=== PATIENT | female | born 1965 | race Caucasian/White ===

== ENCOUNTER → 2018-01-15 11:32 | Outpatient (CLI) | payer OTHER, MEDICAID, SELFPAY ==
--- NOTE | 2018-01-15 | DI.MRI.S_ITS ---
PROCEDURE: MR CERVICAL SPINE WO CON INDICATIONS: CHRONIC NECK PAIN TECHNIQUE: Noncontrast sagittal T1 spin echo and T2 fast spin echo, sagittal STIR, foraminal oblique sagittal T2 fast spin echo, and axial gradient echo or T2 fast spin echo through the cervical spine. COMPARISON: Outside Facility, RG, XR C-SPINE 4-6V, 07/20/2017, 15:58. FINDINGS: Image quality: Diagnostic, with note made of motion artifact. Alignment and Curvature: There is normal bony alignment. Bone Marrow: Marrow demonstrates normal overall signal. Spinal Cord: Visualized spinal cord has normal size and signal. No cerebellar tonsillar herniation. Paraspinous Soft Tissues: No paravertebral masses. Prevertebral soft tissues are normal in thickness. C2-C3: Normal appearance. C3-C4: No significant abnormality is seen. C4-C5: Vertebral body fusion is seen at this level. No significant neural foraminal or central canal narrowing can be seen. C5-C6: Minimal to mild loss of disc height is seen. Moderate disc osteophyte complex is seen, with a central/right disc osteophyte protrusion seen. Mild facet joint hypertrophy is seen. There is moderate to severe left-sided and mild to moderate right-sided neural foraminal narrowing seen. Moderate central canal narrowing is seen, with associated mass effect upon the ventral spinal cord. C6-C7: Moderate loss of disc height is seen. Loss of disc signal is seen. Moderate disc osteophyte complex is seen, which is eccentric to the right. There is a central/right disc osteophyte protrusion seen. There is moderate to severe bilateral neural foraminal narrowing seen. Moderate to severe central canal narrowing is seen, with associated mass effect upon the ventral spinal cord. C7-T1: The disc height and disk signal are well-preserved. Mild to moderate disc osteophyte complex is seen. Mild facet joint hypertrophy is seen. Moderate bilateral neural foraminal narrowing is seen. Mild central canal narrowing is seen. IMPRESSION: Vertebral body fusion changes at C4-C5. Lower cervical spine degenerative changes are seen, which are most prominent at the C6-C7 level. Dictated by: Terrance Calderon M.D. on 01/15/2018 at 11:59 Approved by: Terrance Calderon M.D. on 01/15/2018 at 12:04
== END ==
PROVIDERS: Family Provider Physical Medicine & Rehabilitation; Visit Provider Nurse Practitioner Family
DX: M54.2 Cervicalgia (principal); G89.29 Other chronic pain; Z98.1 Arthrodesis status; M47.812 Spondylosis without myelopathy or radiculopathy, cervical region
CPT/HCPCS: 72141

== ENCOUNTER → 2018-01-24 12:41 | Outpatient (CLI) | payer OTHER, MEDICAID, SELFPAY ==
--- NOTE | 2018-01-24 12:42 | DI.MRI.S_ITS ---
PROCEDURE: MR LUMBAR SPINE WO CON INDICATIONS: Evaluation lower back pains TECHNIQUE: Noncontrast sagittal T1 spin echo and T2 fast echo, sagittal STIR, axial T1 and T2 fast spin echo through the lumbar spine. In cases with scoliosis, additional coronal T2 fast spin echo may be performed. COMPARISON: None. FINDINGS: Image quality: Excellent. Alignment and Curvature: There is normal bony alignment. Bone Marrow: Marrow is of normal overall signal. No acute vertebral body compression fractures. Spinal Cord: Conus medullaris terminates at the T12 level. Visualized cord demonstrates normal signal and size. Paraspinous Soft Tissues: No paravertebral masses. L1-L2: Normal appearance. L2-L3: Normal appearance. L3-L4: Mild disc desiccation. Broad-based disc bulge. Mild facet and ligamentum flavum hypertrophy. No canal stenosis. No foraminal stenosis. L4-L5: Mild disc desiccation. Mild disc bulge. Mild facet and ligamentum flavum hypertrophy. No canal stenosis. Mild bilateral neuroforaminal stenosis. L5-S1: Mild disc desiccation. Broad-based disc bulge. Mild facet sclerosis. No canal stenosis. Moderate bilateral foraminal stenosis. IMPRESSION: 1. No canal stenosis of the lumbar spine. 2. Moderate bilateral foraminal narrowing L5-S1. Dictated by: Dena Navarro M.D. on 01/24/2018 at 14:58 Approved by: Dena Navarro M.D. on 01/24/2018 at 15:01
== END ==
PROVIDERS: Family Provider Physical Medicine & Rehabilitation; PCP Nurse Practitioner Family; Visit Provider Physical Medicine & Rehabilitation
DX: M54.5 Low back pain (principal); M48.07 Spinal stenosis, lumbosacral region; M54.17 Radiculopathy, lumbosacral region
CPT/HCPCS: 72148

== ENCOUNTER 2018-03-12 10:15 | Outpatient (RCR) | payer OTHER, MEDICAID, SELFPAY ==
--- NOTE | 2017-12-14 10:36 | PT.OIE ---
Current Diagnoses Other chronic pain (12/14/17) Low back pain (12/14/17) Past Medical History (Last Updated 09/19/17 @ 11:52 by Maddie Peña) ADHD (attention deficit hyperactivity disorder) (Chronic) Anxiety (Chronic) Fibromyalgia (Chronic) PTSD (post-traumatic stress disorder) (Chronic) Panic (Chronic) Provider Visit Care Team Role Provider Type Anahi Hickey MD Primary Care Provider Non-Staff Specialty: Medical Address: [address] [place] [address], [phone] Email: AVERY Key Attending Provider Non-Staff Specialty: Medical Address: [address] [place] [address], [phone] Email: Physical Therapy Initial Evaluation PT-OP-A Visit Information Start: 12/14/17 08:12 Freq: Status: Active Protocol: Document 12/14/17 08:13 SAK (Rec: 12/14/17 08:28 [facility] [id number]) Out-Patient Physical Therapy Visit Information Visit Information Visit Type Initial Evaluation Visit Start Time 08:15 Visit Stop Time 09:10 Total Visit Minutes 55 Visit Number 1 Number of CHILD NEUROLOGIST Visits 0 Evaluation Information Evaluation Date 12/14/17 PT-OP-B Current Condition Start: 12/14/17 08:12 Freq: Status: Active Protocol: Document 12/14/17 08:13 SAK (Rec: 12/14/17 08:28 SAK [id number]) Current Condition History of Current Condition Onset Date 1997 Current Complaints function limiting LBP with radicular symptoms right LE History of Current Condition History C45 discectomy herniated disc cervical spine. Has done heavy physical work , has PTSD, started getting neck and right UE symptoms again about 2 years ago. Then started getting symptoms in right knee; giving way and swelling, sciatica. Has had injections and fluid removal right knee. 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 Did PT for neck. CT done [facility]. Awaiting MRI. Now referred for function-limiting LBP; difficulty getting dressed, doing household activities. Sometimes unable to get out of bed. No prior PT for LBP. Prior Treatments and Tests history fibromyalgia. Doing therapy for PTSD. Future Testing and Treatments Planned MRI for cervical spine. Treatment Goals Patient/Caregiver Goals Decrease pain, return to more active lifestyle. Prior Functional Status Baseline Function- ADL's Independent Baseline Function- Mobility Independent Baseline Function- Gait Independent Baseline Function- Work/School No limitations Baseline Function- Recreation/Hobbies No limitations Current Functional Impairments (Reported) Functional Limitations- ADL's moderately to severely limited Functional Limitations- Mobility/Gait moderately to severely limited Functional Limitations- Work/School UNABLE Functional Limitations- Recreation/ UNABLE Hobbies Personal Factors Other Personal Factors That May Effect PTSD Therapy/Recovery Depression PT-OP-C Subjective Start: 12/14/17 08:12 Freq: Status: Active Protocol: Document 12/14/17 08:13 SAK (Rec: 12/14/17 10:27 [facility] [id number]) Patient Questionnaires Oswestry Low Back Index Oswestry Score 70 Oswestry Impairment 60 to 79% Impaired (Score 60- 79) OP-PT Pain Assessment Pain Assessment Grid Paper Pain Assessment Grid Completed Yes Location LBP; central and right-sided Pain Location Details radicular symptoms into right LE Intensity 9 Scale Used Numeric (1 - 10) Description Aching Chronic Pressure Pulling Radiating Spasm Tender Tightness With Movement Frequency Frequent Pain Aggravating Factors Activity Pain Alleviating Factors None Pain Behaviors Pain Behaviors Facial Grimacing Guarding Restlessness Wincing PT-OP-F Manual Assessment Start: 12/14/17 08:12 Freq: Status: Active Protocol: Document 12/14/17 08:13 SAK (Rec: 12/14/17 10:27 [facility] [id number]) Manual Assessments Soft Tissue Assessment Soft Tissue Mobility Assessment decreased soft tissue mobility bilateral lumbar spine and buttocks PT-OP-H Neuro Start: 12/14/17 08:12 Freq: Status: Active Protocol: Document 12/14/17 08:13 SAK (Rec: 12/14/17 10:27 [facility] [id number]) Sensation Evaluation Gross Sensation Gross Sensation Right LE Impaired Sensation Description Paresthesia Pain Deep Tendon Reflex & Clonus Assessment Deep Tendon Reflex Right Deep Tendon Reflex 0 Absent Left Achilles Deep Tendon Reflex 1+ Diminished Right Patellar Deep Tendon Reflex 0 Absent Left Patellar Deep Tendon Reflex 2+ Normal PT-OP-J Posture/Palpation/Skin Start: 12/14/17 08:12 Freq: Status: Active Protocol: Document 12/14/17 08:13 SAK (Rec: 12/14/17 10:27 [facility] [id number]) Posture Evaluation Position Standing Head/C-Spine Posture Forward Head T-Spine Posture Increased Kyphosis L-Spine Posture Increased Lordosis Palpation Assessment Location lumbar spine Palpation Location right Palpation Findings Soft Tissue Tightness Muscle Guarding Tenderness PT-OP-K Range of Motion Start: 12/14/17 08:12 Freq: Status: Active Protocol: Document 12/14/17 08:13 BOB (Rec: 12/14/17 10:27 [facility] [id number]) Lumbar Spine Range of Motion Lumbar Spine Active Testing Position Standing Flexion 30 Extension 20 Rotation Left 30 Rotation Right 35 Lateral Flexion Left 25 Lateral Flexion Right 25 ROM Limitations Soft Tissue Tightness Pain Hip Goniometric Range of Motion Hip Measured in Degrees Right Hip ROM WFL No Testing Position Supine Flexion w/Knee Flexed 120 Straight Leg Raise 65 Extension 10 Internal Rotation 20 External Rotation 45 Left Hip ROM WFL No Testing Position Supine Flexion w/Knee Flexed 120 Straight Leg Raise 60 Extension 10 Internal Rotation 20 External Rotation 45 Knee Goniometric Range of Motion Knee Measured in Degrees Right Knee ROM WFL Yes Patient Position Sitting Left Knee ROM WFL Yes Patient Position Sitting Ankle and Foot Goniometric Range of Motion Ankle and Foot Measured in Degrees Right Ankle/Foot ROM WFL Yes Testing Position Sitting Left Ankle/Foot ROM WFL Yes Testing Position Sitting PT-OP-M Strength Start: 12/14/17 08:12 Freq: Status: Active Protocol: Document 12/14/17 08:13 BOB (Rec: 12/14/17 10:27 [facility] [id number]) Hip Strength Hip Manual Muscle Testing Right Flexion (L2) 4 Good Extension (S1) 4 Good Abduction 4- Good- External Rotation 4- Good- Internal Rotation 4 Good Reason Not Measured Pain Left Flexion (L2) 4 Good Extension (S1) 4 Good Abduction 4- Good- External Rotation 4- Good- Internal Rotation 4+ Good+ Knee Strength Knee Manual Muscle Testing Right Flexion (S2) 4- Good- Extension (L3) 4- Good- Left Flexion (S2) 4- Good- Extension (L3) 4 Good Ankle/Foot Strength Ankle and Foot Manual Muscle Testing Right Dorsiflexion (L4) 4+ Good+ Plantarflexion (S1) 4+ Good+ Left Dorsiflexion (L4) 4+ Good+ Plantarflexion (S1) 4+ Good+ Toe Strength Toe Manual Muscle Testing Great Toe Flexion 4+ Good+ Extension 4+ Good+ Comments reji PT-OP-Q Treatments Start: 12/14/17 08:12 Freq: Status: Active Protocol: Document 12/14/17 08:13 [facility] (Rec: 12/14/17 10:27 [facility] [id number]) Self-Care/Home Management Treatment Education Patient Education Home Exercise Program Other Education TrA activation in all positions, pillow squeeze with TrA, gentle ROM and strengthening, bed positioning PT-OP-R Modalities Start: 12/14/17 08:12 Freq: Status: Active Protocol: Document 12/14/17 08:13 [facility] (Rec: 12/14/17 10:27 [facility] [id number]) Hot Pack/Cold Pack Treatment Hot Pack Location lumbar spine Patient Position Hooklying Treatment Duration (minutes) 15 Patient Tolerance Good PT-OP-T Assessment and Plan Start: 12/14/17 08:12 Freq: Status: Active Protocol: Document 12/14/17 08:13 [facility] (Rec: 12/14/17 08:33 [facility] [id number]) Physical Therapy Assessment Rehab Potential Rehabilitation Potential Good Evaluation Complexity Number of Personal Factors/Comorbidities 3 or More Number of Body Systems Impaired 4 or More Clinical Presentation at Evaluation Evolving Impairments Impairments Activity Tolerance Functional Mobility Pain Posture ROM Strength Other Concerns Barriers to Rehabilitation chronicity Goals 5 Impairment strength Short Term Goal (STG) Improve TrA activation and LE strength by 1/2 grade STG Duration 6 wks Engraver Automatic Goal (LTG) Independent with HEP and aquatic exercise program for long-term pain management and fitness. LTG Duration 3 months 4 Impairment ROM Engraver Automatic Goal (LTG) Improve LE and trunk ROM to WFL with minimal to no pain LTG Duration 3 months 3 Impairment Oswestery disability index score Short Term Goal (STG) Decrease Oswestry score to 50% STG Duration 6 wks Engraver Automatic Goal (LTG) Decrease Oswestry score to 30% LTG Duration 3 months 2 Impairment activity tolerance Snf Goal (LTG) Improve activity tolerance to allow patient to perform light household tasks with minimal to no pain and return to more active lifestyle. LTG Duration 3 months One Impairment pain Short Term Goal (STG) Decrease pain no no greater than 7/10 STG Duration 6 wks Snf Goal (LTG) Decrease pain to no greater than 3/10 LTG Duration 3 months Assessment Summary Assessment Patient presents with function -limiting pain in lumbar spine with radicular symptoms right LE with significant findings by imaging. Has history of chronic pain including diagnosis of fibromyalgia. Feel she would benefit from aquatic PT for unweighting of joints to allow increased mobility with decreased pain. Will also need to gently progress her back to doing HEP and help her problem-solve where she might be able to afford to do aquatic exercise once she is discharged from physical therapy. Physical Therapy Plan Frequency and Duration Frequency of Treatment 8 visits Duration of Treatment 3 months Plan of Care Start Date 12/14/17 Plan of Care End Date 03/16/18 Therapeutic Interventions Therapeutic Interventions Aquatic Therapy Home Exercise Program Self-Care/Home Management Modalities Hot Packs Next Visit Focus/Plan Next Note Type Treatment Note Next Visit Plan Initiate aquatic therapy
--- NOTE | 2017-12-14 10:36 | PT.OPPOC ---
Current Diagnoses Other chronic pain (12/14/17) Low back pain (12/14/17) Provider Visit Care Team Role Provider Type Anahi Hickey MD Primary Care Provider Non-Staff Specialty: Medical Address: [address] [place] [address], [phone] Email: AVERY Key Attending Provider Non-Staff Specialty: Medical Address: [address] [place] [address], [phone] Email: Plan Of Care PT-OP-T Assessment and Plan Start: 12/14/17 08:12 Freq: Status: Active Protocol: Document 12/14/17 08:13 BOB (Rec: 12/14/17 08:33 SAK [id number]) Physical Therapy Assessment Rehab Potential Rehabilitation Potential Good Evaluation Complexity Number of Personal Factors/Comorbidities 3 or More Number of Body Systems Impaired 4 or More Clinical Presentation at Evaluation Evolving Impairments Impairments Activity Tolerance Functional Mobility Pain Posture ROM Strength Other Concerns Barriers to Rehabilitation chronicity Goals 5 Impairment strength Short Term Goal (STG) Improve TrA activation and LE strength by 1/2 grade STG Duration 6 wks Case Assembler Goal (LTG) Independent with HEP and aquatic exercise program for long-term pain management and fitness. LTG Duration 3 months 4 Impairment ROM Case Assembler Goal (LTG) Improve LE and trunk ROM to WFL with minimal to no pain LTG Duration 3 months 3 Impairment Oswestery disability index score Short Term Goal (STG) Decrease Oswestry score to 50% STG Duration 6 wks Senior Care Goal (LTG) Decrease Oswestry score to 30% LTG Duration 3 months 2 Impairment activity tolerance Senior Care Goal (LTG) Improve activity tolerance to allow patient to perform light household tasks with minimal to no pain and return to more active lifestyle. LTG Duration 3 months One Impairment pain Short Term Goal (STG) Decrease pain no no greater than 7/10 STG Duration 6 wks Case Assembler Goal (LTG) Decrease pain to no greater than 3/10 LTG Duration 3 months Assessment Summary Assessment Patient presents with function -limiting pain in lumbar spine with radicular symptoms right LE with significant findings by imaging. Has history of chronic pain including diagnosis of fibromyalgia. Feel she would benefit from aquatic PT for unweighting of joints to allow increased mobility with decreased pain. Will also need to gently progress her back to doing HEP and help her problem-solve where she might be able to afford to do aquatic exercise once she is discharged from physical therapy. Physical Therapy Plan Frequency and Duration Frequency of Treatment 8 visits Duration of Treatment 3 months Plan of Care Start Date 12/14/17 Plan of Care End Date 03/16/18 Therapeutic Interventions Therapeutic Interventions Aquatic Therapy Home Exercise Program Self-Care/Home Management Modalities Hot Packs Next Visit Focus/Plan Next Note Type Treatment Note Next Visit Plan Initiate aquatic therapy Plan of Care Dates Plan of Care Start Date 12/14/17 Plan of Care End Date 03/16/18 Please Sign and Return: I have reviewed this Plan of Care and certify that the skilled therapy services above are required to meet the patient?s needs. Physician Signature Date Printed Name and Credentials Clinical Instructor Signature Printed Name and Credentials
--- NOTE | 2017-12-19 18:52 | PT.OTN ---
Current Diagnoses Other chronic pain (12/18/17) Low back pain (12/18/17) Physical Therapy Treatment Note PT-OP-A Visit Information Start: 12/14/17 08:12 Freq: Status: Active Protocol: Document 12/19/17 18:44 SAK (Rec: 12/19/17 18:51 [facility] [id number]) Out-Patient Physical Therapy Visit Information Visit Information Visit Type Aquatic Treatment Note Visit Start Time 11:00 Visit Stop Time 11:45 Total Visit Minutes 45 Visit Number 2 Number of MANAGER HEART Visits 0 Evaluation Information Evaluation Date 12/14/17 PT-OP-B Current Condition Start: 12/14/17 08:12 Freq: Status: Active Protocol: Document 12/14/17 08:13 SAK (Rec: 12/14/17 08:28 SAK [id number]) Current Condition History of Current Condition Onset Date 1997 Current Complaints function limiting LBP with radicular symptoms right LE History of Current Condition History C45 discectomy herniated disc cervical spine. Has done heavy physical work , has PTSD, started getting neck and right UE symptoms again about 2 years ago. Then started getting symptoms in right knee; giving way and swelling, sciatica. Has had injections and fluid removal right knee. 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 Did PT for neck. CT done [facility]. Awaiting MRI. Now referred for function-limiting LBP; difficulty getting dressed, doing household activities. Sometimes unable to get out of bed. No prior PT for LBP. Prior Treatments and Tests history fibromyalgia. Doing therapy for PTSD. Future Testing and Treatments Planned MRI for cervical spine. Treatment Goals Patient/Caregiver Goals Decrease pain, return to more active lifestyle. Prior Functional Status Baseline Function- ADL's Independent Baseline Function- Mobility Independent Baseline Function- Gait Independent Baseline Function- Work/School No limitations Baseline Function- Recreation/Hobbies No limitations Current Functional Impairments (Reported) Functional Limitations- ADL's moderately to severely limited Functional Limitations- Mobility/Gait moderately to severely limited Functional Limitations- Work/School UNABLE Functional Limitations- Recreation/ UNABLE Hobbies Personal Factors Other Personal Factors That May Effect PTSD Therapy/Recovery Depression PT-OP-C Subjective Start: 12/14/17 08:12 Freq: Status: Active Protocol: Document 12/19/17 18:44 [facility] (Rec: 12/19/17 18:51 [facility] [id number]) OP-PT Subjective Patient Comments Patient Comments Excited to try aquatic therapy PT-OP-F Manual Assessment Start: 12/14/17 08:12 Freq: Status: Active Protocol: Document 12/14/17 08:13 SAK (Rec: 12/14/17 10:27 SAK [id number]) Manual Assessments Soft Tissue Assessment Soft Tissue Mobility Assessment decreased soft tissue mobility bilateral lumbar spine and buttocks PT-OP-H Neuro Start: 12/14/17 08:12 Freq: Status: Active Protocol: Document 12/14/17 08:13 SAK (Rec: 12/14/17 10:27 SAK [id number]) Sensation Evaluation Gross Sensation Gross Sensation Right LE Impaired Sensation Description Paresthesia Pain Deep Tendon Reflex & Clonus Assessment Deep Tendon Reflex Right Deep Tendon Reflex 0 Absent Left Achilles Deep Tendon Reflex 1+ Diminished Right Patellar Deep Tendon Reflex 0 Absent Left Patellar Deep Tendon Reflex 2+ Normal PT-OP-J Posture/Palpation/Skin Start: 12/14/17 08:12 Freq: Status: Active Protocol: Document 12/14/17 08:13 SAK (Rec: 12/14/17 10:27 [facility] [id number]) Posture Evaluation Position Standing Head/C-Spine Posture Forward Head T-Spine Posture Increased Kyphosis L-Spine Posture Increased Lordosis Palpation Assessment Location lumbar spine Palpation Location right Palpation Findings Soft Tissue Tightness Muscle Guarding Tenderness PT-OP-K Range of Motion Start: 12/14/17 08:12 Freq: Status: Active Protocol: Document 12/14/17 08:13 SAK (Rec: 12/14/17 10:27 [facility] [id number]) Lumbar Spine Range of Motion Lumbar Spine Active Testing Position Standing Flexion 30 Extension 20 Rotation Left 30 Rotation Right 35 Lateral Flexion Left 25 Lateral Flexion Right 25 ROM Limitations Soft Tissue Tightness Pain Hip Goniometric Range of Motion Hip Measured in Degrees Right Hip ROM WFL No Testing Position Supine Flexion w/Knee Flexed 120 Straight Leg Raise 65 Extension 10 Internal Rotation 20 External Rotation 45 Left Hip ROM WFL No Testing Position Supine Flexion w/Knee Flexed 120 Straight Leg Raise 60 Extension 10 Internal Rotation 20 External Rotation 45 Knee Goniometric Range of Motion Knee Measured in Degrees Right Knee ROM WFL Yes Patient Position Sitting Left Knee ROM WFL Yes Patient Position Sitting Ankle and Foot Goniometric Range of Motion Ankle and Foot Measured in Degrees Right Ankle/Foot ROM WFL Yes Testing Position Sitting Left Ankle/Foot ROM WFL Yes Testing Position Sitting PT-OP-M Strength Start: 12/14/17 08:12 Freq: Status: Active Protocol: Document 12/14/17 08:13 [facility] (Rec: 12/14/17 10:27 [facility] [id number]) Hip Strength Hip Manual Muscle Testing Right Flexion (L2) 4 Good Extension (S1) 4 Good Abduction 4- Good- External Rotation 4- Good- Internal Rotation 4 Good Reason Not Measured Pain Left Flexion (L2) 4 Good Extension (S1) 4 Good Abduction 4- Good- External Rotation 4- Good- Internal Rotation 4+ Good+ Knee Strength Knee Manual Muscle Testing Right Flexion (S2) 4- Good- Extension (L3) 4- Good- Left Flexion (S2) 4- Good- Extension (L3) 4 Good Ankle/Foot Strength Ankle and Foot Manual Muscle Testing Right Dorsiflexion (L4) 4+ Good+ Plantarflexion (S1) 4+ Good+ Left Dorsiflexion (L4) 4+ Good+ Plantarflexion (S1) 4+ Good+ Toe Strength Toe Manual Muscle Testing Great Toe Flexion 4+ Good+ Extension 4+ Good+ Comments reji PT-OP-Q Treatments Start: 12/14/17 08:12 Freq: Status: Active Protocol: Document 12/14/17 08:13 [facility] (Rec: 12/14/17 10:27 [facility] [id number]) Self-Care/Home Management Treatment Education Patient Education Home Exercise Program Other Education TrA activation in all positions, pillow squeeze with TrA, gentle ROM and strengthening, bed positioning PT-OP-R Modalities Start: 12/14/17 08:12 Freq: Status: Active Protocol: Document 12/14/17 08:13 [facility] (Rec: 12/14/17 10:27 [facility] [id number]) Hot Pack/Cold Pack Treatment Hot Pack Location lumbar spine Patient Position Hooklying Treatment Duration (minutes) 15 Patient Tolerance Good PT-OP-S Aquatic Treatment Start: 12/14/17 08:12 Freq: Status: Active Protocol: Document 12/19/17 18:44 [facility] (Rec: 12/19/17 18:51 [facility] [id number]) Aquatics Treatment Pool Entry/Exit Pool Entry/Exit Method Stairs Assistance Standby Assistance Verbal Cues Water Walking fwd,bck, Water Level Chest Level Level of Assistance Verbal Cues Comments cues for posture, core stabilization Lower Extremity Exercises hip flex/ext, ab/ad, circles (cw,ccw) Body Position Standing Water Level Chest Level Reps/Duration 10x ea Lower Extremity Stretches DKTC, SKTC Body Position Standing Water Level [place] Comments at wall HS Body Position Standing Water Level Chest Level Equipment Small Noodle Reps/Duration 2x Spinal Exercises wall squat DLS Details with reji and unil hor ab/ad, flex/ext Reps/Duration 10x ea [place] Activities [place] Activities Bicycle [place] Hip Abduction/Adduction Other Activities deep water hang at wall Equipment flotation belt XL Duration 20 min PT-OP-T Assessment and Plan Start: 12/14/17 08:12 Freq: Status: Active Protocol: Document 12/19/17 18:44 BOB (Rec: 12/19/17 18:51 [facility] [id number]) Physical Therapy Assessment Goals 5 Impairment strength Short Term Goal (STG) Improve TrA activation and LE strength by 1/2 grade STG Duration 6 wks Water Proofer Goal (LTG) Independent with HEP and aquatic exercise program for long-term pain management and fitness. LTG Duration 3 months 4 Impairment ROM Mcfp Goal (LTG) Improve LE and trunk ROM to WFL with minimal to no pain LTG Duration 3 months 3 Impairment Oswestery disability index score Short Term Goal (STG) Decrease Oswestry score to 50% STG Duration 6 wks Mcfp Goal (LTG) Decrease Oswestry score to 30% LTG Duration 3 months 2 Impairment activity tolerance Water Proofer Goal (LTG) Improve activity tolerance to allow patient to perform light household tasks with minimal to no pain and return to more active lifestyle. LTG Duration 3 months One Impairment pain Short Term Goal (STG) Decrease pain no no greater than 7/10 STG Duration 6 wks Water Proofer Goal (LTG) Decrease pain to no greater than 3/10 LTG Duration 3 months Assessment Summary Assessment Good tolerance for first aquatic therapy session. Required frequent cues for postural alignment and core stabilization Physical Therapy Plan Frequency and Duration Frequency of Treatment 8 visits Duration of Treatment 3 months Plan of Care Start Date 12/14/17 Plan of Care End Date 03/16/18 Therapeutic Interventions Therapeutic Interventions Aquatic Therapy Home Exercise Program Self-Care/Home Management Modalities Hot Packs Next Visit Focus/Plan Next Note Type Treatment Note Next Visit Plan Rhythmic stabilization at beginning of session, facilitation of TA. Add ITband and hip adductor stretch
--- NOTE | 2018-01-01 15:08 | PT.OTN ---
Current Diagnoses Other chronic pain (12/18/17) Low back pain (12/18/17) Physical Therapy Treatment Note PT-OP-A Visit Information Start: 12/14/17 08:12 Freq: Status: Active Protocol: Document 01/01/18 12:49 LJ (Rec: 01/01/18 15:08 LJ [id number]) Out-Patient Physical Therapy Visit Information Visit Information Visit Type Aquatic Treatment Note Visit Start Time 12:49 Visit Stop Time 13:30 Total Visit Minutes 41 Visit Number 3 Number of CHEF GERMAN Visits 1 PT-OP-B Current Condition Start: 12/14/17 08:12 Freq: Status: Active Protocol: Document 12/14/17 08:13 SAK (Rec: 12/14/17 08:28 SAK [id number]) Current Condition History of Current Condition Onset Date 1997 Current Complaints function limiting LBP with radicular symptoms right LE History of Current Condition History C45 discectomy herniated disc cervical spine. Has done heavy physical work , has PTSD, started getting neck and right UE symptoms again about 2 years ago. Then started getting symptoms in right knee; giving way and swelling, sciatica. Has had injections and fluid removal right knee. 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 Did PT for neck. CT done [facility]. Awaiting MRI. Now referred for function-limiting LBP; difficulty getting dressed, doing household activities. Sometimes unable to get out of bed. No prior PT for LBP. Prior Treatments and Tests history fibromyalgia. Doing therapy for PTSD. Future Testing and Treatments Planned MRI for cervical spine. Treatment Goals Patient/Caregiver Goals Decrease pain, return to more active lifestyle. Prior Functional Status Baseline Function- ADL's Independent Baseline Function- Mobility Independent Baseline Function- Gait Independent Baseline Function- Work/School No limitations Baseline Function- Recreation/Hobbies No limitations Current Functional Impairments (Reported) Functional Limitations- ADL's moderately to severely limited Functional Limitations- Mobility/Gait moderately to severely limited Functional Limitations- Work/School UNABLE Functional Limitations- Recreation/ UNABLE Hobbies Personal Factors Other Personal Factors That May Effect PTSD Therapy/Recovery Depression PT-OP-C Subjective Start: 12/14/17 08:12 Freq: Status: Active Protocol: Document 01/01/18 12:49 LUCERO (Rec: 01/01/18 15:08 LJ [id number]) OP-PT Subjective Patient Comments Patient Comments Pt arrived late d/t y schedule. PT-OP-F Manual Assessment Start: 12/14/17 08:12 Freq: Status: Active Protocol: Document 12/14/17 08:13 SAK (Rec: 12/14/17 10:27 SAK [id number]) Manual Assessments Soft Tissue Assessment Soft Tissue Mobility Assessment decreased soft tissue mobility bilateral lumbar spine and buttocks PT-OP-H Neuro Start: 12/14/17 08:12 Freq: Status: Active Protocol: Document 12/14/17 08:13 SAK (Rec: 12/14/17 10:27 SAK [id number]) Sensation Evaluation Gross Sensation Gross Sensation Right LE Impaired Sensation Description Paresthesia Pain Deep Tendon Reflex & Clonus Assessment Deep Tendon Reflex Right Deep Tendon Reflex 0 Absent Left Achilles Deep Tendon Reflex 1+ Diminished Right Patellar Deep Tendon Reflex 0 Absent Left Patellar Deep Tendon Reflex 2+ Normal PT-OP-J Posture/Palpation/Skin Start: 12/14/17 08:12 Freq: Status: Active Protocol: Document 12/14/17 08:13 SAK (Rec: 12/14/17 10:27 SAK [id number]) Posture Evaluation Position Standing Head/C-Spine Posture Forward Head T-Spine Posture Increased Kyphosis L-Spine Posture Increased Lordosis Palpation Assessment Location lumbar spine Palpation Location right Palpation Findings Soft Tissue Tightness Muscle Guarding Tenderness PT-OP-K Range of Motion Start: 12/14/17 08:12 Freq: Status: Active Protocol: Document 12/14/17 08:13 SAK (Rec: 12/14/17 10:27 SAK [id number]) Lumbar Spine Range of Motion Lumbar Spine Active Testing Position Standing Flexion 30 Extension 20 Rotation Left 30 Rotation Right 35 Lateral Flexion Left 25 Lateral Flexion Right 25 ROM Limitations Soft Tissue Tightness Pain Hip Goniometric Range of Motion Hip Measured in Degrees Right Hip ROM WFL No Testing Position Supine Flexion w/Knee Flexed 120 Straight Leg Raise 65 Extension 10 Internal Rotation 20 External Rotation 45 Left Hip ROM WFL No Testing Position Supine Flexion w/Knee Flexed 120 Straight Leg Raise 60 Extension 10 Internal Rotation 20 External Rotation 45 Knee Goniometric Range of Motion Knee Measured in Degrees Right Knee ROM WFL Yes Patient Position Sitting Left Knee ROM WFL Yes Patient Position Sitting Ankle and Foot Goniometric Range of Motion Ankle and Foot Measured in Degrees Right Ankle/Foot ROM WFL Yes Testing Position Sitting Left Ankle/Foot ROM WFL Yes Testing Position Sitting PT-OP-M Strength Start: 12/14/17 08:12 Freq: Status: Active Protocol: Document 12/14/17 08:13 SAK (Rec: 12/14/17 10:[address] [facility] [id number]) Hip Strength Hip Manual Muscle Testing Right Flexion (L2) 4 Good Extension (S1) 4 Good Abduction 4- Good- External Rotation 4- Good- Internal Rotation 4 Good Reason Not Measured Pain Left Flexion (L2) 4 Good Extension (S1) 4 Good Abduction 4- Good- External Rotation 4- Good- Internal Rotation 4+ Good+ Knee Strength Knee Manual Muscle Testing Right Flexion (S2) 4- Good- Extension (L3) 4- Good- Left Flexion (S2) 4- Good- Extension (L3) 4 Good Ankle/Foot Strength Ankle and Foot Manual Muscle Testing Right Dorsiflexion (L4) 4+ Good+ Plantarflexion (S1) 4+ Good+ Left Dorsiflexion (L4) 4+ Good+ Plantarflexion (S1) 4+ Good+ Toe Strength Toe Manual Muscle Testing Great Toe Flexion 4+ Good+ Extension 4+ Good+ Comments reji PT-OP-Q Treatments Start: 12/14/17 08:12 Freq: Status: Active Protocol: Document 12/14/17 08:13 BOB (Rec: 12/14/17 10:[address] [facility] [id number]) Self-Care/Home Management Treatment Education Patient Education Home Exercise Program Other Education TrA activation in all positions, pillow squeeze with TrA, gentle ROM and strengthening, bed positioning PT-OP-R Modalities Start: 12/14/17 08:12 Freq: Status: Active Protocol: Document 12/14/17 08:13 BOB (Rec: 12/14/17 10:[address] [facility] [id number]) Hot Pack/Cold Pack Treatment Hot Pack Location lumbar spine Patient Position Hooklying Treatment Duration (minutes) 15 Patient Tolerance Good PT-OP-S Aquatic Treatment Start: 12/14/17 08:12 Freq: Status: Active Protocol: Document 01/01/18 12:49 LJ (Rec: 01/01/18 15:08 LJ [id number]) Aquatics Treatment Pool Entry/Exit Pool Entry/Exit Method Stairs Assistance Standby Assistance Water Walking fwd,bck, Water Level Chest Level Level of Assistance Verbal Cues Comments cues for posture, core stabilization Lower Extremity Stretches DKTC, SKTC Body Position Standing Water Level [place] Comments at wall HS Body Position Standing Water Level Chest Level Reps/Duration 2x Comments body swing in deep water at the wall Upper Extremity Stretches 1 Details forward walk using resistance equip Body Position Standing Water Level Chest Level Equipment UE paddles Comments relax shoulders Spinal Exercises 1 Details squat at wall w/flex/ext LEs Reps/Duration x 10 ea wall squat DLS Details with reji and unil hor ab/ad, flex/ext Reps/Duration 10x ea [place] Activities [place] Activities Bicycle [place] Hip Abduction/Adduction Other Activities used #2 wts on ankles for distraction double leg raise and lower in corner Equipment flotation belt XL Duration 15 min PT-OP-T Assessment and Plan Start: 12/14/17 08:12 Freq: Status: Active Protocol: Document 01/01/18 12:49 LUCERO (Rec: 01/01/18 15:08 LUCERO [id number]) Physical Therapy Assessment Goals 5 Impairment strength Short Term Goal (STG) Improve TrA activation and LE strength by 1/2 grade STG Duration 6 wks Senior Informatic[employer] Etl Developer Goal (LTG) Independent with HEP and aquatic exercise program for long-term pain management and fitness. LTG Duration 3 months 4 Impairment ROM Senior Informatica Etl Developer Goal (LTG) Improve LE and trunk ROM to WFL with minimal to no pain LTG Duration 3 months 2 Impairment activity tolerance [place] Goal (LTG) Improve activity tolerance to allow patient to perform light household tasks with minimal to no pain and return to more active lifestyle. LTG Duration 3 months One Impairment pain Short Term Goal (STG) Decrease pain no no greater than 7/10 STG Duration 6 wks Senior Inform[employer] Etl Developer Goal (LTG) Decrease pain to no greater than 3/10 LTG Duration 3 months Assessment Summary Assessment Pt showed good tolerance and understanding of cueing for posture and core stabilization . Requests HEP for aquatic exercises next session for overall conditioning taking into consideration limiting factors and pain Physical Therapy Plan Frequency and Duration Frequency of Treatment 8 visits Duration of Treatment 3 months Plan of Care Start Date 12/14/17 Plan of Care End Date 03/16/18 Therapeutic Interventions Therapeutic Interventions Aquatic Therapy Home Exercise Program Self-Care/Home Management Next Visit Focus/Plan Next Note Type Treatment Note Next Visit Plan Begin session with rhythmic stabil exercises and progress to dynamic stabilization with walking and perturbations. Stretch lob back and piriformis and include drag equipment with forward walking to open chest and shoulders.
--- NOTE | 2018-01-08 15:37 | PT.OTN ---
Current Diagnoses Other chronic pain (01/08/18) Low back pain (01/08/18) Physical Therapy Treatment Note PT-OP-A Visit Information Start: 12/14/17 08:12 Freq: Status: Active Protocol: Document 01/08/18 12:30 CLB (Rec: 01/08/18 15:37 CLB [id number]) Out-Patient Physical Therapy Visit Information Visit Information Visit Type Aquatic Treatment Note Visit Start Time 12:30 Visit Stop Time 13:15 Total Visit Minutes 45 Visit Number 4 Number of MAINTENANCE SUPERVISOR 2ND SHIFT Visits 2 PT-OP-B Current Condition Start: 12/14/17 08:12 Freq: Status: Active Protocol: Document 12/14/17 08:13 SAK (Rec: 12/14/17 08:28 SAK [id number]) Current Condition History of Current Condition Onset Date 1997 Current Complaints function limiting LBP with radicular symptoms right LE History of Current Condition History C45 discectomy herniated disc cervical spine. Has done heavy physical work , has PTSD, started getting neck and right UE symptoms again about 2 years ago. Then started getting symptoms in right knee; giving way and swelling, sciatica. Has had injections and fluid removal right knee. 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 Did PT for neck. CT done [facility]. Awaiting MRI. Now referred for function-limiting LBP; difficulty getting dressed, doing household activities. Sometimes unable to get out of bed. No prior PT for LBP. Prior Treatments and Tests history fibromyalgia. Doing therapy for PTSD. Future Testing and Treatments Planned MRI for cervical spine. Treatment Goals Patient/Caregiver Goals Decrease pain, return to more active lifestyle. Prior Functional Status Baseline Function- ADL's Independent Baseline Function- Mobility Independent Baseline Function- Gait Independent Baseline Function- Work/School No limitations Baseline Function- Recreation/Hobbies No limitations Current Functional Impairments (Reported) Functional Limitations- ADL's moderately to severely limited Functional Limitations- Mobility/Gait moderately to severely limited Functional Limitations- Work/School UNABLE Functional Limitations- Recreation/ UNABLE Hobbies Personal Factors Other Personal Factors That May Effect PTSD Therapy/Recovery Depression PT-OP-C Subjective Start: 12/14/17 08:12 Freq: Status: Active Protocol: Document 01/08/18 12:30 CLB (Rec: 01/08/18 15:37 CLB [id number]) OP-PT Subjective Patient Comments Patient Comments Pt stated good tolerance to last weeks aquatic tx with no increase in pain from increased activity in pool. PT-OP-F Manual Assessment Start: 12/14/17 08:12 Freq: Status: Active Protocol: Document 12/14/17 08:13 SAK (Rec: 12/14/17 10:27 SAK [id number]) Manual Assessments Soft Tissue Assessment Soft Tissue Mobility Assessment decreased soft tissue mobility bilateral lumbar spine and buttocks PT-OP-H Neuro Start: 12/14/17 08:12 Freq: Status: Active Protocol: Document 12/14/17 08:13 SAK (Rec: 12/14/17 10:27 SAK [id number]) Sensation Evaluation Gross Sensation Gross Sensation Right LE Impaired Sensation Description Paresthesia Pain Deep Tendon Reflex & Clonus Assessment Deep Tendon Reflex Right Deep Tendon Reflex 0 Absent Left Achilles Deep Tendon Reflex 1+ Diminished Right Patellar Deep Tendon Reflex 0 Absent Left Patellar Deep Tendon Reflex 2+ Normal PT-OP-J Posture/Palpation/Skin Start: 12/14/17 08:12 Freq: Status: Active Protocol: Document 12/14/17 08:13 SAK (Rec: 12/14/17 10:27 SAK [id number]) Posture Evaluation Position Standing Head/C-Spine Posture Forward Head T-Spine Posture Increased Kyphosis L-Spine Posture Increased Lordosis Palpation Assessment Location lumbar spine Palpation Location right Palpation Findings Soft Tissue Tightness Muscle Guarding Tenderness PT-OP-K Range of Motion Start: 12/14/17 08:12 Freq: Status: Active Protocol: Document 12/14/17 08:13 SAK (Rec: 12/14/17 10:27 SAK [id number]) Lumbar Spine Range of Motion Lumbar Spine Active Testing Position Standing Flexion 30 Extension 20 Rotation Left 30 Rotation Right 35 Lateral Flexion Left 25 Lateral Flexion Right 25 ROM Limitations Soft Tissue Tightness Pain Hip Goniometric Range of Motion Hip Measured in Degrees Right Hip ROM WFL No Testing Position Supine Flexion w/Knee Flexed 120 Straight Leg Raise 65 Extension 10 Internal Rotation 20 External Rotation 45 Left Hip ROM WFL No Testing Position Supine Flexion w/Knee Flexed 120 Straight Leg Raise 60 Extension 10 Internal Rotation 20 External Rotation 45 Knee Goniometric Range of Motion Knee Measured in Degrees Right Knee ROM WFL Yes Patient Position Sitting Left Knee ROM WFL Yes Patient Position Sitting Ankle and Foot Goniometric Range of Motion Ankle and Foot Measured in Degrees Right Ankle/Foot ROM WFL Yes Testing Position Sitting Left Ankle/Foot ROM WFL Yes Testing Position Sitting PT-OP-M Strength Start: 12/14/17 08:12 Freq: Status: Active Protocol: Document 12/14/17 08:13 SAK (Rec: 12/14/17 10:27 [facility] [id number]) Hip Strength Hip Manual Muscle Testing Right Flexion (L2) 4 Good Extension (S1) 4 Good Abduction 4- Good- External Rotation 4- Good- Internal Rotation 4 Good Reason Not Measured Pain Left Flexion (L2) 4 Good Extension (S1) 4 Good Abduction 4- Good- External Rotation 4- Good- Internal Rotation 4+ Good+ Knee Strength Knee Manual Muscle Testing Right Flexion (S2) 4- Good- Extension (L3) 4- Good- Left Flexion (S2) 4- Good- Extension (L3) 4 Good Ankle/Foot Strength Ankle and Foot Manual Muscle Testing Right Dorsiflexion (L4) 4+ Good+ Plantarflexion (S1) 4+ Good+ Left Dorsiflexion (L4) 4+ Good+ Plantarflexion (S1) 4+ Good+ Toe Strength Toe Manual Muscle Testing Great Toe Flexion 4+ Good+ Extension 4+ Good+ Comments reji PT-OP-Q Treatments Start: 12/14/17 08:12 Freq: Status: Active Protocol: Document 12/14/17 08:13 BOB (Rec: 12/14/17 10:27 [facility] [id number]) Self-Care/Home Management Treatment Education Patient Education Home Exercise Program Other Education TrA activation in all positions, pillow squeeze with TrA, gentle ROM and strengthening, bed positioning PT-OP-R Modalities Start: 12/14/17 08:12 Freq: Status: Active Protocol: Document 12/14/17 08:13 BOB (Rec: 12/14/17 10:27 [facility] [id number]) Hot Pack/Cold Pack Treatment Hot Pack Location lumbar spine Patient Position Hooklying Treatment Duration (minutes) 15 Patient Tolerance Good PT-OP-S Aquatic Treatment Start: 12/14/17 08:12 Freq: Status: Active Protocol: Document 01/08/18 12:30 CLB (Rec: 01/08/18 15:37 CLB [id number]) Aquatics Treatment Pool Entry/Exit Pool Entry/Exit Method Stairs Assistance Standby Assistance Water Walking fwd,bck,,april Water Level Chest Level Level of Assistance Verbal Cues Comments cues for posture, core stabilization Lower Extremity Exercises hip flex/ext, ab/ad, circles (cw,ccw) Body Position Standing Water Level Chest Level Reps/Duration 10x ea Lower Extremity Stretches DKTC, SKTC Body Position Standing Water Level [place] Comments at wall HS Body Position Standing Water Level Chest Level Reps/Duration 2x Comments body swing in deep water at the wall Spinal Exercises 1 Details squat at wall w/flex/ext LEs Reps/Duration x 10 ea wall squat DLS Details with reji and unil hor ab/ad, flex/ext Reps/Duration 10x ea [place] Activities [place] Activities Bicycle [place] Hip Abduction/Adduction Equipment flotation belt XL Duration 15 min PT-OP-T Assessment and Plan Start: 12/14/17 08:12 Freq: Status: Active Protocol: Document 01/08/18 12:30 CLB (Rec: 01/08/18 15:37 CLB [id number]) Physical Therapy Assessment Goals 5 Impairment strength Short Term Goal (STG) Improve TrA activation and LE strength by 1/2 grade STG Duration 6 wks Golf Course [employer] Goal (LTG) Independent with HEP and aquatic exercise program for long-term pain management and fitness. LTG Duration 3 months 4 Impairment ROM Golf Course Architect Goal (LTG) Improve LE and trunk ROM to WFL with minimal to no pain LTG Duration 3 months 3 Impairment Oswestery disability index score Short Term Goal (STG) Decrease Oswestry score to 50% STG Duration 6 wks Golf Course Architect Goal (LTG) Decrease Oswestry score to 30% LTG Duration 3 months 2 Impairment activity tolerance Care Home Goal (LTG) Improve activity tolerance to allow patient to perform light household tasks with minimal to no pain and return to more active lifestyle. LTG Duration 3 months One Impairment pain Short Term Goal (STG) Decrease pain no no greater than 7/10 STG Duration 6 wks Care Home Goal (LTG) Decrease pain to no greater than 3/10 LTG Duration 3 months Assessment Summary Assessment Pt continues to show good tolerance with all aquatic activities. Physical Therapy Plan Frequency and Duration Frequency of Treatment 8 visits Duration of Treatment 3 months Plan of Care Start Date 12/14/17 Plan of Care End Date 03/16/18 Next Visit Focus/Plan Next Note Type Treatment Note Next Visit Plan Begin session with rhythmic stabil exercises and progress to dynamic stabilization with walking and perturbations. Stretch lob back and piriformis and include drag equipment with forward walking to open chest and shoulders.
--- NOTE | 2018-01-15 14:48 | PT.OTN ---
Current Diagnoses Other chronic pain (01/15/18) Low back pain (01/15/18) Physical Therapy Treatment Note PT-OP-A Visit Information Start: 12/14/17 08:12 Freq: Status: Active Protocol: Document 01/15/18 10:15 CLB (Rec: 01/15/18 14:48 CLB [id number]) Out-Patient Physical Therapy Visit Information Visit Information Visit Type Aquatic Treatment Note Visit Start Time 10:15 Visit Stop Time 11:00 Total Visit Minutes 45 Visit Number 5 Number of FINANCIAL AID COORDINATOR Visits 3 PT-OP-B Current Condition Start: 12/14/17 08:12 Freq: Status: Active Protocol: Document 12/14/17 08:13 SAK (Rec: 12/14/17 08:28 SAK [id number]) Current Condition History of Current Condition Onset Date 1997 Current Complaints function limiting LBP with radicular symptoms right LE History of Current Condition History C45 discectomy herniated disc cervical spine. Has done heavy physical work , has PTSD, started getting neck and right UE symptoms again about 2 years ago. Then started getting symptoms in right knee; giving way and swelling, sciatica. Has had injections and fluid removal right knee. 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 Did PT for neck. CT done [facility]. Awaiting MRI. Now referred for function-limiting LBP; difficulty getting dressed, doing household activities. Sometimes unable to get out of bed. No prior PT for LBP. Prior Treatments and Tests history fibromyalgia. Doing therapy for PTSD. Future Testing and Treatments Planned MRI for cervical spine. Treatment Goals Patient/Caregiver Goals Decrease pain, return to more active lifestyle. Prior Functional Status Baseline Function- ADL's Independent Baseline Function- Mobility Independent Baseline Function- Gait Independent Baseline Function- Work/School No limitations Baseline Function- Recreation/Hobbies No limitations Current Functional Impairments (Reported) Functional Limitations- ADL's moderately to severely limited Functional Limitations- Mobility/Gait moderately to severely limited Functional Limitations- Work/School UNABLE Functional Limitations- Recreation/ UNABLE Hobbies Personal Factors Other Personal Factors That May Effect PTSD Therapy/Recovery Depression PT-OP-C Subjective Start: 12/14/17 08:12 Freq: Status: Active Protocol: Document 01/15/18 10:15 CLB (Rec: 01/15/18 14:48 CLB [id number]) OP-PT Subjective Patient Comments Patient Comments Pt stated she has had an increase of pain in low back with minor twist of back.Pt also c/o pain in right knee with flexion. PT-OP-F Manual Assessment Start: 12/14/17 08:12 Freq: Status: Active Protocol: Document 12/14/17 08:13 SAK (Rec: 12/14/17 10:27 SAK [id number]) Manual Assessments Soft Tissue Assessment Soft Tissue Mobility Assessment decreased soft tissue mobility bilateral lumbar spine and buttocks PT-OP-H Neuro Start: 12/14/17 08:12 Freq: Status: Active Protocol: Document 12/14/17 08:13 SAK (Rec: 12/14/17 10:27 SAK [id number]) Sensation Evaluation Gross Sensation Gross Sensation Right LE Impaired Sensation Description Paresthesia Pain Deep Tendon Reflex & Clonus Assessment Deep Tendon Reflex Right Deep Tendon Reflex 0 Absent Left Achilles Deep Tendon Reflex 1+ Diminished Right Patellar Deep Tendon Reflex 0 Absent Left Patellar Deep Tendon Reflex 2+ Normal PT-OP-J Posture/Palpation/Skin Start: 12/14/17 08:12 Freq: Status: Active Protocol: Document 12/14/17 08:13 SAK (Rec: 12/14/17 10:27 SAK [id number]) Posture Evaluation Position Standing Head/C-Spine Posture Forward Head T-Spine Posture Increased Kyphosis L-Spine Posture Increased Lordosis Palpation Assessment Location lumbar spine Palpation Location right Palpation Findings Soft Tissue Tightness Muscle Guarding Tenderness PT-OP-K Range of Motion Start: 12/14/17 08:12 Freq: Status: Active Protocol: Document 12/14/17 08:13 SAK (Rec: 12/14/17 10:27 SAK [id number]) Lumbar Spine Range of Motion Lumbar Spine Active Testing Position Standing Flexion 30 Extension 20 Rotation Left 30 Rotation Right 35 Lateral Flexion Left 25 Lateral Flexion Right 25 ROM Limitations Soft Tissue Tightness Pain Hip Goniometric Range of Motion Hip Measured in Degrees Right Hip ROM WFL No Testing Position Supine Flexion w/Knee Flexed 120 Straight Leg Raise 65 Extension 10 Internal Rotation 20 External Rotation 45 Left Hip ROM WFL No Testing Position Supine Flexion w/Knee Flexed 120 Straight Leg Raise 60 Extension 10 Internal Rotation 20 External Rotation 45 Knee Goniometric Range of Motion Knee Measured in Degrees Right Knee ROM WFL Yes Patient Position Sitting Left Knee ROM WFL Yes Patient Position Sitting Ankle and Foot Goniometric Range of Motion Ankle and Foot Measured in Degrees Right Ankle/Foot ROM WFL Yes Testing Position Sitting Left Ankle/Foot ROM WFL Yes Testing Position Sitting PT-OP-M Strength Start: 12/14/17 08:12 Freq: Status: Active Protocol: Document 12/14/17 08:13 SAK (Rec: 12/14/17 10:27 [facility] [id number]) Hip Strength Hip Manual Muscle Testing Right Flexion (L2) 4 Good Extension (S1) 4 Good Abduction 4- Good- External Rotation 4- Good- Internal Rotation 4 Good Reason Not Measured Pain Left Flexion (L2) 4 Good Extension (S1) 4 Good Abduction 4- Good- External Rotation 4- Good- Internal Rotation 4+ Good+ Knee Strength Knee Manual Muscle Testing Right Flexion (S2) 4- Good- Extension (L3) 4- Good- Left Flexion (S2) 4- Good- Extension (L3) 4 Good Ankle/Foot Strength Ankle and Foot Manual Muscle Testing Right Dorsiflexion (L4) 4+ Good+ Plantarflexion (S1) 4+ Good+ Left Dorsiflexion (L4) 4+ Good+ Plantarflexion (S1) 4+ Good+ Toe Strength Toe Manual Muscle Testing Great Toe Flexion 4+ Good+ Extension 4+ Good+ Comments reji PT-OP-Q Treatments Start: 12/14/17 08:12 Freq: Status: Active Protocol: Document 12/14/17 08:13 SAK (Rec: 12/14/17 10:27 [facility] [id number]) Self-Care/Home Management Treatment Education Patient Education Home Exercise Program Other Education TrA activation in all positions, pillow squeeze with TrA, gentle ROM and strengthening, bed positioning PT-OP-R Modalities Start: 12/14/17 08:12 Freq: Status: Active Protocol: Document 12/14/17 08:13 SAK (Rec: 12/14/17 10:27 [facility] [id number]) Hot Pack/Cold Pack Treatment Hot Pack Location lumbar spine Patient Position Hooklying Treatment Duration (minutes) 15 Patient Tolerance Good PT-OP-S Aquatic Treatment Start: 12/14/17 08:12 Freq: Status: Active Protocol: Document 01/15/18 10:15 CLB (Rec: 01/15/18 14:48 CLB [id number]) Aquatics Treatment Water Walking fwd,bck, Water Level Chest Level Walking Equipment small fins Level of Assistance Verbal Cues Comments cues for posture, core stabilization Lower Extremity Exercises hip flex/ext, ab/ad, circles (cw,ccw) Body Position Standing Water Level Chest Level Equipment small fins Reps/Duration 10x ea Lower Extremity Stretches DKTC, SKTC Body Position Standing Water Level [place] Comments at wall HS Body Position Standing Water Level Chest Level Reps/Duration 2x Comments body swing in deep water at the wall Spinal Exercises 1 Details squat at wall w/flex/ext LEs Reps/Duration x 10 ea wall squat DLS Details with reji and unil hor ab/ad, flex/ext Reps/Duration 10x ea [place] Activities [place] Activities Bicycle [place] Hip Abduction/Adduction Other Activities DWS Equipment flotation belt XL/small fins Duration 15 min PT-OP-T Assessment and Plan Start: 12/14/17 08:12 Freq: Status: Active Protocol: Document 01/15/18 10:15 CLB (Rec: 01/15/18 14:48 CLB [id number]) Physical Therapy Assessment Goals 5 Impairment strength Short Term Goal (STG) Improve TrA activation and LE strength by 1/2 grade STG Duration 6 wks [facility] Goal (LTG) Independent with HEP and aquatic exercise program for long-term pain management and fitness. LTG Duration 3 months 4 Impairment ROM Robotic Weld Technician Goal (LTG) Improve LE and trunk ROM to WFL with minimal to no pain LTG Duration 3 months 3 Impairment Oswestery disability index score Short Term Goal (STG) Decrease Oswestry score to 50% STG Duration 6 wks [facility] Goal (LTG) Decrease Oswestry score to 30% LTG Duration 3 months 2 Impairment activity tolerance [facility] Goal (LTG) Improve activity tolerance to allow patient to perform light household tasks with minimal to no pain and return to more active lifestyle. LTG Duration 3 months One Impairment pain Short Term Goal (STG) Decrease pain no no greater than 7/10 STG Duration 6 wks [facility] Goal (LTG) Decrease pain to no greater than 3/10 LTG Duration 3 months Assessment Summary Assessment Pt showing improvement with posture and core activation during activities. Physical Therapy Plan Frequency and Duration Frequency of Treatment 8 visits Duration of Treatment 3 months Plan of Care Start Date 12/14/17 Plan of Care End Date 03/16/18 Next Visit Focus/Plan Next Note Type Treatment Note Next Visit Plan Begin session with rhythmic stabil exercises and progress to dynamic stabilization with walking and perturbations. Stretch lob back and piriformis and include drag equipment with forward walking to open chest and shoulders.
--- NOTE | 2018-01-22 14:50 | PT.OTN ---
Current Diagnoses Other chronic pain (01/22/18) Low back pain (01/22/18) Physical Therapy Treatment Note PT-OP-A Visit Information Start: 12/14/17 08:12 Freq: Status: Active Protocol: Document 01/22/18 10:15 CLB (Rec: 01/22/18 14:50 CLB [id number]) Out-Patient Physical Therapy Visit Information Visit Information Visit Type Aquatic Treatment Note Visit Start Time 10:15 Visit Stop Time 11:00 Total Visit Minutes 45 Visit Number 6 Number of CALL SPECIALIST Visits 4 PT-OP-B Current Condition Start: 12/14/17 08:12 Freq: Status: Active Protocol: Document 12/14/17 08:13 SAK (Rec: 12/14/17 08:28 SAK [id number]) Current Condition History of Current Condition Onset Date 1997 Current Complaints function limiting LBP with radicular symptoms right LE History of Current Condition History C45 discectomy herniated disc cervical spine. Has done heavy physical work , has PTSD, started getting neck and right UE symptoms again about 2 years ago. Then started getting symptoms in right knee; giving way and swelling, sciatica. Has had injections and fluid removal right knee. 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 Did PT for neck. CT done [facility]. Awaiting MRI. Now referred for function-limiting LBP; difficulty getting dressed, doing household activities. Sometimes unable to get out of bed. No prior PT for LBP. Prior Treatments and Tests history fibromyalgia. Doing therapy for PTSD. Future Testing and Treatments Planned MRI for cervical spine. Treatment Goals Patient/Caregiver Goals Decrease pain, return to more active lifestyle. Prior Functional Status Baseline Function- ADL's Independent Baseline Function- Mobility Independent Baseline Function- Gait Independent Baseline Function- Work/School No limitations Baseline Function- Recreation/Hobbies No limitations Current Functional Impairments (Reported) Functional Limitations- ADL's moderately to severely limited Functional Limitations- Mobility/Gait moderately to severely limited Functional Limitations- Work/School UNABLE Functional Limitations- Recreation/ UNABLE Hobbies Personal Factors Other Personal Factors That May Effect PTSD Therapy/Recovery Depression PT-OP-C Subjective Start: 12/14/17 08:12 Freq: Status: Active Protocol: Document 01/22/18 10:15 CLB (Rec: 01/22/18 14:50 CLB [id number]) OP-PT Subjective Patient Comments Patient Comments Pt stated she is having increased pain in her lumbar area R>L. PT-OP-F Manual Assessment Start: 12/14/17 08:12 Freq: Status: Active Protocol: Document 12/14/17 08:13 SAK (Rec: 12/14/17 10:27 SAK [id number]) Manual Assessments Soft Tissue Assessment Soft Tissue Mobility Assessment decreased soft tissue mobility bilateral lumbar spine and buttocks PT-OP-H Neuro Start: 12/14/17 08:12 Freq: Status: Active Protocol: Document 12/14/17 08:13 SAK (Rec: 12/14/17 10:27 SAK [id number]) Sensation Evaluation Gross Sensation Gross Sensation Right LE Impaired Sensation Description Paresthesia Pain Deep Tendon Reflex & Clonus Assessment Deep Tendon Reflex Right Deep Tendon Reflex 0 Absent Left Achilles Deep Tendon Reflex 1+ Diminished Right Patellar Deep Tendon Reflex 0 Absent Left Patellar Deep Tendon Reflex 2+ Normal PT-OP-J Posture/Palpation/Skin Start: 12/14/17 08:12 Freq: Status: Active Protocol: Document 12/14/17 08:13 SAK (Rec: 12/14/17 10:27 SAK [id number]) Posture Evaluation Position Standing Head/C-Spine Posture Forward Head T-Spine Posture Increased Kyphosis L-Spine Posture Increased Lordosis Palpation Assessment Location lumbar spine Palpation Location right Palpation Findings Soft Tissue Tightness Muscle Guarding Tenderness PT-OP-K Range of Motion Start: 12/14/17 08:12 Freq: Status: Active Protocol: Document 12/14/17 08:13 SAK (Rec: 12/14/17 10:27 SAK [id number]) Lumbar Spine Range of Motion Lumbar Spine Active Testing Position Standing Flexion 30 Extension 20 Rotation Left 30 Rotation Right 35 Lateral Flexion Left 25 Lateral Flexion Right 25 ROM Limitations Soft Tissue Tightness Pain Hip Goniometric Range of Motion Hip Measured in Degrees Right Hip ROM WFL No Testing Position Supine Flexion w/Knee Flexed 120 Straight Leg Raise 65 Extension 10 Internal Rotation 20 External Rotation 45 Left Hip ROM WFL No Testing Position Supine Flexion w/Knee Flexed 120 Straight Leg Raise 60 Extension 10 Internal Rotation 20 External Rotation 45 Knee Goniometric Range of Motion Knee Measured in Degrees Right Knee ROM WFL Yes Patient Position Sitting Left Knee ROM WFL Yes Patient Position Sitting Ankle and Foot Goniometric Range of Motion Ankle and Foot Measured in Degrees Right Ankle/Foot ROM WFL Yes Testing Position Sitting Left Ankle/Foot ROM WFL Yes Testing Position Sitting PT-OP-M Strength Start: 12/14/17 08:12 Freq: Status: Active Protocol: Document 12/14/17 08:13 BOB (Rec: 12/14/17 10:27 [facility] [id number]) Hip Strength Hip Manual Muscle Testing Right Flexion (L2) 4 Good Extension (S1) 4 Good Abduction 4- Good- External Rotation 4- Good- Internal Rotation 4 Good Reason Not Measured Pain Left Flexion (L2) 4 Good Extension (S1) 4 Good Abduction 4- Good- External Rotation 4- Good- Internal Rotation 4+ Good+ Knee Strength Knee Manual Muscle Testing Right Flexion (S2) 4- Good- Extension (L3) 4- Good- Left Flexion (S2) 4- Good- Extension (L3) 4 Good Ankle/Foot Strength Ankle and Foot Manual Muscle Testing Right Dorsiflexion (L4) 4+ Good+ Plantarflexion (S1) 4+ Good+ Left Dorsiflexion (L4) 4+ Good+ Plantarflexion (S1) 4+ Good+ Toe Strength Toe Manual Muscle Testing Great Toe Flexion 4+ Good+ Extension 4+ Good+ Comments reji PT-OP-Q Treatments Start: 12/14/17 08:12 Freq: Status: Active Protocol: Document 12/14/17 08:13 BOB (Rec: 12/14/17 10:27 [facility] [id number]) Self-Care/Home Management Treatment Education Patient Education Home Exercise Program Other Education TrA activation in all positions, pillow squeeze with TrA, gentle ROM and strengthening, bed positioning PT-OP-R Modalities Start: 12/14/17 08:12 Freq: Status: Active Protocol: Document 12/14/17 08:13 BOB (Rec: 12/14/17 10:27 [facility] [id number]) Hot Pack/Cold Pack Treatment Hot Pack Location lumbar spine Patient Position Hooklying Treatment Duration (minutes) 15 Patient Tolerance Good PT-OP-S Aquatic Treatment Start: 12/14/17 08:12 Freq: Status: Active Protocol: Document 01/22/18 10:15 CLB (Rec: 01/22/18 14:50 CLB [id number]) Aquatics Treatment Pool Entry/Exit Pool Entry/Exit Method Stairs Assistance Standby Assistance Water Walking fwd,bck, Water Level Chest Level Walking Equipment large fins Level of Assistance Verbal Cues Comments cues for posture, core stabilization Lower Extremity Exercises hip flex/ext, ab/ad, circles (cw,ccw) Body Position Standing Water Level Chest Level Equipment large fins Lower Extremity Stretches DKTC, SKTC Body Position Standing Water Level [place] Comments at wall HS Body Position Standing Water Level Chest Level Reps/Duration 2x Comments body swing in deep water at the wall Upper Extremity Stretches 1 Details forward walk using resistance equip Body Position Standing Water Level Chest Level Equipment UE paddles Comments relax shoulders Spinal Exercises 1 Details squat at wall w/flex/ext LEs Reps/Duration x 10 ea wall squat DLS Details with reji and unil hor ab/ad, flex/ext Reps/Duration 10x ea [place] Activities [place] Activities Bicycle [place] Hip Abduction/Adduction Other Activities DWS Equipment flotation belt XL/large fins Duration 15 min PT-OP-T Assessment and Plan Start: 12/14/17 08:12 Freq: Status: Active Protocol: Document 01/22/18 10:15 CLB (Rec: 01/22/18 14:50 CLB [id number]) Physical Therapy Assessment Goals 5 Impairment strength Short Term Goal (STG) Improve TrA activation and LE strength by 1/2 grade STG Duration 6 wks [facility] Goal (LTG) Independent with HEP and aquatic exercise program for long-term pain management and fitness. LTG Duration 3 months 4 Impairment ROM [facility] Goal (LTG) Improve LE and trunk ROM to WFL with minimal to no pain LTG Duration 3 months 3 Impairment Oswestery disability index score Short Term Goal (STG) Decrease Oswestry score to 50% STG Duration 6 wks [facility] Goal (LTG) Decrease Oswestry score to 30% LTG Duration 3 months 2 Impairment activity tolerance [facility] Goal (LTG) Improve activity tolerance to allow patient to perform light household tasks with minimal to no pain and return to more active lifestyle. LTG Duration 3 months One Impairment pain Short Term Goal (STG) Decrease pain no no greater than 7/10 STG Duration 6 wks [facility] Goal (LTG) Decrease pain to no greater than 3/10 LTG Duration 3 months Assessment Summary Assessment Pt continues to show good tolerance with all aquatic activities. Physical Therapy Plan Frequency and Duration Frequency of Treatment 8 visits Duration of Treatment 3 months Plan of Care Start Date 12/14/17 Plan of Care End Date 03/16/18 Therapeutic Interventions Therapeutic Interventions Aquatic Therapy Home Exercise Program Self-Care/Home Management Next Visit Focus/Plan Next Note Type Treatment Note Next Visit Plan Begin session with rhythmic stabil exercises and progress to dynamic stabilization with walking and perturbations. Stretch lob back and piriformis and include drag equipment with forward walking to open chest and shoulders.
--- NOTE | 2018-01-29 13:57 | PT.OTN ---
Current Diagnoses Other chronic pain (01/22/18) Low back pain (01/22/18) Physical Therapy Treatment Note PT-OP-A Visit Information Start: 12/14/17 08:12 Freq: Status: Active Protocol: Document 01/29/18 10:15 CLB (Rec: 01/29/18 13:56 CLB [id number]) Out-Patient Physical Therapy Visit Information Visit Information Visit Type Aquatic Treatment Note Visit Start Time 10:15 Visit Stop Time 11:00 Total Visit Minutes 45 Visit Number 7 Number of INSIDE UPHOLSTERER Visits 5 PT-OP-B Current Condition Start: 12/14/17 08:12 Freq: Status: Active Protocol: Document 12/14/17 08:13 SAK (Rec: 12/14/17 08:28 SAK [id number]) Current Condition History of Current Condition Onset Date 1997 Current Complaints function limiting LBP with radicular symptoms right LE History of Current Condition History C45 discectomy herniated disc cervical spine. Has done heavy physical work , has PTSD, started getting neck and right UE symptoms again about 2 years ago. Then started getting symptoms in right knee; giving way and swelling, sciatica. Has had injections and fluid removal right knee. 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 Did PT for neck. CT done [facility]. Awaiting MRI. Now referred for function-limiting LBP; difficulty getting dressed, doing household activities. Sometimes unable to get out of bed. No prior PT for LBP. Prior Treatments and Tests history fibromyalgia. Doing therapy for PTSD. Future Testing and Treatments Planned MRI for cervical spine. Treatment Goals Patient/Caregiver Goals Decrease pain, return to more active lifestyle. Prior Functional Status Baseline Function- ADL's Independent Baseline Function- Mobility Independent Baseline Function- Gait Independent Baseline Function- Work/School No limitations Baseline Function- Recreation/Hobbies No limitations Current Functional Impairments (Reported) Functional Limitations- ADL's moderately to severely limited Functional Limitations- Mobility/Gait moderately to severely limited Functional Limitations- Work/School UNABLE Functional Limitations- Recreation/ UNABLE Hobbies Personal Factors Other Personal Factors That May Effect PTSD Therapy/Recovery Depression PT-OP-C Subjective Start: 12/14/17 08:12 Freq: Status: Active Protocol: Document 01/29/18 10:15 CLB (Rec: 01/29/18 13:56 CLB [id number]) OP-PT Subjective Patient Comments Patient Comments Pt stated she did housework this week including laundry. Pt stated she had cervical and lumbar MRI and will see Dr Colon on February 01. PT-OP-F Manual Assessment Start: 12/14/17 08:12 Freq: Status: Active Protocol: Document 12/14/17 08:13 SAK (Rec: 12/14/17 10:27 SAK [id number]) Manual Assessments Soft Tissue Assessment Soft Tissue Mobility Assessment decreased soft tissue mobility bilateral lumbar spine and buttocks PT-OP-H Neuro Start: 12/14/17 08:12 Freq: Status: Active Protocol: Document 12/14/17 08:13 SAK (Rec: 12/14/17 10:27 SAK [id number]) Sensation Evaluation Gross Sensation Gross Sensation Right LE Impaired Sensation Description Paresthesia Pain Deep Tendon Reflex & Clonus Assessment Deep Tendon Reflex Right Deep Tendon Reflex 0 Absent Left Achilles Deep Tendon Reflex 1+ Diminished Right Patellar Deep Tendon Reflex 0 Absent Left Patellar Deep Tendon Reflex 2+ Normal PT-OP-J Posture/Palpation/Skin Start: 12/14/17 08:12 Freq: Status: Active Protocol: Document 12/14/17 08:13 SAK (Rec: 12/14/17 10:27 SAK [id number]) Posture Evaluation Position Standing Head/C-Spine Posture Forward Head T-Spine Posture Increased Kyphosis L-Spine Posture Increased Lordosis Palpation Assessment Location lumbar spine Palpation Location right Palpation Findings Soft Tissue Tightness Muscle Guarding Tenderness PT-OP-K Range of Motion Start: 12/14/17 08:12 Freq: Status: Active Protocol: Document 12/14/17 08:13 SAK (Rec: 12/14/17 10:27 SAK [id number]) Lumbar Spine Range of Motion Lumbar Spine Active Testing Position Standing Flexion 30 Extension 20 Rotation Left 30 Rotation Right 35 Lateral Flexion Left 25 Lateral Flexion Right 25 ROM Limitations Soft Tissue Tightness Pain Hip Goniometric Range of Motion Hip Measured in Degrees Right Hip ROM WFL No Testing Position Supine Flexion w/Knee Flexed 120 Straight Leg Raise 65 Extension 10 Internal Rotation 20 External Rotation 45 Left Hip ROM WFL No Testing Position Supine Flexion w/Knee Flexed 120 Straight Leg Raise 60 Extension 10 Internal Rotation 20 External Rotation 45 Knee Goniometric Range of Motion Knee Measured in Degrees Right Knee ROM WFL Yes Patient Position Sitting Left Knee ROM WFL Yes Patient Position Sitting Ankle and Foot Goniometric Range of Motion Ankle and Foot Measured in Degrees Right Ankle/Foot ROM WFL Yes Testing Position Sitting Left Ankle/Foot ROM WFL Yes Testing Position Sitting PT-OP-M Strength Start: 12/14/17 08:12 Freq: Status: Active Protocol: Document 12/14/17 08:13 SAK (Rec: 12/14/17 10:27 [facility] [id number]) Hip Strength Hip Manual Muscle Testing Right Flexion (L2) 4 Good Extension (S1) 4 Good Abduction 4- Good- External Rotation 4- Good- Internal Rotation 4 Good Reason Not Measured Pain Left Flexion (L2) 4 Good Extension (S1) 4 Good Abduction 4- Good- External Rotation 4- Good- Internal Rotation 4+ Good+ Knee Strength Knee Manual Muscle Testing Right Flexion (S2) 4- Good- Extension (L3) 4- Good- Left Flexion (S2) 4- Good- Extension (L3) 4 Good Ankle/Foot Strength Ankle and Foot Manual Muscle Testing Right Dorsiflexion (L4) 4+ Good+ Plantarflexion (S1) 4+ Good+ Left Dorsiflexion (L4) 4+ Good+ Plantarflexion (S1) 4+ Good+ Toe Strength Toe Manual Muscle Testing Great Toe Flexion 4+ Good+ Extension 4+ Good+ Comments reji PT-OP-Q Treatments Start: 12/14/17 08:12 Freq: Status: Active Protocol: Document 12/14/17 08:13 SAK (Rec: 12/14/17 10:27 [facility] [id number]) Self-Care/Home Management Treatment Education Patient Education Home Exercise Program Other Education TrA activation in all positions, pillow squeeze with TrA, gentle ROM and strengthening, bed positioning PT-OP-R Modalities Start: 12/14/17 08:12 Freq: Status: Active Protocol: Document 12/14/17 08:13 SAK (Rec: 12/14/17 10:27 [facility] [id number]) Hot Pack/Cold Pack Treatment Hot Pack Location lumbar spine Patient Position Hooklying Treatment Duration (minutes) 15 Patient Tolerance Good PT-OP-S Aquatic Treatment Start: 12/14/17 08:12 Freq: Status: Active Protocol: Document 01/29/18 10:15 CLB (Rec: 01/29/18 13:56 CLB [id number]) Aquatics Treatment Pool Entry/Exit Pool Entry/Exit Method Stairs Assistance Standby Assistance Water Walking fwd,bck,,april Water Level Chest Level Walking Equipment large fins Level of Assistance Verbal Cues Comments cues for posture, core stabilization Lower Extremity Exercises hip flex/ext, ab/ad, circles (cw,ccw) Body Position Standing Water Level Chest Level Equipment large fins Lower Extremity Stretches DKTC, SKTC Body Position Standing Water Level [place] Comments at wall HS Body Position Standing Water Level Chest Level Reps/Duration 2x Comments body swing in deep water at the wall Upper Extremity Stretches 1 Details forward walk using resistance equip Body Position Standing Water Level Chest Level Equipment UE paddles Comments relax shoulders Spinal Exercises 1 Details squat at wall w/flex/ext LEs Reps/Duration x 10 ea wall squat DLS Details with reji and unil hor ab/ad, flex/ext Reps/Duration 10x ea [place] Activities [place] Activities Bicycle [place] Hip Abduction/Adduction Other Activities DWS Equipment flotation belt XL/large fins Duration 15 min PT-OP-T Assessment and Plan Start: 12/14/17 08:12 Freq: Status: Active Protocol: Document 01/29/18 10:15 CLB (Rec: 01/29/18 13:56 CLB [id number]) Physical Therapy Assessment Goals 5 Impairment strength Short Term Goal (STG) Improve TrA activation and LE strength by 1/2 grade STG Duration 6 wks [employer] Goal (LTG) Independent with HEP and aquatic exercise program for long-term pain management and fitness. LTG Duration 3 months 4 Impairment ROM Senior Care Goal (LTG) Improve LE and trunk ROM to WFL with minimal to no pain LTG Duration 3 months 3 Impairment Oswestery disability index score Short Term Goal (STG) Decrease Oswestry score to 50% STG Duration 6 wks Senior Care Goal (LTG) Decrease Oswestry score to 30% LTG Duration 3 months 2 Impairment activity tolerance [employer] Goal (LTG) Improve activity tolerance to allow patient to perform light household tasks with minimal to no pain and return to more active lifestyle. LTG Duration 3 months One Impairment pain Short Term Goal (STG) Decrease pain no no greater than 7/10 STG Duration 6 wks [employer] Service Engineer Goal (LTG) Decrease pain to no greater than 3/10 LTG Duration 3 months Assessment Summary Assessment Pt with improved posture needed fewer cues for core activation. Pt had difficulty today with bicycles due to pain in knee. Physical Therapy Plan Frequency and Duration Frequency of Treatment 8 visits Duration of Treatment 3 months Plan of Care Start Date 12/14/17 Plan of Care End Date 03/16/18
--- NOTE | 2018-02-09 15:57 | PT.OTN ---
Current Diagnoses Other chronic pain (02/09/18) Low back pain (02/09/18) Physical Therapy Treatment Note PT-OP-A Visit Information Start: 12/14/17 08:12 Freq: Status: Active Protocol: Document 02/09/18 12:30 LJ (Rec: 02/09/18 15:56 LJ [id number]) Out-Patient Physical Therapy Visit Information Visit Information Visit Type Aquatic Treatment Note Visit Start Time 12:30 Visit Stop Time 13:15 Total Visit Minutes 45 Visit Number 8 Number of GENERAL INTERNIST AND PHYSICIAN LEADER Visits 5 PT-OP-B Current Condition Start: 12/14/17 08:12 Freq: Status: Active Protocol: Document 12/14/17 08:13 SAK (Rec: 12/14/17 08:28 SAK [id number]) Current Condition History of Current Condition Onset Date 1997 Current Complaints function limiting LBP with radicular symptoms right LE History of Current Condition History C45 discectomy herniated disc cervical spine. Has done heavy physical work , has PTSD, started getting neck and right UE symptoms again about 2 years ago. Then started getting symptoms in right knee; giving way and swelling, sciatica. Has had injections and fluid removal right knee. 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 Did PT for neck. CT done [facility]. Awaiting MRI. Now referred for function-limiting LBP; difficulty getting dressed, doing household activities. Sometimes unable to get out of bed. No prior PT for LBP. Prior Treatments and Tests history fibromyalgia. Doing therapy for PTSD. Future Testing and Treatments Planned MRI for cervical spine. Treatment Goals Patient/Caregiver Goals Decrease pain, return to more active lifestyle. Prior Functional Status Baseline Function- ADL's Independent Baseline Function- Mobility Independent Baseline Function- Gait Independent Baseline Function- Work/School No limitations Baseline Function- Recreation/Hobbies No limitations Current Functional Impairments (Reported) Functional Limitations- ADL's moderately to severely limited Functional Limitations- Mobility/Gait moderately to severely limited Functional Limitations- Work/School UNABLE Functional Limitations- Recreation/ UNABLE Hobbies Personal Factors Other Personal Factors That May Effect PTSD Therapy/Recovery Depression PT-OP-C Subjective Start: 12/14/17 08:12 Freq: Status: Active Protocol: Document 02/09/18 12:30 LJ (Rec: 02/09/18 15:56 LJ [id number]) OP-PT Subjective Patient Comments Patient Comments Pt reports sciatic pain increase. Unable to perform some household tasks d/t pain PT-OP-F Manual Assessment Start: 12/14/17 08:12 Freq: Status: Active Protocol: Document 12/14/17 08:13 SAK (Rec: 12/14/17 10:27 SAK [id number]) Manual Assessments Soft Tissue Assessment Soft Tissue Mobility Assessment decreased soft tissue mobility bilateral lumbar spine and buttocks PT-OP-H Neuro Start: 12/14/17 08:12 Freq: Status: Active Protocol: Document 12/14/17 08:13 SAK (Rec: 12/14/17 10:27 SAK [id number]) Sensation Evaluation Gross Sensation Gross Sensation Right LE Impaired Sensation Description Paresthesia Pain Deep Tendon Reflex & Clonus Assessment Deep Tendon Reflex Right Deep Tendon Reflex 0 Absent Left Achilles Deep Tendon Reflex 1+ Diminished Right Patellar Deep Tendon Reflex 0 Absent Left Patellar Deep Tendon Reflex 2+ Normal PT-OP-J Posture/Palpation/Skin Start: 12/14/17 08:12 Freq: Status: Active Protocol: Document 12/14/17 08:13 SAK (Rec: 12/14/17 10:27 SAK [id number]) Posture Evaluation Position Standing Head/C-Spine Posture Forward Head T-Spine Posture Increased Kyphosis L-Spine Posture Increased Lordosis Palpation Assessment Location lumbar spine Palpation Location right Palpation Findings Soft Tissue Tightness Muscle Guarding Tenderness PT-OP-K Range of Motion Start: 12/14/17 08:12 Freq: Status: Active Protocol: Document 12/14/17 08:13 SAK (Rec: 12/14/17 10:27 SAK [id number]) Lumbar Spine Range of Motion Lumbar Spine Active Testing Position Standing Flexion 30 Extension 20 Rotation Left 30 Rotation Right 35 Lateral Flexion Left 25 Lateral Flexion Right 25 ROM Limitations Soft Tissue Tightness Pain Hip Goniometric Range of Motion Hip Measured in Degrees Right Hip ROM WFL No Testing Position Supine Flexion w/Knee Flexed 120 Straight Leg Raise 65 Extension 10 Internal Rotation 20 External Rotation 45 Left Hip ROM WFL No Testing Position Supine Flexion w/Knee Flexed 120 Straight Leg Raise 60 Extension 10 Internal Rotation 20 External Rotation 45 Knee Goniometric Range of Motion Knee Measured in Degrees Right Knee ROM WFL Yes Patient Position Sitting Left Knee ROM WFL Yes Patient Position Sitting Ankle and Foot Goniometric Range of Motion Ankle and Foot Measured in Degrees Right Ankle/Foot ROM WFL Yes Testing Position Sitting Left Ankle/Foot ROM WFL Yes Testing Position Sitting PT-OP-M Strength Start: 12/14/17 08:12 Freq: Status: Active Protocol: Document 12/14/17 08:13 BOB (Rec: 12/14/17 10:27 [facility] [id number]) Hip Strength Hip Manual Muscle Testing Right Flexion (L2) 4 Good Extension (S1) 4 Good Abduction 4- Good- External Rotation 4- Good- Internal Rotation 4 Good Reason Not Measured Pain Left Flexion (L2) 4 Good Extension (S1) 4 Good Abduction 4- Good- External Rotation 4- Good- Internal Rotation 4+ Good+ Knee Strength Knee Manual Muscle Testing Right Flexion (S2) 4- Good- Extension (L3) 4- Good- Left Flexion (S2) 4- Good- Extension (L3) 4 Good Ankle/Foot Strength Ankle and Foot Manual Muscle Testing Right Dorsiflexion (L4) 4+ Good+ Plantarflexion (S1) 4+ Good+ Left Dorsiflexion (L4) 4+ Good+ Plantarflexion (S1) 4+ Good+ Toe Strength Toe Manual Muscle Testing Great Toe Flexion 4+ Good+ Extension 4+ Good+ Comments reji PT-OP-Q Treatments Start: 12/14/17 08:12 Freq: Status: Active Protocol: Document 12/14/17 08:13 BOB (Rec: 12/14/17 10:27 [facility] [id number]) Self-Care/Home Management Treatment Education Patient Education Home Exercise Program Other Education TrA activation in all positions, pillow squeeze with TrA, gentle ROM and strengthening, bed positioning PT-OP-R Modalities Start: 12/14/17 08:12 Freq: Status: Active Protocol: Document 12/14/17 08:13 BOB (Rec: 12/14/17 10:27 [facility] [id number]) Hot Pack/Cold Pack Treatment Hot Pack Location lumbar spine Patient Position Hooklying Treatment Duration (minutes) 15 Patient Tolerance Good PT-OP-S Aquatic Treatment Start: 12/14/17 08:12 Freq: Status: Active Protocol: Document 02/09/18 12:30 LUCERO (Rec: 02/09/18 15:56 LJ [id number]) Aquatics Treatment Pool Entry/Exit Pool Entry/Exit Method Stairs Assistance Standby Assistance Lower Extremity Stretches piriformis Details at wall Body Position Standing Water Level Chest Level Reps/Duration 2x bilat DKTC, SKTC Body Position Standing Water Level [place] Comments at wall HS Body Position Standing Water Level Chest Level Reps/Duration 2x Comments body swing in deep water at the wall Upper Extremity Stretches 1 Details forward walk using resistance equip Body Position Standing Water Level Chest Level Equipment UE paddles Comments relax shoulders [place] Activities [place] Activities Bicycle [place] Hip Abduction/Adduction Other Activities Corner SLR 10x gentle movements Equipment flotation belt XL Duration 20 min Manual Techniques [place] supine w/manual overrpressure at gluet med origin. Body swing for upper and lower back relaxation and ROM inc rease PT-OP-T Assessment and Plan Start: 12/14/17 08:12 Freq: Status: Active Protocol: Document 02/09/18 12:30 LJ (Rec: 02/09/18 15:56 LJ [id number]) Physical Therapy Assessment Goals 5 Impairment strength Short Term Goal (STG) Improve TrA activation and LE strength by 1/2 grade STG Duration 6 wks Light Bulb Tester Goal (LTG) Independent with HEP and aquatic exercise program for long-term pain management and fitness. LTG Duration 3 months 4 Impairment ROM Care Home Goal (LTG) Improve LE and trunk ROM to WFL with minimal to no pain LTG Duration 3 months 3 Impairment Oswestery disability index score Short Term Goal (STG) Decrease Oswestry score to 50% STG Duration 6 wks Care Home Goal (LTG) Decrease Oswestry score to 30% LTG Duration 3 months 2 Impairment activity tolerance Light Bulb Tester Goal (LTG) Improve activity tolerance to allow patient to perform light household tasks with minimal to no pain and return to more active lifestyle. LTG Duration 3 months One Impairment pain Short Term Goal (STG) Decrease pain no no greater than 7/10 STG Duration 6 wks Care Home Goal (LTG) Decrease pain to no greater than 3/10 LTG Duration 3 months Assessment Summary Assessment Gentle deep water movement d/t increase in pain over last few days. Pt right glute med with increased tension and trigger point tightness. Physical Therapy Plan Next Visit Focus/Plan Next Note Type Treatment Note Next Visit Plan After warming up with walking all ways, stretch LEs, piriformis, glutes prior to gentle exercise. Provide floatation belt for SI stability in shallow water walking
--- NOTE | 2018-02-19 14:26 | PT.OTN ---
Current Diagnoses Other chronic pain (02/19/18) Low back pain (02/19/18) Physical Therapy Treatment Note PT-OP-A Visit Information Start: 12/14/17 08:12 Freq: Status: Active Protocol: Document 02/19/18 10:15 LUCERO (Rec: 02/19/18 14:26 LJ [email or web address]) Out-Patient Physical Therapy Visit Information Visit Information Visit Type Aquatic Treatment Note Visit Start Time 10:15 Visit Stop Time 11:00 Total Visit Minutes 45 Visit Number 9 Number of HVAC/R INSTRUCTOR Visits 6 PT-OP-B Current Condition Start: 12/14/17 08:12 Freq: Status: Active Protocol: Document 12/14/17 08:13 SAK (Rec: 12/14/17 08:28 SAK [id number]) Current Condition History of Current Condition Onset Date 1997 Current Complaints function limiting LBP with radicular symptoms right LE History of Current Condition History C45 discectomy herniated disc cervical spine. Has done heavy physical work , has PTSD, started getting neck and right UE symptoms again about 2 years ago. Then started getting symptoms in right knee; giving way and swelling, sciatica. Has had injections and fluid removal right knee. 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 Did PT for neck. CT done [facility]. Awaiting MRI. Now referred for function-limiting LBP; difficulty getting dressed, doing household activities. Sometimes unable to get out of bed. No prior PT for LBP. Prior Treatments and Tests history fibromyalgia. Doing therapy for PTSD. Future Testing and Treatments Planned MRI for cervical spine. Treatment Goals Patient/Caregiver Goals Decrease pain, return to more active lifestyle. Prior Functional Status Baseline Function- ADL's Independent Baseline Function- Mobility Independent Baseline Function- Gait Independent Baseline Function- Work/School No limitations Baseline Function- Recreation/Hobbies No limitations Current Functional Impairments (Reported) Functional Limitations- ADL's moderately to severely limited Functional Limitations- Mobility/Gait moderately to severely limited Functional Limitations- Work/School UNABLE Functional Limitations- Recreation/ UNABLE Hobbies Personal Factors Other Personal Factors That May Effect PTSD Therapy/Recovery Depression PT-OP-C Subjective Start: 12/14/17 08:12 Freq: Status: Active Protocol: Document 02/19/18 10:15 LUCERO (Rec: 02/19/18 14:26 LJ [email or web address]) OP-PT Subjective Patient Comments Patient Comments Pt reports having massage yesterday which helped ease pain and loosen muscles in hips and back. PT-OP-F Manual Assessment Start: 12/14/17 08:12 Freq: Status: Active Protocol: Document 12/14/17 08:13 SAK (Rec: 12/14/17 10:27 SAK [id number]) Manual Assessments Soft Tissue Assessment Soft Tissue Mobility Assessment decreased soft tissue mobility bilateral lumbar spine and buttocks PT-OP-H Neuro Start: 12/14/17 08:12 Freq: Status: Active Protocol: Document 12/14/17 08:13 SAK (Rec: 12/14/17 10:27 SAK [id number]) Sensation Evaluation Gross Sensation Gross Sensation Right LE Impaired Sensation Description Paresthesia Pain Deep Tendon Reflex & Clonus Assessment Deep Tendon Reflex Right Deep Tendon Reflex 0 Absent Left Achilles Deep Tendon Reflex 1+ Diminished Right Patellar Deep Tendon Reflex 0 Absent Left Patellar Deep Tendon Reflex 2+ Normal PT-OP-J Posture/Palpation/Skin Start: 12/14/17 08:12 Freq: Status: Active Protocol: Document 12/14/17 08:13 SAK (Rec: 12/14/17 10:27 SAK [id number]) Posture Evaluation Position Standing Head/C-Spine Posture Forward Head T-Spine Posture Increased Kyphosis L-Spine Posture Increased Lordosis Palpation Assessment Location lumbar spine Palpation Location right Palpation Findings Soft Tissue Tightness Muscle Guarding Tenderness PT-OP-K Range of Motion Start: 12/14/17 08:12 Freq: Status: Active Protocol: Document 12/14/17 08:13 SAK (Rec: 12/14/17 10:27 SAK [id number]) Lumbar Spine Range of Motion Lumbar Spine Active Testing Position Standing Flexion 30 Extension 20 Rotation Left 30 Rotation Right 35 Lateral Flexion Left 25 Lateral Flexion Right 25 ROM Limitations Soft Tissue Tightness Pain Hip Goniometric Range of Motion Hip Measured in Degrees Right Hip ROM WFL No Testing Position Supine Flexion w/Knee Flexed 120 Straight Leg Raise 65 Extension 10 Internal Rotation 20 External Rotation 45 Left Hip ROM WFL No Testing Position Supine Flexion w/Knee Flexed 120 Straight Leg Raise 60 Extension 10 Internal Rotation 20 External Rotation 45 Knee Goniometric Range of Motion Knee Measured in Degrees Right Knee ROM WFL Yes Patient Position Sitting Left Knee ROM WFL Yes Patient Position Sitting Ankle and Foot Goniometric Range of Motion Ankle and Foot Measured in Degrees Right Ankle/Foot ROM WFL Yes Testing Position Sitting Left Ankle/Foot ROM WFL Yes Testing Position Sitting PT-OP-M Strength Start: 12/14/17 08:12 Freq: Status: Active Protocol: Document 12/14/17 08:13 BOB (Rec: 12/14/17 10:27 [facility] [id number]) Hip Strength Hip Manual Muscle Testing Right Flexion (L2) 4 Good Extension (S1) 4 Good Abduction 4- Good- External Rotation 4- Good- Internal Rotation 4 Good Reason Not Measured Pain Left Flexion (L2) 4 Good Extension (S1) 4 Good Abduction 4- Good- External Rotation 4- Good- Internal Rotation 4+ Good+ Knee Strength Knee Manual Muscle Testing Right Flexion (S2) 4- Good- Extension (L3) 4- Good- Left Flexion (S2) 4- Good- Extension (L3) 4 Good Ankle/Foot Strength Ankle and Foot Manual Muscle Testing Right Dorsiflexion (L4) 4+ Good+ Plantarflexion (S1) 4+ Good+ Left Dorsiflexion (L4) 4+ Good+ Plantarflexion (S1) 4+ Good+ Toe Strength Toe Manual Muscle Testing Great Toe Flexion 4+ Good+ Extension 4+ Good+ Comments reji PT-OP-Q Treatments Start: 12/14/17 08:12 Freq: Status: Active Protocol: Document 12/14/17 08:13 BOB (Rec: 12/14/17 10:27 [facility] [id number]) Self-Care/Home Management Treatment Education Patient Education Home Exercise Program Other Education TrA activation in all positions, pillow squeeze with TrA, gentle ROM and strengthening, bed positioning PT-OP-R Modalities Start: 12/14/17 08:12 Freq: Status: Active Protocol: Document 12/14/17 08:13 BOB (Rec: 12/14/17 10:27 [facility] [id number]) Hot Pack/Cold Pack Treatment Hot Pack Location lumbar spine Patient Position Hooklying Treatment Duration (minutes) 15 Patient Tolerance Good PT-OP-S Aquatic Treatment Start: 12/14/17 08:12 Freq: Status: Active Protocol: Document 02/19/18 10:15 LUCERO (Rec: 02/19/18 14:26 LJ [email or web address]) Aquatics Treatment Pool Entry/Exit Pool Entry/Exit Method Stairs Assistance Independent Water Walking tandem Water Level Chest Level Comments cues for posture fwd,bck,side,april Water Level Chest Level Level of Assistance Standby Assistance Verbal Cues Comments #2.5 ankle wts Lower Extremity Stretches ITB Details at wall Body Position Standing Water Level Chest Level piriformis Details at wall Body Position Standing Water Level Chest Level Reps/Duration 2x bilat DKTC, SKTC Body Position Standing Water Level [place] Comments at wall HS Body Position Standing Water Level Chest Level Reps/Duration 2x Comments body swing in deep water at the wall Upper Extremity Exercises Gastroc, soleus Details at wall Upper Extremity Stretches 1 Details forward walk using resistance equip Water Level Chest Level Equipment UE paddles Comments relax shoulders Spinal Exercises 1 Details squat at wall w/flex/ext LEs wall squat DLS Details with reji and unil hor ab/ad, flex/ext Reps/Duration 10x ea [place] Activities [place] Activities Bicycle [place] Hip Abduction/Adduction Other Activities Corner SLR 10x gentle movements Equipment flotation belt XL Duration 8 min Manual Techniques [place] supine w/manual overrpressure at gluet med origin. Body swing for upper and lower back relaxation and ROM increase for lateral flexion and QL release PT-OP-T Assessment and Plan Start: 12/14/17 08:12 Freq: Status: Active Protocol: Document 02/19/18 10:15 LUCERO (Rec: 02/19/18 14:26 LUCERO [id number]) Physical Therapy Assessment Goals 5 Impairment strength Short Term Goal (STG) Improve TrA activation and LE strength by 1/2 grade STG Duration 6 wks Watch Train Inspector Goal (LTG) Independent with HEP and aquatic exercise program for long-term pain management and fitness. LTG Duration 3 months 4 Impairment ROM Fpc Goal (LTG) Improve LE and trunk ROM to WFL with minimal to no pain LTG Duration 3 months 3 Impairment Oswestery disability index score Short Term Goal (STG) Decrease Oswestry score to 50% STG Duration 6 wks Watch Train Inspector Goal (LTG) Decrease Oswestry score to 30% LTG Duration 3 months 2 Impairment activity tolerance Fpc Goal (LTG) Improve activity tolerance to allow patient to perform light household tasks with minimal to no pain and return to more active lifestyle. LTG Duration 3 months One Impairment pain Short Term Goal (STG) Decrease pain no no greater than 7/10 STG Duration 6 wks Watch Train Inspector Goal (LTG) Decrease pain to no greater than 3/10 LTG Duration 3 months Assessment Summary Assessment Pt demonstrates proper posture 50% of the time in deep water exercises. Requires repeated cueing for shoulder relaxation and core activation. Physical Therapy Plan Frequency and Duration Frequency of Treatment 8 visits Duration of Treatment 3 months Plan of Care Start Date 12/14/17 Plan of Care End Date 03/16/18 Therapeutic Interventions Therapeutic Interventions Aquatic Therapy Home Exercise Program Self-Care/Home Management Next Visit Focus/Plan Next Note Type Treatment Note Next Visit Plan Warm up and stretch prior to exercise. Provide floatation in shallow water with ankle wts for stability in shallow and traction in deep.
--- NOTE | 2018-03-05 14:13 | PT.OTN ---
Current Diagnoses Other chronic pain (02/19/18) Low back pain (02/19/18) Physical Therapy Treatment Note PT-OP-A Visit Information Start: 12/14/17 08:12 Freq: Status: Active Protocol: Document 03/05/18 10:15 LUCERO (Rec: 03/05/18 14:13 LJ [email or web address]) Out-Patient Physical Therapy Visit Information Visit Information Visit Type Aquatic Treatment Note Visit Start Time 10:15 Visit Stop Time 11:00 Total Visit Minutes 45 Visit Number 10 Number of WARP YARN SORTER Visits 4 PT-OP-B Current Condition Start: 12/14/17 08:12 Freq: Status: Active Protocol: Document 12/14/17 08:13 SAK (Rec: 12/14/17 08:28 SAK [id number]) Current Condition History of Current Condition Onset Date 1997 Current Complaints function limiting LBP with radicular symptoms right LE History of Current Condition History C45 discectomy herniated disc cervical spine. Has done heavy physical work , has PTSD, started getting neck and right UE symptoms again about 2 years ago. Then started getting symptoms in right knee; giving way and swelling, sciatica. Has had injections and fluid removal right knee. 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 Did PT for neck. CT done [facility]. Awaiting MRI. Now referred for function-limiting LBP; difficulty getting dressed, doing household activities. Sometimes unable to get out of bed. No prior PT for LBP. Prior Treatments and Tests history fibromyalgia. Doing therapy for PTSD. Future Testing and Treatments Planned MRI for cervical spine. Treatment Goals Patient/Caregiver Goals Decrease pain, return to more active lifestyle. Prior Functional Status Baseline Function- ADL's Independent Baseline Function- Mobility Independent Baseline Function- Gait Independent Baseline Function- Work/School No limitations Baseline Function- Recreation/Hobbies No limitations Current Functional Impairments (Reported) Functional Limitations- ADL's moderately to severely limited Functional Limitations- Mobility/Gait moderately to severely limited Functional Limitations- Work/School UNABLE Functional Limitations- Recreation/ UNABLE Hobbies Personal Factors Other Personal Factors That May Effect PTSD Therapy/Recovery Depression PT-OP-C Subjective Start: 12/14/17 08:12 Freq: Status: Active Protocol: Document 03/05/18 10:15 LUCERO (Rec: 03/05/18 14:13 LJ [email or web address]) OP-PT Subjective Patient Comments Patient Comments Pt reports feeling less pain with less activity but wants to exercise more to lose weight PT-OP-F Manual Assessment Start: 12/14/17 08:12 Freq: Status: Active Protocol: Document 12/14/17 08:13 SAK (Rec: 12/14/17 10:27 SAK [id number]) Manual Assessments Soft Tissue Assessment Soft Tissue Mobility Assessment decreased soft tissue mobility bilateral lumbar spine and buttocks PT-OP-H Neuro Start: 12/14/17 08:12 Freq: Status: Active Protocol: Document 12/14/17 08:13 SAK (Rec: 12/14/17 10:27 SAK [id number]) Sensation Evaluation Gross Sensation Gross Sensation Right LE Impaired Sensation Description Paresthesia Pain Deep Tendon Reflex & Clonus Assessment Deep Tendon Reflex Right Deep Tendon Reflex 0 Absent Left Achilles Deep Tendon Reflex 1+ Diminished Right Patellar Deep Tendon Reflex 0 Absent Left Patellar Deep Tendon Reflex 2+ Normal PT-OP-J Posture/Palpation/Skin Start: 12/14/17 08:12 Freq: Status: Active Protocol: Document 12/14/17 08:13 SAK (Rec: 12/14/17 10:27 SAK [id number]) Posture Evaluation Position Standing Head/C-Spine Posture Forward Head T-Spine Posture Increased Kyphosis L-Spine Posture Increased Lordosis Palpation Assessment Location lumbar spine Palpation Location right Palpation Findings Soft Tissue Tightness Muscle Guarding Tenderness PT-OP-K Range of Motion Start: 12/14/17 08:12 Freq: Status: Active Protocol: Document 12/14/17 08:13 SAK (Rec: 12/14/17 10:27 SAK [id number]) Lumbar Spine Range of Motion Lumbar Spine Active Testing Position Standing Flexion 30 Extension 20 Rotation Left 30 Rotation Right 35 Lateral Flexion Left 25 Lateral Flexion Right 25 ROM Limitations Soft Tissue Tightness Pain Hip Goniometric Range of Motion Hip Measured in Degrees Right Hip ROM WFL No Testing Position Supine Flexion w/Knee Flexed 120 Straight Leg Raise 65 Extension 10 Internal Rotation 20 External Rotation 45 Left Hip ROM WFL No Testing Position Supine Flexion w/Knee Flexed 120 Straight Leg Raise 60 Extension 10 Internal Rotation 20 External Rotation 45 Knee Goniometric Range of Motion Knee Measured in Degrees Right Knee ROM WFL Yes Patient Position Sitting Left Knee ROM WFL Yes Patient Position Sitting Ankle and Foot Goniometric Range of Motion Ankle and Foot Measured in Degrees Right Ankle/Foot ROM WFL Yes Testing Position Sitting Left Ankle/Foot ROM WFL Yes Testing Position Sitting PT-OP-M Strength Start: 12/14/17 08:12 Freq: Status: Active Protocol: Document 12/14/17 08:13 BOB (Rec: 12/14/17 10:27 [facility] [id number]) Hip Strength Hip Manual Muscle Testing Right Flexion (L2) 4 Good Extension (S1) 4 Good Abduction 4- Good- External Rotation 4- Good- Internal Rotation 4 Good Reason Not Measured Pain Left Flexion (L2) 4 Good Extension (S1) 4 Good Abduction 4- Good- External Rotation 4- Good- Internal Rotation 4+ Good+ Knee Strength Knee Manual Muscle Testing Right Flexion (S2) 4- Good- Extension (L3) 4- Good- Left Flexion (S2) 4- Good- Extension (L3) 4 Good Ankle/Foot Strength Ankle and Foot Manual Muscle Testing Right Dorsiflexion (L4) 4+ Good+ Plantarflexion (S1) 4+ Good+ Left Dorsiflexion (L4) 4+ Good+ Plantarflexion (S1) 4+ Good+ Toe Strength Toe Manual Muscle Testing Great Toe Flexion 4+ Good+ Extension 4+ Good+ Comments reji PT-OP-Q Treatments Start: 12/14/17 08:12 Freq: Status: Active Protocol: Document 12/14/17 08:13 BOB (Rec: 12/14/17 10:27 [facility] [id number]) Self-Care/Home Management Treatment Education Patient Education Home Exercise Program Other Education TrA activation in all positions, pillow squeeze with TrA, gentle ROM and strengthening, bed positioning PT-OP-R Modalities Start: 12/14/17 08:12 Freq: Status: Active Protocol: Document 12/14/17 08:13 BOB (Rec: 12/14/17 10:27 [facility] [id number]) Hot Pack/Cold Pack Treatment Hot Pack Location lumbar spine Patient Position Hooklying Treatment Duration (minutes) 15 Patient Tolerance Good PT-OP-S Aquatic Treatment Start: 12/14/17 08:12 Freq: Status: Active Protocol: Document 03/05/18 10:15 LUCERO (Rec: 03/05/18 14:13 LJ [email or web address]) Aquatics Treatment Pool Entry/Exit Pool Entry/Exit Method Stairs Assistance Independent Water Walking Monster Walk Water Level Chest Level [place] Water Level Chest Level Comments #2.5 wts tandem Water Level Chest Level Comments cues for posture fwd,bck,side,april Water Level Chest Level Comments #2.5 ankle wts Lower Extremity Exercises kick backs Details at wall Reps/Duration 2 x 20 bilat Comments #2.5 wts hip dips on step Body Position Standing Water Level Waist Level Reps/Duration 2x10 bilat Comments cues squats Reps/Duration 20 Comments cues for mm activation sequence hip flex/ext, ab/ad, circles (cw,ccw) Body Position Standing Water Level Chest Level Comments #2.5 wts Lower Extremity Stretches ITB Details at wall Body Position Standing Water Level Chest Level piriformis Details at wall Body Position Standing Water Level Chest Level Reps/Duration 2x bilat DKTC, SKTC Body Position Standing HS Body Position Standing Comments body swing Upper Extremity Exercises Gastroc, soleus Details at wall Balance step ups Water Level Waist Level Reps/Duration 20 bilat Comments cues for mm activation sequence [place] Activities [place] Activities Bicycle [place] Hip Abduction/Adduction Other Activities Corner SLR 10x gentle movements Equipment flotation belt XL Duration 5 min PT-OP-T Assessment and Plan Start: 12/14/17 08:12 Freq: Status: Active Protocol: Document 03/05/18 10:15 LUCERO (Rec: 03/05/18 14:13 LUCERO [email or web address]) Physical Therapy Assessment Goals 5 Impairment strength Short Term Goal (STG) Improve TrA activation and LE strength by 1/2 grade STG Duration 6 wks Retirement Goal (LTG) Independent with HEP and aquatic exercise program for long-term pain management and fitness. LTG Duration 3 months 4 Impairment ROM Retirement Goal (LTG) Improve LE and trunk ROM to WFL with minimal to no pain LTG Duration 3 months 3 Impairment Oswestery disability index score Short Term Goal (STG) Decrease Oswestry score to 50% STG Duration 6 wks Retirement Goal (LTG) Decrease Oswestry score to 30% LTG Duration 3 months 2 Impairment activity tolerance Retirement Goal (LTG) Improve activity tolerance to allow patient to perform light household tasks with minimal to no pain and return to more active lifestyle. LTG Duration 3 months One Impairment pain Short Term Goal (STG) Decrease pain no no greater than 7/10 STG Duration 6 wks Drying Unit Felting Machine Operator Goal (LTG) Decrease pain to no greater than 3/10 LTG Duration 3 months Assessment Summary Assessment Pt balance improving as well as activity tolerance. Provide HEP for pool. Pt able to safely perform aquatic exercises independently. Physical Therapy Plan Frequency and Duration Frequency of Treatment 8 visits Duration of Treatment 3 months Plan of Care Start Date 12/14/17 Plan of Care End Date 03/16/18 Therapeutic Interventions Therapeutic Interventions Aquatic Therapy Home Exercise Program Self-Care/Home Management Next Visit Focus/Plan Next Note Type Treatment Note Next Visit Plan Increase intensity of exercises and progress balance and strength of LLE. Provide pool HEP.
--- NOTE | 2018-03-12 14:09 | PT.OTN ---
Current Diagnoses Other chronic pain (03/12/18) Low back pain (03/12/18) Physical Therapy Treatment Note PT-OP-A Visit Information Start: 12/14/17 08:12 Freq: Status: Active Protocol: Document 03/12/18 10:15 SAK (Rec: 03/12/18 14:09 [facility] [id number]) Out-Patient Physical Therapy Visit Information Visit Information Visit Type Aquatic Treatment Note Visit Start Time 10:15 Visit Stop Time 11:00 Total Visit Minutes 45 Visit Number 11 Number of [employer]ER Visits 5 PT-OP-B Current Condition Start: 12/14/17 08:12 Freq: Status: Active Protocol: Document 12/14/17 08:13 SAK (Rec: 12/14/17 08:28 [facility] [id number]) Current Condition History of Current Condition Onset Date 1997 Current Complaints function limiting LBP with radicular symptoms right LE History of Current Condition History C45 discectomy herniated disc cervical spine. Has done heavy physical work , has PTSD, started getting neck and right UE symptoms again about 2 years ago. Then started getting symptoms in right knee; giving way and swelling, sciatica. Has had injections and fluid removal right knee. 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 Did PT for neck. CT done [facility] [place]. Awaiting MRI. Now referred for function-limiting LBP; difficulty getting dressed, doing household activities. Sometimes unable to get out of bed. No prior PT for LBP. Prior Treatments and Tests history fibromyalgia. Doing therapy for PTSD. Future Testing and Treatments Planned MRI for cervical spine. Treatment Goals Patient/Caregiver Goals Decrease pain, return to more active lifestyle. Prior Functional Status Baseline Function- ADL's Independent Baseline Function- Mobility Independent Baseline Function- Gait Independent Baseline Function- Work/School No limitations Baseline Function- Recreation/Hobbies No limitations Current Functional Impairments (Reported) Functional Limitations- ADL's moderately to severely limited Functional Limitations- Mobility/Gait moderately to severely limited Functional Limitations- Work/School UNABLE Functional Limitations- Recreation/ UNABLE Hobbies Personal Factors Other Personal Factors That May Effect PTSD Therapy/Recovery Depression PT-OP-C Subjective Start: 12/14/17 08:12 Freq: Status: Active Protocol: Document 03/12/18 10:15 SAK (Rec: 03/12/18 14:09 [facility] [id number]) OP-PT Subjective Patient Comments Patient Comments Reports aquatic therapy has helped tremendously and she plans to try to continue independently although finances are an issue. Agreeable to discharge from PT today. PT-OP-F Manual Assessment Start: 12/14/17 08:12 Freq: Status: Active Protocol: Document 12/14/17 08:13 SAK (Rec: 12/14/17 10:27 SAK [id number]) Manual Assessments Soft Tissue Assessment Soft Tissue Mobility Assessment decreased soft tissue mobility bilateral lumbar spine and buttocks PT-OP-H Neuro Start: 12/14/17 08:12 Freq: Status: Active Protocol: Document 12/14/17 08:13 SAK (Rec: 12/14/17 10:27 SAK [id number]) Sensation Evaluation Gross Sensation Gross Sensation Right LE Impaired Sensation Description Paresthesia Pain Deep Tendon Reflex & Clonus Assessment Deep Tendon Reflex Right Deep Tendon Reflex 0 Absent Left Achilles Deep Tendon Reflex 1+ Diminished Right Patellar Deep Tendon Reflex 0 Absent Left Patellar Deep Tendon Reflex 2+ Normal PT-OP-J Posture/Palpation/Skin Start: 12/14/17 08:12 Freq: Status: Active Protocol: Document 12/14/17 08:13 SAK (Rec: 12/14/17 10:27 [facility] [id number]) Posture Evaluation Position Standing Head/C-Spine Posture Forward Head T-Spine Posture Increased Kyphosis L-Spine Posture Increased Lordosis Palpation Assessment Location lumbar spine Palpation Location right Palpation Findings Soft Tissue Tightness Muscle Guarding Tenderness PT-OP-K Range of Motion Start: 12/14/17 08:12 Freq: Status: Active Protocol: Document 12/14/17 08:13 SAK (Rec: 12/14/17 10:27 [facility] [id number]) Lumbar Spine Range of Motion Lumbar Spine Active Testing Position Standing Flexion 30 Extension 20 Rotation Left 30 Rotation Right 35 Lateral Flexion Left 25 Lateral Flexion Right 25 ROM Limitations Soft Tissue Tightness Pain Hip Goniometric Range of Motion Hip Measured in Degrees Right Hip ROM WFL No Testing Position Supine Flexion w/Knee Flexed 120 Straight Leg Raise 65 Extension 10 Internal Rotation 20 External Rotation 45 Left Hip ROM WFL No Testing Position Supine Flexion w/Knee Flexed 120 Straight Leg Raise 60 Extension 10 Internal Rotation 20 External Rotation 45 Knee Goniometric Range of Motion Knee Measured in Degrees Right Knee ROM WFL Yes Patient Position Sitting Left Knee ROM WFL Yes Patient Position Sitting Ankle and Foot Goniometric Range of Motion Ankle and Foot Measured in Degrees Right Ankle/Foot ROM WFL Yes Testing Position Sitting Left Ankle/Foot ROM WFL Yes Testing Position Sitting PT-OP-M Strength Start: 12/14/17 08:12 Freq: Status: Active Protocol: Document 12/14/17 08:13 [facility] (Rec: 12/14/17 10:27 [facility] [id number]) Hip Strength Hip Manual Muscle Testing Right Flexion (L2) 4 Good Extension (S1) 4 Good Abduction 4- Good- External Rotation 4- Good- Internal Rotation 4 Good Reason Not Measured Pain Left Flexion (L2) 4 Good Extension (S1) 4 Good Abduction 4- Good- External Rotation 4- Good- Internal Rotation 4+ Good+ Knee Strength Knee Manual Muscle Testing Right Flexion (S2) 4- Good- Extension (L3) 4- Good- Left Flexion (S2) 4- Good- Extension (L3) 4 Good Ankle/Foot Strength Ankle and Foot Manual Muscle Testing Right Dorsiflexion (L4) 4+ Good+ Plantarflexion (S1) 4+ Good+ Left Dorsiflexion (L4) 4+ Good+ Plantarflexion (S1) 4+ Good+ Toe Strength Toe Manual Muscle Testing Great Toe Flexion 4+ Good+ Extension 4+ Good+ Comments reji PT-OP-Q Treatments Start: 12/14/17 08:12 Freq: Status: Active Protocol: Document 12/14/17 08:13 [facility] (Rec: 12/14/17 10:27 [facility] [id number]) Self-Care/Home Management Treatment Education Patient Education Home Exercise Program Other Education TrA activation in all positions, pillow squeeze with TrA, gentle ROM and strengthening, bed positioning PT-OP-R Modalities Start: 12/14/17 08:12 Freq: Status: Active Protocol: Document 12/14/17 08:13 [facility] (Rec: 12/14/17 10:27 [facility] [id number]) Hot Pack/Cold Pack Treatment Hot Pack Location lumbar spine Patient Position Hooklying Treatment Duration (minutes) 15 Patient Tolerance Good PT-OP-S Aquatic Treatment Start: 12/14/17 08:12 Freq: Status: Active Protocol: Document 03/12/18 10:15 [facility] (Rec: 03/12/18 14:09 [facility] [id number]) Aquatics Treatment Pool Entry/Exit Pool Entry/Exit Method Stairs Assistance Independent Water Walking fwd,bck,side,april Water Level Chest Level Lower Extremity Exercises hip dips on step Body Position Standing Water Level Waist Level Reps/Duration 2x10 bilat Comments cues squats Reps/Duration 20 Comments cues for mm activation sequence hip flex/ext, ab/ad, circles (cw,ccw) Body Position Standing Water Level Chest Level Comments large for ROM, small for strengthening and DLS Lower Extremity Stretches quad Body Position Standing Equipment Large Noodle Reps/Duration 2x ITB Details at wall Body Position Standing Water Level Chest Level Reps/Duration large noodle piriformis Details at wall Body Position Standing Water Level Chest Level Reps/Duration 2x bilat DKTC, SKTC Body Position Standing HS Body Position Standing Equipment Large Noodle Comments body swing Upper Extremity Stretches 1 Details forward walk using resistance equip Water Level Chest Level Equipment UE paddles Comments relax shoulders Spinal Exercises 1 Details squat at wall w/flex/ext LEs wall squat DLS Details with reji and unil hor ab/ad, flex/ext Reps/Duration 10x ea Balance step ups Water Level Waist Level Reps/Duration 20 bilat Comments cues for mm activation sequence [place] Activities [place] Activities Bicycle [place] Hip Abduction/Adduction Other Activities Corner SLR 10x gentle movements pendulum bicycle holding barbells behind back Equipment flotation belt XL Duration 12 min Aquatic Yoga Aquatic Yoga Lunge [place] 1 [place] 2 [place] Pose Reverse [place] Downward Dog (Wall) [place] (Wall) PT-OP-T Assessment and Plan Start: 12/14/17 08:12 Freq: Status: Active Protocol: Document 03/12/18 10:15 [facility] (Rec: 03/12/18 14:09 [facility] [id number]) Physical Therapy Assessment Goals 5 Impairment strength Short Term Goal (STG) Improve TrA activation and LE strength by 1/2 grade STG Duration 6 wks Pinsetter Mechanic Helper Goal (LTG) Independent with HEP and aquatic exercise program for long-term pain management and fitness. LTG Duration 3 months 4 Impairment ROM Pinsetter Mechanic Helper Goal (LTG) Improve LE and trunk ROM to WFL with minimal to no pain ( good goal progress) LTG Duration 3 months 3 Impairment Oswestery disability index score Short Term Goal (STG) Decrease Oswestry score to 50% (good goal progress) STG Duration 6 wks Assisted Goal (LTG) Decrease Oswestry score to 30% LTG Duration 3 months 2 Impairment activity tolerance Assisted Goal (LTG) Improve activity tolerance to allow patient to perform light household tasks with minimal to no pain and return to more active lifestyle. (good goal progress) LTG Duration 3 months One Impairment pain Short Term Goal (STG) Decrease pain no no greater than 7/10 (good goal progress) STG Duration 6 wks Pinsetter Mechanic Helper Goal (LTG) Decrease pain to no greater than 3/10 LTG Duration 3 months Assessment Summary Assessment Patient independent with aquatic exercise program and was issued written handouts. Good progress toward goals and anticipate her to continue to progress with HEP and independent aquatic exercise program. Ready for discharge Physical Therapy Plan Discharge Physical Therapy Discharge Comments Completed current program
--- NOTE | 2018-04-13 14:10 | PT.OPDS ---
Current Diagnoses Other chronic pain (03/12/18) Low back pain (03/12/18) Provider Visit Care Team Role Provider Type Anahi Hickey MD Primary Care Provider Non-Staff Specialty: Medical Address: [address] [place] [address], [id number] Email: AVERY Key Attending Provider Non-Staff Specialty: Medical Address: [address] [place] [address], [id number] Email: Visit Number Visit Number 11 Discharge Summary PT-OP-B Current Condition Start: 12/14/17 08:12 Freq: Status: Active Protocol: Document 12/14/17 08:13 SAK (Rec: 12/14/17 08:28 SAK [id number]) Current Condition History of Current Condition Onset Date 1997 Current Complaints function limiting LBP with radicular symptoms right LE History of Current Condition History C45 discectomy herniated disc cervical spine. Has done heavy physical work , has PTSD, started getting neck and right UE symptoms again about 2 years ago. Then started getting symptoms in right knee; giving way and swelling, sciatica. Has had injections and fluid removal right knee. 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 Did PT for neck. CT done [facility]. Awaiting MRI. Now referred for function-limiting LBP; difficulty getting dressed, doing household activities. Sometimes unable to get out of bed. No prior PT for LBP. Prior Treatments and Tests history fibromyalgia. Doing therapy for PTSD. Future Testing and Treatments Planned MRI for cervical spine. Treatment Goals Patient/Caregiver Goals Decrease pain, return to more active lifestyle. Prior Functional Status Baseline Function- ADL's Independent Baseline Function- Mobility Independent Baseline Function- Gait Independent Baseline Function- Work/School No limitations Baseline Function- Recreation/Hobbies No limitations Current Functional Impairments (Reported) Functional Limitations- ADL's moderately to severely limited Functional Limitations- Mobility/Gait moderately to severely limited Functional Limitations- Work/School UNABLE Functional Limitations- Recreation/ UNABLE Hobbies Personal Factors Other Personal Factors That May Effect PTSD Therapy/Recovery Depression PT-OP-C Subjective Start: 12/14/17 08:12 Freq: Status: Active Protocol: Document 04/13/18 12:30 LJ (Rec: 04/13/18 15:15 LJ [id number]) PT-OP-F Manual Assessment Start: 12/14/17 08:12 Freq: Status: Active Protocol: Document 12/14/17 08:13 SAK (Rec: 12/14/17 10:27 SAK [id number]) Manual Assessments Soft Tissue Assessment Soft Tissue Mobility Assessment decreased soft tissue mobility bilateral lumbar spine and buttocks PT-OP-H Neuro Start: 12/14/17 08:12 Freq: Status: Active Protocol: Document 12/14/17 08:13 SAK (Rec: 12/14/17 10:27 SAK [id number]) Sensation Evaluation Gross Sensation Gross Sensation Right LE Impaired Sensation Description Paresthesia Pain Deep Tendon Reflex & Clonus Assessment Deep Tendon Reflex Right Deep Tendon Reflex 0 Absent Left Achilles Deep Tendon Reflex 1+ Diminished Right Patellar Deep Tendon Reflex 0 Absent Left Patellar Deep Tendon Reflex 2+ Normal PT-OP-J Posture/Palpation/Skin Start: 12/14/17 08:12 Freq: Status: Active Protocol: Document 12/14/17 08:13 SAK (Rec: 12/14/17 10:27 SAK [id number]) Posture Evaluation Position Standing Head/C-Spine Posture Forward Head T-Spine Posture Increased Kyphosis L-Spine Posture Increased Lordosis Palpation Assessment Location lumbar spine Palpation Location right Palpation Findings Soft Tissue Tightness Muscle Guarding Tenderness PT-OP-K Range of Motion Start: 12/14/17 08:12 Freq: Status: Active Protocol: Document 12/14/17 08:13 SAK (Rec: 12/14/17 10:27 SAK [id number]) Lumbar Spine Range of Motion Lumbar Spine Active Testing Position Standing Flexion 30 Extension 20 Rotation Left 30 Rotation Right 35 Lateral Flexion Left 25 Lateral Flexion Right 25 ROM Limitations Soft Tissue Tightness Pain Hip Goniometric Range of Motion Hip Measured in Degrees Right Hip ROM WFL No Testing Position Supine Flexion w/Knee Flexed 120 Straight Leg Raise 65 Extension 10 Internal Rotation 20 External Rotation 45 Left Hip ROM WFL No Testing Position Supine Flexion w/Knee Flexed 120 Straight Leg Raise 60 Extension 10 Internal Rotation 20 External Rotation 45 Knee Goniometric Range of Motion Knee Measured in Degrees Right Knee ROM WFL Yes Patient Position Sitting Left Knee ROM WFL Yes Patient Position Sitting Ankle and Foot Goniometric Range of Motion Ankle and Foot Measured in Degrees Right Ankle/Foot ROM WFL Yes Testing Position Sitting Left Ankle/Foot ROM WFL Yes Testing Position Sitting PT-OP-M Strength Start: 12/14/17 08:12 Freq: Status: Active Protocol: Document 12/14/17 08:13 BOB (Rec: 12/14/17 10:27 SAK [id number]) Hip Strength Hip Manual Muscle Testing Right Flexion (L2) 4 Good Extension (S1) 4 Good Abduction 4- Good- External Rotation 4- Good- Internal Rotation 4 Good Reason Not Measured Pain Left Flexion (L2) 4 Good Extension (S1) 4 Good Abduction 4- Good- External Rotation 4- Good- Internal Rotation 4+ Good+ Knee Strength Knee Manual Muscle Testing Right Flexion (S2) 4- Good- Extension (L3) 4- Good- Left Flexion (S2) 4- Good- Extension (L3) 4 Good Ankle/Foot Strength Ankle and Foot Manual Muscle Testing Right Dorsiflexion (L4) 4+ Good+ Plantarflexion (S1) 4+ Good+ Left Dorsiflexion (L4) 4+ Good+ Plantarflexion (S1) 4+ Good+ Toe Strength Toe Manual Muscle Testing Great Toe Flexion 4+ Good+ Extension 4+ Good+ Comments reji PT-OP-T Assessment and Plan Start: 12/14/17 08:12 Freq: Status: Active Protocol: Document 04/13/18 12:30 LUCERO (Rec: 04/13/18 15:15 LJ [id number])
--- NOTE | 2018-04-13 14:10 | PT.OPDS ---
Current Diagnoses Other chronic pain (03/12/18) Low back pain (03/12/18) Provider Visit Care Team Role Provider Type Anahi Hickey MD Primary Care Provider Non-Staff Specialty: Medical Address: [address] [place] [address], [id number] Email: AVERY Key Attending Provider Non-Staff Specialty: Medical Address: [address] [place] [address], [id number] Email: Visit Number Visit Number 11 Discharge Summary PT-OP-B Current Condition Start: 12/14/17 08:12 Freq: Status: Active Protocol: Document 12/14/17 08:13 SAK (Rec: 12/14/17 08:28 SAK [id number]) Current Condition History of Current Condition Onset Date 1997 Current Complaints function limiting LBP with radicular symptoms right LE History of Current Condition History C45 discectomy herniated disc cervical spine. Has done heavy physical work , has PTSD, started getting neck and right UE symptoms again about 2 years ago. Then started getting symptoms in right knee; giving way and swelling, sciatica. Has had injections and fluid removal right knee. 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 Did PT for neck. CT done [facility]. Awaiting MRI. Now referred for function-limiting LBP; difficulty getting dressed, doing household activities. Sometimes unable to get out of bed. No prior PT for LBP. Prior Treatments and Tests history fibromyalgia. Doing therapy for PTSD. Future Testing and Treatments Planned MRI for cervical spine. Treatment Goals Patient/Caregiver Goals Decrease pain, return to more active lifestyle. Prior Functional Status Baseline Function- ADL's Independent Baseline Function- Mobility Independent Baseline Function- Gait Independent Baseline Function- Work/School No limitations Baseline Function- Recreation/Hobbies No limitations Current Functional Impairments (Reported) Functional Limitations- ADL's moderately to severely limited Functional Limitations- Mobility/Gait moderately to severely limited Functional Limitations- Work/School UNABLE Functional Limitations- Recreation/ UNABLE Hobbies Personal Factors Other Personal Factors That May Effect PTSD Therapy/Recovery Depression PT-OP-C Subjective Start: 12/14/17 08:12 Freq: Status: Active Protocol: Document 04/13/18 12:30 LJ (Rec: 04/13/18 15:15 LJ [id number]) PT-OP-F Manual Assessment Start: 12/14/17 08:12 Freq: Status: Active Protocol: Document 12/14/17 08:13 SAK (Rec: 12/14/17 10:27 SAK [id number]) Manual Assessments Soft Tissue Assessment Soft Tissue Mobility Assessment decreased soft tissue mobility bilateral lumbar spine and buttocks PT-OP-H Neuro Start: 12/14/17 08:12 Freq: Status: Active Protocol: Document 12/14/17 08:13 SAK (Rec: 12/14/17 10:27 SAK [id number]) Sensation Evaluation Gross Sensation Gross Sensation Right LE Impaired Sensation Description Paresthesia Pain Deep Tendon Reflex & Clonus Assessment Deep Tendon Reflex Right Deep Tendon Reflex 0 Absent Left Achilles Deep Tendon Reflex 1+ Diminished Right Patellar Deep Tendon Reflex 0 Absent Left Patellar Deep Tendon Reflex 2+ Normal PT-OP-J Posture/Palpation/Skin Start: 12/14/17 08:12 Freq: Status: Active Protocol: Document 12/14/17 08:13 SAK (Rec: 12/14/17 10:27 SAK [id number]) Posture Evaluation Position Standing Head/C-Spine Posture Forward Head T-Spine Posture Increased Kyphosis L-Spine Posture Increased Lordosis Palpation Assessment Location lumbar spine Palpation Location right Palpation Findings Soft Tissue Tightness Muscle Guarding Tenderness PT-OP-K Range of Motion Start: 12/14/17 08:12 Freq: Status: Active Protocol: Document 12/14/17 08:13 SAK (Rec: 12/14/17 10:27 SAK [id number]) Lumbar Spine Range of Motion Lumbar Spine Active Testing Position Standing Flexion 30 Extension 20 Rotation Left 30 Rotation Right 35 Lateral Flexion Left 25 Lateral Flexion Right 25 ROM Limitations Soft Tissue Tightness Pain Hip Goniometric Range of Motion Hip Measured in Degrees Right Hip ROM WFL No Testing Position Supine Flexion w/Knee Flexed 120 Straight Leg Raise 65 Extension 10 Internal Rotation 20 External Rotation 45 Left Hip ROM WFL No Testing Position Supine Flexion w/Knee Flexed 120 Straight Leg Raise 60 Extension 10 Internal Rotation 20 External Rotation 45 Knee Goniometric Range of Motion Knee Measured in Degrees Right Knee ROM WFL Yes Patient Position Sitting Left Knee ROM WFL Yes Patient Position Sitting Ankle and Foot Goniometric Range of Motion Ankle and Foot Measured in Degrees Right Ankle/Foot ROM WFL Yes Testing Position Sitting Left Ankle/Foot ROM WFL Yes Testing Position Sitting PT-OP-M Strength Start: 12/14/17 08:12 Freq: Status: Active Protocol: Document 12/14/17 08:13 BOB (Rec: 12/14/17 10:27 SAK [id number]) Hip Strength Hip Manual Muscle Testing Right Flexion (L2) 4 Good Extension (S1) 4 Good Abduction 4- Good- External Rotation 4- Good- Internal Rotation 4 Good Reason Not Measured Pain Left Flexion (L2) 4 Good Extension (S1) 4 Good Abduction 4- Good- External Rotation 4- Good- Internal Rotation 4+ Good+ Knee Strength Knee Manual Muscle Testing Right Flexion (S2) 4- Good- Extension (L3) 4- Good- Left Flexion (S2) 4- Good- Extension (L3) 4 Good Ankle/Foot Strength Ankle and Foot Manual Muscle Testing Right Dorsiflexion (L4) 4+ Good+ Plantarflexion (S1) 4+ Good+ Left Dorsiflexion (L4) 4+ Good+ Plantarflexion (S1) 4+ Good+ Toe Strength Toe Manual Muscle Testing Great Toe Flexion 4+ Good+ Extension 4+ Good+ Comments reji PT-OP-T Assessment and Plan Start: 12/14/17 08:12 Freq: Status: Active Protocol: Document 04/13/18 12:30 LUCERO (Rec: 04/13/18 15:15 LJ [id number])
--- NOTE | 2018-04-13 15:15 | PT.OTN ---
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 Has done heavy physical work , has PTSD, started getting neck and right UE symptoms again about 2 years ago. Then started getting symptoms in right knee; giving way and swelling, sciatica. Has had injections and fluid removal right knee. 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 Did PT for neck. CT done [facility]. Awaiting MRI. Now referred for function-limiting LBP; difficulty getting dressed, doing household activities. Sometimes unable to get out of bed. No prior PT for LBP. Prior Treatments and Tests history fibromyalgia. Doing therapy for PTSD. Future Testing and Treatments Planned MRI for cervical spine. Treatment Goals Patient/Caregiver Goals Decrease pain, return to more active lifestyle. Prior Functional Status Baseline Function- ADL's Independent Baseline Function- Mobility Independent Baseline Function- Gait Independent Baseline Function- Work/School No limitations Baseline Function- Recreation/Hobbies No limitations Current Functional Impairments (Reported) Functional Limitations- ADL's moderately to severely limited Functional Limitations- Mobility/Gait moderately to severely limited Functional Limitations- Work/School UNABLE Functional Limitations- Recreation/ UNABLE Hobbies Personal Factors Other Personal Factors That May Effect PTSD Therapy/Recovery Depression PT-OP-C Subjective Start: 12/14/17 08:12 Freq: Status: Active Protocol: Document 04/13/18 12:30 LJ (Rec: 04/13/18 15:15 LJ [id number]) OP-PT Subjective Patient Comments Patient Comments Pt reports she is having pain in knee due to an existing issue whinc has been going on for years. States it happens when her knee gets cold and she feels the water is colder today causing the pain. PT-OP-F Manual Assessment Start: 12/14/17 08:12 Freq: Status: Active Protocol: Document 12/14/17 08:13 SAK (Rec: 12/14/17 10:27 SAK [id number]) Manual Assessments Soft Tissue Assessment Soft Tissue Mobility Assessment decreased soft tissue mobility bilateral lumbar spine and buttocks PT-OP-H Neuro Start: 12/14/17 08:12 Freq: Status: Active Protocol: Document 12/14/17 08:13 SAK (Rec: 12/14/17 10:27 SAK [id number]) Sensation Evaluation Gross Sensation Gross Sensation Right LE Impaired Sensation Description Paresthesia Pain Deep Tendon Reflex & Clonus Assessment Deep Tendon Reflex Right Deep Tendon Reflex 0 Absent Left Achilles Deep Tendon Reflex 1+ Diminished Right Patellar Deep Tendon Reflex 0 Absent Left Patellar Deep Tendon Reflex 2+ Normal PT-OP-J Posture/Palpation/Skin Start: 12/14/17 08:12 Freq: Status: Active Protocol: Document 12/14/17 08:13 SAK (Rec: 12/14/17 10:27 SAK [id number]) Posture Evaluation Position Standing Head/C-Spine Posture Forward Head T-Spine Posture Increased Kyphosis L-Spine Posture Increased Lordosis Palpation Assessment Location lumbar spine Palpation Location right Palpation Findings Soft Tissue Tightness Muscle Guarding Tenderness PT-OP-K Range of Motion Start: 12/14/17 08:12 Freq: Status: Active Protocol: Document 12/14/17 08:13 SAK (Rec: 12/14/17 10:27 SAK [id number]) Lumbar Spine Range of Motion Lumbar Spine Active Testing Position Standing Flexion 30 Extension 20 Rotation Left 30 Rotation Right 35 Lateral Flexion Left 25 Lateral Flexion Right 25 ROM Limitations Soft Tissue Tightness Pain Hip Goniometric Range of Motion Hip Measured in Degrees Right Hip ROM WFL No Testing Position Supine Flexion w/Knee Flexed 120 Straight Leg Raise 65 Extension 10 Internal Rotation 20 External Rotation 45 Left Hip ROM WFL No Testing Position Supine Flexion w/Knee Flexed 120 Straight Leg Raise 60 Extension 10 Internal Rotation 20 External Rotation 45 Knee Goniometric Range of Motion Knee Measured in Degrees Right Knee ROM WFL Yes Patient Position Sitting Left Knee ROM WFL Yes Patient Position Sitting Ankle and Foot Goniometric Range of Motion Ankle and Foot Measured in Degrees Right Ankle/Foot ROM WFL Yes Testing Position Sitting Left Ankle/Foot ROM WFL Yes Testing Position Sitting PT-OP-M Strength Start: 12/14/17 08:12 Freq: Status: Active Protocol: Document 12/14/17 08:13 SAK (Rec: 12/14/17 10:27 [facility] [id number]) Hip Strength Hip Manual Muscle Testing Right Flexion (L2) 4 Good Extension (S1) 4 Good Abduction 4- Good- External Rotation 4- Good- Internal Rotation 4 Good Reason Not Measured Pain Left Flexion (L2) 4 Good Extension (S1) 4 Good Abduction 4- Good- External Rotation 4- Good- Internal Rotation 4+ Good+ Knee Strength Knee Manual Muscle Testing Right Flexion (S2) 4- Good- Extension (L3) 4- Good- Left Flexion (S2) 4- Good- Extension (L3) 4 Good Ankle/Foot Strength Ankle and Foot Manual Muscle Testing Right Dorsiflexion (L4) 4+ Good+ Plantarflexion (S1) 4+ Good+ Left Dorsiflexion (L4) 4+ Good+ Plantarflexion (S1) 4+ Good+ Toe Strength Toe Manual Muscle Testing Great Toe Flexion 4+ Good+ Extension 4+ Good+ Comments reji PT-OP-Q Treatments Start: 12/14/17 08:12 Freq: Status: Active Protocol: Document 12/14/17 08:13 [facility] (Rec: 12/14/17 10:27 [facility] [id number]) Self-Care/Home Management Treatment Education Patient Education Home Exercise Program Other Education TrA activation in all positions, pillow squeeze with TrA, gentle ROM and strengthening, bed positioning PT-OP-R Modalities Start: 12/14/17 08:12 Freq: Status: Active Protocol: Document 12/14/17 08:13 SAK (Rec: 12/14/17 10:27 [facility] [id number]) Hot Pack/Cold Pack Treatment Hot Pack Location lumbar spine Patient Position Hooklying Treatment Duration (minutes) 15 Patient Tolerance Good PT-OP-S Aquatic Treatment Start: 12/14/17 08:12 Freq: Status: Active Protocol: Document 04/13/18 12:30 LUCERO (Rec: 04/13/18 15:15 LJ [email or web address]) Aquatics Treatment Pool Entry/Exit Pool Entry/Exit Method Stairs Assistance Independent Water Walking fwd,bck,,april Water Level Chest Level Lower Extremity Exercises kick backs Details at wall Reps/Duration 2 x 20 bilat Comments #2.5 wts hip flex/ext, ab/ad, circles (cw,ccw) Body Position Standing Water Level Chest Level Comments large for ROM, small for strengthening and DLS Lower Extremity Stretches quad Body Position Standing Equipment Large Noodle Reps/Duration 2x ITB Details at wall Body Position Standing Water Level Chest Level Reps/Duration large noodle piriformis Details at wall Body Position Standing Water Level Chest Level Reps/Duration 2x bilat DKTC, SKTC Water Level Gilliam Reps/Duration x4 Comments intermittently during intervals Upper Extremity Exercises Gastroc, soleus Details at wall Gilliam Activities Gilliam Activities Bicycle Cross Country Hip Abduction/Adduction Other Activities Corner SLR 10x gentle movements pendulum bicycle holding barbells behind back Equipment flotation belt med Duration 12 min Manual Techniques Aquatic Manual Traction 10 min using lg blue float, lg neck float, #2.5 on ankles PT-OP-T Assessment and Plan Start: 12/14/17 08:12 Freq: Status: Active Protocol: Document 04/13/18 12:30 LJ (Rec: 04/13/18 15:15 LJ [email or web address]) Physical Therapy Assessment Goals 5 Impairment strength Short Term Goal (STG) Improve TrA activation and LE strength by 1/2 grade STG Duration 6 wks Cloth Washer Operator Goal (LTG) Independent with HEP and aquatic exercise program for long-term pain management and fitness. LTG Duration 3 months 4 Impairment ROM Retirement Goal (LTG) Improve LE and trunk ROM to WFL with minimal to no pain ( good goal progress) LTG Duration 3 months 3 Impairment Oswestery disability index score Short Term Goal (STG) Decrease Oswestry score to 50% (good goal progress) STG Duration 6 wks Cloth Washer Operator Goal (LTG) Decrease Oswestry score to 30% LTG Duration 3 months 2 Impairment activity tolerance Retirement Goal (LTG) Improve activity tolerance to allow patient to perform light household tasks with minimal to no pain and return to more active lifestyle. (good goal progress) LTG Duration 3 months One Impairment pain Short Term Goal (STG) Decrease pain no no greater than 7/10 (good goal progress) STG Duration 6 wks Cloth Washer Operator Goal (LTG) Decrease pain to no greater than 3/10 LTG Duration 3 months Assessment Summary Assessment Pt is self -directed with aquatic therapy. Uninterested in deviating from the exercises she always performs. Will be able to continue independently with HEP for aquatic exercise.
--- NOTE | 2018-06-06 14:04 | PT.OPDS ---
Current Diagnoses Other chronic pain (03/12/18) Low back pain (03/12/18) Provider Visit Care Team Role Provider Type Anahi Hickey MD Primary Care Provider Non-Staff Specialty: Medical Address: [address] [place] [address], [id number] Email: AVERY Key Attending Provider Non-Staff Specialty: Medical Address: [address] [place] [address], [id number] Email: Visit Number Visit Number 11 Discharge Summary PT-OP-B Current Condition Start: 12/14/17 08:12 Freq: Status: Active Protocol: Document 12/14/17 08:13 SAK (Rec: 12/14/17 08:28 SAK [id number]) Current Condition History of Current Condition Onset Date 1997 Current Complaints function limiting LBP with radicular symptoms right LE History of Current Condition History C45 discectomy herniated disc cervical spine. Has done heavy physical work , has PTSD, started getting neck and right UE symptoms again about 2 years ago. Then started getting symptoms in right knee; giving way and swelling, sciatica. Has had injections and fluid removal right knee. 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 Did PT for neck. CT done [facility]. Awaiting MRI. Now referred for function-limiting LBP; difficulty getting dressed, doing household activities. Sometimes unable to get out of bed. No prior PT for LBP. Prior Treatments and Tests history fibromyalgia. Doing therapy for PTSD. Future Testing and Treatments Planned MRI for cervical spine. Treatment Goals Patient/Caregiver Goals Decrease pain, return to more active lifestyle. Prior Functional Status Baseline Function- ADL's Independent Baseline Function- Mobility Independent Baseline Function- Gait Independent Baseline Function- Work/School No limitations Baseline Function- Recreation/Hobbies No limitations Current Functional Impairments (Reported) Functional Limitations- ADL's moderately to severely limited Functional Limitations- Mobility/Gait moderately to severely limited Functional Limitations- Work/School UNABLE Functional Limitations- Recreation/ UNABLE Hobbies Personal Factors Other Personal Factors That May Effect PTSD Therapy/Recovery Depression PT-OP-C Subjective Start: 12/14/17 08:12 Freq: Status: Active Protocol: Document 04/13/18 12:30 LJ (Rec: 04/13/18 15:15 LJ [email or web address]) PT-OP-F Manual Assessment Start: 12/14/17 08:12 Freq: Status: Active Protocol: Document 12/14/17 08:13 SAK (Rec: 12/14/17 10:27 SAK [id number]) Manual Assessments Soft Tissue Assessment Soft Tissue Mobility Assessment decreased soft tissue mobility bilateral lumbar spine and buttocks PT-OP-H Neuro Start: 12/14/17 08:12 Freq: Status: Active Protocol: Document 12/14/17 08:13 SAK (Rec: 12/14/17 10:27 SAK [id number]) Sensation Evaluation Gross Sensation Gross Sensation Right LE Impaired Sensation Description Paresthesia Pain Deep Tendon Reflex & Clonus Assessment Deep Tendon Reflex Right Deep Tendon Reflex 0 Absent Left Achilles Deep Tendon Reflex 1+ Diminished Right Patellar Deep Tendon Reflex 0 Absent Left Patellar Deep Tendon Reflex 2+ Normal PT-OP-J Posture/Palpation/Skin Start: 12/14/17 08:12 Freq: Status: Active Protocol: Document 12/14/17 08:13 SAK (Rec: 12/14/17 10:27 SAK [id number]) Posture Evaluation Position Standing Head/C-Spine Posture Forward Head T-Spine Posture Increased Kyphosis L-Spine Posture Increased Lordosis Palpation Assessment Location lumbar spine Palpation Location right Palpation Findings Soft Tissue Tightness Muscle Guarding Tenderness PT-OP-K Range of Motion Start: 12/14/17 08:12 Freq: Status: Active Protocol: Document 12/14/17 08:13 SAK (Rec: 12/14/17 10:27 SAK [id number]) Lumbar Spine Range of Motion Lumbar Spine Active Testing Position Standing Flexion 30 Extension 20 Rotation Left 30 Rotation Right 35 Lateral Flexion Left 25 Lateral Flexion Right 25 ROM Limitations Soft Tissue Tightness Pain Hip Goniometric Range of Motion Hip Measured in Degrees Right Hip ROM WFL No Testing Position Supine Flexion w/Knee Flexed 120 Straight Leg Raise 65 Extension 10 Internal Rotation 20 External Rotation 45 Left Hip ROM WFL No Testing Position Supine Flexion w/Knee Flexed 120 Straight Leg Raise 60 Extension 10 Internal Rotation 20 External Rotation 45 Knee Goniometric Range of Motion Knee Measured in Degrees Right Knee ROM WFL Yes Patient Position Sitting Left Knee ROM WFL Yes Patient Position Sitting Ankle and Foot Goniometric Range of Motion Ankle and Foot Measured in Degrees Right Ankle/Foot ROM WFL Yes Testing Position Sitting Left Ankle/Foot ROM WFL Yes Testing Position Sitting PT-OP-M Strength Start: 12/14/17 08:12 Freq: Status: Active Protocol: Document 12/14/17 08:13 BOB (Rec: 12/14/17 10:27 SAK [id number]) Hip Strength Hip Manual Muscle Testing Right Flexion (L2) 4 Good Extension (S1) 4 Good Abduction 4- Good- External Rotation 4- Good- Internal Rotation 4 Good Reason Not Measured Pain Left Flexion (L2) 4 Good Extension (S1) 4 Good Abduction 4- Good- External Rotation 4- Good- Internal Rotation 4+ Good+ Knee Strength Knee Manual Muscle Testing Right Flexion (S2) 4- Good- Extension (L3) 4- Good- Left Flexion (S2) 4- Good- Extension (L3) 4 Good Ankle/Foot Strength Ankle and Foot Manual Muscle Testing Right Dorsiflexion (L4) 4+ Good+ Plantarflexion (S1) 4+ Good+ Left Dorsiflexion (L4) 4+ Good+ Plantarflexion (S1) 4+ Good+ Toe Strength Toe Manual Muscle Testing Great Toe Flexion 4+ Good+ Extension 4+ Good+ Comments reji PT-OP-T Assessment and Plan Start: 12/14/17 08:12 Freq: Status: Active Protocol: Document 04/13/18 12:30 LUCERO (Rec: 04/13/18 15:15 LJ [email or web address])
--- NOTE | 2018-06-06 14:05 | PT.OPDS ---
Current Diagnoses Other chronic pain (03/12/18) Low back pain (03/12/18) Provider Visit Care Team Role Provider Type Anahi Hickey MD Primary Care Provider Non-Staff Specialty: Medical Address: [address] [place] [address], [id number] Email: AVERY Key Attending Provider Non-Staff Specialty: Medical Address: [address] [place] [address], [id number] Email: Visit Number Visit Number 11 Discharge Summary PT-OP-B Current Condition Start: 12/14/17 08:12 Freq: Status: Active Protocol: Document 12/14/17 08:13 SAK (Rec: 12/14/17 08:28 SAK [id number]) Current Condition History of Current Condition Onset Date 1997 Current Complaints function limiting LBP with radicular symptoms right LE History of Current Condition History C45 discectomy herniated disc cervical spine. Has done heavy physical work , has PTSD, started getting neck and right UE symptoms again about 2 years ago. Then started getting symptoms in right knee; giving way and swelling, sciatica. Has had injections and fluid removal right knee. 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 Did PT for neck. CT done [facility]. Awaiting MRI. Now referred for function-limiting LBP; difficulty getting dressed, doing household activities. Sometimes unable to get out of bed. No prior PT for LBP. Prior Treatments and Tests history fibromyalgia. Doing therapy for PTSD. Future Testing and Treatments Planned MRI for cervical spine. Treatment Goals Patient/Caregiver Goals Decrease pain, return to more active lifestyle. Prior Functional Status Baseline Function- ADL's Independent Baseline Function- Mobility Independent Baseline Function- Gait Independent Baseline Function- Work/School No limitations Baseline Function- Recreation/Hobbies No limitations Current Functional Impairments (Reported) Functional Limitations- ADL's moderately to severely limited Functional Limitations- Mobility/Gait moderately to severely limited Functional Limitations- Work/School UNABLE Functional Limitations- Recreation/ UNABLE Hobbies Personal Factors Other Personal Factors That May Effect PTSD Therapy/Recovery Depression PT-OP-C Subjective Start: 12/14/17 08:12 Freq: Status: Active Protocol: Document 04/13/18 12:30 LJ (Rec: 04/13/18 15:15 LJ [id number]) PT-OP-F Manual Assessment Start: 12/14/17 08:12 Freq: Status: Active Protocol: Document 12/14/17 08:13 SAK (Rec: 12/14/17 10:27 SAK [id number]) Manual Assessments Soft Tissue Assessment Soft Tissue Mobility Assessment decreased soft tissue mobility bilateral lumbar spine and buttocks PT-OP-H Neuro Start: 12/14/17 08:12 Freq: Status: Active Protocol: Document 12/14/17 08:13 SAK (Rec: 12/14/17 10:27 SAK [id number]) Sensation Evaluation Gross Sensation Gross Sensation Right LE Impaired Sensation Description Paresthesia Pain Deep Tendon Reflex & Clonus Assessment Deep Tendon Reflex Right Deep Tendon Reflex 0 Absent Left Achilles Deep Tendon Reflex 1+ Diminished Right Patellar Deep Tendon Reflex 0 Absent Left Patellar Deep Tendon Reflex 2+ Normal PT-OP-J Posture/Palpation/Skin Start: 12/14/17 08:12 Freq: Status: Active Protocol: Document 12/14/17 08:13 SAK (Rec: 12/14/17 10:27 SAK [id number]) Posture Evaluation Position Standing Head/C-Spine Posture Forward Head T-Spine Posture Increased Kyphosis L-Spine Posture Increased Lordosis Palpation Assessment Location lumbar spine Palpation Location right Palpation Findings Soft Tissue Tightness Muscle Guarding Tenderness PT-OP-K Range of Motion Start: 12/14/17 08:12 Freq: Status: Active Protocol: Document 12/14/17 08:13 SAK (Rec: 12/14/17 10:27 SAK [id number]) Lumbar Spine Range of Motion Lumbar Spine Active Testing Position Standing Flexion 30 Extension 20 Rotation Left 30 Rotation Right 35 Lateral Flexion Left 25 Lateral Flexion Right 25 ROM Limitations Soft Tissue Tightness Pain Hip Goniometric Range of Motion Hip Measured in Degrees Right Hip ROM WFL No Testing Position Supine Flexion w/Knee Flexed 120 Straight Leg Raise 65 Extension 10 Internal Rotation 20 External Rotation 45 Left Hip ROM WFL No Testing Position Supine Flexion w/Knee Flexed 120 Straight Leg Raise 60 Extension 10 Internal Rotation 20 External Rotation 45 Knee Goniometric Range of Motion Knee Measured in Degrees Right Knee ROM WFL Yes Patient Position Sitting Left Knee ROM WFL Yes Patient Position Sitting Ankle and Foot Goniometric Range of Motion Ankle and Foot Measured in Degrees Right Ankle/Foot ROM WFL Yes Testing Position Sitting Left Ankle/Foot ROM WFL Yes Testing Position Sitting PT-OP-M Strength Start: 12/14/17 08:12 Freq: Status: Active Protocol: Document 12/14/17 08:13 BOB (Rec: 12/14/17 10:27 SAK [id number]) Hip Strength Hip Manual Muscle Testing Right Flexion (L2) 4 Good Extension (S1) 4 Good Abduction 4- Good- External Rotation 4- Good- Internal Rotation 4 Good Reason Not Measured Pain Left Flexion (L2) 4 Good Extension (S1) 4 Good Abduction 4- Good- External Rotation 4- Good- Internal Rotation 4+ Good+ Knee Strength Knee Manual Muscle Testing Right Flexion (S2) 4- Good- Extension (L3) 4- Good- Left Flexion (S2) 4- Good- Extension (L3) 4 Good Ankle/Foot Strength Ankle and Foot Manual Muscle Testing Right Dorsiflexion (L4) 4+ Good+ Plantarflexion (S1) 4+ Good+ Left Dorsiflexion (L4) 4+ Good+ Plantarflexion (S1) 4+ Good+ Toe Strength Toe Manual Muscle Testing Great Toe Flexion 4+ Good+ Extension 4+ Good+ Comments reji PT-OP-T Assessment and Plan Start: 12/14/17 08:12 Freq: Status: Active Protocol: Document 04/13/18 12:30 LUCERO (Rec: 04/13/18 15:15 LJ [id number])
== END 2018-06-06 15:31 | disposition home or self-care (01) ==
LOC: PHYS 10:15
PROVIDERS: PCP Family Medicine; Visit Provider Nurse Practitioner Family
DX: M54.5 Low back pain (principal); G89.29 Other chronic pain
CPT/HCPCS: 97010; 97113; 97162; 97535

== ENCOUNTER 2018-04-25 09:41 | Outpatient (CLI) | payer OTHER, MEDICAID, SELFPAY ==
[2018-04-25] VITALS (7 sets, daily range): BP systolic 104–125; BP diastolic 50–70; PULSE 49–57; RESP 16–18; TEMP 36.4; O2SAT 95–98
--- NOTE | 2018-04-25 09:44 | DI.RAD.S_ITS ---
PROCEDURE: PAIN L/S TRANSFORAMINAL INJECT INDICATIONS: [id number] Right L4/5 TF CARMEN FINDINGS: Fluoroscopic spot filming was performed to verify placement of spinal needles at the right L4-5 neural foraminal level, as labeled on the films. Appropriate location(s) of the needle tip(s) was confirmed by injection of iodinated contrast. IMPRESSION: Successful right needle tip localization for right L4-L5 perineural epidural steroid injection. Dictated by: Andres Villa M.D. on 04/25/2018 at 12:01 Approved by: Andres Villa M.D. on 04/25/2018 at 12:02
[2018-04-25] MEDS: MIDAZOLAM 5 MG/5 ML VIAL IV (10:40)
--- NOTE | 2018-04-25 10:53 | PC.NURSE ---
pt tolerated procedure, awake and alert getting off the table. Transferred pt via wheelchair to pre procedure room for continued monitoring with Shelley PRATT.
--- NOTE | 2018-04-25 11:00 | P.PCN_ITS ---
Procedures Date/Time Date of procedure: 04/25/18 Time of procedure: 11:00 General Procedure description: PREOP DIAGNOSIS 1. FORMAINAL STENOSIS WITH LE SYMPTOMS POST OP DIAGNOSIS 1. FORMAINAL STENOSIS WITH LE SYMPTOMS PROCEDURES 1. FLUOROSCOPICALLY GUIDED CONTRAST CONTROLLED TRANSFORAMINAL EPIDURAL STEROID INJECTION - RIGHT L4/5 TFESI PHYSICIAN: Sylvain Combs DO INDICATIONS: Selina is referred by AVERY Luis for treatment of Foraminal Stenosis with Right LE Symptoms FINDINGS Foraminal Nerve Root Compression secondary to disc disease and facet hypertrophy DESCRIPTION OF PROCEDURE: Following denial of allergy and review of potential side effects and complications, including, but not necessarily limited to, infection, allergic reaction, local tissue breakdown, stroke, temporary or permanent nerve injury, paralysis, and possible , the patient indicated that the patient understood and agreed to proceed. An informed consent document was signed by the patient, witnessed by a nurse, and placed in the patient's chart. Additionally, other treatment options including medications, modalities, and physical therapy were reviewed with the patient. After review of previous anaesthesic history and IV conscious sedation the patient was deemed safe to proceed with todays procedure with IV conscious sedation as ASA class II designation. Safety time-out was performed to confirm patient ID, procedure to be performed and site of procedure. IV sedation was accomplished with a combination of 3mg of Versed was administered by the RN after DO order, titrated to patient comfort during the course of the procedure while the patient remained responsive to all verbal commands In the prone position following sterile prep and drape of the lumbar region, the Right L4/5 posterior neuroforamen was identified fluoroscopically. The skin was anesthetized via a 25-gauge 1.5-inch needle with 1% lidocaine solution. At this point, a 25-gauge 3.5-inch spinal needle was atraumatically introduced and advanced under fluoroscopic guidance through the posterior Right L4/5 neuroforamen to approximately the anterior aspect of the canal. Depth was confirmed on lateral view. Following negative aspiration, injection of approximately 1.5 cc of Isovue 200 under live fluoroscopy in the AP view confirmed excellent flow along the nerve root, into the epidural space without vascular or intrathecal uptake observed Radiological data, including multiple fluoroscopic views of the lumbosacral spine, reveal a spinal needle at the right L4/5 posterior neuroforamen. Subsequent views show flow of contrast material flowing superiorly and inferiorly along the nerve root confirming epidural flow. Subsequently, a test dose of 1.5 cc of 1% lidocaine solution was administered and patient was observed for two minutes for signs or symptoms of complications, including abdominal pain, shortness of breath, bilateral upper or lower extremity weakness, nausea and vomiting, prior to steroid injection. At this point, a total of 2cc or 20mg of dexamethasone was injected without incident. The procedure tolerated the procedure well without signs or symptoms of complications prior to transfer to the recovery area continued monitoring without incident.The patient was then transferred to the recovery area where they were observed for an appropriate time after the injection. The patient reported a VAS score of 7 prior to the procedure and a post- procedure VAS of 0. Total Fluoroscopy Time: 20.9 seconds Total Conscious Sedation Time: 24min POST OP INSTRUCTIONS The patient was provided a Pain Log to continue to record their response to the target-specific procedure prior to follow-up visit with their referring physician. Additionally, specific post-injection care instructions and a contact number to our office were provided if concerns arise regarding possible complications associated with the procedure are suspected. Sylvain Combs DO Complications: none
--- NOTE | 2018-04-25 11:04 | PC.NURSE ---
ACCEPTED CARE OF PT IN POST PROC AREA IN STABLE CONDITION
[2018-04-25] MEDS: IOPAMIDOL 15 ML VIAL 3 ML INJ (11:06)
[2018-04-25] MEDS: BUPIVACAINE 0.25% (PF) VIAL 2 ML INJ (11:06)
[2018-04-25] MEDS: DEXAMETHASONE 10 MG/ML VIAL 20 MG INJ (11:06)
== END 2018-04-25 11:16 | disposition home or self-care (01) ==
LOC: RAD 09:43
PROVIDERS: Family Provider Physical Medicine & Rehabilitation; PCP Nurse Practitioner Family; Visit Provider Physical Medicine & Rehabilitation
DX: M48.062 Spinal stenosis, lumbar region with neurogenic claudication (principal); M51.16 Intervertebral disc disorders with radiculopathy, lumbar region
CPT/HCPCS: 64483; 99152; J1100; J2250

== ENCOUNTER → 2018-11-28 11:59 | Outpatient (CLI) | payer MEDICARE, MEDICAID, SELFPAY ==
--- NOTE | 2018-11-28 12:01 | DI.RAD.S_ITS ---
PROCEDURE: XR HIP W PEL IF DONE LT MIN 4V INDICATIONS: right hip djd. TECHNIQUE: AP pelvis and lateral view of the both hip acquired. COMPARISON: None. FINDINGS: Bones: No fracture or dislocation. Mild joint space narrowing of the right and left hips. Increased sclerosis of the superior acetabular roof bilaterally. Small osteophytes. No avascular necrosis of the femoral heads. SI joints are symmetric. Soft tissues: Small phleboliths in the pelvis. No suspicious soft tissue densities. IMPRESSION: [id number] bilateral hip DJD. Dictated by: Cristian Oreilly M.D. on 11/28/2018 at 14:20 Approved by: Cristian Oreilly M.D. on 11/28/2018 at 14:23
== END ==
PROVIDERS: PCP Family Medicine; Visit Provider Physical Medicine & Rehabilitation
DX: M16.0 Bilateral primary osteoarthritis of hip (principal); M54.17 Radiculopathy, lumbosacral region
CPT/HCPCS: 73522; 99214

== ENCOUNTER → 2019-11-29 09:37 | Outpatient (CLI) | payer MEDICARE, MEDICAID, SELFPAY ==
[2019-11-30 23:43] LABS: COVID19 Sendout Not Detected (Not Detect)
== END ==
PROVIDERS: PCP Family Medicine; Visit Provider Physician Assistant
DX: Z01.812 Encounter for preprocedural laboratory examination (principal)
CPT/HCPCS: 87635

== ENCOUNTER → 2019-12-02 09:38 | Outpatient (CLI) | payer MEDICARE, MEDICAID, SELFPAY ==
[2019-12-03 06:49] LABS: COVID19 Sendout Not Detected (Not Detect)
== END ==
PROVIDERS: PCP Family Medicine; Visit Provider Physician Assistant
DX: Z01.812 Encounter for preprocedural laboratory examination (principal)
CPT/HCPCS: 87635

== ENCOUNTER → 2019-12-02 09:50 | Outpatient (CLI) | payer MEDICARE, MEDICAID, SELFPAY ==
--- NOTE | 2019-12-04 08:35 | PM.PFT.1 ---
Pulmonary Function Test Referral & Results Date Patient Seen: 12/02/19 Requesting provider: Tamar Luis Results: The spirometry demonstrates an FVC of 3.44 L which is 83% of predicted. The FEV1 was measured at 2.92 L which is 89% of predicted. The FEV1/FVC ratio was 85 which is 106% of predicted. Following the administration of bronchodilator there was no appreciable change. Lung volumes show an SVC of 3.37 L which is 90% of predicted. The diffusing capacity was measured at 23.43 which is 75% of predicted. No hemoglobin value was provided, so no correction for potential anemia could be made, if appropriate. The maximum voluntary ventilation was normal Interpretation: This study demonstrates probably normal pulmonary function. The maybe minimal reduction diffusing capacity unless patient is anemic.
== END ==
PROVIDERS: PCP Family Medicine; Referring Provider Nurse Practitioner Family; Visit Provider Nurse Practitioner Family
DX: G47.33 Obstructive sleep apnea (adult) (pediatric) (principal); F17.210 Nicotine dependence, cigarettes, uncomplicated
CPT/HCPCS: 94060; 94726; 94729

== ENCOUNTER 2019-12-05 08:12 | Day surgery (SDC) | payer MEDICARE, MEDICAID, SELFPAY ==
[2019-11-28 13:38] VITALS: BMI 37.4
[2019-12-05] VITALS (17 sets, daily range): BP systolic 111–189; BP diastolic 59–79; PULSE 45–71; RESP 10–18; TEMP 36.2–36.7; O2SAT 91–97; BMI 37.1; BMI 37.8
--- NOTE | 2019-12-05 | DI.RAD.S_ITS ---
PROCEDURE: XR CERVICAL SPINE 2V OR 3V INDICATIONS: C5-6, C6-7 ACDF (ELVIRA) TECHNIQUE: 3 view(s) of the cervical spine were acquired. COMPARISON: None. FINDINGS: Spot fluoroscopic intraoperative images demonstrating anterior retaining pin and interbody cage graft at the C5-C6 , and C6-C7 level. There is chronic osseous fusion of C4-C5. Dictated by: Blas Boss M.D. on 12/05/2019 at 15:16 Approved by: Blas Boss M.D. on 12/05/2019 at 15:20
[2019-12-05] MEDS: LACTATED RINGERS 1,000 ML 42 ML IV (09:51)
--- NOTE | 2019-12-05 12:06 | PM.PREOP ---
Pre-operative Note COVID-19 COVID-19 status: Negative Result date/Date tested (Pos, Neg/Pending): 12/02/19 Interval Note History & Physical reviewed/Exam performed by Physician: Yes Changes to H&P: No
[2019-12-05] MEDS: CEFAZOLIN 2 GM/100 ML FROZ.PIGGY IV ×2 (12:38→20:25)
--- NOTE | 2019-12-05 13:18 | SUR.OPER ---
Supine, head on gel donut. Arms padded with gel pads, tucked at sides, towel roll under shoulders. Safety belt at thigh. Legs uncrossed.
[2019-12-05] MEDS: SODIUM CHLORIDE 0.9% 1,000 ML, GENTAMICIN 80 MG IRR (13:32)
[2019-12-05] MEDS: THROMBIN (RECOMBINANT) 5,000 UNIT VIAL 5000 UNIT TOP (13:32)
[2019-12-05] MEDS: BUPIVACAINE 0.25% W/ EPI 30 ML VIAL 60 ML INJ (13:32)
--- NOTE | 2019-12-05 14:26 | PM.OP.1 ---
Operative Date/Time/Diagnoses Date of procedure: 12/05/19 Time of procedure: 14:26 Pre-op diagnosis: Cervical stenosis with myelopathy Post-op diagnosis: same Procedure & Clinicians Procedure: C5-6, C6-7 ACDF with cages Iliac crest bone graft aspirate Use of microscope Same procedure as scheduled: Yes Indications: [age] year old female with intractable pain from stenosis. They had failed conservative management and requested operative intervention. Risks and benefits of surgery were discussed and appropriate consents were obtained. Surgeon: Ulysses Levi Venetian Blind Cleaner: Emily Barnes Anesthesia Type: General Operative Notes Findings: None Closure Type: primary Specimen(s): none sent Prosthetic devices, grafts, tissues, transplants, or devices: Ernesto ELVIRA-C Estimated Blood Loss (mL): 5 Procedure in detail: Patient was brought to the operating room and intubated on the table. A time-out was performed. Preoperative antibiotics were given. The neck was prepped and draped in the standard sterile fashion. Using a skin fold, we made a 3 cm oblique incision on the left side using her previous incision. We used Bovie to go through the platysma and then did a standard anterolateral blunt dissection down to the precervical fascia. Fascia was nicked and elevated up. A marker was placed and x-ray was taken for localization. We then subperiosteally elevated up the longus colli muscles. Self-retaining retractors were placed. Linden pins were placed. We then brought in the microscope. A scalpel used to perform an annulotomy. We then used a combination of pituitaries and curettes and Kerrison to perform a complete anterior diskectomy at C6-7. We used the bur to take down the posterior osteophytes. We took down the PLL and used Kerrison to remove any posterior disc material and osteophytes. At the end we could from the nerve hook cephalad caudally and out the foramen and everything was opened. A small stab incision was made over the left anterior iliac crest. A Jamshidi needle was advanced into the pelvis and 2 mL of bone marrow was aspirated. We then used the trials. We then packed a 14 x 15 x 6 mm ELVIRA-C cage with Primagen bone graft and the iliac crest harvest. The cage was placed under fluoroscopic guidance. We then placed our two locking plates. We then moved up to C5-6. Again a complete diskectomy was performed. We used the bur to decorticate the endplates and taken the posterior osteophytes. We removed the PLL. We removed the posterior tissue. At the end we could sweep the nerve hook and everything was open. We trialed and placed another 14 x 15 x 6 mm cage packed with bone graft for the ACDF at C5-6. The self-retaining retractors and Linden pins were removed and final x-rays taken. The wound was irrigated. There was no bleeding. The carotid was beating nicely. The platysma was closed. The superficial was closed. The skin was closed. A sterile dressing was placed. They were then extubated and brought to recovery room with no complications. Complications: none Post-operative Condition: stable Disposition: PACU Plan for aftercare: Inpatient overnight. Up with therapy. Soft collar for comfort.
[2019-12-05] MEDS: HYDROMORPHONE 2 MG INJ IV ×2 (15:01→15:11)
[2019-12-05] MEDS: hydrOXYzine 50 MG/ML INJ 25 MG IM (15:03)
--- NOTE | 2019-12-05 15:47 | SUR.PHASEI ---
Report called to CC
--- NOTE | 2019-12-05 15:47 | SUR.PHASEI ---
Patient transferred to the floor by Kim.
[2019-12-05] MEDS: LACTATED RINGERS 1,000 ML 125 ML IV (16:31)
[2019-12-05] MEDS: ACETAMINOPHEN 325 MG TABLET 650 MG PO (16:32)
[2019-12-05] MEDS: CELECOXIB 200 MG CAPSULE 400 MG PO (16:32)
[2019-12-05] MEDS: HYDROMORPHONE 0.5 MG INJ IV (16:33)
[2019-12-05] MEDS: BENZOCAINE/MENTHOL 1 LOZ PKT 1 EACH PO ×2 (17:26→22:27)
[2019-12-05] MEDS: HYDROMORPHONE 2 MG TABLET PO ×2 (19:29→22:27)
[2019-12-05] MEDS: DOCUSATE 100 MG CAPSULE PO (20:30)
[2019-12-05] MEDS: GABAPENTIN 300 MG CAPSULE 600 MG PO (20:30)
[2019-12-05] MEDS: SENNOSIDES 8.6 MG TABLET 17.2 MG PO (20:30)
[2019-12-05] MEDS: CELECOXIB 200 MG CAPSULE PO (20:30)
--- NOTE | 2019-12-05 20:38 | PC.NURSE ---
1615 pt arrived per bed from PACU, AAOx4 MAEW, NSVS intact. IV of LR started @ 125ml/hr, Cervical dressing with a amy size amount of sangenous drainage. SCD's applied, VSS, orders reviewed. oriented to environment, bed in low and locked position, call light in reach. Taking liquids well, diet advanced as ordered. ICE bags to neck and low back.
[2019-12-05] MEDS: hydrOXYzine pamoate 25 MG CAPSULE PO (20:45)
[2019-12-06] VITALS: PULSE 52; RESP 16; O2SAT 95
[2019-12-06] MEDS: LACTATED RINGERS 1,000 ML 125 ML IV (00:46)
[2019-12-06] MEDS: hydrOXYzine pamoate 25 MG CAPSULE PO ×3 (02:51→12:31)
[2019-12-06] MEDS: HYDROMORPHONE 2 MG TABLET PO ×3 (02:52→12:30)
[2019-12-06] MEDS: guaiFENesin ER 600 MG TAB PO (02:55)
[2019-12-06 03:34] VITALS: BP 172/73; PULSE 45; RESP 16; TEMP 36.6; O2SAT 95
[2019-12-06] MEDS: CEFAZOLIN 2 GM/100 ML FROZ.PIGGY IV (04:32)
[2019-12-06] MEDS: BENZOCAINE/MENTHOL 1 LOZ PKT 1 EACH PO (04:35)
--- NOTE | 2019-12-06 07:18 | PM.PNPO.1 ---
Subjective Subjective Date Patient Seen: 12/06/19 Time Patient Seen: 07:18 Interval history: She is doing great. The neck pain is well controlled. Arms feel good. Exam Vital Signs (past 8 hours): - 12/05/19 23:32 12/05/19 23:42 12/06/19 00:00 Temperature 97.8 F Pulse Rate 48 L 52 L Respiratory Rate 18 16 Blood Pressure 132/67 132/67 Pulse Oximetry 94 95 12/06/19 03:34 Temperature 97.9 F Pulse Rate 45 L Respiratory Rate 16 Blood Pressure 172/73 H Pulse Oximetry 95 Oxygen Delivery Method CPAP Oxygen Flow Rate 2 Const Orientation: alert and oriented x3 Back/Spine/Pelvis Other: CDI. 5/5 motor both upper extremities. Objective Labs Labs: Laboratory Results - last 24 hr 12/05/19 16:06 Nasal Screen MRSA (PCR) Negative for mrsa Assessment & Plan Post-op Postoperative Procedures: Procedures Operation Date: 12/05/19 10:45 Actual Procedures Side Surgeon p C56 & C67 anterior cervical discectomy & fusion w. bone graft Left Ulysses Levi MD She is doing great. Plan to discharge home today. Quality VTE Deep Vein Thrombosis/Pulmonary Embolism Present on Admission: No
[2019-12-06 08:00] VITALS: BP 147/78; PULSE 50; RESP 20; TEMP 36.7; O2SAT 95
[2019-12-06] MEDS: [UNRECOGNIZED DRUG - OTHER] IM (08:32)
[2019-12-06] MEDS: MULTIVITAMIN 1 TABLET 1 TAB PO (08:34)
[2019-12-06] MEDS: TRAMADOL 50 MG TABLET PO (08:34)
[2019-12-06] MEDS: SPIRONOLACTONE 25 MG TABLET 50 MG PO (08:34)
[2019-12-06] MEDS: DOCUSATE 100 MG CAPSULE PO (08:34)
[2019-12-06] MEDS: GABAPENTIN 300 MG CAPSULE 600 MG PO (08:35)
[2019-12-06] MEDS: ACETAMINOPHEN 325 MG TABLET 650 MG PO (08:35)
[2019-12-06] MEDS: CELECOXIB 200 MG CAPSULE PO (08:35)
[2019-12-06] MEDS: OLOPATADINE 0.1% OPHTH DROPS 5 ML 1 DROPS EYE-BOTH (08:36)
[2019-12-06] MEDS: CHOLECALCIFEROL (VITAMIN D3) 5,000 UNIT TABLET 5000 UNIT PO (08:36)
[2019-12-06] MEDS: ESCITALOPRAM 10 MG TABLET PO (08:36)
--- NOTE | 2019-12-06 08:54 | OT.IP.EVAL ---
Current Diagnoses Unspecified cord compression (12/05/19) Spinal stenosis, lumbar region with neurogenic claudication (12/05/19) Surgery Performed Operation Date: 12/05/19 10:45 Actual Procedures p C56 & C67 anterior cervical discectomy & fusion w. bone graft(Left) - Ulysses Levi MD Past Medical History (Last Updated 11/28/19 @ 14:28 by Peggy Ngo, RN) Acid reflux (Acute) ADD (attention deficit disorder) (Acute) ADHD (attention deficit hyperactivity disorder) (Chronic) Anxiety (Chronic) Arthritis (Acute) Asthma (Acute) Degenerative joint disease of right hip (Acute) Depression with anxiety (Chronic) Difficult airway (Acute) Difficulty swallowing (Acute) Elevated cholesterol (Acute) Fibromyalgia (Chronic) Lumbar back pain (Acute) GITA on CPAP (Acute) Osteoarthritis (Acute) Panic (Chronic) Primary insomnia (Chronic) PTSD (post-traumatic stress disorder) (Chronic) Sinus arrhythmia (Acute) Sinus bradycardia (Acute) Sinus drainage (Acute) Snoring (Inactive) Spinal stenosis (Acute) TMJ arthralgia (Acute) Surgical History (Last Updated 11/28/19 @ 14:20 by Peggy Ngo RN) History of (Acute) History of colonoscopy with polypectomy (Acute) History of hysterectomy (Acute 2009) History of myelography (Acute) Hx of fusion of cervical spine (Acute ~1997) Hx of tonsillectomy (Acute 1973) Hx of tubal ligation (Acute) Occupational Therapy Inpatient Evaluation/Re-Eval M1 PT/OT-IP Prior Functional Status Start: 12/06/19 08:57 Freq: NEEDED Status: Active Protocol: Document 12/06/19 08:57 [facility] (Rec: 12/06/19 09:15 [facility] [id number]) Medical Review Prior Functional Status Medical History Reviewed Yes Communication Independent Mobility and Gait Pt states only able to walk 1- 2 blocks now versus prior able to walk 1-2 miles. Activities of Daily Living and IADL's Increased difficulty with LB dressing needs. Social History Household Members children Living Arrangements Apartment/Condo Number of Floors (Floors) One Floor Number of Stairs To Enter/Railing? 20 steps with bilateral wide rails to enter her apartment. Home Environment High Toilet,Tub/Shower Home Equipment Straight Cane,Hand Held Shower Additional Social History Comment Pt lives with her 13 year old daughter and cats. Pt states close neighbor that will be available to assist as needed M2 OT-IP Current Condition Start: 12/06/19 08:57 Freq: Status: Active Protocol: Document 12/06/19 08:57 [facility] (Rec: 12/06/19 09:15 [facility] [id number]) Occupational Therapy Current Condition Current Condition Evaluation Date 12/06/19 Treatment Diagnosis s/p C5-6, C6-7 ACDF Diagnosis Onset Date 12/05/19 Post Operative Precautions Cervical Spine Precautions Soft Collar for Comfort,No Heavy Lifting,Log Roll M3 OT- IP Subjective and Pain Start: 12/06/19 08:57 Freq: Status: Active Protocol: Document 12/06/19 08:57 [facility] (Rec: 12/06/19 09:15 [facility] [id number]) OT- Subjective Occupational Therapy Visit Type Type Initial Evaluation Visit Start Time 08:08 Visit Stop Time 08:54 Total Visit Minutes 46 Occupational Therapy Visit Comments Patient Comments Pt agreed to get up for OT eval. Patient/Caregiver Goals TO go home. OT Pain Assessment Pain When Pain Assessed At Rest Pain Present Pain Present Pain Reported Location neck Intensity 6 Scale Used Numeric (0 - 10) M4 OT- IP ADL's Start: 12/06/19 08:57 Freq: Status: Active Protocol: Document 12/06/19 08:57 [facility] (Rec: 12/06/19 09:15 [facility] [id number]) OT [id number] Comments OT Self-Feeding Comments Not at meal time . Able to educated pt on eating softer foods, chew foods thoroughly, colder foods are helpful, and to sit upright while eating. Information given to pt . OT ADL-Grooming General Evaluation Grooming Ability Independent OT ADL-Oral Care General Eval Oral Care Ability Standby Assistance Comments Oral Care Comments Initial cues to bend at hips to spit into the sink to best follow her cervical precautions . OT ADL-Dressing General Eval Upper Body Dressing Ability Independent Lower Body Dressing Ability Independent,Moderate Assistance Areas Needing Assistance Retrieving/Set-up of Clothing, Socks,Shoes Comments OT Dressing Comments Initially pt needing MODA , after issuingand training pt for LB dressing equipment now able to do most of her LB dressing needs. Pt's daughter will be able to assist her at home. OT ADL-Toileting General Evaluation Toileting Ability Standby Assistance Comments OT Toileting Comments Went over hygiene needs and pt able to appropriately wipe while following her cervical precautions. OT ADL-Bathing Comments OT Bathing Comments Pt states to have her daughter present for shower at home. M5 OT- IP IADL's Start: 12/06/19 08:57 Freq: Status: Active Protocol: Document 12/06/19 08:57 [facility] (Rec: 12/06/19 09:15 [facility] [id number]) OT-Instrumental Activities of Daily Living Home Safety Awareness Awareness of Need for Assistance at Home Good Awareness Ability to Problem Solve Emergency Able to Problem Solve Situations Meal Preparation Meal Preparation Caregiver Provides Assist Surgical Services Director Surgical Services Director Caregiver Provides Assist Driving Driving Comments Pt walks everywhere and does not drive. M6 OT- IP Functional Cognition Start: 12/06/19 08:57 Freq: Status: Active Protocol: Document 12/06/19 08:57 [facility] (Rec: 12/06/19 09:15 [facility] [id number]) Cognitive Factors Limiting Selfcare Function Cognitive Ability Level of Alertness Alert Patient Orientation Name,Age,Birthday,Month,Date, Year,Day of Week,Place, Situation Attention Span Ability Capable of Focused Attention, Capable of Sustained Attention Ability to Follow Commands Able to Follow One Step Commands Safety Awareness Underestimates Need for Assistance Problem Solving Ability Needs Assist to Identify Solutions Cognitive Comments Cognitive Assessment Comments Pt states has developmental delays and ADHD and at times has difficulty to process information and therefore needing concrete commands to follow. Pt tends to be impulsive and needing cues to slow down and thinks things through. OT- Vision and Hearing OT- Hearing Assessment OT- Hearing Assessment WFL M7 OT- IP Mobility and Balance Start: 12/06/19 08:57 Freq: Status: Active Protocol: Document 12/06/19 08:57 [facility] (Rec: 12/06/19 09:15 [facility] [id number]) OT- Bed Mobility Assessment Rolling Type of Rolling Roll to Left Level of Assistance Standby Assistance Supine to Sit Supine to Sit Assist Standby Assistance OT-Transfer Assessment Sit to and From Stand Sit to and from Stand Standby Assistance Transfers Transfer Ability Standby Assistance Technique Transfer Destination Bed,Chair,Toilet Devices Transfer Assistive Devices None Comments Mobility Comments SBA with no device. OT- Gait Assessment Gait Gait Assistance Required: Standby Assistance Assistive Devices Assistive Device None Comments Gait Ability Comments SBA in the room. OT- Balance Assessment Sitting Balance and Reactions Static Sitting Balance Ability Normal Dynamic Sitting Balance Ability Normal Standing Balance and Reactions Static Standing Balance Ability Good M8 OT- IP Objective Assessments Start: 12/06/19 08:57 Freq: Status: Active Protocol: Document 12/06/19 08:57 [facility] (Rec: 12/06/19 09:15 [facility] [id number]) OT Gross Range of Motion Upper Extremity Range of Motion Assessment Within Functional Limits OT Strength Upper Extremity Strength Assessment Right Impaired OT-Muscle Tone Assessment Muscle Tone WNL Yes M9 OT- IP Assessment and Plan Start: 12/06/19 08:57 Freq: Status: Active Protocol: Document 12/06/19 08:57 [facility] (Rec: 12/06/19 09:15 [facility] [id number]) OT Summary Assessment and Plan Potential Rehabilitation Potential Good Analytic Complexity at Evaluation Low Summary OT Impairments Pain,Functional Cognition, Bathing Progress Towards Goals Progressing Toward Goals Assessment Summary Pt low complexity and main barriers are steps and needing cues to slow down and think things through with her cervical precautions. Pt issued LB dressing equipment to help increased her overall independence and fall-free plan information also given to pt. Pt looking to go home today. Goals Grooming Goal Independent Dressing Goal Independent Toileting Goal Independent Bathing Goal Independent Toilet Transfer Goal Independent Shower Transfer Goal Independent Patient/Caregiver Education Goal Demonstrate Post-Op Precautions,Demonstrate Energy Conservation and Pacing Days to Meet Goals 1 Frequency of Treatment Frequency Of Treatment Once a Day Treatment Plan OT Treatment Plan ADL Training,Functional Cognition Training,Patient/ Family Education,Discharge Planning Discharge Recommendations OT Discharge Recommendations Home with Assistance
[2019-12-06 11:46] VITALS: BP 146/65; PULSE 60; RESP 18; TEMP 37.1; O2SAT 95
--- NOTE | 2019-12-06 11:57 | PT.IIE ---
Current Diagnoses Unspecified cord compression (12/05/19) Spinal stenosis, lumbar region with neurogenic claudication (12/05/19) Surgery Performed Operation Date: 12/05/19 10:45 Actual Procedures p C56 & C67 anterior cervical discectomy & fusion w. bone graft(Left) - Ulysses Levi MD Surgical History (Last Updated 11/28/19 @ 14:20 by Peggy Ngo, RN) History of (Acute) History of colonoscopy with polypectomy (Acute) History of hysterectomy (Acute 2009) History of myelography (Acute) Hx of fusion of cervical spine (Acute ~1997) Hx of tonsillectomy (Acute 1973) Hx of tubal ligation (Acute) Medical History (Last Updated 11/28/19 @ 14:28 by Peggy Ngo RN) Acid reflux (Acute) ADD (attention deficit disorder) (Acute) ADHD (attention deficit hyperactivity disorder) (Chronic) Anxiety (Chronic) Arthritis (Acute) Asthma (Acute) Degenerative joint disease of right hip (Acute) Depression with anxiety (Chronic) Difficult airway (Acute) Difficulty swallowing (Acute) Elevated cholesterol (Acute) Fibromyalgia (Chronic) Lumbar back pain (Acute) GITA on CPAP (Acute) Osteoarthritis (Acute) Panic (Chronic) Primary insomnia (Chronic) PTSD (post-traumatic stress disorder) (Chronic) Sinus arrhythmia (Acute) Sinus bradycardia (Acute) Sinus drainage (Acute) Snoring (Inactive) Spinal stenosis (Acute) TMJ arthralgia (Acute) Physical Therapy Inpatient Evaluation/Re-Eval M1 PT/OT-IP Prior Functional Status Start: 12/06/19 08:57 Freq: NEEDED Status: Active Protocol: Document 12/06/19 08:57 [facility] (Rec: 12/06/19 09:15 [facility] [id number]) Medical Review Prior Functional Status Medical History Reviewed Yes Communication Independent Mobility and Gait Pt states only able to walk 1- 2 blocks now versus prior able to walk 1-2 miles. Activities of Daily Living and IADL's Increased difficulty with LB dressing needs. Social History Household Members children Living Arrangements Apartment/Condo Number of Floors (Floors) One Floor Number of Stairs To Enter/Railing? 20 steps with bilateral wide rails to enter her apartment. Home Environment High Toilet,Tub/Shower Home Equipment Straight Cane,Hand Held Shower Additional Social History Comment Pt lives with her 13 year old daughter and cats. Pt states close neighbor that will be available to assist as needed M2 PT-IP Current Condition Start: 12/06/19 08:29 Freq: NEEDED Status: Active Protocol: Document 12/06/19 11:45 [facility] (Rec: 12/06/19 11:57 [id number]) Physical Therapy Current Condition Current Condition Evaluation Date 12/06/19 Treatment Diagnosis C5-C7 ACDF Onset Date 12/05/19 Precautions Cervical Spine Precautions Soft Collar for Comfort,Rigid Collar,No Heavy Lifting,Log Roll Weight Bearing Status Weight Bearing Status Full Weight Bearing M3 PT-IP Subjective Start: 12/06/19 08:29 Freq: NEEDED Status: Active Protocol: Document 12/06/19 11:45 [facility] (Rec: 12/06/19 11:57 [id number]) Subjective Physical Therapy Visit Type Type Initial Evaluation Visit Start Time 10:03 Visit Stop Time 10:15 Total Visit Minutes 12 Notes co-tx SPT Lang Carmina Number of BUSINESS ADMINISTRATOR Visits 0 Physical Therapy Visit Comments Patient Comments I am ready to go home. Patient Goals to return home safely. Therapy Pain Assessment Pain When Pain Assessed During Mobility Location neck Intensity 2 Scale Used Numeric (0 - 10) Description With Movement Pain Management Techniques Timing of Activity with Medications M4 PT-IP Mobility and Gait Start: 12/06/19 08:29 Freq: NEEDED Status: Active Protocol: Document 12/06/19 11:45 [facility] (Rec: 12/06/19 11:57 [id number]) PT-Bed Mobility Assessment Rolling Type of Rolling Roll to Left Level of Assist Standby Assistance Supine to Sit Supine to Sit Standby Assistance Sit to Supine Sit to Supine Standby Assistance Scooting Scooting to Edge of Bed Standby Assistance PT-Transfer Assessment Sit to and From Stand Sit to and from Stand Standby Assistance,Use of Upper Extremities Equipment Transfer Assistive Device None Orthotic/Prosthetic Devices or Brace: No Transfers Transfer Destination Bed,Chair Transfer Technique Stand Step Pivot Transfer Ability Level of Assist Standby Assistance,Use of Upper Extremities Comments Mobility Comments Pt was in chair upon PT and SPT arrival who just completed d/c paperwork with RN. She agreed to mobilize with PT. Pt then instructed to demonstrate log roll and she returned to bed from sitting to SL and rolled to her back SBA. She competed log roll and SL to sit after SBA. Proceeded to amb with this PT. Pt completed the entire AC unit without AD SBA. She also completed 3 flight of stairs ( 10 steps each) with step over pattern for both ascend and descend (R rail down, L rail up) . Pt denies discomfort but did c/o slight SOB at the end of session. Pt walked back to her room after and transferred safely back to bedside chair. No c/o noted. call light placed within reach . Gait Assessment Gait Gait Assistance Required: Standby Assistance Distance (Feet) 420 Able to Maintain Weight Bearing Status Yes During Gait Assistive Devices Assistive Device None Orthotic/Prosthetic Devices or Brace: No Gait Deviations General Gait Pattern Within Normal Limits Factors Limiting Gait Function Factors Limiting Gait Function Respiratory Distress Comments Gait Comments see mobility comments. Stair Climbing Assessment Evaluation Level of Assist On Stairs Standby Assistance Devices Stair Climbing Assistive Devices None,Left Railing,Right Railing Technique/Endurance Stair Climbing Direction Ascend and Descend Stair Climbing Technique Step Over Step Number of Steps Climbed 10 Query Text: Stair Climbing Set # Repetitions (reps) 3 Comments Stair Climbing Comments R rail for descend and L rail for ascend. Step over pattern and no signs of LOB PT-Balance Assessment Sitting Balance and Reactions Static Sitting Balance Ability Normal Dynamic Sitting Balance Ability Normal Standing Balance and Reactions Static Standing Balance Ability Normal Dynamic Standing Balance Ability Normal Device Used none M5 PT-IP Objective Assessments Start: 12/06/19 08:29 Freq: NEEDED Status: Active Protocol: Document 12/06/19 11:45 (Rec: 12/06/19 11:57 [id number]) Orientation Orientation/Cognition Level of Alertness Alert Orientation Name,Age,Birthday,Month,Date, Year,Day of Week,Place, Situation Language Function Ability No Deficits Noted Safety Awareness Understands Safety Issues Memory Description No Deficits Noted Gross Range of Motion Upper Extremity ROM Assessment Within Functional Limits Lower Extremity ROM Assessment Within Functional Limits Strength Upper Extremity Strength Assessment Within Functional Limits Lower Extremity Strength Assessment Within Functional Limits Coordination Assessment Gross Coordination Gross Coordination WNL Sensation Assessment Sensation Gross Sensation WNL Muscle Tone Muscle Tone WNL Yes M6 PT-IP Treatment Start: 12/06/19 08:29 Freq: NEEDED Status: Active Protocol: Document 12/06/19 11:45 (Rec: 12/06/19 11:57 [id number]) Physical Therapy Treatment Education Education Provided Precautions,Weight Bearing Status,Post-Op Packet,Safety M7 PT-IP Assessment and Plan Start: 12/06/19 08:29 Freq: NEEDED Status: Active Protocol: Document 12/06/19 11:45 HH (Rec: 12/06/19 11:57 HH [id number]) PT Summary Assessment and Plan Potential Rehabilitation Potential Excellent Status of Condition at Evaluation Stable Summary Impairments Pain,ROM Progress Towards Goals Safe For Discharge Assessment Summary This is a low complexity evaluation for this 54 yo s/p POD 1 C5-C7 ACDF. PLOF= completely independent without need of assistance / AD. CLOF = SBA for all mobility and completed walking ~420 ft without AD; stair climbing 10steps x 3 sets with one rail SBA. Pt recalled all post op precautions and has good safety awareness. She is safe to be d/c home at this point with dtr assistance as needed. Frequency of Treatment Frequency Of Treatment Discharge Recommendations To Nursing Amount of Assist Needed Standby Assistance Discharge Recommendations PT Discharge Recommendations Home,Home with Assistance Transportation Needs at Discharge Private Vehicle
--- NOTE | 2019-12-06 13:22 | PC.NURSE ---
Pt dc'd to home per order at 1245. Reviewed dc packet, educational materials, medications (doses, times, next dose due). Provided written and verbal education regarding post op care, f/u appt, pain med regimen, when to seek emergency medical treatment. Pt verbalized understanding. Removed PIV with cath tip intact. Rx electronically sent. Pt was up ambulating independently with steady gait. All belongings gathered and sent with pt for dc. ACCOUNTS PAYABLE LEAD escorted pt to pharmacy and pt was picked up by s/o in no distress.
--- NOTE | 2019-12-06 13:39 | CM.IDA ---
Initial DCP Assessment Note Pt is a 54 yo female, resident of [place], now POD#1 from C56 & C67 anterior cervical discectomy & fusion w. bone graft w/ Dr Levi PCP: Kary Hidalgo Payer: ESTR[employer]/KEELY Reviewed chart, pt discussed in multidisciplinary rounds this morning. Therapy has cleared pt for return home w/family to assist and pt has planned for home, DC order from Ortho has already been initiated this morning. Patient eager to return home, denies needs. STACIE Hernandez
== END 2019-12-06 12:40 | disposition home or self-care (01) ==
LOC: OR 08:19 → ICU 14:03
PROVIDERS: PCP Family Medicine; Referring Provider Orthopaedic Surgery; Visit Provider Orthopaedic Surgery
PROC: (CPT 22551; principal; 2019-12-05 10:45)
DX: G95.20 Unspecified cord compression (principal); M48.02 Spinal stenosis, cervical region; M48.062 Spinal stenosis, lumbar region with neurogenic claudication; M79.7 Fibromyalgia; G47.30 Sleep apnea, unspecified; E66.9 Obesity, unspecified; F32.9 Major depressive disorder, single episode, unspecified; F90.9 Attention-deficit hyperactivity disorder, unspecified type; Z23 Encounter for immunization; J45.909 Unspecified asthma, uncomplicated; Z68.36 Body mass index [BMI] 36.0-36.9, adult; Z87.891 Personal history of nicotine dependence
CPT/HCPCS: 22551; 22552; 22853; 20939; 72040; 76000; 87797; 90471; 90732; 94762; 97161; 97165; 97530; 97535; C1776; A9270; J0330; J0690; J1170; J2250; J2704; J3010; J3410

== ENCOUNTER → 2020-02-08 09:35 | Outpatient (CLI) | payer MEDICARE, MEDICAID, SELFPAY ==
[2019-12-05 16:01] VITALS: BMI 37.8
[2020-02-08 11:56] LABS: Blood Urea Nitrogen 18 mg/dL (7-17); Calcium 9.7 mg/dL (8.4-10.2); Carbon Dioxide 29 mmol/L (22-32); Chloride 103 mmol/L (98-107); Estimated Glomerular Filt Rate > 60.0 mL/min (>60); Glucose 93 mg/dL (70-100); HEMOLYSIS < 15 (0-50); Potassium 4.6 mmol/L (3.4-5.1); Sodium 138 mmol/L (137-145)
[2020-02-08 11:59] LABS: COVID19 -Nasal RAPID Negative (Negative)
== END ==
PROVIDERS: Physician Assistant; PCP Student in an Organized Health Care Education/Training Program; Referring Provider Orthopaedic Surgery; Visit Provider Orthopaedic Surgery
DX: Z01.812 Encounter for preprocedural laboratory examination (principal); Z20.828 Contact with and (suspected) exposure to other viral communicable diseases
CPT/HCPCS: 36415; 80048; 87635; C9803

== ENCOUNTER 2020-02-11 07:47 | Day surgery (SDC) | payer MEDICARE, MEDICAID, SELFPAY ==
[2019-12-05 16:01] VITALS: BMI 37.8
[2020-02-03 15:10] VITALS: BMI 38.2
[2020-02-11] VITALS (12 sets, daily range): BP systolic 108–151; BP diastolic 58–79; PULSE 51–69; RESP 1–18; TEMP 36–37.2; O2SAT 91–99; BMI 38.2
--- NOTE | 2020-02-11 | DI.RAD.S_ITS ---
PROCEDURE: XR LUMBAR SPINE 1V INDICATIONS: FORAMINOTOMY TECHNIQUE: Single views of the lumbar spine were acquired. COMPARISON: None. FINDINGS: Single spot fluoroscopic intraoperative views demonstrating surgical instrumentation with the tips projecting in the region of the L5-S1 level however suboptimal evaluation given the absence of lateral view and recommend correlation to real-time observations. Dictated by: Blas Boss M.D. on 02/11/2020 at 14:06 Approved by: Blas Boss M.D. on 02/11/2020 at 14:08
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
[2020-02-11] MEDS: ACETAMINOPHEN 325 MG TABLET 975 MG PO (10:34)
[2020-02-11] MEDS: LACTATED RINGERS 1,000 ML 42 ML IV (10:37)
[2020-02-11] MEDS: CEFAZOLIN 2 GM/100 ML FROZ.PIGGY IV ×2 (10:50→18:43)
--- NOTE | 2020-02-11 11:22 | SUR.OPER ---
Prone on spine table, head in foam head support, padded chest and pelvic supports, gel pad at knees, lower legs supported by pillows; nipples, genitalia and toes free of pressure, arms secured on foam padded arm boards at <90 degrees abduction. Tape over blanket at thigh secured to table.
[2020-02-11] MEDS: BUPIVACAINE 0.25% (PF) 8 ML, fentaNYL 100 MCG INJ (11:36)
[2020-02-11] MEDS: VANCOMYCIN 1,000 MG VIAL 1000 MG TOP (11:37)
[2020-02-11] MEDS: THROMBIN (RECOMBINANT) 5,000 UNIT VIAL 5000 UNIT TOP (11:37)
[2020-02-11] MEDS: SODIUM CHLORIDE 0.9% 1,000 ML, GENTAMICIN 80 MG IRR (11:39)
--- NOTE | 2020-02-11 12:09 | PM.OP.1 ---
Operative Date/Time/Diagnoses Date of procedure: 02/11/20 Time of procedure: 12:09 Pre-op diagnosis: Lumbar stenosis with radiculopathy Post-op diagnosis: same Procedure & Clinicians Procedure: Right L5-S1 foraminotomy Use of microscope Placement of epidural catheter Same procedure as scheduled: Yes Indications: [age] year old female with intractable pain from lumbar stenosis. They had failed conservative management and requested operative intervention. Risks and benefits of surgery were discussed and appropriate consents were obtained. Surgeon: Ulysses Levi Retail Shift Manager: Kirstin Benjamin Anesthesia Type: General Operative Notes Findings: None Closure Type: primary Specimen(s): none sent Estimated Blood Loss (mL): 10 Procedure in detail: Patient was brought to the operating room and intubated on the table. A time-out was performed. There were rolled over the well-padded prone position on the Lauri table. The back was prepped and draped in standard sterile fashion. Preoperative antibiotics were given. Using fluoroscopy, a 3 cm incision was made to the well marked right of the midline at the L5-S1 level. We used Bovie to come down to and split the fascia. We then used the [employer] MaXcess dilators with fluoroscopy and then opened our retractors. The soft tissue was cleared off with Bovie, a marker was placed, an x-ray was taken to confirm positioning. We then brought in the microscope. A combination of high-speed bur and Kerrison were used to perform a right-sided hemilaminotomy and hemifacetectomy. We removed some facet hypertrophy and facet cyst medially along the S1 root. We undermined the foramen with the curved Kerrison and continued removing small pieces of bone and soft tissue until the nerve root was free and we could easily pass a ball probe out through the foramen. We carefully retracted the dura to make sure there was no disc herniation and the S1 root was free. Once everything was adequately decompressed, the wound was copiously irrigated. An epidural catheter was filled with 100 mcg of fentanyl and 8 mL of 0.25% Marcaine. The dura was carefully depressed under the laminotomy site and the catheter was advanced 6 cm cephalad. The retractor was removed and the fascia was closed. The epidural catheter was then injected without resistance and removed. Vancomycin powder was placed in the wound. Superficial and skin were closed. Sterile dressing was placed. The patient was then rolled over, transferred to the stretcher, and brought to recovery room without complications. Complications: none Post-operative Condition: stable Disposition: PACU Plan for aftercare: Overnight admission. Plan to discharge in the morning.
[2020-02-11] MEDS: BENZOCAINE/MENTHOL 1 LOZ PKT 1 EACH PO (12:39)
[2020-02-11] MEDS: LACTATED RINGERS 1,000 ML 125 ML IV ×2 (13:32→22:13)
[2020-02-11] MEDS: CELECOXIB 200 MG CAPSULE 400 MG PO (13:36)
--- NOTE | 2020-02-11 14:12 | PC.ADMIT ---
[email or web address] Admission Note: Safe hand off from [facility] PACU. VSS. Lung sounds clear. Patient bradycardic, asymptomatic. Patient denies pain, denies nausea. Tolerating PO intake. Patient has home CPAP at bedside. Gauze w/tegaderm dressing is CDI. Patient was educated about the use of call light, it is within reach, bed alarm is on, and bed is low and locked. The patient,Selina Guerra,54 y/o, was given written information regarding hospital policies, unit procedures and contact persons. Patient's smoking status: Current every day smoker. Vital Signs - 8 hr 02/11/20 08:46 02/11/20 12:27 02/11/20 12:32 Temperature 98.7 F 99 F Pulse Rate 55 L 63 69 Respiratory Rate 16 1 L 14 Blood Pressure 135/70 139/66 122/79 Pulse Oximetry 97 94 93 02/11/20 12:37 02/11/20 12:42 02/11/20 12:55 Temperature 97.6 F 97.6 F 97.6 F Pulse Rate 58 L 57 L 51 L Respiratory Rate 12 13 15 Blood Pressure 126/58 L 129/61 123/75 Pulse Oximetry 95 96 99
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
[2020-02-11] MEDS: diphenhydrAMINE 25 MG TABLET PO (15:29)
[2020-02-11] MEDS: HYDROMORPHONE 0.5 MG INJ IV ×3 (15:33→23:47)
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
[2020-02-11] MEDS: SENNOSIDES 8.6 MG TABLET 17.2 MG PO (20:18)
[2020-02-11] MEDS: CELECOXIB 200 MG CAPSULE PO (20:19)
[2020-02-11] MEDS: DOCUSATE 100 MG CAPSULE PO (20:19)
[2020-02-11] MEDS: CYCLOBENZAPRINE 10 MG TABLET PO (20:24)
[2020-02-11] MEDS: BUDESONIDE 0.5 MG/2 ML NEB INH (20:35)
[2020-02-12 00:16] VITALS: BP 132/59; PULSE 55; RESP 16; TEMP 36.4; O2SAT 94
[2020-02-12] MEDS: CEFAZOLIN 2 GM/100 ML FROZ.PIGGY IV (03:15)
[2020-02-12] MEDS: HYDROMORPHONE 0.5 MG INJ 0.2 MG IV (04:16)
[2020-02-12 04:59] VITALS: BP 149/75; PULSE 50; RESP 16; TEMP 35.8; O2SAT 95
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
[2020-02-12 08:03] VITALS: PULSE 53; RESP 18; O2SAT 99
[2020-02-12] MEDS: BUDESONIDE 0.5 MG/2 ML NEB INH (08:03)
[2020-02-12 08:12] VITALS: BP 107/80; PULSE 55; RESP 14; TEMP 36.3; O2SAT 99
[2020-02-12] MEDS: SPIRONOLACTONE 25 MG TABLET 50 MG PO (09:48)
[2020-02-12] MEDS: DOCUSATE 100 MG CAPSULE PO (09:48)
[2020-02-12] MEDS: HYDROMORPHONE 2 MG TABLET PO ×2 (09:48→12:42)
--- NOTE | 2020-02-12 11:09 | PT.IPTN ---
Current Diagnoses Spinal stenosis, lumbar region with neurogenic claudication (02/11/20) Arthrodesis status (02/11/20) Surgery Performed Operation Date: 02/11/20 10:15 Actual Procedures p L5S1 foraminotomy(Right) - Ulysses Levi MD Physical Therapy Treatment Note M2 PT-IP Current Condition Start: 02/11/20 13:55 Freq: NEEDED Status: Active Protocol: Document 02/11/20 15:35 HH (Rec: 02/11/20 15:52 [email or web address]) Physical Therapy Current Condition Current Condition Evaluation Date 02/11/20 Treatment Diagnosis R [id number], difficulty in walking, R hip weakness Precautions Lumbar Precautions Log Roll,No Twisting,Limit Bending,Lifting Restriction of 10 lbs,Gait Belt above Incisional Area Weight Bearing Status Weight Bearing Status Full Weight Bearing M3 PT-IP Subjective Start: 02/11/20 13:55 Freq: NEEDED Status: Active Protocol: Document 02/12/20 10:25 LJ (Rec: 02/12/20 11:09 LJ [id number]) Subjective Physical Therapy Visit Type Type Treatment Note Visit Start Time 10:21 Visit Stop Time 10:38 Total Visit Minutes 17 Number of PORTAL DEVELOPER Visits 1 Therapy Pain Assessment Pain When Pain Assessed During Mobility Pain Present Pain Present Denied Pain M4 PT-IP Mobility and Gait Start: 02/11/20 13:55 Freq: NEEDED Status: Active Protocol: Document 02/12/20 10:25 LJ (Rec: 02/12/20 11:09 LJ [id number]) PT-Transfer Assessment Sit to and From Stand Sit to and from Stand Standby Assistance,Use of Upper Extremities Equipment Transfer Assistive Device None,Straight Cane Orthotic/Prosthetic Devices or Brace: No Transfers Transfer Destination Chair Transfer Technique pt ambulated Transfer Ability Level of Assist Contact Guard Assistance,Use of Upper Extremities Comments Mobility Comments Pt sitting in chair upon arrival. Willing to ambulate and trial stairs. Ambulated with SPC to stairs SBA. Performed stairs x3 without difficulty. Followed directions for step-to gait and LLE leading going up and RLE leading on descent. Pt ambulatted back to room with near normal gait pattern using SPC. Left in room sitting in chair. Gait Assessment Gait Gait Assistance Required: Standby Assistance Distance (Feet) 150 Able to Maintain Weight Bearing Status Yes During Gait Assistive Devices Assistive Device None,Gait Belt,Straight Cane Orthotic/Prosthetic Devices or Brace: No Gait Deviations General Gait Pattern Antalgic,Decreased Stride Length,Decreased Feet Clearance Factors Limiting Gait Function Factors Limiting Gait Function Decreased Activity Tolerance, Decreased Strength,Limited Range of Motion,Pain Comments Gait Comments Pt ambulated in hallway with and without SPC. Near normal gait pattern with exception of slight antalgia and smaller steps. Very little, if any, reliance on SPC. No fatigue or LOB. Stair Climbing Assessment Evaluation Level of Assist On Stairs Standby Assistance Devices Stair Climbing Assistive Devices Straight Cane,Right Railing Technique/Endurance Stair Climbing Direction Ascend and Descend Stair Climbing Technique Step to Step Number of Steps Climbed 3 Stair Climbing Set # Repetitions (reps) 3 Comments Stair Climbing Comments Pt was able to ascend and descend stairs without difficulty given cuing for leading with LLE ascending and RLE descending. Appropriate use of SPC M5 PT-IP Objective Assessments Start: 02/11/20 13:55 Freq: NEEDED Status: Active Protocol: Document 02/11/20 15:35 (Rec: 02/11/20 15:52 [id number]) Orientation Orientation/Cognition Level of Alertness Alert Orientation Name,Age,Birthday,Month,Date, Year,Day of Week,Place, Situation Language Function Ability No Deficits Noted Safety Awareness Understands Safety Issues Memory Description No Deficits Noted Gross Range of Motion Upper Extremity ROM Assessment Within Functional Limits Lower Extremity ROM Assessment Within Functional Limits Strength Upper Extremity Strength Assessment Within Functional Limits Lower Extremity Strength Assessment Right Impaired Hip 4/5 Knee 5/5 Ankle 5/5 Coordination Assessment Gross Coordination Gross Coordination WNL Sensation Assessment Sensation Gross Sensation WNL M6 PT-IP Treatment Start: 02/11/20 13:55 Freq: NEEDED Status: Active Protocol: Document 02/12/20 10:25 LJ (Rec: 02/12/20 11:09 LJ [id number]) Physical Therapy Treatment Education Education Provided Precautions,Safety M7 PT-IP Assessment and Plan Start: 02/11/20 13:55 Freq: NEEDED Status: Active Protocol: Document 02/12/20 10:25 LJ (Rec: 02/12/20 11:09 LJ [id number]) PT Summary Assessment and Plan Potential Rehabilitation Potential Excellent Summary Impairments Pain,ROM,Strength,Balance,Bed Mobility,Transfers,Gait, Activity Tolerance Assessment Summary Pt doing well with mobility and ambulation including stair climbing. She has met goals and is safe to DC home today. Goals Bed Mobility Goal Standby Assistance Transfer Goal Standby Assistance,Cane,Front Wheeled Walker Gait Goal Standby Assistance,Cane,Front Wheel Walker Gait Distance 200 Other Goals 20 KINA with B wide rails Days to Meet Goals 3 Frequency of Treatment Frequency Of Treatment Twice a Day Treatment Plan Physical Therapy Treatment Plan Bed Mobility Training,Transfer Training,Gait Training, Therapeutic Exercise,Balance Retraining,Post Op Education, Discharge Planning,Hot or Cold Pack,Neuromuscular Re-ed Other Recommendations and Next Treatment mobility as juan Focus review precautions 20 Kina with wide rails SPC/ 4WW/ FWW for mobility Recommendations To Nursing Amount of Assist Needed 1 Person Assist Discharge Recommendations PT Discharge Recommendations Home with Assistance
--- NOTE | 2020-02-12 11:20 | OT.IP.TRT ---
Current Diagnoses Spinal stenosis, lumbar region with neurogenic claudication (02/11/20) Arthrodesis status (02/11/20) Surgery Performed Operation Date: 02/11/20 10:15 Actual Procedures p L5S1 foraminotomy(Right) - Ulysses Levi MD Occupational Therapy Treatment Note M2 OT-IP Current Condition Start: 02/11/20 15:31 Freq: Status: Active Protocol: Document 02/11/20 15:31 [facility] (Rec: 02/11/20 15:52 [facility] [id number]) Occupational Therapy Current Condition Current Condition Evaluation Date 02/11/20 Treatment Diagnosis S/p right L5-S1 Foraminotomy Diagnosis Onset Date 02/11/20 Post Operative Precautions Lumbar Precautions Log Roll,No Twisting,Limit Bending,Lifting Restriction of 10 lbs,Gait Belt above Incisional Area M3 OT- IP Subjective and Pain Start: 02/11/20 15:31 Freq: Status: Active Protocol: Document 02/12/20 11:49 [facility] (Rec: 02/12/20 11:57 [facility] [id number]) OT- Subjective Occupational Therapy Visit Type Type Treatment Note Visit Start Time 11:20 Visit Stop Time 11:30 Total Visit Minutes 10 Occupational Therapy Visit Comments Patient Comments Pt already dressed but willing to work with OT. Patient/Caregiver Goals TO go home. OT Pain Assessment Pain When Pain Assessed At Rest Pain Present Pain Present Denied Pain M4 OT- IP ADL's Start: 02/11/20 15:31 Freq: Status: Active Protocol: Document 02/12/20 11:49 [facility] (Rec: 02/12/20 11:57 [facility] [id number]) OT [id number] Comments OT Self-Feeding Comments NOt at meal time. OT ADL-Dressing Comments OT Dressing Comments Pt states to use her LB dressing equipment at home or have her daughter to assist. OT ADL-Toileting Comments OT Toileting Comments Pt states to buy some pull up briefs to use initially. OT ADL-Bathing Comments OT Bathing Comments Pt already dressed. Pt states looking into getting a tub bench for home use. M5 OT- IP IADL's Start: 02/11/20 15:31 Freq: Status: Active Protocol: Document 02/11/20 15:31 [facility] (Rec: 02/11/20 15:52 [facility] [id number]) OT-Instrumental Activities of Daily Living Home Safety Awareness Awareness of Need for Assistance at Home Good Awareness Ability to Problem Solve Emergency Able to Problem Solve Situations Medication Management Medication Management Comments Pt states her daughter will be able to assist for any needs. Meal Preparation Meal Preparation Caregiver Provides Assist Raw Scales Operator Raw Scales Operator Caregiver Provides Assist Driving Driving Concerns Identified Regarding Safety M6 OT- IP Functional Cognition Start: 02/11/20 15:31 Freq: Status: Active Protocol: Document 02/12/20 11:49 [facility] (Rec: 02/12/20 11:57 [facility] [id number]) Cognitive Factors Limiting Selfcare Function Cognitive Ability Level of Alertness Alert Patient Orientation Name,Place,Situation Attention Span Ability Capable of Focused Attention, Capable of Sustained Attention Ability to Follow Commands Able to Follow Multi-Step Commands Safety Awareness Decreased Ability to Apply Precautions Cognitive Comments Cognitive Assessment Comments Pt still a little impulsive and needs reminders to slow down and be sure to incorporate her back precautions. M7 OT- IP Mobility and Balance Start: 02/11/20 15:31 Freq: Status: Active Protocol: Document 02/12/20 11:49 [facility] (Rec: 02/12/20 11:57 [facility] [id number]) OT-Transfer Assessment Sit to and From Stand Sit to and from Stand Independent Transfers Transfer Ability Independent Technique Transfer Destination Bed Transfer Technique Stand Step Pivot Comments Mobility Comments Pt able to independently walk in the room. Pt has ordered a 4ww to assist with carrying items and also to be sure that her cats will not get underneath her feet. OT- Gait Assessment Comments Gait Ability Comments Independent on level surfaces. OT- Balance Assessment Sitting Balance and Reactions Static Sitting Balance Ability Normal Dynamic Sitting Balance Ability Normal Standing Balance and Reactions Static Standing Balance Ability Normal M8 OT- IP Objective Assessments Start: 02/11/20 15:31 Freq: Status: Active Protocol: Document 02/11/20 15:31 [facility] (Rec: 02/11/20 15:52 [facility] [id number]) OT Gross Range of Motion Upper Extremity Range of Motion Assessment Within Functional Limits OT-Muscle Tone Assessment Muscle Tone WNL Yes M9 OT- IP Assessment and Plan Start: 02/11/20 15:31 Freq: Status: Active Protocol: Document 02/12/20 11:49 [facility] (Rec: 02/12/20 11:57 [facility] [id number]) OT Summary Assessment and Plan Potential Rehabilitation Potential Good Analytic Complexity at Evaluation Low Summary Progress Towards Goals Progressing Toward Goals Assessment Summary Pt doing well and mainly just needing to slow down and be sure to incorporate her back precautions for all her ADL and mobility needs. Pt states has ordered a 4WW , to get a tub bench and to get disposable briefs at night. Pt has a supportive daughter to assist and neighbors to help as needed. Frequency of Treatment Frequency Of Treatment Once a Day Treatment Plan OT Treatment Plan ADL Training,Functional Cognition Training,Functional Mobility,Patient/Family Education,Discharge Planning Discharge Recommendations OT Discharge Recommendations Home with Assistance Home Equipment Needs tub bench,4ww Transportation Needs at Discharge Private Vehicle
--- NOTE | 2020-02-12 12:59 | PC.NURSE ---
Discharge instructions and home care handouts reviewed with patient, she states understanding and has no further questions or concerns. Dressing remains intact. Prescriptions sent electronically to pharmacy of choice . Patint escorted out with all belongings via wheelchair by TAR HEEL, picked up by friend. Discharged to home with her family. Follow up as scheduled. Instructed to call surgeons office with questions or concerns.
--- NOTE | 2020-02-12 13:26 | CM.DANOTE ---
DCP Brief Assessment Note Patient is a 54 year old female who was admitted on 02/11/20 Outpt with Bed for TLIF. Pt has [facility] and [facility] for insurance and her PCP is Dr. Benson Perez. EMR was reviewed. Per Ortho MD, pt tolerated surgery well and pain seems to be managed on oral meds and stable for discharge home today after further PT/OT. Per PT/OT, recommending safe d/c back home with some assist and outpt follow up with Ortho. Pt resides at home on Monday with her teenage Dtr and has neighbor available to assist and pt preference is [place] today via ferry and friend POV and no concerns at this time. Plan: Patient to d/c home via friend POV and outpt follow up. No SW needs at this time. STACIE Olmedo
== END 2020-02-12 12:45 | disposition home or self-care (01) ==
LOC: OR 07:51 → AC 07:51
PROVIDERS: PCP Student in an Organized Health Care Education/Training Program; Referring Provider Orthopaedic Surgery; Visit Provider Orthopaedic Surgery
PROC: (CPT 63047; principal; 2020-02-11 10:15)
DX: M48.062 Spinal stenosis, lumbar region with neurogenic claudication (principal); M54.16 Radiculopathy, lumbar region; Z98.1 Arthrodesis status; G95.20 Unspecified cord compression; K21.9 Gastro-esophageal reflux disease without esophagitis; F41.9 Anxiety disorder, unspecified; F32.9 Major depressive disorder, single episode, unspecified; M79.7 Fibromyalgia; E66.9 Obesity, unspecified; Z68.38 Body mass index [BMI] 38.0-38.9, adult; E78.5 Hyperlipidemia, unspecified
CPT/HCPCS: 63047; 72020; 76000; 82962; 94640; 94760; 97116; 97161; 97165; 97530; 97535; A9270; J0330; J0690; J1100; J1170; J2250; J2405; J3010

== ENCOUNTER → 2020-03-13 10:08 | Outpatient (CLI) | payer MEDICARE, MEDICAID, SELFPAY ==
[2020-02-11 13:06] VITALS: BMI 38.2
--- NOTE | 2020-03-13 10:27 | DIET.PN ---
Dietary Progress Note Assessment: 54y F referred to nutrition for help with health surveillance/weight loss. Pt had two spinal procedures recently (cervical and lumbar), has first PT appt today and will continue for 12w. Has another surgery planned for April for septum for her breathing Pt has PTSD, ADD, depression, anxiety, difficulty c routines and structure, chronic Vitamin D deficiency. Pt has overhauled her diet over the past 3y but hasn't seen weight change. She is working on altered patterns for what she is bringing into house to keep it healthy though this can be difficult as she has 14y daughter. At one time, pt lost 60-80# but wasn't sustainable so gained back. Usual Day: drinks 6- 16oz burns per day wakes 3-6am, has sleep apnea so doesn't sleep well, only gets 3-4h sleep B (6-8am):was doing 8c caffeine coffee now 1/5 cups per day decaf c stevia and powdered coconut milk if hungry does a premier protein but sometimes a glass oj [address] [facility] does daily activities until lunch L (not standard time): hard boiled egg sometimes or nothing ADLs D: has a serving of salad, has a lot of soups and stews in freezer (lentil, split pea, broth based), brown rice, salmon anton, turkey burger, or hamburger, roast chicken and use for the week no snacking after dinner, no salt in cooking or much added sugar tries to sleep by 10pm doesn't have a car right now so doesn't go to the store very often. was walking 2-3 miles per day, now walking 1/8 to 1/2 mile and has some range of motion issues and impact is hurting her back and sets her back. HT: 5'9 WT: 240-255# Nutrition Diagnosis: morbid obesity r/t nutrition related knowledge deficit and physical inactivity aeb pt in cycles of crash dieting and restricting intake without sustained weight loss or maintenance, pt recently had extensive spinal surgeries so has limited mobility and reduced endurance, pt food recall shows one meal a day which isn't supporting her metabolism. Interventions: 1. Discussed pts current restrictive diet of no real breakfast or lunch and main (albeit healthy) meal late in the day. Encouraged pt to fuel her body throughout the day to support her metabolism. Pt agrees to have her Premier Protein shake at breakfast (30g PRO, 1g CHO, 1.5g fat, 150 kcals), creating a healthy lunch with hopes to make this her main meal (salmon anton on bed of lettuce c 1/4c beans or something like), and keeping dinner meal a soup or stew. 2. Introduced pt to Hunger Scale. Pt likely ignoring her hunger which will set her up for abandoning her diet or overeating due to restrictive nature of diet. Pt will work on eating at a 3 and stopping at an 8. This will also help her to understand the need to fuel properly through the day. 3. Calculated pts PRO needs as 90g per day. Provided pt handout with protein content of foods to assess her current intake and add healthy, anti-inflammatory proteins. 4. Stressed importance of PT compliance to work on building lean body mass which will help her to increase endurance and increase metabolism. EER: 90g PRO/d (0.8g/kg) Monitoring/Evaluations: pts insurance not likely to cover continued nutrition visits.
== END ==
PROVIDERS: Family Provider Student in an Organized Health Care Education/Training Program; PCP Student in an Organized Health Care Education/Training Program; Referring Provider Student in an Organized Health Care Education/Training Program; Visit Provider Student in an Organized Health Care Education/Training Program
DX: E66.9 Obesity, unspecified (principal); Z68.36 Body mass index [BMI] 36.0-36.9, adult; Z71.3 Dietary counseling and surveillance; Z98.890 Other specified postprocedural states
CPT/HCPCS: 97802

== ENCOUNTER → 2020-04-28 10:47 | Outpatient (CLI) | payer MEDICARE, MEDICAID, SELFPAY ==
[2020-02-11 13:06] VITALS: BMI 38.2
--- NOTE | 2020-04-28 10:50 | DI.RAD.S_ITS ---
PROCEDURE: XR SHOULDER RT MIN 2V INDICATIONS: right shoulder pain with swelling TECHNIQUE: 3 views of the shoulder were acquired. COMPARISON: [facility], , SHOULDER MIN 2VW (RT), 01/23/2014, 14:43. FINDINGS: Bones: No fractures or dislocations. No suspicious bony lesions. Moderate acromioclavicular and glenohumeral joint degeneration. Visualized ribs appear intact. Soft tissues: No suspicious soft tissue calcifications. IMPRESSION: Moderate degenerative joint disease. If clinical symptoms persist or clinical suspicion for internal derangement is high, MRI is suggested for further evaluation. Dictated by: Alan De Luna M.D. on 04/28/2020 at 17:59 Approved by: Alan De Luna M.D. on 04/28/2020 at 18:00
[2020-04-28 11:53] LABS: D Dimer 238 ng/mL (<230)
[2020-04-28 12:34] LABS: Free T4, Direct Thyroxine 0.82 ng/dL (0.78-2.19)
[2020-04-28 12:47] LABS: Thyroid Stimulating Hormone 3.29 uIU/mL (0.47-4.68)
== END ==
PROVIDERS: Family Provider Student in an Organized Health Care Education/Training Program; PCP Student in an Organized Health Care Education/Training Program; Referring Provider Student in an Organized Health Care Education/Training Program; Visit Provider Student in an Organized Health Care Education/Training Program
DX: M24.819 Other specific joint derangements of unspecified shoulder, not elsewhere classified (principal); E03.9 Hypothyroidism, unspecified; M25.511 Pain in right shoulder; E66.01 Morbid (severe) obesity due to excess calories; I82.B29 Chronic embolism and thrombosis of unspecified subclavian vein
CPT/HCPCS: 36415; 73030; 84439; 84443; 84481; 85379

== ENCOUNTER → 2020-05-13 10:34 | Outpatient (CLI) | payer MEDICARE, MEDICAID, SELFPAY ==
[2020-02-11 13:06] VITALS: BMI 38.2
[2020-05-12 15:29] VITALS: BMI 38.2
[2020-05-13] MEDS: COVID-19 VACC #1, MRNA(MOD) 100 MCG/0.5 ML VIAL IM (10:46)
== END ==
PROVIDERS: Family Provider Student in an Organized Health Care Education/Training Program; PCP Student in an Organized Health Care Education/Training Program; Visit Provider Internal Medicine
DX: Z23 Encounter for immunization (principal)
CPT/HCPCS: 0011A; 91301

== ENCOUNTER → 2020-05-13 11:01 | Outpatient (CLI) | payer MEDICARE, MEDICAID, SELFPAY ==
[2020-02-11 13:06] VITALS: BMI 38.2
[2020-05-12 15:29] VITALS: BMI 38.2
--- NOTE | 2020-05-13 11:03 | DI.US.S_ITS ---
PROCEDURE: US PERIPH VENOUS UP EXTREM RT INDICATIONS: right shoulder pain with swelling TECHNIQUE: Real-time imaging, as well as color and pulse Doppler interrogation, was performed of the right upper extremity deep veins from the inferior neck to the antecubital fossa. COMPARISON: None. FINDINGS: The internal jugular vein, visualized portions of the subclavian vein, axillary, and brachial veins are free of intraluminal thrombus. Where physically possible, the veins are normally compressible. Color and pulse Doppler demonstrate normal intraluminal flow, with expected phasicity and pulsatility. Additional scanning of the cephalic and basilic veins of the superficial system demonstrate normal compressibility, without thrombus. IMPRESSION: Negative for deep venous thrombosis. Dictated by: Terrance Calderon M.D. on 05/13/2020 at 11:26 Approved by: Terrance Calderon M.D. on 05/13/2020 at 11:27
== END ==
PROVIDERS: Family Provider Student in an Organized Health Care Education/Training Program; PCP Student in an Organized Health Care Education/Training Program; Referring Provider Student in an Organized Health Care Education/Training Program; Visit Provider Student in an Organized Health Care Education/Training Program
DX: M25.511 Pain in right shoulder (principal); M79.89 Other specified soft tissue disorders; Z23 Encounter for immunization
CPT/HCPCS: 0011A; 91301; 93971

== ENCOUNTER → 2020-06-10 10:10 | Outpatient (CLI) | payer MEDICARE, SELFPAY ==
[2020-05-12 15:29] VITALS: BMI 38.2
[2020-06-10] MEDS: COVID-19 VACC #2, MRNA(MOD) 100 MCG/0.5 ML VIAL IM (10:22)
== END ==
PROVIDERS: Family Provider Student in an Organized Health Care Education/Training Program; PCP Student in an Organized Health Care Education/Training Program; Visit Provider Internal Medicine
DX: Z23 Encounter for immunization (principal)
CPT/HCPCS: 0012A; 91301

== ENCOUNTER → 2020-08-12 09:59 | Outpatient (CLI) | payer MEDICARE, MEDICAID, SELFPAY ==
[2020-05-12 15:29] VITALS: BMI 38.2
[2020-08-12 10:39] LABS: Add Manual Diff / Slide Review NO; Basophils Absolute Auto 100 /uL (0-100); Basophils Percent Auto 0.7 % (0-2); Eosinophils Absolute Auto 100 /uL (0-450); Eosinophils Percent Auto 1.3 % (2-4); Hematocrit 37.6 % (36-46); Hemoglobin 12.8 g/dL (12.0-16.0); Lymphocytes Absolute Auto 2000 /uL (1100-4500); Lymphocytes Percent Auto 25.2 % (25-40); Mean Corpuscular HGB Conc 34.1 % (30-36); Mean Corpuscular Volume 93.8 fL (80-100); Monocytes Absolute Auto 400 /uL (0-900); Monocytes Percent Auto 5.2 % (3-14); Neutrophils Absolute Auto 5500 /uL (1500-7000); Neutrophils Percent Auto 67.6 % (50-75); Platelet Count 270 X10^3/uL (150-400); Red Blood Cell Count 4.01 X10^6/uL (4.0-5.2); Red Cell Distribution Width 13.1 % (11.6-14.8); White Blood Cell Count 8.1 X10^3/uL (4.5-11.0)
[2020-08-12 11:42] LABS: Erythrocyte Sedimentation Rate 28 MM/HR (0-20)
[2020-08-12 11:51] LABS: Alanine Aminotransferase 34 IU/L (<35); Albumin 4.3 g/dL (3.5-5.0); Albumin Globulin Ratio 1.5 (1.0-2.8); Alkaline Phosphatase 55 U/L (38-126); Aspartate Aminotransferase 34 IU/L (14-36); BUN Creatinine Ratio 28.1 (6-22); Bilirubin Total 0.4 mg/dL (0.2-1.3); Blood Urea Nitrogen 18 mg/dL (7-17); C-Reactive Protein Quant 0.9 mg/dL (<1.0); Calcium 9.2 mg/dL (8.4-10.2); Carbon Dioxide 25 mmol/L (22-32); Chloride 105 mmol/L (98-107); Estimated Glomerular Filt Rate > 60.0 mL/min (>60); Globulin 2.8 g/dL (1.7-4.1); Glucose 102 mg/dL (70-100); HEMOLYSIS < 15 (0-50); Potassium 4.6 mmol/L (3.4-5.1); Sodium 139 mmol/L (137-145); Total Protein 7.1 g/dL (6.3-8.2); Uric Acid 4.7 mg/dL (2.5-6.2)
[2020-08-12 11:54] LABS: Rheumatoid Factor < 8.6 IU/mL (<12.0)
[2020-08-15 15:00] LABS: ANA Screen, IFA Negative (.)
== END ==
PROVIDERS: Family Provider Student in an Organized Health Care Education/Training Program; PCP Student in an Organized Health Care Education/Training Program; Referring Provider Student in an Organized Health Care Education/Training Program; Visit Provider Student in an Organized Health Care Education/Training Program
DX: L68.0 Hirsutism (principal); R21 Rash and other nonspecific skin eruption; M13.0 Polyarthritis, unspecified
CPT/HCPCS: 36415; 80053; 84550; 85025; 85651; 86038; 86140; 86430

== ENCOUNTER → 2020-08-31 11:10 | Outpatient (CLI) | payer MEDICARE, MEDICAID, SELFPAY ==
[2020-05-12 15:29] VITALS: BMI 38.2
--- NOTE | 2020-08-31 11:11 | DI.US.S_ITS ---
PROCEDURE: US PELVIC COMPLETE INDICATIONS: LEIOMYOMA ?POLYCYSTIC OVARIAN SYNDROME TECHNIQUE: Real-time scanning was performed of the pelvic organs, with image documentation. Additional endovaginal scanning was necessary due to incomplete visualization of the adnexal and endometrial structures by transabdominal scanning. COMPARISON: [facility] Outside Film, CT, CT LUMBAR SPINE WITHOUT CONTRAST, 09/20/2016, 9:14. FINDINGS: Uterus: Removed. Ovaries: The right ovary is not well seen. The left ovary measures 2.6 x 1.5 x 1.5 cm. Other: No pathologic free abdominal or pelvic fluid. IMPRESSION: No significant abnormality, status post hysterectomy. Dictated by: Terrance Calderon M.D. on 08/31/2020 at 12:35 Approved by: Terrance Calderon M.D. on 08/31/2020 at 12:37
== END ==
PROVIDERS: Family Provider Student in an Organized Health Care Education/Training Program; PCP Student in an Organized Health Care Education/Training Program; Referring Provider Student in an Organized Health Care Education/Training Program; Visit Provider Student in an Organized Health Care Education/Training Program
DX: D25.9 Leiomyoma of uterus, unspecified (principal); L68.0 Hirsutism; Z90.710 Acquired absence of both cervix and uterus
CPT/HCPCS: 76830; 76856

== ENCOUNTER → 2020-09-02 07:47 | Outpatient (CLI) | payer MEDICARE, MEDICAID, SELFPAY ==
[2020-05-12 15:29] VITALS: BMI 38.2
--- NOTE | 2020-09-02 07:51 | DI.RAD.S_ITS ---
PROCEDURE: XR TIBIA FUBULA RT 2V INDICATIONS: Right knee pain TECHNIQUE: 2 views of the tibia and fibula were acquired. COMPARISON: None. FINDINGS: Bones: No fractures or dislocations. No suspicious bony lesions. Soft tissues: No suspicious soft tissue calcifications or masses. IMPRESSION: No lower leg fracture or dislocation. Right knee joint osteoarthritis, better evaluated on dedicated right knee radiograph from the same day. Dictated by: Nasir Bishop M.D. on 09/02/2020 at 9:04 Approved by: Nasir Bishop M.D. on 09/02/2020 at 9:04
--- NOTE | 2020-09-02 07:51 | DI.RAD.S_ITS ---
PROCEDURE: XR KNEE RT 3V INDICATIONS: Right knee pain TECHNIQUE: 3 views of the knee were acquired. COMPARISON: None. FINDINGS: Bones: No fractures or dislocations. Iiom-du-amzlarcm tricompartmental osteoarthritis is seen more prominent in medial femoral tibial compartment. No suspicious bony lesions. Soft tissues: No significant joint effusion. No suspicious soft tissue calcifications. IMPRESSION: [id number] tricompartmental osteoarthritis more prominent in medial femoral tibial compartment. No fracture or dislocation. No significant joint effusion. Dictated by: Nasir Bishop M.D. on 09/02/2020 at 9:03 Approved by: Nasir Bishop M.D. on 09/02/2020 at 9:04
== END ==
PROVIDERS: Family Provider Student in an Organized Health Care Education/Training Program; PCP Student in an Organized Health Care Education/Training Program; Referring Provider Student in an Organized Health Care Education/Training Program; Visit Provider Student in an Organized Health Care Education/Training Program
DX: M79.661 Pain in right lower leg (principal); M17.11 Unilateral primary osteoarthritis, right knee
CPT/HCPCS: 73562; 73590

== ENCOUNTER 2020-09-09 09:45 | Outpatient (RCR) | payer MEDICARE, MEDICAID, SELFPAY ==
[2020-02-11 13:06] VITALS: BMI 38.2
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
--- NOTE | 2020-03-11 17:17 | PT.OPPOC ---
Physical, Occupational & Speech Therapy At [facility] Current Diagnoses Abnormal posture (03/11/20) Strain of muscle, fascia and tendon at neck level, subsequent encounter (03/11/20) Strain of muscle, fascia and tendon of lower back, subsequent encounter (03/11/20) Arthrodesis status (03/11/20) Visit Care Team Role Provider Type Benson Perez MD Family Provider Physician Primary Care Provider Specialty: Internal Medicine Address: [address] [place] [address], [facility] [address], [place], [address] Email: [email or web address] Ulysses Levi MD Attending Provider Physician Referring Provider Specialty: Orthopedic Surgery Address: [address] [place] [address], [id number] Email: [email or web address] Plan Of Care PT-OP-T Assessment and Plan Start: 03/11/20 09:17 Freq: Status: Active Protocol: Document 03/11/20 10:34 AW (Rec: 03/11/20 17:14 AW [email or web address]) Physical Therapy Assessment Rehab Potential Rehabilitation Potential Good Evaluation Complexity Number of Personal Factors/Comorbidities 1-2 Number of Body Systems Impaired 1-2 Clinical Presentation at Evaluation Stable Impairments Impairments Functional Activities,Pain, Posture,ROM,Sensation,Soft Tissue Mobility,Strength Goals 3 Impairment cervical ROM Short Term Goal (STG) Pt will improve cervical lateral flexion to 35 degrees or greater bilaterally STG Duration 6 weeks - 04/22/2020 Group Home Goal (LTG) Pt will improve cervical rotation to 60 degrees or greater bilaterally for improved ability to turn head while driving. LTG Duration 12 weeks 06/03/2020 2 Impairment posture Short Term Goal (STG) Pt will self-correct cervical and thoracic posture for improvement in pain symptoms STG Duration 6 weeks - 04/22/2020 One Impairment increased density cervical paraspinals and upper traps Short Term Goal (STG) Pt will demonstrate reduced tone in cervical musculature and upper traps STG Duration 6 weeks - 04/22/2020 Team Automobile Assembler Goal (LTG) Pt will score 25/50 or less on NDI to represent improved daily function related to neck pain. LTG Duration 12 weeks 06/03/2020 Assessment Summary Assessment Selina presents to outpatient PT following recent cervical and lumbar surgeries with complaints of neck pain (right worse than left) and posterior right shoulder pain. Shoulder laura of motion is similar bilaterally but pt does demonstrate some weakness due to pain on the right shoulder complared with left. She has decreased cervical ROM and increased density of cervical paraspinals, suboccipitals, and all periscapular musculature bilaterally. These impairments are limiting her ability to participate in daily self-care and recreational activites. Pt will benefit from skilled therapy to address strength, ROM, and functional deficits for return to regular activities. Physical Therapy Plan Frequency and Duration Frequency of Treatment 2x/Week Duration of Treatment 12 weeks Plan of Care Start Date 03/11/20 Plan of Care End Date 06/03/20 Therapeutic Interventions Therapeutic Interventions Home Exercise Program,Joint Mobilizations,Manual Therapy, Neuromuscular Re-education, Patient/Caregiver Education, Self-Care/Home Management,Soft Tissue Mobilization,Taping, Therapeutic Activities, Therapeutic Exercises Modalities Cold Pack/Ice Massage,Electric Stimulation,Hot Packs Next Visit Focus/Plan Next Note Type Treatment Note Next Visit Plan STM for cervical paraspinals, UT; cervical AROM; initiate postural education and exercise for neck and for thoracic extension next PT visit: lumbar assessment Plan of Care Dates Plan of Care Start Date 03/11/20 Plan of Care End Date 06/03/20 Electronically Signed by: Karon Dean, PT 03/11/20 0962 Please Sign and Return: I have reviewed this Plan of Care and certify that the skilled therapy services above are required to meet the patient?s needs. Physician Signature Date Printed Name and Credentials Clinical Instructor Signature Printed Name and Credentials
--- NOTE | 2020-03-13 12:22 | PT.OTN ---
Current Diagnoses Abnormal posture (03/13/20) Strain of muscle, fascia and tendon at neck level, subsequent encounter (03/13/20) Strain of muscle, fascia and tendon of lower back, subsequent encounter (03/13/20) Arthrodesis status (03/13/20) Physical Therapy Treatment Note PT-OP-A Visit Information Start: 03/11/20 09:17 Freq: Status: Active Protocol: Document 03/13/20 12:13 MA (Rec: 03/13/20 12:22 MA [email or web address]) Out-Patient Physical Therapy Visit Information Visit Information Visit Type Treatment Note Visit Note pt arrived 15 min late Visit Start Time 11:30 Visit Stop Time 12:12 Total Visit Minutes 42 Visit Number 2 Number of DIRECTOR OF MECHANICAL ENGINEERING Visits 1 PT-OP-B Current Condition Start: 03/11/20 09:17 Freq: Status: Active Protocol: Document 03/11/20 10:34 AW (Rec: 03/11/20 11:19 AW [email or web address]) Current Condition History of Current Condition Onset Date 15 years Current Complaints neck and right shoulder pain post surgery History of Current Condition Recent surgeries with imporvement in neck pain unless she overdoes it. Right is worse than left. Desbribes shoulder pain as deep, aching, cramping. Still gets intermittent pain down posterior arm but better since surgery. Limits with lifting due to back pain. 10-15 pound limit.. Did laundry manually a few days ago but paid for it after. 14-yo daughter assisting with fur blower operator. 20 steps up to apartment level . Currently walking ~1/16 mi with incline but can typically do 1/8 mile. 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 Prior Treatments and Tests late s - cervical discectomy aqua therapy 12/05/19 - 02/11/20 - foraminectomy L5-S1 Future Testing and Treatments Planned Septoplasty mid-April Treatment Goals Patient/Caregiver Goals Reduce tone in shoulders Improve cervical ROM Prior Functional Status Baseline Function- ADL's Modified Independent Baseline Function- Mobility Modified Independent Baseline Function- Gait ambulates with SPC vs FWW for stairs, inclines, long distance 2/2 R knee pn Baseline Function- Other able to walk from hospital to [employer] with FWW Current Functional Impairments (Reported) Functional Limitations- ADL's needs equipment for showers, no assist PT-OP-C Subjective Start: 03/11/20 09:17 Freq: Status: Active Protocol: Document 03/13/20 12:13 MA (Rec: 03/13/20 12:22 MA [email or web address]) OP-PT Subjective Patient Comments Patient Comments Pt states her low back is bothering her more than her neck today. PT-OP-F Manual Assessment Start: 03/11/20 09:17 Freq: Status: Active Protocol: Document 03/11/20 10:34 AW (Rec: 03/11/20 17:14 AW [email or web address]) Manual Assessments Soft Tissue Assessment Soft Tissue Mobility Assessment Dense paraspinal musculature C3-6 with right more affected than left. Bilateral upper traps and periscapular hyperdensity PT-OP-H Neuro Start: 03/11/20 09:17 Freq: Status: Active Protocol: Document 03/11/20 10:34 AW (Rec: 03/11/20 17:14 AW [email or web address]) Sensation Evaluation Gross Sensation Gross Sensation Right UE Impaired Sensation Description Numbness Dermatome Impairments C7 Comments Summary Comments Intermittent numbness in right posterior arm. Not reproduced on exam with neck special tests. Deep Tendon Reflex & Clonus Assessment Deep Tendon Reflex Bilateral Tricep Deep Tendon Reflex 1+ Diminished Bilateral Bicep Deep Tendon Reflex 2+ Normal PT-OP-J Posture/Palpation/Skin Start: 03/11/20 09:17 Freq: Status: Active Protocol: Document 03/11/20 10:34 AW (Rec: 03/11/20 17:14 AW [email or web address]) Posture Evaluation Position Standing Evaluation View Lateral Head/C-Spine Posture Extended,Forward Head T-Spine Posture Increased Kyphosis Shoulder Posture (L) Rounded,(R) Rounded Scapula Posture (L) Protracted,(R) Protracted PT-OP-K Range of Motion Start: 03/11/20 09:17 Freq: Status: Active Protocol: Document 03/11/20 10:34 AW (Rec: 03/11/20 17:14 AW [email or web address]) Cervical Spine Range of Motion Cervical Spine Active Degrees Testing Position Sitting Flexion 50 Extension 30 Rotation Left 45 Rotation Right 50 Lateral Flexion Left 30 Lateral Flexion Right 25 ROM Limitations Soft Tissue Tightness,Pain Shoulder Goniometric Range of Motion Shoulder Left Active Testing Position Sitting Flexion 156 Extension 40 Abduction 160 Internal Rotation Behind Back (text) T7 Right Active Testing Position Sitting Flexion 160 Extension 40 Abduction 160 Internal Rotation Behind Back (text) T7 Shoulder ROM Limitations Shoulder ROM Limitations Soft Tissue Tightness,Pain Elbow/Forearm Range of Motion Elbow/Forearm Right Active Comments B elbow AROM and PROM WNL PT-OP-L Special Tests Start: 03/11/20 09:17 Freq: Status: Active Protocol: Document 03/11/20 10:34 AW (Rec: 03/11/20 17:14 AW [email or web address]) Special Tests Cervical Spine Special Tests Slump Test Results negative Spurling's Test Test Results negative bilaterally Shoulder Special Tests Somers Endy Impingement Test Results negative bilaterally Drop Arm Rotator Cuff Test Results negative bilaterally PT-OP-M Strength Start: 03/11/20 09:17 Freq: Status: Active Protocol: Document 03/11/20 10:34 AW (Rec: 03/11/20 17:14 AW [email or web address]) Cervical Spine Strength Cervical Spine Manual Muscle Testing Testing Position Sitting Flexion (C1-2) 4+ Good+ Extension 4 Good Rotation Left 4 Good Rotation Right 4 Good Lateral Flexion Left (C3) 4- Good- Lateral Flexion Right (C3) 4- Good- Shoulder Strength Shoulder Manual Muscle Testing Right Flexion 4+ Good+ Extension 4+ Good+ Abduction (C5) 4+ Good+ External Rotation 4+ Good+ Internal Rotation 5 Normal Comments LUE grossly 5/5 PT-OP-Q Treatments Start: 03/11/20 09:17 Freq: Status: Active Protocol: Document 03/13/20 12:13 MA (Rec: 03/13/20 12:22 MA [email or web address]) Therapeutic Exercises Sitting Exercises Levator Stretch Side bilateral Reps/Minutes 30 sec Comments added to HEP UT stretch Side bilateral Reps/Minutes 30 sec Comments Added to HEP Chin Tucks Sitting Exercise Name Chin tuck Reps/Minutes 5x Comments holding for 5 sec-HEP Manual Therapy Treatment Soft Tissue Mobilization 1 Body Location B UT, rhomboids, cervical paraspinals, suboccipitals Mobilization Type Myofascial Release,Strumming, Sustained Pressure Intensity/Depth Moderate Body Position Hooklying Manual Traction Cervical Body Position Hooklying Reps/Duration 2x60 sec Comments relieving for neck pain and shoulder tension Self-Care/Home Management Treatment Education Patient Education Home Exercise Program Other Education Added chin tucks, seated UT stretch and levator stretch to HEP PT-OP-T Assessment and Plan Start: 03/11/20 09:17 Freq: Status: Active Protocol: Document 03/13/20 12:13 MA (Rec: 03/13/20 12:22 MA [email or web address]) Physical Therapy Assessment Goals 3 Impairment cervical ROM Short Term Goal (STG) Pt will improve cervical lateral flexion to 35 degrees or greater bilaterally STG Duration 6 weeks - 04/22/2020 Dental Technician Metal Goal (LTG) Pt will improve cervical rotation to 60 degrees or greater bilaterally for improved ability to turn head while driving. LTG Duration 12 weeks 06/03/2020 2 Impairment posture Short Term Goal (STG) Pt will self-correct cervical and thoracic posture for improvement in pain symptoms STG Duration 6 weeks - 04/22/2020 One Impairment increased density cervical paraspinals and upper traps Short Term Goal (STG) Pt will demonstrate reduced tone in cervical musculature and upper traps STG Duration 6 weeks - 04/22/2020 Retirement Goal (LTG) Pt will score 25/50 or less on NDI to represent improved daily function related to neck pain. LTG Duration 12 weeks 06/03/2020 Assessment Summary Assessment Pt arrived with LBP. Discussed therapist will evaluate LB next session and could only treat neck today with pt stated she understood and will take an epsom salt bath tonight. Pt states she feels so much looser after STM today. Her R UT is significantly tighter than L. Added chin tucks, UT and levator stretches while seated to HEP. Physical Therapy Plan Frequency and Duration Frequency of Treatment 2x/Week Duration of Treatment 12 weeks Plan of Care Start Date 03/11/20 Plan of Care End Date 06/03/20 Therapeutic Interventions Therapeutic Interventions Home Exercise Program,Joint Mobilizations,Manual Therapy, Neuromuscular Re-education, Patient/Caregiver Education, Self-Care/Home Management,Soft Tissue Mobilization,Taping, Therapeutic Activities, Therapeutic Exercises Modalities Cold Pack/Ice Massage,Electric Stimulation,Hot Packs Next Visit Focus/Plan Next Note Type Treatment Note Next Visit Plan next PT visit: lumbar assessment Review HEP; STM for cervical paraspinals, UT; cervical AROM ; work on wall posture next session and add exercises for cervical and thoracic extension.
--- NOTE | 2020-03-18 17:34 | PT.OTN ---
Current Diagnoses Abnormal posture (03/18/20) Strain of muscle, fascia and tendon at neck level, subsequent encounter (03/18/20) Strain of muscle, fascia and tendon of lower back, subsequent encounter (03/18/20) Arthrodesis status (03/18/20) Physical Therapy Treatment Note PT-OP-A Visit Information Start: 03/11/20 09:17 Freq: Status: Active Protocol: Document 03/18/20 11:15 AW (Rec: 03/18/20 12:49 AW [email or web address]) Out-Patient Physical Therapy Visit Information Visit Information Visit Type Treatment Note Visit Note Pt aware we will be evaluating lumbar spine today and treatment may be limited. 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 Symptoms improved after recent surgeries but pt continues to have pain especially if she overdoes it. Overall, her right side is worse than her left. She is currently walking ~1/16 mi with incline but can typically do 1/8 mile when feeling well. Prior Treatments and Tests late s - cervical discectomy aqua therapy 12/05/19 - C5-7 ACDF 02/11/20 - foraminectomy L5-S1 Future Testing and Treatments Planned Septoplasty mid-April Treatment Goals Patient/Caregiver Goals Reduce tone in shoulders Improve cervical ROM Increase walking tolerance Prior Functional Status Baseline Function- ADL's Modified Independent Baseline Function- Mobility Modified Independent Baseline Function- Gait ambulates with SPC vs FWW for stairs, inclines, long distance 2/2 R knee pn Baseline Function- Other able to walk from hospital to [facility] with FWW Current Functional Impairments (Reported) Functional Limitations- ADL's needs equipment for showers, no assist Functional Limitations- Mobility/Gait can walk from hospital to [facility] but has increased back pain for days afterward PT-OP-C Subjective Start: 03/11/20 09:17 Freq: Status: Active Protocol: Document 03/18/20 11:15 AW (Rec: 03/18/20 12:49 AW [email or web address]) OP-PT Subjective Patient Comments Patient Comments Pt has been working on her neck HEP. No questions at this time. PT-OP-D Balance Start: 03/11/20 09:17 Freq: Status: Active Protocol: Document 03/18/20 11:15 AW (Rec: 03/18/20 13:00 AW [email or web address]) OP-PT Balance Assessment Sitting Balance Static Sitting Balance Ability Normal Dynamic Sitting Balance Ability Normal Standing Balance Static Standing Balance Ability Good Dynamic Standing Balance Ability Good Balance Tests Single Limb Standing Single Limb- Right 3 sec, 3 sec, 6 sec Single Limb- Left 6 sec, 6 sec, 6 sec Brown Fall Scale Copyright Permission PT-OP-E Functional Tests Start: 03/11/20 09:17 Freq: Status: Active Protocol: Document 03/18/20 11:15 AW (Rec: 03/18/20 13:01 AW [email or web address]) Functional Tests Other SL squat from table Score 25 L; unable R without LOB PT-OP-F Manual Assessment Start: 03/11/20 09:17 Freq: Status: Active Protocol: Document 03/18/20 11:15 AW (Rec: 03/18/20 13:00 AW [email or web address]) Manual Assessments Soft Tissue Assessment Soft Tissue Mobility Assessment Increased density in gluteal musculature RLE PT-OP-H Neuro Start: 03/11/20 09:17 Freq: Status: Active Protocol: Document 03/11/20 10:34 AW (Rec: 03/11/20 17:14 AW [email or web address]) Sensation Evaluation Gross Sensation Gross Sensation Right UE Impaired Sensation Description Numbness Dermatome Impairments C7 Comments Summary Comments Intermittent numbness in right posterior arm. Not reproduced on exam with neck special tests. Deep Tendon Reflex & Clonus Assessment Deep Tendon Reflex Bilateral Tricep Deep Tendon Reflex 1+ Diminished Bilateral Bicep Deep Tendon Reflex 2+ Normal PT-OP-J Posture/Palpation/Skin Start: 03/11/20 09:17 Freq: Status: Active Protocol: Document 03/11/20 10:34 AW (Rec: 03/11/20 17:14 AW [email or web address]) Posture Evaluation Position Standing Evaluation View Lateral Head/C-Spine Posture Extended,Forward Head T-Spine Posture Increased Kyphosis L-Spine Posture Flattened Shoulder Posture (L) Rounded,(R) Rounded Scapula Posture (L) Protracted,(R) Protracted Weight Distribution Weight Shifted Left Ankle/Foot Posture (L) Supinated,(R) Supinated Foot Arch (L) Medium Arch,(R) Medium Arch Palpation Assessment Location lumbar spine Palpation Location paraspinals Palpation Findings Soft Tissue Tightness,Muscle Guarding Palpation Details R more affected than L PT-OP-K Range of Motion Start: 03/11/20 09:17 Freq: Status: Active Protocol: Document 03/11/20 10:34 AW (Rec: 03/11/20 17:14 AW [email or web address]) Cervical Spine Range of Motion Cervical Spine Active Degrees Testing Position Sitting Flexion 50 Extension 30 Rotation Left 45 Rotation Right 50 Lateral Flexion Left 30 Lateral Flexion Right 25 ROM Limitations Soft Tissue Tightness,Pain Lumbar Spine Range of Motion Lumbar Spine Active Testing Position Standing Extension 15 Comments Flexion: fingertips 10 from floor with notable L3 L4 hinge Side bend: fingertips 23 from floor right side, 21 from floor left side Shoulder Goniometric Range of Motion Shoulder Left Active Testing Position Sitting Flexion 156 Extension 40 Abduction 160 Internal Rotation Behind Back (text) T7 Right Active Testing Position Sitting Flexion 160 Extension 40 Abduction 160 Internal Rotation Behind Back (text) T7 Shoulder ROM Limitations Shoulder ROM Limitations Soft Tissue Tightness,Pain Elbow/Forearm Range of Motion Elbow/Forearm Right Active Comments B elbow AROM and PROM WNL Hip Goniometric Range of Motion Hip Right Hip ROM WFL Yes Testing Position Supine Flexion w/Knee Flexed 110 Abduction 40 Comments IR limited; ER WNL Left Hip ROM WFL Yes Testing Position Supine Flexion w/Knee Flexed 110 Abduction 43 Comments IR limited but greater excursion than right Hip ROM Limitations Comments flexion limited by habitus PT-OP-L Special Tests Start: 03/11/20 09:17 Freq: Status: Active Protocol: Document 03/11/20 10:34 AW (Rec: 03/11/20 17:14 AW [email or web address]) Special Tests Cervical Spine Special Tests Slump Test Results negative Spurling's Test Test Results negative bilaterally Lumbar Spine Special Tests Straight Leg Raise Test Results active SLR positive on the right Comments some relief noted with bimanual compression through bilateral ASIS Luis Test Results positive bilaterally Comments increase in hip flexion with knees bent B Slump Test Results vaguely positive R; negative L Comments R side pt reports increased tension but no pain Shoulder Special Tests Somers Endy Impingement Test Results negative bilaterally Drop Arm Rotator Cuff Test Results negative bilaterally Hip Special Tests Scour Test Test Results negative bilaterally PT-OP-M Strength Start: 03/11/20 09:17 Freq: Status: Active Protocol: Document 03/11/20 10:34 AW (Rec: 03/11/20 17:14 AW [email or web address]) Cervical Spine Strength Cervical Spine Manual Muscle Testing Testing Position Sitting Flexion (C1-2) 4+ Good+ Extension 4 Good Rotation Left 4 Good Rotation Right 4 Good Lateral Flexion Left (C3) 4- Good- Lateral Flexion Right (C3) 4- Good- Shoulder Strength Shoulder Manual Muscle Testing Right Flexion 4+ Good+ Extension 4+ Good+ Abduction (C5) 4+ Good+ External Rotation 4+ Good+ Internal Rotation 5 Normal Comments LUE grossly 5/5 Hip Strength Hip Manual Muscle Testing Left Flexion (L2) 4+ Good+ Extension (S1) 4- Good- Abduction 4- Good- External Rotation 4+ Good+ Internal Rotation 5 Normal Right Flexion (L2) 4 Good Extension (S1) 3+ Fair+ Abduction 4- Good- External Rotation 4+ Good+ Internal Rotation 4+ Good+ Knee Strength Knee Manual Muscle Testing Left Flexion (S2) 5 Normal Extension (L3) 4+ Good+ Right Flexion (S2) 5 Normal Extension (L3) 4+ Good+ PT-OP-Q Treatments Start: 03/11/20 09:17 Freq: Status: Active Protocol: Document 03/18/20 11:15 AW (Rec: 03/18/20 14:04 AW [email or web address]) Therapeutic Exercises Supine Exercises TrA activation Supine Exercise Name TrA activation Reps/Minutes 5 min Comments added bent knee fallout Sitting Exercises UT stretch Side bilateral Reps/Minutes 30 sec Comments indep performance Self-Care/Home Management Treatment Education Patient Education Home Exercise Program Other Education added TrA awareness with bent knee fallout PT-OP-T Assessment and Plan Start: 03/11/20 09:17 Freq: Status: Active Protocol: Document 03/18/20 11:15 AW (Rec: 03/18/20 17:33 AW [email or web address]) Physical Therapy Assessment Goals Five Impairment hip strength Short Term Goal (STG) Pt will improve right hip strength equal to left for improved gait quality STG Duration 6 weeks - 04/22/2020 [employer] Stitcher Hand Goal (LTG) Pt will demonstrate SL squat from 20 surface bilaterally without LOB LTG Duration 12 weeks 06/03/2020 Four Impairment hyperdensity lumbar paraspinals Short Term Goal (STG) Pt will demonstrate reduced tone in lumbar musculature and glutes STG Duration 6 weeks - 04/22/2020 3 Impairment cervical ROM Short Term Goal (STG) Pt will improve cervical lateral flexion to 35 degrees or greater bilaterally STG Duration 6 weeks - 04/22/2020 Nursing Home Goal (LTG) Pt will improve cervical rotation to 60 degrees or greater bilaterally for improved ability to turn head while driving. LTG Duration 12 weeks 06/03/2020 2 Impairment posture Short Term Goal (STG) Pt will self-correct cervical and thoracic posture for improvement in pain symptoms STG Duration 6 weeks - 04/22/2020 One Impairment increased density cervical paraspinals and upper traps Short Term Goal (STG) Pt will demonstrate reduced tone in cervical musculature and upper traps STG Duration 6 weeks - 04/22/2020 [employer] Stitcher Hand Goal (LTG) Pt will score 25/50 or less on NDI to represent improved daily function related to neck pain. LTG Duration 12 weeks 06/03/2020 Assessment Summary Assessment Assessed LBP today with findings of significant hinge at L3-4 especially with extension. Pt has positive trendelenberg sign R>L and positive active straight leg raise on the right indicating weakness of core and hip muscles which is perpetuating pain symptoms. Pt will benefit from skilled PT to address strength and functional deficits for reduction in irritability of pain symptoms. Physical Therapy Plan Frequency and Duration Frequency of Treatment 2x/Week Duration of Treatment 12 weeks Plan of Care Start Date 03/11/20 Plan of Care End Date 06/03/20 Therapeutic Interventions Therapeutic Interventions Home Exercise Program,Joint Mobilizations,Manual Therapy, Neuromuscular Re-education, Patient/Caregiver Education, Self-Care/Home Management,Soft Tissue Mobilization,Taping, Therapeutic Activities, Therapeutic Exercises Modalities Cold Pack/Ice Massage,Electric Stimulation,Hot Packs Next Visit Focus/Plan Next Note Type Treatment Note Next Visit Plan Review HEP; global focus on cervical and lumbar symptoms with STM and postural education
--- NOTE | 2020-03-18 17:34 | PT.OPPOC ---
Physical, Occupational & Speech Therapy At [facility] Current Diagnoses Abnormal posture (03/18/20) Strain of muscle, fascia and tendon at neck level, subsequent encounter (03/18/20) Strain of muscle, fascia and tendon of lower back, subsequent encounter (03/18/20) Arthrodesis status (03/18/20) Visit Care Team Role Provider Type Benson Perez MD Family Provider Physician Primary Care Provider Specialty: Internal Medicine Address: [address] [place] [address], [facility] [address], [place], [address] Email: [email or web address] Ulysses Levi MD Attending Provider Physician Referring Provider Specialty: Orthopedic Surgery Address: [address] [place] [address], [id number] Email: [email or web address] Plan Of Care PT-OP-T Assessment and Plan Start: 03/11/20 09:17 Freq: Status: Active Protocol: Document 03/18/20 11:15 AW (Rec: 03/18/20 17:33 AW [email or web address]) Physical Therapy Assessment Goals Five Impairment hip strength Short Term Goal (STG) Pt will improve right hip strength equal to left for improved gait quality STG Duration 6 weeks - 04/22/2020 Retirement Goal (LTG) Pt will demonstrate SL squat from 20 surface bilaterally without LOB LTG Duration 12 weeks 06/03/2020 Four Impairment hyperdensity lumbar paraspinals Short Term Goal (STG) Pt will demonstrate reduced tone in lumbar musculature and glutes STG Duration 6 weeks - 04/22/2020 3 Impairment cervical ROM Short Term Goal (STG) Pt will improve cervical lateral flexion to 35 degrees or greater bilaterally STG Duration 6 weeks - 04/22/2020 Retirement Goal (LTG) Pt will improve cervical rotation to 60 degrees or greater bilaterally for improved ability to turn head while driving. LTG Duration 12 weeks 06/03/2020 2 Impairment posture Short Term Goal (STG) Pt will self-correct cervical and thoracic posture for improvement in pain symptoms STG Duration 6 weeks - 04/22/2020 One Impairment increased density cervical paraspinals and upper traps Short Term Goal (STG) Pt will demonstrate reduced tone in cervical musculature and upper traps STG Duration 6 weeks - 04/22/2020 Retirement Goal (LTG) Pt will score 25/50 or less on NDI to represent improved daily function related to neck pain. LTG Duration 12 weeks 06/03/2020 Assessment Summary Assessment Assessed LBP today with findings of significant hinge at L3-4 especially with extension. Pt has positive trendelenberg sign R>L and positive active straight leg raise on the right indicating weakness of core and hip muscles which is perpetuating pain symptoms. Pt will benefit from skilled PT to address strength and functional deficits for reduction in irritability of pain symptoms. Physical Therapy Plan Frequency and Duration Frequency of Treatment 2x/Week Duration of Treatment 12 weeks Plan of Care Start Date 03/11/20 Plan of Care End Date 06/03/20 Therapeutic Interventions Therapeutic Interventions Home Exercise Program,Joint Mobilizations,Manual Therapy, Neuromuscular Re-education, Patient/Caregiver Education, Self-Care/Home Management,Soft Tissue Mobilization,Taping, Therapeutic Activities, Therapeutic Exercises Modalities Cold Pack/Ice Massage,Electric Stimulation,Hot Packs Next Visit Focus/Plan Next Note Type Treatment Note Next Visit Plan Review HEP; global focus on cervical and lumbar symptoms with STM and postural education Plan of Care Dates Plan of Care Start Date 03/11/20 Plan of Care End Date 06/03/20 Electronically Signed by: Karon Dean PT 03/18/20 [id number] Please Sign and Return: I have reviewed this Plan of Care and certify that the skilled therapy services above are required to meet the patient?s needs. Physician Signature Date Printed Name and Credentials Clinical Instructor Signature Printed Name and Credentials
--- NOTE | 2020-03-20 12:58 | PT.OTN ---
Current Diagnoses Abnormal posture (03/20/20) Strain of muscle, fascia and tendon at neck level, subsequent encounter (03/20/20) Strain of muscle, fascia and tendon of lower back, subsequent encounter (03/20/20) Arthrodesis status (03/20/20) Physical Therapy Treatment Note PT-OP-A Visit Information Start: 03/11/20 09:17 Freq: Status: Active Protocol: Document 03/20/20 12:49 MA (Rec: 03/20/20 12:58 MA [id number]) Out-Patient Physical Therapy Visit Information Visit Information Visit Type Treatment Note Visit Start Time 11:17 Visit Stop Time 11:57 Total Visit Minutes 40 Visit Number 4 Number of SAND ANALYST Visits 1 PT-OP-B Current Condition Start: 03/11/20 09:17 Freq: Status: Active Protocol: Document 03/11/20 10:34 AW (Rec: 03/11/20 11:19 AW [id number]) Current Condition History of Current Condition Onset Date 15 years Current Complaints neck and right shoulder pain, low back pain with recent surgeries History of Current Condition Pt with history of fibromyalgia has long standing neck and low back pain. Symptoms improved after recent surgeries but pt continues to have pain especially if she overdoes it. Overall, her right side is worse than her left. She is currently walking ~1/16 mi with incline but can typically do 1/8 mile when feeling well. Prior Treatments and Tests late s - cervical discectomy aqua therapy 12/05/19 - C5-7 ACDF 02/11/20 - foraminectomy L5-S1 Future Testing and Treatments Planned Septoplasty mid-April Treatment Goals Patient/Caregiver Goals Reduce tone in shoulders Improve cervical ROM Increase walking tolerance Prior Functional Status Baseline Function- ADL's Modified Independent Baseline Function- Mobility Modified Independent Baseline Function- Gait ambulates with SPC vs FWW for stairs, inclines, long distance 2/2 R knee pn Baseline Function- Other able to walk from hospital to [facility] with FWW Current Functional Impairments (Reported) Functional Limitations- ADL's needs equipment for showers, no assist Functional Limitations- Mobility/Gait can walk from hospital to [facility] but has increased back pain for days afterward PT-OP-C Subjective Start: 03/11/20 09:17 Freq: Status: Active Protocol: Document 03/20/20 12:49 MA (Rec: 03/20/20 12:58 MA [id number]) OP-PT Subjective Patient Comments Patient Comments Pt states she has been doing HEP exercises and feels the back of her neck when doing chin tucks. PT-OP-D Balance Start: 03/11/20 09:17 Freq: Status: Active Protocol: Document 03/18/20 11:15 AW (Rec: 03/18/20 13:00 AW [email or web address]) OP-PT Balance Assessment Sitting Balance Static Sitting Balance Ability Normal Dynamic Sitting Balance Ability Normal Standing Balance Static Standing Balance Ability Good Dynamic Standing Balance Ability Good Balance Tests Single Limb Standing Single Limb- Right 3 sec, 3 sec, 6 sec Single Limb- Left 6 sec, 6 sec, 6 sec Brown Fall Scale Copyright Permission PT-OP-E Functional Tests Start: 03/11/20 09:17 Freq: Status: Active Protocol: Document 03/18/20 11:15 AW (Rec: 03/18/20 13:01 AW [email or web address]) Functional Tests Other SL squat from table Score 25 L; unable R without LOB PT-OP-F Manual Assessment Start: 03/11/20 09:17 Freq: Status: Active Protocol: Document 03/18/20 11:15 AW (Rec: 03/18/20 13:00 AW [email or web address]) Manual Assessments Soft Tissue Assessment Soft Tissue Mobility Assessment Increased density in gluteal musculature RLE PT-OP-H Neuro Start: 03/11/20 09:17 Freq: Status: Active Protocol: Document 03/11/20 10:34 AW (Rec: 03/11/20 17:14 AW [email or web address]) Sensation Evaluation Gross Sensation Gross Sensation Right UE Impaired Sensation Description Numbness Dermatome Impairments C7 Comments Summary Comments Intermittent numbness in right posterior arm. Not reproduced on exam with neck special tests. Deep Tendon Reflex & Clonus Assessment Deep Tendon Reflex Bilateral Tricep Deep Tendon Reflex 1+ Diminished Bilateral Bicep Deep Tendon Reflex 2+ Normal PT-OP-J Posture/Palpation/Skin Start: 03/11/20 09:17 Freq: Status: Active Protocol: Document 03/11/20 10:34 AW (Rec: 03/11/20 17:14 AW [email or web address]) Posture Evaluation Position Standing Evaluation View Lateral Head/C-Spine Posture Extended,Forward Head T-Spine Posture Increased Kyphosis L-Spine Posture Flattened Shoulder Posture (L) Rounded,(R) Rounded Scapula Posture (L) Protracted,(R) Protracted Weight Distribution Weight Shifted Left Ankle/Foot Posture (L) Supinated,(R) Supinated Foot Arch (L) Medium Arch,(R) Medium Arch Palpation Assessment Location lumbar spine Palpation Location paraspinals Palpation Findings Soft Tissue Tightness,Muscle Guarding Palpation Details R more affected than L PT-OP-K Range of Motion Start: 03/11/20 09:17 Freq: Status: Active Protocol: Document 03/11/20 10:34 AW (Rec: 03/11/20 17:14 AW [email or web address]) Cervical Spine Range of Motion Cervical Spine Active Degrees Testing Position Sitting Flexion 50 Extension 30 Rotation Left 45 Rotation Right 50 Lateral Flexion Left 30 Lateral Flexion Right 25 ROM Limitations Soft Tissue Tightness,Pain Lumbar Spine Range of Motion Lumbar Spine Active Testing Position Standing Extension 15 Comments Flexion: fingertips 10 from floor with notable L3 L4 hinge Side bend: fingertips 23 from floor right side, 21 from floor left side Shoulder Goniometric Range of Motion Shoulder Left Active Testing Position Sitting Flexion 156 Extension 40 Abduction 160 Internal Rotation Behind Back (text) T7 Right Active Testing Position Sitting Flexion 160 Extension 40 Abduction 160 Internal Rotation Behind Back (text) T7 Shoulder ROM Limitations Shoulder ROM Limitations Soft Tissue Tightness,Pain Elbow/Forearm Range of Motion Elbow/Forearm Right Active Comments B elbow AROM and PROM WNL Hip Goniometric Range of Motion Hip Right Hip ROM WFL Yes Testing Position Supine Flexion w/Knee Flexed 110 Abduction 40 Comments IR limited; ER WNL Left Hip ROM WFL Yes Testing Position Supine Flexion w/Knee Flexed 110 Abduction 43 Comments IR limited but greater excursion than right Hip ROM Limitations Comments flexion limited by habitus PT-OP-L Special Tests Start: 03/11/20 09:17 Freq: Status: Active Protocol: Document 03/11/20 10:34 AW (Rec: 03/11/20 17:14 AW [email or web address]) Special Tests Cervical Spine Special Tests Slump Test Results negative Spurling's Test Test Results negative bilaterally Lumbar Spine Special Tests Straight Leg Raise Test Results active SLR positive on the right Comments some relief noted with bimanual compression through bilateral ASIS Luis Test Results positive bilaterally Comments increase in hip flexion with knees bent B Slump Test Results vaguely positive R; negative L Comments R side pt reports increased tension but no pain Shoulder Special Tests Somers Endy Impingement Test Results negative bilaterally Drop Arm Rotator Cuff Test Results negative bilaterally Hip Special Tests Scour Test Test Results negative bilaterally PT-OP-M Strength Start: 03/11/20 09:17 Freq: Status: Active Protocol: Document 03/11/20 10:34 AW (Rec: 03/11/20 17:14 AW [email or web address]) Cervical Spine Strength Cervical Spine Manual Muscle Testing Testing Position Sitting Flexion (C1-2) 4+ Good+ Extension 4 Good Rotation Left 4 Good Rotation Right 4 Good Lateral Flexion Left (C3) 4- Good- Lateral Flexion Right (C3) 4- Good- Shoulder Strength Shoulder Manual Muscle Testing Right Flexion 4+ Good+ Extension 4+ Good+ Abduction (C5) 4+ Good+ External Rotation 4+ Good+ Internal Rotation 5 Normal Comments LUE grossly 5/5 Hip Strength Hip Manual Muscle Testing Left Flexion (L2) 4+ Good+ Extension (S1) 4- Good- Abduction 4- Good- External Rotation 4+ Good+ Internal Rotation 5 Normal Right Flexion (L2) 4 Good Extension (S1) 3+ Fair+ Abduction 4- Good- External Rotation 4+ Good+ Internal Rotation 4+ Good+ Knee Strength Knee Manual Muscle Testing Left Flexion (S2) 5 Normal Extension (L3) 4+ Good+ Right Flexion (S2) 5 Normal Extension (L3) 4+ Good+ PT-OP-Q Treatments Start: 03/11/20 09:17 Freq: Status: Active Protocol: Document 03/20/20 12:49 MA (Rec: 03/20/20 12:58 MA [id number]) Therapeutic Exercises Supine Exercises TrA activation Supine Exercise Name Pelvic tucks & supine marches for TA activatin Reps/Minutes 5 min Comments added supine marches to HEP Sitting Exercises Chin Tucks Sitting Exercise Name Chin tuck Reps/Minutes 5x Comments holding for 5 sec-HEP Manual Therapy Treatment Soft Tissue Mobilization 2 Body Location iliac crest scour, reji paraspinals Mobilization Type Myofascial Release,Other Intensity/Depth Moderate Body Position Sidelying 1 Body Location B UT, rhomboids, cervical paraspinals, suboccipitals Mobilization Type Myofascial Release,Strumming, Sustained Pressure Intensity/Depth Moderate Body Position Hooklying Manual Traction Cervical Body Position Hooklying Reps/Duration 2x60 sec Comments relieving for neck pain and shoulder tension Self-Care/Home Management Treatment Education Patient Education Home Exercise Program Other Education Added supine marches for TA activation PT-OP-T Assessment and Plan Start: 03/11/20 09:17 Freq: Status: Active Protocol: Document 03/20/20 12:49 MA (Rec: 03/20/20 12:58 MA [id number]) Physical Therapy Assessment Goals Five Impairment hip strength Short Term Goal (STG) Pt will improve right hip strength equal to left for improved gait quality STG Duration 6 weeks - 04/22/2020 Correction Goal (LTG) Pt will demonstrate SL squat from 20 surface bilaterally without LOB LTG Duration 12 weeks 06/03/2020 Four Impairment hyperdensity lumbar paraspinals Short Term Goal (STG) Pt will demonstrate reduced tone in lumbar musculature and glutes STG Duration 6 weeks - 04/22/2020 3 Impairment cervical ROM Short Term Goal (STG) Pt will improve cervical lateral flexion to 35 degrees or greater bilaterally STG Duration 6 weeks - 04/22/2020 Correction Goal (LTG) Pt will improve cervical rotation to 60 degrees or greater bilaterally for improved ability to turn head while driving. LTG Duration 12 weeks 06/03/2020 2 Impairment posture Short Term Goal (STG) Pt will self-correct cervical and thoracic posture for improvement in pain symptoms STG Duration 6 weeks - 04/22/2020 One Impairment increased density cervical paraspinals and upper traps Short Term Goal (STG) Pt will demonstrate reduced tone in cervical musculature and upper traps STG Duration 6 weeks - 04/22/2020 Correction Goal (LTG) Pt will score 25/50 or less on NDI to represent improved daily function related to neck pain. LTG Duration 12 weeks 06/03/2020 Assessment Summary Assessment Pt had some abdominal cramping on R side with pelvic tucks today. STM to both cervical and lumbar spine to reduce pain with pt stating her neck feels much better after. Added supine marches to HEP for TrA activation Physical Therapy Plan Frequency and Duration Frequency of Treatment 2x/Week Duration of Treatment 12 weeks Plan of Care Start Date 03/11/20 Plan of Care End Date 06/03/20 Therapeutic Interventions Therapeutic Interventions Home Exercise Program,Joint Mobilizations,Manual Therapy, Neuromuscular Re-education, Patient/Caregiver Education, Self-Care/Home Management,Soft Tissue Mobilization,Taping, Therapeutic Activities, Therapeutic Exercises Modalities Cold Pack/Ice Massage,Electric Stimulation,Hot Packs Discharge Physical Therapy Discharge Comments Completed current program Next Visit Focus/Plan Next Note Type Treatment Note Next Visit Plan STM and postural education; continue working TrA to reduce LBP
--- NOTE | 2020-03-23 15:50 | PT.OTN ---
Current Diagnoses Abnormal posture (03/23/20) Strain of muscle, fascia and tendon at neck level, subsequent encounter (03/23/20) Strain of muscle, fascia and tendon of lower back, subsequent encounter (03/23/20) Arthrodesis status (03/23/20) Physical Therapy Treatment Note PT-OP-A Visit Information Start: 03/11/20 09:17 Freq: Status: Active Protocol: Document 03/23/20 09:44 SAK (Rec: 03/23/20 10:32 SAK [id number]) Out-Patient Physical Therapy Visit Information Visit Information Visit Type Treatment Note Visit Start Time 09:45 Visit Stop Time 10:30 Total Visit Minutes 55 Visit Number 5 Number of PRE PLANNING ADVISOR Visits 0 PT-OP-B Current Condition Start: 03/11/20 09:17 Freq: Status: Active Protocol: Document 03/11/20 10:34 AW (Rec: 03/11/20 11:19 AW [id number]) Current Condition History of Current Condition Onset Date 15 years Current Complaints neck and right shoulder pain, low back pain with recent surgeries History of Current Condition Pt with history of fibromyalgia has long standing neck and low back pain. Symptoms improved after recent surgeries but pt continues to have pain especially if she overdoes it. Overall, her right side is worse than her left. She is currently walking ~1/16 mi with incline but can typically do 1/8 mile when feeling well. Prior Treatments and Tests late s - cervical discectomy aqua therapy 12/05/19 - C5-7 ACDF 02/11/20 - foraminectomy L5-S1 Future Testing and Treatments Planned Septoplasty mid-April Treatment Goals Patient/Caregiver Goals Reduce tone in shoulders Improve cervical ROM Increase walking tolerance Prior Functional Status Baseline Function- ADL's Modified Independent Baseline Function- Mobility Modified Independent Baseline Function- Gait ambulates with SPC vs FWW for stairs, inclines, long distance 2/2 R knee pn Baseline Function- Other able to walk from hospital to [facility] with FWW Current Functional Impairments (Reported) Functional Limitations- ADL's needs equipment for showers, no assist Functional Limitations- Mobility/Gait can walk from hospital to [facility] but has increased back pain for days afterward PT-OP-C Subjective Start: 03/11/20 09:17 Freq: Status: Active Protocol: Document 03/23/20 09:44 SAK (Rec: 03/23/20 10:32 SAK [id number]) OP-PT Subjective Patient Comments Patient Comments Patient reports she feels she is progressing will, trying to walk more. Says walking on pavement is painful, has gotten 4-wheeled walker with a seat. Soreness due to doing some spring cleaning. PT-OP-D Balance Start: 03/11/20 09:17 Freq: Status: Active Protocol: Document 03/18/20 11:15 AW (Rec: 03/18/20 13:00 AW [email or web address]) OP-PT Balance Assessment Sitting Balance Static Sitting Balance Ability Normal Dynamic Sitting Balance Ability Normal Standing Balance Static Standing Balance Ability Good Dynamic Standing Balance Ability Good Balance Tests Single Limb Standing Single Limb- Right 3 sec, 3 sec, 6 sec Single Limb- Left 6 sec, 6 sec, 6 sec Brown Fall Scale Copyright Permission PT-OP-E Functional Tests Start: 03/11/20 09:17 Freq: Status: Active Protocol: Document 03/18/20 11:15 AW (Rec: 03/18/20 13:01 AW [email or web address]) Functional Tests Other SL squat from table Score 25 L; unable R without LOB PT-OP-F Manual Assessment Start: 03/11/20 09:17 Freq: Status: Active Protocol: Document 03/18/20 11:15 AW (Rec: 03/18/20 13:00 AW [email or web address]) Manual Assessments Soft Tissue Assessment Soft Tissue Mobility Assessment Increased density in gluteal musculature RLE PT-OP-H Neuro Start: 03/11/20 09:17 Freq: Status: Active Protocol: Document 03/11/20 10:34 AW (Rec: 03/11/20 17:14 AW [email or web address]) Sensation Evaluation Gross Sensation Gross Sensation Right UE Impaired Sensation Description Numbness Dermatome Impairments C7 Comments Summary Comments Intermittent numbness in right posterior arm. Not reproduced on exam with neck special tests. Deep Tendon Reflex & Clonus Assessment Deep Tendon Reflex Bilateral Tricep Deep Tendon Reflex 1+ Diminished Bilateral Bicep Deep Tendon Reflex 2+ Normal PT-OP-J Posture/Palpation/Skin Start: 03/11/20 09:17 Freq: Status: Active Protocol: Document 03/11/20 10:34 AW (Rec: 03/11/20 17:14 AW [email or web address]) Posture Evaluation Position Standing Evaluation View Lateral Head/C-Spine Posture Extended,Forward Head T-Spine Posture Increased Kyphosis L-Spine Posture Flattened Shoulder Posture (L) Rounded,(R) Rounded Scapula Posture (L) Protracted,(R) Protracted Weight Distribution Weight Shifted Left Ankle/Foot Posture (L) Supinated,(R) Supinated Foot Arch (L) Medium Arch,(R) Medium Arch Palpation Assessment Location lumbar spine Palpation Location paraspinals Palpation Findings Soft Tissue Tightness,Muscle Guarding Palpation Details R more affected than L PT-OP-K Range of Motion Start: 03/11/20 09:17 Freq: Status: Active Protocol: Document 03/11/20 10:34 AW (Rec: 03/11/20 17:14 AW [email or web address]) Cervical Spine Range of Motion Cervical Spine Active Degrees Testing Position Sitting Flexion 50 Extension 30 Rotation Left 45 Rotation Right 50 Lateral Flexion Left 30 Lateral Flexion Right 25 ROM Limitations Soft Tissue Tightness,Pain Lumbar Spine Range of Motion Lumbar Spine Active Testing Position Standing Extension 15 Comments Flexion: fingertips 10 from floor with notable L3 L4 hinge Side bend: fingertips 23 from floor right side, 21 from floor left side Shoulder Goniometric Range of Motion Shoulder Left Active Testing Position Sitting Flexion 156 Extension 40 Abduction 160 Internal Rotation Behind Back (text) T7 Right Active Testing Position Sitting Flexion 160 Extension 40 Abduction 160 Internal Rotation Behind Back (text) T7 Shoulder ROM Limitations Shoulder ROM Limitations Soft Tissue Tightness,Pain Elbow/Forearm Range of Motion Elbow/Forearm Right Active Comments B elbow AROM and PROM WNL Hip Goniometric Range of Motion Hip Right Hip ROM WFL Yes Testing Position Supine Flexion w/Knee Flexed 110 Abduction 40 Comments IR limited; ER WNL Left Hip ROM WFL Yes Testing Position Supine Flexion w/Knee Flexed 110 Abduction 43 Comments IR limited but greater excursion than right Hip ROM Limitations Comments flexion limited by habitus PT-OP-L Special Tests Start: 03/11/20 09:17 Freq: Status: Active Protocol: Document 03/11/20 10:34 AW (Rec: 03/11/20 17:14 AW [email or web address]) Special Tests Cervical Spine Special Tests Slump Test Results negative Spurling's Test Test Results negative bilaterally Lumbar Spine Special Tests Straight Leg Raise Test Results active SLR positive on the right Comments some relief noted with bimanual compression through bilateral ASIS Luis Test Results positive bilaterally Comments increase in hip flexion with knees bent B Slump Test Results vaguely positive R; negative L Comments R side pt reports increased tension but no pain Shoulder Special Tests Somers Endy Impingement Test Results negative bilaterally Drop Arm Rotator Cuff Test Results negative bilaterally Hip Special Tests Scour Test Test Results negative bilaterally PT-OP-M Strength Start: 03/11/20 09:17 Freq: Status: Active Protocol: Document 03/11/20 10:34 AW (Rec: 03/11/20 17:14 AW [email or web address]) Cervical Spine Strength Cervical Spine Manual Muscle Testing Testing Position Sitting Flexion (C1-2) 4+ Good+ Extension 4 Good Rotation Left 4 Good Rotation Right 4 Good Lateral Flexion Left (C3) 4- Good- Lateral Flexion Right (C3) 4- Good- Shoulder Strength Shoulder Manual Muscle Testing Right Flexion 4+ Good+ Extension 4+ Good+ Abduction (C5) 4+ Good+ External Rotation 4+ Good+ Internal Rotation 5 Normal Comments LUE grossly 5/5 Hip Strength Hip Manual Muscle Testing Left Flexion (L2) 4+ Good+ Extension (S1) 4- Good- Abduction 4- Good- External Rotation 4+ Good+ Internal Rotation 5 Normal Right Flexion (L2) 4 Good Extension (S1) 3+ Fair+ Abduction 4- Good- External Rotation 4+ Good+ Internal Rotation 4+ Good+ Knee Strength Knee Manual Muscle Testing Left Flexion (S2) 5 Normal Extension (L3) 4+ Good+ Right Flexion (S2) 5 Normal Extension (L3) 4+ Good+ PT-OP-Q Treatments Start: 03/11/20 09:17 Freq: Status: Active Protocol: Document 03/23/20 09:44 SAK (Rec: 03/23/20 10:32 [facility] [id number]) Therapeutic Exercises Supine Exercises posture press Reps/Minutes 10x Comments with pillow squeeze TrA activation Supine Exercise Name Pelvic tucks & supine marches for TA activatin Reps/Minutes 5 min Comments added supine marches to HEP Sitting Exercises ball squeeze Reps/Minutes 10x posture press Reps/Minutes 6x Standing Exercises UT stretch Reps/Minutes 2x Comments with holding wrist of stretching side. wall posture Reps/Minutes 6x Manual Therapy Treatment Soft Tissue Mobilization 1 Body Location B UT, rhomboids, cervical paraspinals, suboccipitals Mobilization Type Myofascial Release,Strumming, Sustained Pressure Intensity/Depth Moderate Body Position Hooklying Self-Care/Home Management Treatment Education Patient Education Body Mechanics,Home Exercise Program,Posture Other Education Instruction in proper carrying of backback for back protection if not utilizing straps, instruction in correct body mechanics with ADL's including putting her backpack and jacket into locker, choosing correct height surface/locker. PT-OP-R Modalities Start: 03/11/20 09:17 Freq: Status: Active Protocol: Document 03/23/20 09:44 SAK (Rec: 03/23/20 15:50 [facility] [id number]) Hot Pack/Cold Pack Treatment Cold Pack Location c/s, l/s Patient Position Hooklying Patient Tolerance Good PT-OP-T Assessment and Plan Start: 03/11/20 09:17 Freq: Status: Active Protocol: Document 03/23/20 09:44 SAK (Rec: 03/23/20 10:32 [facility] [id number]) Physical Therapy Assessment Goals Five Impairment hip strength Short Term Goal (STG) Pt will improve right hip strength equal to left for improved gait quality STG Duration 6 weeks - 04/22/2020 Quality Management Coordinator Goal (LTG) Pt will demonstrate SL squat from 20 surface bilaterally without LOB LTG Duration 12 weeks 06/03/2020 Four Impairment hyperdensity lumbar paraspinals Short Term Goal (STG) Pt will demonstrate reduced tone in lumbar musculature and glutes STG Duration 6 weeks - 04/22/2020 3 Impairment cervical ROM Short Term Goal (STG) Pt will improve cervical lateral flexion to 35 degrees or greater bilaterally STG Duration 6 weeks - 04/22/2020 Fpc Goal (LTG) Pt will improve cervical rotation to 60 degrees or greater bilaterally for improved ability to turn head while driving. LTG Duration 12 weeks 06/03/2020 2 Impairment posture Short Term Goal (STG) Pt will self-correct cervical and thoracic posture for improvement in pain symptoms STG Duration 6 weeks - 04/22/2020 One Impairment increased density cervical paraspinals and upper traps Short Term Goal (STG) Pt will demonstrate reduced tone in cervical musculature and upper traps STG Duration 6 weeks - 04/22/2020 Quality Management Coordinator Goal (LTG) Pt will score 25/50 or less on NDI to represent improved daily function related to neck pain. LTG Duration 12 weeks 06/03/2020 Assessment Summary Assessment Patient needed frequent instruction and review of correct posture and body mechanics with usual activities. Worked on in standing, sitting, and supine. Ended with ice per patient request. Physical Therapy Plan Frequency and Duration Frequency of Treatment 2x/Week Duration of Treatment 12 weeks Plan of Care Start Date 03/11/20 Plan of Care End Date 06/03/20 Therapeutic Interventions Therapeutic Interventions Home Exercise Program,Joint Mobilizations,Manual Therapy, Neuromuscular Re-education, Patient/Caregiver Education, Self-Care/Home Management,Soft Tissue Mobilization,Taping, Therapeutic Activities, Therapeutic Exercises Modalities Cold Pack/Ice Massage,Electric Stimulation,Hot Packs Next Visit Focus/Plan Next Note Type Treatment Note Next Visit Plan Continue PT per POC to decrease soft tissue tightness and pain and improve strength and function. Ongoing patient education for back protection, posture and body mechanics.
--- NOTE | 2020-03-25 12:03 | PT.OTN ---
Current Diagnoses Abnormal posture (03/25/20) Strain of muscle, fascia and tendon at neck level, subsequent encounter (03/25/20) Strain of muscle, fascia and tendon of lower back, subsequent encounter (03/25/20) Arthrodesis status (03/25/20) Physical Therapy Treatment Note PT-OP-A Visit Information Start: 03/11/20 09:17 Freq: Status: Active Protocol: Document 03/25/20 11:52 AW (Rec: 03/25/20 12:03 AW [email or web address]) Out-Patient Physical Therapy Visit Information Visit Information Visit Type Treatment Note Visit Start Time 10:30 Visit Stop Time 11:16 Total Visit Minutes 46 Visit Number 6 Number of WEB SERVICES MANAGER Visits 0 Evaluation Information Evaluation Date 03/11/20 PT-OP-B Current Condition Start: 03/11/20 09:17 Freq: Status: Active Protocol: Document 03/11/20 10:34 AW (Rec: 03/11/20 11:19 AW [id number]) Current Condition History of Current Condition Onset Date 15 years Current Complaints neck and right shoulder pain, low back pain with recent surgeries History of Current Condition Pt with history of fibromyalgia has long standing neck and low back pain. Symptoms improved after recent surgeries but pt continues to have pain especially if she overdoes it. Overall, her right side is worse than her left. She is currently walking ~1/16 mi with incline but can typically do 1/8 mile when feeling well. Prior Treatments and Tests late s - cervical discectomy aqua therapy 12/05/19 - C5-7 ACDF 02/11/20 - foraminectomy L5-S1 Future Testing and Treatments Planned Septoplasty mid-April Treatment Goals Patient/Caregiver Goals Reduce tone in shoulders Improve cervical ROM Increase walking tolerance Prior Functional Status Baseline Function- ADL's Modified Independent Baseline Function- Mobility Modified Independent Baseline Function- Gait ambulates with SPC vs FWW for stairs, inclines, long distance 2/2 R knee pn Baseline Function- Other able to walk from hospital to [facility] with FWW Current Functional Impairments (Reported) Functional Limitations- ADL's needs equipment for showers, no assist Functional Limitations- Mobility/Gait can walk from hospital to [facility] but has increased back pain for days afterward PT-OP-C Subjective Start: 03/11/20 09:17 Freq: Status: Active Protocol: Document 03/25/20 11:52 AW (Rec: 03/25/20 12:03 AW [email or web address]) OP-PT Subjective Patient Comments Patient Comments Pt arrives feeling a little sore but does not attribute her soreness to PT. Instead, she walked outside extensively after last visit and feels she overdid it. PT-OP-D Balance Start: 03/11/20 09:17 Freq: Status: Active Protocol: Document 03/18/20 11:15 AW (Rec: 03/18/20 13:00 AW [email or web address]) OP-PT Balance Assessment Sitting Balance Static Sitting Balance Ability Normal Dynamic Sitting Balance Ability Normal Standing Balance Static Standing Balance Ability Good Dynamic Standing Balance Ability Good Balance Tests Single Limb Standing Single Limb- Right 3 sec, 3 sec, 6 sec Single Limb- Left 6 sec, 6 sec, 6 sec Brown Fall Scale Copyright Permission PT-OP-E Functional Tests Start: 03/11/20 09:17 Freq: Status: Active Protocol: Document 03/18/20 11:15 AW (Rec: 03/18/20 13:01 AW [email or web address]) Functional Tests Other SL squat from table Score 25 L; unable R without LOB PT-OP-F Manual Assessment Start: 03/11/20 09:17 Freq: Status: Active Protocol: Document 03/18/20 11:15 AW (Rec: 03/18/20 13:00 AW [email or web address]) Manual Assessments Soft Tissue Assessment Soft Tissue Mobility Assessment Increased density in gluteal musculature RLE PT-OP-H Neuro Start: 03/11/20 09:17 Freq: Status: Active Protocol: Document 03/11/20 10:34 AW (Rec: 03/11/20 17:14 AW [email or web address]) Sensation Evaluation Gross Sensation Gross Sensation Right UE Impaired Sensation Description Numbness Dermatome Impairments C7 Comments Summary Comments Intermittent numbness in right posterior arm. Not reproduced on exam with neck special tests. Deep Tendon Reflex & Clonus Assessment Deep Tendon Reflex Bilateral Tricep Deep Tendon Reflex 1+ Diminished Bilateral Bicep Deep Tendon Reflex 2+ Normal PT-OP-J Posture/Palpation/Skin Start: 03/11/20 09:17 Freq: Status: Active Protocol: Document 03/11/20 10:34 AW (Rec: 03/11/20 17:14 AW [email or web address]) Posture Evaluation Position Standing Evaluation View Lateral Head/C-Spine Posture Extended,Forward Head T-Spine Posture Increased Kyphosis L-Spine Posture Flattened Shoulder Posture (L) Rounded,(R) Rounded Scapula Posture (L) Protracted,(R) Protracted Weight Distribution Weight Shifted Left Ankle/Foot Posture (L) Supinated,(R) Supinated Foot Arch (L) Medium Arch,(R) Medium Arch Palpation Assessment Location lumbar spine Palpation Location paraspinals Palpation Findings Soft Tissue Tightness,Muscle Guarding Palpation Details R more affected than L PT-OP-K Range of Motion Start: 03/11/20 09:17 Freq: Status: Active Protocol: Document 03/11/20 10:34 AW (Rec: 03/11/20 17:14 AW [email or web address]) Cervical Spine Range of Motion Cervical Spine Active Degrees Testing Position Sitting Flexion 50 Extension 30 Rotation Left 45 Rotation Right 50 Lateral Flexion Left 30 Lateral Flexion Right 25 ROM Limitations Soft Tissue Tightness,Pain Lumbar Spine Range of Motion Lumbar Spine Active Testing Position Standing Extension 15 Comments Flexion: fingertips 10 from floor with notable L3 L4 hinge Side bend: fingertips 23 from floor right side, 21 from floor left side Shoulder Goniometric Range of Motion Shoulder Left Active Testing Position Sitting Flexion 156 Extension 40 Abduction 160 Internal Rotation Behind Back (text) T7 Right Active Testing Position Sitting Flexion 160 Extension 40 Abduction 160 Internal Rotation Behind Back (text) T7 Shoulder ROM Limitations Shoulder ROM Limitations Soft Tissue Tightness,Pain Elbow/Forearm Range of Motion Elbow/Forearm Right Active Comments B elbow AROM and PROM WNL Hip Goniometric Range of Motion Hip Right Hip ROM WFL Yes Testing Position Supine Flexion w/Knee Flexed 110 Abduction 40 Comments IR limited; ER WNL Left Hip ROM WFL Yes Testing Position Supine Flexion w/Knee Flexed 110 Abduction 43 Comments IR limited but greater excursion than right Hip ROM Limitations Comments flexion limited by habitus PT-OP-L Special Tests Start: 03/11/20 09:17 Freq: Status: Active Protocol: Document 03/11/20 10:34 AW (Rec: 03/11/20 17:14 AW [email or web address]) Special Tests Cervical Spine Special Tests Slump Test Results negative Spurling's Test Test Results negative bilaterally Lumbar Spine Special Tests Straight Leg Raise Test Results active SLR positive on the right Comments some relief noted with bimanual compression through bilateral ASIS Luis Test Results positive bilaterally Comments increase in hip flexion with knees bent B Slump Test Results vaguely positive R; negative L Comments R side pt reports increased tension but no pain Shoulder Special Tests Somers Endy Impingement Test Results negative bilaterally Drop Arm Rotator Cuff Test Results negative bilaterally Hip Special Tests Scour Test Test Results negative bilaterally PT-OP-M Strength Start: 03/11/20 09:17 Freq: Status: Active Protocol: Document 03/11/20 10:34 AW (Rec: 03/11/20 17:14 AW [email or web address]) Cervical Spine Strength Cervical Spine Manual Muscle Testing Testing Position Sitting Flexion (C1-2) 4+ Good+ Extension 4 Good Rotation Left 4 Good Rotation Right 4 Good Lateral Flexion Left (C3) 4- Good- Lateral Flexion Right (C3) 4- Good- Shoulder Strength Shoulder Manual Muscle Testing Right Flexion 4+ Good+ Extension 4+ Good+ Abduction (C5) 4+ Good+ External Rotation 4+ Good+ Internal Rotation 5 Normal Comments LUE grossly 5/5 Hip Strength Hip Manual Muscle Testing Left Flexion (L2) 4+ Good+ Extension (S1) 4- Good- Abduction 4- Good- External Rotation 4+ Good+ Internal Rotation 5 Normal Right Flexion (L2) 4 Good Extension (S1) 3+ Fair+ Abduction 4- Good- External Rotation 4+ Good+ Internal Rotation 4+ Good+ Knee Strength Knee Manual Muscle Testing Left Flexion (S2) 5 Normal Extension (L3) 4+ Good+ Right Flexion (S2) 5 Normal Extension (L3) 4+ Good+ PT-OP-Q Treatments Start: 03/11/20 09:17 Freq: Status: Active Protocol: Document 03/25/20 11:52 AW (Rec: 03/25/20 12:03 AW [email or web address]) Therapeutic Exercises Supine Exercises posture press Reps/Minutes 10x Comments with pillow squeeze TrA activation Supine Exercise Name Pelvic tucks & supine marches for TA activatin Reps/Minutes 5 min Comments progressed to double march ( one at a time) and added to HEP Sitting Exercises UT stretch Side bilateral Reps/Minutes 30 sec Comments cues to drop arm for increased stretch Chin Tucks Sitting Exercise Name Chin tuck Reps/Minutes 5x Comments holding for 5 sec-HEP Manual Therapy Treatment Soft Tissue Mobilization 1 Body Location B UT, rhomboids, cervical paraspinals, suboccipitals Mobilization Type Myofascial Release,Strumming, Sustained Pressure Intensity/Depth Moderate Body Position Hooklying Manual Traction Cervical Body Position Hooklying Reps/Duration 2x60 sec Comments relieving for neck pain and shoulder tension Self-Care/Home Management Treatment Education Patient Education Home Exercise Program Other Education Progressed to april (R knee up, L knee up, R knee down, L knee down). PT-OP-R Modalities Start: 03/11/20 09:17 Freq: Status: Active Protocol: Document 03/23/20 09:44 SAK (Rec: 03/23/20 15:50 SAK [email or web address]) Hot Pack/Cold Pack Treatment Cold Pack Location c/s, l/s Patient Position Hooklying Patient Tolerance Good PT-OP-T Assessment and Plan Start: 03/11/20 09:17 Freq: Status: Active Protocol: Document 03/25/20 11:52 AW (Rec: 03/25/20 12:03 AW [email or web address]) Physical Therapy Assessment Goals Five Impairment hip strength Short Term Goal (STG) Pt will improve right hip strength equal to left for improved gait quality STG Duration 6 weeks - 04/22/2020 Halfway Goal (LTG) Pt will demonstrate SL squat from 20 surface bilaterally without LOB LTG Duration 12 weeks 06/03/2020 Four Impairment hyperdensity lumbar paraspinals Short Term Goal (STG) Pt will demonstrate reduced tone in lumbar musculature and glutes STG Duration 6 weeks - 04/22/2020 3 Impairment cervical ROM Short Term Goal (STG) Pt will improve cervical lateral flexion to 35 degrees or greater bilaterally STG Duration 6 weeks - 04/22/2020 Data Examination Clerk Goal (LTG) Pt will improve cervical rotation to 60 degrees or greater bilaterally for improved ability to turn head while driving. LTG Duration 12 weeks 06/03/2020 2 Impairment posture Short Term Goal (STG) Pt will self-correct cervical and thoracic posture for improvement in pain symptoms STG Duration 6 weeks - 04/22/2020 One Impairment increased density cervical paraspinals and upper traps Short Term Goal (STG) Pt will demonstrate reduced tone in cervical musculature and upper traps STG Duration 6 weeks - 04/22/2020 Data Examination Clerk Goal (LTG) Pt will score 25/50 or less on NDI to represent improved daily function related to neck pain. LTG Duration 12 weeks 06/03/2020 Assessment Summary Assessment Pt showed good carryover of body mechanics instruction, arriving with backpack held in front with both arms and choosing an appropriate height locker. She was able to progress her pelvic postural awareness in supported/supine position. Physical Therapy Plan Frequency and Duration Frequency of Treatment 2x/Week Duration of Treatment 12 weeks Plan of Care Start Date 03/11/20 Plan of Care End Date 06/03/20 Therapeutic Interventions Therapeutic Interventions Home Exercise Program,Joint Mobilizations,Manual Therapy, Neuromuscular Re-education, Patient/Caregiver Education, Self-Care/Home Management,Soft Tissue Mobilization,Taping, Therapeutic Activities, Therapeutic Exercises Modalities Cold Pack/Ice Massage,Electric Stimulation,Hot Packs Next Visit Focus/Plan Next Note Type Treatment Note Next Visit Plan Continue PT per POC to decrease soft tissue tightness and pain and improve strength and function. Ongoing patient education for back protection, posture and body mechanics. Teach self mob for cervical paraspinals and return to wall posture work.
--- NOTE | 2020-04-01 12:35 | PT.OTN ---
Current Diagnoses Abnormal posture (04/01/20) Strain of muscle, fascia and tendon at neck level, subsequent encounter (04/01/20) Strain of muscle, fascia and tendon of lower back, subsequent encounter (04/01/20) Arthrodesis status (04/01/20) Physical Therapy Treatment Note PT-OP-A Visit Information Start: 03/11/20 09:17 Freq: Status: Active Protocol: Document 04/01/20 12:26 AW (Rec: 04/01/20 12:34 AW [email or web address]) Out-Patient Physical Therapy Visit Information Visit Information Visit Type Treatment Note Visit Start Time 10:30 Visit Stop Time 11:15 Total Visit Minutes 45 Visit Number 7 Evaluation Information Evaluation Date 03/11/20 PT-OP-B Current Condition Start: 03/11/20 09:17 Freq: Status: Active Protocol: Document 03/11/20 10:34 AW (Rec: 03/11/20 11:19 AW [id number]) Current Condition History of Current Condition Onset Date 15 years Current Complaints neck and right shoulder pain, low back pain with recent surgeries History of Current Condition Pt with history of fibromyalgia has long standing neck and low back pain. Symptoms improved after recent surgeries but pt continues to have pain especially if she overdoes it. Overall, her right side is worse than her left. She is currently walking ~1/16 mi with incline but can typically do 1/8 mile when feeling well. Prior Treatments and Tests late s - cervical discectomy aqua therapy 12/05/19 - C5-7 ACDF 02/11/20 - foraminectomy L5-S1 Future Testing and Treatments Planned Septoplasty mid-April Treatment Goals Patient/Caregiver Goals Reduce tone in shoulders Improve cervical ROM Increase walking tolerance Prior Functional Status Baseline Function- ADL's Modified Independent Baseline Function- Mobility Modified Independent Baseline Function- Gait ambulates with SPC vs FWW for stairs, inclines, long distance 2/2 R knee pn Baseline Function- Other able to walk from hospital to [facility] with FWW Current Functional Impairments (Reported) Functional Limitations- ADL's needs equipment for showers, no assist Functional Limitations- Mobility/Gait can walk from hospital to [facility] but has increased back pain for days afterward PT-OP-C Subjective Start: 03/11/20 09:17 Freq: Status: Active Protocol: Document 04/01/20 12:26 AW (Rec: 02/17/21 12:34 AW [email or web address]) OP-PT Subjective Patient Comments Patient Comments Pt has limited her outdoor activity this week due to icy conditions. Her neck is bothering her more than her low back today. PT-OP-D Balance Start: 03/11/20 09:17 Freq: Status: Active Protocol: Document 03/18/20 11:15 AW (Rec: 03/18/20 13:00 AW [email or web address]) OP-PT Balance Assessment Sitting Balance Static Sitting Balance Ability Normal Dynamic Sitting Balance Ability Normal Standing Balance Static Standing Balance Ability Good Dynamic Standing Balance Ability Good Balance Tests Single Limb Standing Single Limb- Right 3 sec, 3 sec, 6 sec Single Limb- Left 6 sec, 6 sec, 6 sec Brown Fall Scale Copyright Permission PT-OP-E Functional Tests Start: 03/11/20 09:17 Freq: Status: Active Protocol: Document 03/18/20 11:15 AW (Rec: 03/18/20 13:01 AW [email or web address]) Functional Tests Other SL squat from table Score 25 L; unable R without LOB PT-OP-F Manual Assessment Start: 03/11/20 09:17 Freq: Status: Active Protocol: Document 03/18/20 11:15 AW (Rec: 03/18/20 13:00 AW [email or web address]) Manual Assessments Soft Tissue Assessment Soft Tissue Mobility Assessment Increased density in gluteal musculature RLE PT-OP-H Neuro Start: 03/11/20 09:17 Freq: Status: Active Protocol: Document 03/11/20 10:34 AW (Rec: 03/11/20 17:14 AW [email or web address]) Sensation Evaluation Gross Sensation Gross Sensation Right UE Impaired Sensation Description Numbness Dermatome Impairments C7 Comments Summary Comments Intermittent numbness in right posterior arm. Not reproduced on exam with neck special tests. Deep Tendon Reflex & Clonus Assessment Deep Tendon Reflex Bilateral Tricep Deep Tendon Reflex 1+ Diminished Bilateral Bicep Deep Tendon Reflex 2+ Normal PT-OP-J Posture/Palpation/Skin Start: 03/11/20 09:17 Freq: Status: Active Protocol: Document 03/11/20 10:34 AW (Rec: 03/11/20 17:14 AW [email or web address]) Posture Evaluation Position Standing Evaluation View Lateral Head/C-Spine Posture Extended,Forward Head T-Spine Posture Increased Kyphosis L-Spine Posture Flattened Shoulder Posture (L) Rounded,(R) Rounded Scapula Posture (L) Protracted,(R) Protracted Weight Distribution Weight Shifted Left Ankle/Foot Posture (L) Supinated,(R) Supinated Foot Arch (L) Medium Arch,(R) Medium Arch Palpation Assessment Location lumbar spine Palpation Location paraspinals Palpation Findings Soft Tissue Tightness,Muscle Guarding Palpation Details R more affected than L PT-OP-K Range of Motion Start: 03/11/20 09:17 Freq: Status: Active Protocol: Document 03/11/20 10:34 AW (Rec: 03/11/20 17:14 AW [email or web address]) Cervical Spine Range of Motion Cervical Spine Active Degrees Testing Position Sitting Flexion 50 Extension 30 Rotation Left 45 Rotation Right 50 Lateral Flexion Left 30 Lateral Flexion Right 25 ROM Limitations Soft Tissue Tightness,Pain Lumbar Spine Range of Motion Lumbar Spine Active Testing Position Standing Extension 15 Comments Flexion: fingertips 10 from floor with notable L3 L4 hinge Side bend: fingertips 23 from floor right side, 21 from floor left side Shoulder Goniometric Range of Motion Shoulder Left Active Testing Position Sitting Flexion 156 Extension 40 Abduction 160 Internal Rotation Behind Back (text) T7 Right Active Testing Position Sitting Flexion 160 Extension 40 Abduction 160 Internal Rotation Behind Back (text) T7 Shoulder ROM Limitations Shoulder ROM Limitations Soft Tissue Tightness,Pain Elbow/Forearm Range of Motion Elbow/Forearm Right Active Comments B elbow AROM and PROM WNL Hip Goniometric Range of Motion Hip Right Hip ROM WFL Yes Testing Position Supine Flexion w/Knee Flexed 110 Abduction 40 Comments IR limited; ER WNL Left Hip ROM WFL Yes Testing Position Supine Flexion w/Knee Flexed 110 Abduction 43 Comments IR limited but greater excursion than right Hip ROM Limitations Comments flexion limited by habitus PT-OP-L Special Tests Start: 03/11/20 09:17 Freq: Status: Active Protocol: Document 03/11/20 10:34 AW (Rec: 03/11/20 17:14 AW [email or web address]) Special Tests Cervical Spine Special Tests Slump Test Results negative Spurling's Test Test Results negative bilaterally Lumbar Spine Special Tests Straight Leg Raise Test Results active SLR positive on the right Comments some relief noted with bimanual compression through bilateral ASIS Luis Test Results positive bilaterally Comments increase in hip flexion with knees bent B Slump Test Results vaguely positive R; negative L Comments R side pt reports increased tension but no pain Shoulder Special Tests Somers Endy Impingement Test Results negative bilaterally Drop Arm Rotator Cuff Test Results negative bilaterally Hip Special Tests Scour Test Test Results negative bilaterally PT-OP-M Strength Start: 03/11/20 09:17 Freq: Status: Active Protocol: Document 03/11/20 10:34 AW (Rec: 03/11/20 17:14 AW [email or web address]) Cervical Spine Strength Cervical Spine Manual Muscle Testing Testing Position Sitting Flexion (C1-2) 4+ Good+ Extension 4 Good Rotation Left 4 Good Rotation Right 4 Good Lateral Flexion Left (C3) 4- Good- Lateral Flexion Right (C3) 4- Good- Shoulder Strength Shoulder Manual Muscle Testing Right Flexion 4+ Good+ Extension 4+ Good+ Abduction (C5) 4+ Good+ External Rotation 4+ Good+ Internal Rotation 5 Normal Comments LUE grossly 5/5 Hip Strength Hip Manual Muscle Testing Left Flexion (L2) 4+ Good+ Extension (S1) 4- Good- Abduction 4- Good- External Rotation 4+ Good+ Internal Rotation 5 Normal Right Flexion (L2) 4 Good Extension (S1) 3+ Fair+ Abduction 4- Good- External Rotation 4+ Good+ Internal Rotation 4+ Good+ Knee Strength Knee Manual Muscle Testing Left Flexion (S2) 5 Normal Extension (L3) 4+ Good+ Right Flexion (S2) 5 Normal Extension (L3) 4+ Good+ PT-OP-Q Treatments Start: 03/11/20 09:17 Freq: Status: Active Protocol: Document 04/01/20 12:26 AW (Rec: 04/01/20 12:34 AW [email or web address]) Therapeutic Exercises Sitting Exercises UT stretch Side bilateral Reps/Minutes 30 sec Comments cues to drop arm for increased stretch Chin Tucks Sitting Exercise Name Chin tuck Reps/Minutes 5x Comments holding for 5 sec-HEP Standing Exercises resisted GH extension Standing Exercise Name resisted GH extension Side bilateral Resistance level 1 Equipment Used TB Reps/Minutes 2 x 10 Comments palms forward; add to HEP resisted row Standing Exercise Name resisted row Side bilateral Resistance level 1 Equipment Used TB Reps/Minutes 2 x 10 Comments cues for scap retraction; add to HEP wall posture Reps/Minutes 6x Comments cues for cervical retraction Manual Therapy Treatment Soft Tissue Mobilization 1 Body Location B UT, SCM, cervical paraspinals, suboccipitals Mobilization Type Myofascial Release,Strumming, Sustained Pressure Intensity/Depth Moderate Body Position Hooklying Comments MWM into cervical rotation and lateral flexion Manual Traction Cervical Body Position Hooklying Reps/Duration 2x60 sec Comments relieving for neck pain and shoulder tension Self-Care/Home Management Treatment Education Patient Education Home Exercise Program Other Education added shoulder row and extension with level 1 band; issued band for home use and provided handout PT-OP-R Modalities Start: 03/11/20 09:17 Freq: Status: Active Protocol: Document 03/23/20 09:44 SAK (Rec: 03/23/20 15:50 SAK [id number]) Hot Pack/Cold Pack Treatment Cold Pack Location c/s, l/s Patient Position Hooklying Patient Tolerance Good PT-OP-T Assessment and Plan Start: 03/11/20 09:17 Freq: Status: Active Protocol: Document 04/01/20 12:26 AW (Rec: 04/01/20 12:34 AW [email or web address]) Physical Therapy Assessment Goals Five Impairment hip strength Short Term Goal (STG) Pt will improve right hip strength equal to left for improved gait quality STG Duration 6 weeks - 04/22/2020 Halfway Goal (LTG) Pt will demonstrate SL squat from 20 surface bilaterally without LOB LTG Duration 12 weeks 06/03/2020 Four Impairment hyperdensity lumbar paraspinals Short Term Goal (STG) Pt will demonstrate reduced tone in lumbar musculature and glutes STG Duration 6 weeks - 04/22/2020 3 Impairment cervical ROM Short Term Goal (STG) Pt will improve cervical lateral flexion to 35 degrees or greater bilaterally STG Duration 6 weeks - 04/22/2020 Halfway Goal (LTG) Pt will improve cervical rotation to 60 degrees or greater bilaterally for improved ability to turn head while driving. LTG Duration 12 weeks 06/03/2020 2 Impairment posture Short Term Goal (STG) Pt will self-correct cervical and thoracic posture for improvement in pain symptoms STG Duration 6 weeks - 04/22/2020 One Impairment increased density cervical paraspinals and upper traps Short Term Goal (STG) Pt will demonstrate reduced tone in cervical musculature and upper traps STG Duration 6 weeks - 04/22/2020 Corporate Travel Expert Goal (LTG) Pt will score 25/50 or less on NDI to represent improved daily function related to neck pain. LTG Duration 12 weeks 06/03/2020 Assessment Summary Assessment Pt responded well to manual therapy at beginning of session, stating she felt more able to work on exercises after STM. Will continue to work on posture and scapular strength/mechanics for improved cervical range of motion and reduction of pain symptoms. Physical Therapy Plan Frequency and Duration Frequency of Treatment 2x/Week Duration of Treatment 12 weeks Plan of Care Start Date 03/11/20 Plan of Care End Date 06/03/20 Therapeutic Interventions Therapeutic Interventions Home Exercise Program,Joint Mobilizations,Manual Therapy, Neuromuscular Re-education, Patient/Caregiver Education, Self-Care/Home Management,Soft Tissue Mobilization,Taping, Therapeutic Activities, Therapeutic Exercises Modalities Cold Pack/Ice Massage,Electric Stimulation,Hot Packs Next Visit Focus/Plan Next Note Type Treatment Note Next Visit Plan Continue PT per POC to decrease soft tissue tightness and pain and improve strength and function. Ongoing patient education for back protection, posture and body mechanics. Teach self mob for cervical paraspinals and return to wall posture work.
--- NOTE | 2020-04-08 12:43 | PT.OTN ---
Current Diagnoses Abnormal posture (04/08/20) Strain of muscle, fascia and tendon at neck level, subsequent encounter (04/08/20) Strain of muscle, fascia and tendon of lower back, subsequent encounter (04/08/20) Arthrodesis status (04/08/20) Physical Therapy Treatment Note PT-OP-A Visit Information Start: 03/11/20 09:17 Freq: Status: Active Protocol: Document 04/08/20 12:33 AW (Rec: 04/08/20 12:43 AW [email or web address]) Out-Patient Physical Therapy Visit Information Visit Information Visit Type Treatment Note Visit Start Time 09:45 Visit Stop Time 10:45 Total Visit Minutes 60 Visit Number 8 Evaluation Information Evaluation Date 03/11/20 PT-OP-B Current Condition Start: 03/11/20 09:17 Freq: Status: Active Protocol: Document 03/11/20 10:34 AW (Rec: 03/11/20 11:19 AW [id number]) Current Condition History of Current Condition Onset Date 15 years Current Complaints neck and right shoulder pain, low back pain with recent surgeries History of Current Condition Pt with history of fibromyalgia has long standing neck and low back pain. Symptoms improved after recent surgeries but pt continues to have pain especially if she overdoes it. Overall, her right side is worse than her left. She is currently walking ~1/16 mi with incline but can typically do 1/8 mile when feeling well. Prior Treatments and Tests late s - cervical discectomy aqua therapy 12/05/19 - C5-7 ACDF 02/11/20 - foraminectomy L5-S1 Future Testing and Treatments Planned Septoplasty mid-April Treatment Goals Patient/Caregiver Goals Reduce tone in shoulders Improve cervical ROM Increase walking tolerance Prior Functional Status Baseline Function- ADL's Modified Independent Baseline Function- Mobility Modified Independent Baseline Function- Gait ambulates with SPC vs FWW for stairs, inclines, long distance 2/2 R knee pn Baseline Function- Other able to walk from hospital to [facility] with FWW Current Functional Impairments (Reported) Functional Limitations- ADL's needs equipment for showers, no assist Functional Limitations- Mobility/Gait can walk from hospital to [facility] but has increased back pain for days afterward PT-OP-C Subjective Start: 03/11/20 09:17 Freq: Status: Active Protocol: Document 04/08/20 12:33 AW (Rec: 02/24/21 12:43 AW [email or web address]) OP-PT Subjective Patient Comments Patient Comments I'm pretty sore today. I took three busses and walked all over [facility] on Monday. PT-OP-D Balance Start: 03/11/20 09:17 Freq: Status: Active Protocol: Document 03/18/20 11:15 AW (Rec: 03/18/20 13:00 AW [email or web address]) OP-PT Balance Assessment Sitting Balance Static Sitting Balance Ability Normal Dynamic Sitting Balance Ability Normal Standing Balance Static Standing Balance Ability Good Dynamic Standing Balance Ability Good Balance Tests Single Limb Standing Single Limb- Right 3 sec, 3 sec, 6 sec Single Limb- Left 6 sec, 6 sec, 6 sec Brown Fall Scale Copyright Permission PT-OP-E Functional Tests Start: 03/11/20 09:17 Freq: Status: Active Protocol: Document 03/18/20 11:15 AW (Rec: 03/18/20 13:01 AW [email or web address]) Functional Tests Other SL squat from table Score 25 L; unable R without LOB PT-OP-F Manual Assessment Start: 03/11/20 09:17 Freq: Status: Active Protocol: Document 03/18/20 11:15 AW (Rec: 03/18/20 13:00 AW [email or web address]) Manual Assessments Soft Tissue Assessment Soft Tissue Mobility Assessment Increased density in gluteal musculature RLE PT-OP-H Neuro Start: 03/11/20 09:17 Freq: Status: Active Protocol: Document 03/11/20 10:34 AW (Rec: 03/11/20 17:14 AW [email or web address]) Sensation Evaluation Gross Sensation Gross Sensation Right UE Impaired Sensation Description Numbness Dermatome Impairments C7 Comments Summary Comments Intermittent numbness in right posterior arm. Not reproduced on exam with neck special tests. Deep Tendon Reflex & Clonus Assessment Deep Tendon Reflex Bilateral Tricep Deep Tendon Reflex 1+ Diminished Bilateral Bicep Deep Tendon Reflex 2+ Normal PT-OP-J Posture/Palpation/Skin Start: 03/11/20 09:17 Freq: Status: Active Protocol: Document 03/11/20 10:34 AW (Rec: 03/11/20 17:14 AW [email or web address]) Posture Evaluation Position Standing Evaluation View Lateral Head/C-Spine Posture Extended,Forward Head T-Spine Posture Increased Kyphosis L-Spine Posture Flattened Shoulder Posture (L) Rounded,(R) Rounded Scapula Posture (L) Protracted,(R) Protracted Weight Distribution Weight Shifted Left Ankle/Foot Posture (L) Supinated,(R) Supinated Foot Arch (L) Medium Arch,(R) Medium Arch Palpation Assessment Location lumbar spine Palpation Location paraspinals Palpation Findings Soft Tissue Tightness,Muscle Guarding Palpation Details R more affected than L PT-OP-K Range of Motion Start: 03/11/20 09:17 Freq: Status: Active Protocol: Document 03/11/20 10:34 AW (Rec: 03/11/20 17:14 AW [email or web address]) Cervical Spine Range of Motion Cervical Spine Active Degrees Testing Position Sitting Flexion 50 Extension 30 Rotation Left 45 Rotation Right 50 Lateral Flexion Left 30 Lateral Flexion Right 25 ROM Limitations Soft Tissue Tightness,Pain Lumbar Spine Range of Motion Lumbar Spine Active Testing Position Standing Extension 15 Comments Flexion: fingertips 10 from floor with notable L3 L4 hinge Side bend: fingertips 23 from floor right side, 21 from floor left side Shoulder Goniometric Range of Motion Shoulder Left Active Testing Position Sitting Flexion 156 Extension 40 Abduction 160 Internal Rotation Behind Back (text) T7 Right Active Testing Position Sitting Flexion 160 Extension 40 Abduction 160 Internal Rotation Behind Back (text) T7 Shoulder ROM Limitations Shoulder ROM Limitations Soft Tissue Tightness,Pain Elbow/Forearm Range of Motion Elbow/Forearm Right Active Comments B elbow AROM and PROM WNL Hip Goniometric Range of Motion Hip Right Hip ROM WFL Yes Testing Position Supine Flexion w/Knee Flexed 110 Abduction 40 Comments IR limited; ER WNL Left Hip ROM WFL Yes Testing Position Supine Flexion w/Knee Flexed 110 Abduction 43 Comments IR limited but greater excursion than right Hip ROM Limitations Comments flexion limited by habitus PT-OP-L Special Tests Start: 03/11/20 09:17 Freq: Status: Active Protocol: Document 03/11/20 10:34 AW (Rec: 03/11/20 17:14 AW [email or web address]) Special Tests Cervical Spine Special Tests Slump Test Results negative Spurling's Test Test Results negative bilaterally Lumbar Spine Special Tests Straight Leg Raise Test Results active SLR positive on the right Comments some relief noted with bimanual compression through bilateral ASIS Luis Test Results positive bilaterally Comments increase in hip flexion with knees bent B Slump Test Results vaguely positive R; negative L Comments R side pt reports increased tension but no pain Shoulder Special Tests Somers Endy Impingement Test Results negative bilaterally Drop Arm Rotator Cuff Test Results negative bilaterally Hip Special Tests Scour Test Test Results negative bilaterally PT-OP-M Strength Start: 03/11/20 09:17 Freq: Status: Active Protocol: Document 03/11/20 10:34 AW (Rec: 03/11/20 17:14 AW [email or web address]) Cervical Spine Strength Cervical Spine Manual Muscle Testing Testing Position Sitting Flexion (C1-2) 4+ Good+ Extension 4 Good Rotation Left 4 Good Rotation Right 4 Good Lateral Flexion Left (C3) 4- Good- Lateral Flexion Right (C3) 4- Good- Shoulder Strength Shoulder Manual Muscle Testing Right Flexion 4+ Good+ Extension 4+ Good+ Abduction (C5) 4+ Good+ External Rotation 4+ Good+ Internal Rotation 5 Normal Comments LUE grossly 5/5 Hip Strength Hip Manual Muscle Testing Left Flexion (L2) 4+ Good+ Extension (S1) 4- Good- Abduction 4- Good- External Rotation 4+ Good+ Internal Rotation 5 Normal Right Flexion (L2) 4 Good Extension (S1) 3+ Fair+ Abduction 4- Good- External Rotation 4+ Good+ Internal Rotation 4+ Good+ Knee Strength Knee Manual Muscle Testing Left Flexion (S2) 5 Normal Extension (L3) 4+ Good+ Right Flexion (S2) 5 Normal Extension (L3) 4+ Good+ PT-OP-Q Treatments Start: 03/11/20 09:17 Freq: Status: Active Protocol: Document 04/08/20 12:33 AW (Rec: 04/08/20 12:43 AW [email or web address]) Therapeutic Exercises Supine Exercises adductor squeeze Supine Exercise Name adductor squeeze Equipment Used pillow Reps/Minutes 5SH x 15 SKTC Supine Exercise Name SKTC Reps/Minutes 30 sec x 2 bridge Supine Exercise Name bridge Reps/Minutes 5SH x 10; 5SH x 8 Comments cues for core activation, pelvic tilt posture press Reps/Minutes 10x Comments with pillow squeeze TrA activation Supine Exercise Name Pelvic tucks & supine marches for TA activatin Reps/Minutes 5 min Comments progressed to double march ( one at a time) and added to HEP Sidelying Exercises clamshell Sidelying Exercise Name clamshell Side bilateral Reps/Minutes x10 Comments cued stacked hips Therapeutic Activity Therapeutic Activity lifting Name lifting Comments noted pt twisting to reach backpack; educated pt to square up to her task and to hinge at her hips; pt repeated twice for practice Manual Therapy Treatment Soft Tissue Mobilization 2 Body Location reji paraspinals, gluteals Mobilization Type Instrument Assisted,Myofascial Release Intensity/Depth Moderate Body Position Prone Manual Traction Lumbar Body Position Hooklying Reps/Duration 2x60 sec Self-Care/Home Management Treatment Education Patient Education Home Exercise Program Other Education added bridge and clamshell to home program PT-OP-R Modalities Start: 03/11/20 09:17 Freq: Status: Active Protocol: Document 04/08/20 12:33 AW (Rec: 04/08/20 12:43 AW [email or web address]) Hot Pack/Cold Pack Treatment Hot Pack Location lumbar Patient Position Prone Treatment Duration (minutes) 15 Patient Tolerance Good Comments MHP at end of session PT-OP-T Assessment and Plan Start: 03/11/20 09:17 Freq: Status: Active Protocol: Document 04/08/20 12:33 AW (Rec: 04/08/20 12:43 AW [email or web address]) Physical Therapy Assessment Goals Five Impairment hip strength Short Term Goal (STG) Pt will improve right hip strength equal to left for improved gait quality STG Duration 6 weeks - 04/22/2020 Mold Cleaner Goal (LTG) Pt will demonstrate SL squat from 20 surface bilaterally without LOB LTG Duration 12 weeks 06/03/2020 Four Impairment hyperdensity lumbar paraspinals Short Term Goal (STG) Pt will demonstrate reduced tone in lumbar musculature and glutes STG Duration 6 weeks - 04/22/2020 3 Impairment cervical ROM Short Term Goal (STG) Pt will improve cervical lateral flexion to 35 degrees or greater bilaterally STG Duration 6 weeks - 04/22/2020 [facility] Goal (LTG) Pt will improve cervical rotation to 60 degrees or greater bilaterally for improved ability to turn head while driving. LTG Duration 12 weeks 06/03/2020 2 Impairment posture Short Term Goal (STG) Pt will self-correct cervical and thoracic posture for improvement in pain symptoms STG Duration 6 weeks - 04/22/2020 One Impairment increased density cervical paraspinals and upper traps Short Term Goal (STG) Pt will demonstrate reduced tone in cervical musculature and upper traps STG Duration 6 weeks - 04/22/2020 Mold Cleaner Goal (LTG) Pt will score 25/50 or less on NDI to represent improved daily function related to neck pain. LTG Duration 12 weeks 06/03/2020 Assessment Summary Assessment Treatment began with manual therapy for lumbar paraspinals and progressed to hip strengthening in suping. Pt is motivated and happy to have new exercises for home. Will continue to work on hip strength as tolerated. Physical Therapy Plan Frequency and Duration Frequency of Treatment 2x/Week Duration of Treatment 12 weeks Plan of Care Start Date 03/11/20 Plan of Care End Date 06/03/20 Therapeutic Interventions Therapeutic Interventions Home Exercise Program,Joint Mobilizations,Manual Therapy, Neuromuscular Re-education, Patient/Caregiver Education, Self-Care/Home Management,Soft Tissue Mobilization,Taping, Therapeutic Activities, Therapeutic Exercises Modalities Cold Pack/Ice Massage,Electric Stimulation,Hot Packs Next Visit Focus/Plan Next Note Type Treatment Note Next Visit Plan Continue PT per POC to decrease soft tissue tightness and pain and improve strength and function. Ongoing patient education for back protection, posture and body mechanics. Teach self mob for cervical paraspinals and return to wall posture work.
--- NOTE | 2020-04-10 09:46 | PT.OTN ---
Current Diagnoses Abnormal posture (04/10/20) Strain of muscle, fascia and tendon at neck level, subsequent encounter (04/10/20) Strain of muscle, fascia and tendon of lower back, subsequent encounter (04/10/20) Arthrodesis status (04/10/20) Physical Therapy Treatment Note PT-OP-A Visit Information Start: 03/11/20 09:17 Freq: Status: Active Protocol: Document 04/10/20 08:59 MA (Rec: 04/10/20 09:46 MA [id number]) Out-Patient Physical Therapy Visit Information Visit Information Visit Type Treatment Note Visit Start Time 08:55 Visit Stop Time 09:55 Total Visit Minutes 60 Visit Number 9 Number of RESERVATIONS SALES AGENT Visits 1 PT-OP-B Current Condition Start: 03/11/20 09:17 Freq: Status: Active Protocol: Document 03/11/20 10:34 AW (Rec: 03/11/20 11:19 AW [id number]) Current Condition History of Current Condition Onset Date 15 years Current Complaints neck and right shoulder pain, low back pain with recent surgeries History of Current Condition Pt with history of fibromyalgia has long standing neck and low back pain. Symptoms improved after recent surgeries but pt continues to have pain especially if she overdoes it. Overall, her right side is worse than her left. She is currently walking ~1/16 mi with incline but can typically do 1/8 mile when feeling well. Prior Treatments and Tests late s - cervical discectomy aqua therapy 12/05/19 - C5-7 ACDF 02/11/20 - foraminectomy L5-S1 Future Testing and Treatments Planned Septoplasty mid-April Treatment Goals Patient/Caregiver Goals Reduce tone in shoulders Improve cervical ROM Increase walking tolerance Prior Functional Status Baseline Function- ADL's Modified Independent Baseline Function- Mobility Modified Independent Baseline Function- Gait ambulates with SPC vs FWW for stairs, inclines, long distance 2/2 R knee pn Baseline Function- Other able to walk from hospital to [facility] with FWW Current Functional Impairments (Reported) Functional Limitations- ADL's needs equipment for showers, no assist Functional Limitations- Mobility/Gait can walk from hospital to [facility] but has increased back pain for days afterward PT-OP-C Subjective Start: 03/11/20 09:17 Freq: Status: Active Protocol: Document 04/10/20 08:59 MA (Rec: 04/10/20 09:46 MA [id number]) OP-PT Subjective Patient Comments Patient Comments My back felt much better after my session on Monday PT-OP-D Balance Start: 03/11/20 09:17 Freq: Status: Active Protocol: Document 03/18/20 11:15 AW (Rec: 03/18/20 13:00 AW [email or web address]) OP-PT Balance Assessment Sitting Balance Static Sitting Balance Ability Normal Dynamic Sitting Balance Ability Normal Standing Balance Static Standing Balance Ability Good Dynamic Standing Balance Ability Good Balance Tests Single Limb Standing Single Limb- Right 3 sec, 3 sec, 6 sec Single Limb- Left 6 sec, 6 sec, 6 sec Brown Fall Scale Copyright Permission PT-OP-E Functional Tests Start: 03/11/20 09:17 Freq: Status: Active Protocol: Document 03/18/20 11:15 AW (Rec: 03/18/20 13:01 AW [email or web address]) Functional Tests Other SL squat from table Score 25 L; unable R without LOB PT-OP-F Manual Assessment Start: 03/11/20 09:17 Freq: Status: Active Protocol: Document 03/18/20 11:15 AW (Rec: 03/18/20 13:00 AW [email or web address]) Manual Assessments Soft Tissue Assessment Soft Tissue Mobility Assessment Increased density in gluteal musculature RLE PT-OP-H Neuro Start: 03/11/20 09:17 Freq: Status: Active Protocol: Document 03/11/20 10:34 AW (Rec: 03/11/20 17:14 AW [email or web address]) Sensation Evaluation Gross Sensation Gross Sensation Right UE Impaired Sensation Description Numbness Dermatome Impairments C7 Comments Summary Comments Intermittent numbness in right posterior arm. Not reproduced on exam with neck special tests. Deep Tendon Reflex & Clonus Assessment Deep Tendon Reflex Bilateral Tricep Deep Tendon Reflex 1+ Diminished Bilateral Bicep Deep Tendon Reflex 2+ Normal PT-OP-J Posture/Palpation/Skin Start: 03/11/20 09:17 Freq: Status: Active Protocol: Document 03/11/20 10:34 AW (Rec: 03/11/20 17:14 AW [email or web address]) Posture Evaluation Position Standing Evaluation View Lateral Head/C-Spine Posture Extended,Forward Head T-Spine Posture Increased Kyphosis L-Spine Posture Flattened Shoulder Posture (L) Rounded,(R) Rounded Scapula Posture (L) Protracted,(R) Protracted Weight Distribution Weight Shifted Left Ankle/Foot Posture (L) Supinated,(R) Supinated Foot Arch (L) Medium Arch,(R) Medium Arch Palpation Assessment Location lumbar spine Palpation Location paraspinals Palpation Findings Soft Tissue Tightness,Muscle Guarding Palpation Details R more affected than L PT-OP-K Range of Motion Start: 03/11/20 09:17 Freq: Status: Active Protocol: Document 03/11/20 10:34 AW (Rec: 03/11/20 17:14 AW [email or web address]) Cervical Spine Range of Motion Cervical Spine Active Degrees Testing Position Sitting Flexion 50 Extension 30 Rotation Left 45 Rotation Right 50 Lateral Flexion Left 30 Lateral Flexion Right 25 ROM Limitations Soft Tissue Tightness,Pain Lumbar Spine Range of Motion Lumbar Spine Active Testing Position Standing Extension 15 Comments Flexion: fingertips 10 from floor with notable L3 L4 hinge Side bend: fingertips 23 from floor right side, 21 from floor left side Shoulder Goniometric Range of Motion Shoulder Left Active Testing Position Sitting Flexion 156 Extension 40 Abduction 160 Internal Rotation Behind Back (text) T7 Right Active Testing Position Sitting Flexion 160 Extension 40 Abduction 160 Internal Rotation Behind Back (text) T7 Shoulder ROM Limitations Shoulder ROM Limitations Soft Tissue Tightness,Pain Elbow/Forearm Range of Motion Elbow/Forearm Right Active Comments B elbow AROM and PROM WNL Hip Goniometric Range of Motion Hip Right Hip ROM WFL Yes Testing Position Supine Flexion w/Knee Flexed 110 Abduction 40 Comments IR limited; ER WNL Left Hip ROM WFL Yes Testing Position Supine Flexion w/Knee Flexed 110 Abduction 43 Comments IR limited but greater excursion than right Hip ROM Limitations Comments flexion limited by habitus PT-OP-L Special Tests Start: 03/11/20 09:17 Freq: Status: Active Protocol: Document 03/11/20 10:34 AW (Rec: 03/11/20 17:14 AW [email or web address]) Special Tests Cervical Spine Special Tests Slump Test Results negative Spurling's Test Test Results negative bilaterally Lumbar Spine Special Tests Straight Leg Raise Test Results active SLR positive on the right Comments some relief noted with bimanual compression through bilateral ASIS Luis Test Results positive bilaterally Comments increase in hip flexion with knees bent B Slump Test Results vaguely positive R; negative L Comments R side pt reports increased tension but no pain Shoulder Special Tests Somers Endy Impingement Test Results negative bilaterally Drop Arm Rotator Cuff Test Results negative bilaterally Hip Special Tests Scour Test Test Results negative bilaterally PT-OP-M Strength Start: 03/11/20 09:17 Freq: Status: Active Protocol: Document 03/11/20 10:34 AW (Rec: 03/11/20 17:14 AW [email or web address]) Cervical Spine Strength Cervical Spine Manual Muscle Testing Testing Position Sitting Flexion (C1-2) 4+ Good+ Extension 4 Good Rotation Left 4 Good Rotation Right 4 Good Lateral Flexion Left (C3) 4- Good- Lateral Flexion Right (C3) 4- Good- Shoulder Strength Shoulder Manual Muscle Testing Right Flexion 4+ Good+ Extension 4+ Good+ Abduction (C5) 4+ Good+ External Rotation 4+ Good+ Internal Rotation 5 Normal Comments LUE grossly 5/5 Hip Strength Hip Manual Muscle Testing Left Flexion (L2) 4+ Good+ Extension (S1) 4- Good- Abduction 4- Good- External Rotation 4+ Good+ Internal Rotation 5 Normal Right Flexion (L2) 4 Good Extension (S1) 3+ Fair+ Abduction 4- Good- External Rotation 4+ Good+ Internal Rotation 4+ Good+ Knee Strength Knee Manual Muscle Testing Left Flexion (S2) 5 Normal Extension (L3) 4+ Good+ Right Flexion (S2) 5 Normal Extension (L3) 4+ Good+ PT-OP-Q Treatments Start: 03/11/20 09:17 Freq: Status: Active Protocol: Document 04/10/20 08:59 MA (Rec: 04/10/20 09:46 MA [id number]) Therapeutic Exercises Supine Exercises LTR Supine Exercise Name Lower Trunk Rotation Side bilateral Reps/Minutes 4x Comments focus on using TrA to bring knees back to center adductor squeeze Supine Exercise Name adductor squeeze Equipment Used pillow Reps/Minutes 5SH x 15 SKTC Supine Exercise Name SKTC Reps/Minutes 30 sec x 2 bridge Supine Exercise Name bridge Reps/Minutes 5SH x 10; 5SH x 8 Comments cues for core activation, pelvic tilt TrA activation Supine Exercise Name Pelvic tucks & supine marches for TA activatin Reps/Minutes 5 min Comments progressed to double march ( one at a time) and added to HEP Manual Therapy Treatment Soft Tissue Mobilization 2 Body Location reji paraspinals Mobilization Type Myofascial Release Intensity/Depth Moderate Body Position Sidelying 1 Body Location B UT, cervical paraspinals, suboccipitals Mobilization Type Myofascial Release,Strumming, Sustained Pressure Intensity/Depth Moderate Body Position Hooklying PT-OP-R Modalities Start: 03/11/20 09:17 Freq: Status: Active Protocol: Document 04/10/20 08:59 MA (Rec: 04/10/20 09:46 MA [email or web address]) Hot Pack/Cold Pack Treatment Hot Pack Location lumbar Patient Position Prone Treatment Duration (minutes) 15 Patient Tolerance Good Comments MHP at end of session PT-OP-T Assessment and Plan Start: 03/11/20 09:17 Freq: Status: Active Protocol: Document 04/10/20 08:59 MA (Rec: 04/10/20 09:46 MA [id number]) Physical Therapy Assessment Goals Five Impairment hip strength Short Term Goal (STG) Pt will improve right hip strength equal to left for improved gait quality STG Duration 6 weeks - 04/22/2020 Panel Machine Setter Goal (LTG) Pt will demonstrate SL squat from 20 surface bilaterally without LOB LTG Duration 12 weeks 06/03/2020 Four Impairment hyperdensity lumbar paraspinals Short Term Goal (STG) Pt will demonstrate reduced tone in lumbar musculature and glutes STG Duration 6 weeks - 04/22/2020 3 Impairment cervical ROM Short Term Goal (STG) Pt will improve cervical lateral flexion to 35 degrees or greater bilaterally STG Duration 6 weeks - 04/22/2020 Panel Machine Setter Goal (LTG) Pt will improve cervical rotation to 60 degrees or greater bilaterally for improved ability to turn head while driving. LTG Duration 12 weeks 06/03/2020 2 Impairment posture Short Term Goal (STG) Pt will self-correct cervical and thoracic posture for improvement in pain symptoms STG Duration 6 weeks - 04/22/2020 One Impairment increased density cervical paraspinals and upper traps Short Term Goal (STG) Pt will demonstrate reduced tone in cervical musculature and upper traps STG Duration 6 weeks - 04/22/2020 Jail Goal (LTG) Pt will score 25/50 or less on NDI to represent improved daily function related to neck pain. LTG Duration 12 weeks 06/03/2020 Assessment Summary Assessment Pt was able to complete all exercises today without pain. She needs minor cues for TrA activationduring supine marches. Continued with lumbar and cervical STM and ending session with MHP to lumbar spine. Physical Therapy Plan Frequency and Duration Frequency of Treatment 2x/Week Duration of Treatment 12 weeks Plan of Care Start Date 03/11/20 Plan of Care End Date 06/03/20 Therapeutic Interventions Therapeutic Interventions Home Exercise Program,Joint Mobilizations,Manual Therapy, Neuromuscular Re-education, Patient/Caregiver Education, Self-Care/Home Management,Soft Tissue Mobilization,Taping, Therapeutic Activities, Therapeutic Exercises Modalities Cold Pack/Ice Massage,Electric Stimulation,Hot Packs Next Visit Focus/Plan Next Note Type Treatment Note Next Visit Plan Continue PT per POC to decrease soft tissue tightness and pain and improve strength and function. Ongoing patient education for back protection, posture and body mechanics. Teach self mob for cervical paraspinals and return to wall posture work.
--- NOTE | 2020-04-15 12:42 | PT.OTN ---
Current Diagnoses Abnormal posture (04/15/20) Strain of muscle, fascia and tendon at neck level, subsequent encounter (04/15/20) Strain of muscle, fascia and tendon of lower back, subsequent encounter (04/15/20) Arthrodesis status (04/15/20) Physical Therapy Treatment Note PT-OP-A Visit Information Start: 03/11/20 09:17 Freq: Status: Active Protocol: Document 04/15/20 10:30 AW (Rec: 04/15/20 12:41 AW [email or web address]) Out-Patient Physical Therapy Visit Information Visit Information Visit Type Treatment Note Visit Start Time 09:50 Visit Stop Time 10:51 Total Visit Minutes 61 Visit Number 10 Number of SCREEN STRETCHER Visits 0 Evaluation Information Evaluation Date 03/11/20 PT-OP-B Current Condition Start: 03/11/20 09:17 Freq: Status: Active Protocol: Document 03/11/20 10:34 AW (Rec: 03/11/20 11:19 AW [id number]) Current Condition History of Current Condition Onset Date 15 years Current Complaints neck and right shoulder pain, low back pain with recent surgeries History of Current Condition Pt with history of fibromyalgia has long standing neck and low back pain. Symptoms improved after recent surgeries but pt continues to have pain especially if she overdoes it. Overall, her right side is worse than her left. She is currently walking ~1/16 mi with incline but can typically do 1/8 mile when feeling well. Prior Treatments and Tests late s - cervical discectomy aqua therapy 12/05/19 - C5-7 ACDF 02/11/20 - foraminectomy L5-S1 Future Testing and Treatments Planned Septoplasty mid-April Treatment Goals Patient/Caregiver Goals Reduce tone in shoulders Improve cervical ROM Increase walking tolerance Prior Functional Status Baseline Function- ADL's Modified Independent Baseline Function- Mobility Modified Independent Baseline Function- Gait ambulates with SPC vs FWW for stairs, inclines, long distance 2/2 R knee pn Baseline Function- Other able to walk from hospital to [facility] with FWW Current Functional Impairments (Reported) Functional Limitations- ADL's needs equipment for showers, no assist Functional Limitations- Mobility/Gait can walk from hospital to [facility] but has increased back pain for days afterward PT-OP-C Subjective Start: 03/11/20 09:17 Freq: Status: Active Protocol: Document 04/15/20 10:30 AW (Rec: 04/15/20 12:41 AW [email or web address]) OP-PT Subjective Patient Comments Patient Comments I wish I could just walk around bent over all day. PT-OP-D Balance Start: 03/11/20 09:17 Freq: Status: Active Protocol: Document 03/18/20 11:15 AW (Rec: 03/18/20 13:00 AW [email or web address]) OP-PT Balance Assessment Sitting Balance Static Sitting Balance Ability Normal Dynamic Sitting Balance Ability Normal Standing Balance Static Standing Balance Ability Good Dynamic Standing Balance Ability Good Balance Tests Single Limb Standing Single Limb- Right 3 sec, 3 sec, 6 sec Single Limb- Left 6 sec, 6 sec, 6 sec Brown Fall Scale Copyright Permission PT-OP-E Functional Tests Start: 03/11/20 09:17 Freq: Status: Active Protocol: Document 03/18/20 11:15 AW (Rec: 03/18/20 13:01 AW [email or web address]) Functional Tests Other SL squat from table Score 25 L; unable R without LOB PT-OP-F Manual Assessment Start: 03/11/20 09:17 Freq: Status: Active Protocol: Document 03/18/20 11:15 AW (Rec: 03/18/20 13:00 AW [email or web address]) Manual Assessments Soft Tissue Assessment Soft Tissue Mobility Assessment Increased density in gluteal musculature RLE PT-OP-H Neuro Start: 03/11/20 09:17 Freq: Status: Active Protocol: Document 03/11/20 10:34 AW (Rec: 03/11/20 17:14 AW [email or web address]) Sensation Evaluation Gross Sensation Gross Sensation Right UE Impaired Sensation Description Numbness Dermatome Impairments C7 Comments Summary Comments Intermittent numbness in right posterior arm. Not reproduced on exam with neck special tests. Deep Tendon Reflex & Clonus Assessment Deep Tendon Reflex Bilateral Tricep Deep Tendon Reflex 1+ Diminished Bilateral Bicep Deep Tendon Reflex 2+ Normal PT-OP-J Posture/Palpation/Skin Start: 03/11/20 09:17 Freq: Status: Active Protocol: Document 03/11/20 10:34 AW (Rec: 03/11/20 17:14 AW [email or web address]) Posture Evaluation Position Standing Evaluation View Lateral Head/C-Spine Posture Extended,Forward Head T-Spine Posture Increased Kyphosis L-Spine Posture Flattened Shoulder Posture (L) Rounded,(R) Rounded Scapula Posture (L) Protracted,(R) Protracted Weight Distribution Weight Shifted Left Ankle/Foot Posture (L) Supinated,(R) Supinated Foot Arch (L) Medium Arch,(R) Medium Arch Palpation Assessment Location lumbar spine Palpation Location paraspinals Palpation Findings Soft Tissue Tightness,Muscle Guarding Palpation Details R more affected than L PT-OP-K Range of Motion Start: 03/11/20 09:17 Freq: Status: Active Protocol: Document 03/11/20 10:34 AW (Rec: 03/11/20 17:14 AW [email or web address]) Cervical Spine Range of Motion Cervical Spine Active Degrees Testing Position Sitting Flexion 50 Extension 30 Rotation Left 45 Rotation Right 50 Lateral Flexion Left 30 Lateral Flexion Right 25 ROM Limitations Soft Tissue Tightness,Pain Lumbar Spine Range of Motion Lumbar Spine Active Testing Position Standing Extension 15 Comments Flexion: fingertips 10 from floor with notable L3 L4 hinge Side bend: fingertips 23 from floor right side, 21 from floor left side Shoulder Goniometric Range of Motion Shoulder Left Active Testing Position Sitting Flexion 156 Extension 40 Abduction 160 Internal Rotation Behind Back (text) T7 Right Active Testing Position Sitting Flexion 160 Extension 40 Abduction 160 Internal Rotation Behind Back (text) T7 Shoulder ROM Limitations Shoulder ROM Limitations Soft Tissue Tightness,Pain Elbow/Forearm Range of Motion Elbow/Forearm Right Active Comments B elbow AROM and PROM WNL Hip Goniometric Range of Motion Hip Right Hip ROM WFL Yes Testing Position Supine Flexion w/Knee Flexed 110 Abduction 40 Comments IR limited; ER WNL Left Hip ROM WFL Yes Testing Position Supine Flexion w/Knee Flexed 110 Abduction 43 Comments IR limited but greater excursion than right Hip ROM Limitations Comments flexion limited by habitus PT-OP-L Special Tests Start: 03/11/20 09:17 Freq: Status: Active Protocol: Document 03/11/20 10:34 AW (Rec: 03/11/20 17:14 AW [email or web address]) Special Tests Cervical Spine Special Tests Slump Test Results negative Spurling's Test Test Results negative bilaterally Lumbar Spine Special Tests Straight Leg Raise Test Results active SLR positive on the right Comments some relief noted with bimanual compression through bilateral ASIS Luis Test Results positive bilaterally Comments increase in hip flexion with knees bent B Slump Test Results vaguely positive R; negative L Comments R side pt reports increased tension but no pain Shoulder Special Tests Somers Endy Impingement Test Results negative bilaterally Drop Arm Rotator Cuff Test Results negative bilaterally Hip Special Tests Scour Test Test Results negative bilaterally PT-OP-M Strength Start: 03/11/20 09:17 Freq: Status: Active Protocol: Document 03/11/20 10:34 AW (Rec: 03/11/20 17:14 AW [email or web address]) Cervical Spine Strength Cervical Spine Manual Muscle Testing Testing Position Sitting Flexion (C1-2) 4+ Good+ Extension 4 Good Rotation Left 4 Good Rotation Right 4 Good Lateral Flexion Left (C3) 4- Good- Lateral Flexion Right (C3) 4- Good- Shoulder Strength Shoulder Manual Muscle Testing Right Flexion 4+ Good+ Extension 4+ Good+ Abduction (C5) 4+ Good+ External Rotation 4+ Good+ Internal Rotation 5 Normal Comments LUE grossly 5/5 Hip Strength Hip Manual Muscle Testing Left Flexion (L2) 4+ Good+ Extension (S1) 4- Good- Abduction 4- Good- External Rotation 4+ Good+ Internal Rotation 5 Normal Right Flexion (L2) 4 Good Extension (S1) 3+ Fair+ Abduction 4- Good- External Rotation 4+ Good+ Internal Rotation 4+ Good+ Knee Strength Knee Manual Muscle Testing Left Flexion (S2) 5 Normal Extension (L3) 4+ Good+ Right Flexion (S2) 5 Normal Extension (L3) 4+ Good+ PT-OP-Q Treatments Start: 03/11/20 09:17 Freq: Status: Active Protocol: Document 04/15/20 10:30 AW (Rec: 04/15/20 10:36 AW [email or web address]) Therapeutic Exercises Supine Exercises LTR Supine Exercise Name Lower Trunk Rotation Side bilateral Reps/Minutes 4x Comments with 45 cm ball; cues for TrA awareness SKTC Supine Exercise Name SKTC Reps/Minutes 30 sec x 2 bridge Supine Exercise Name bridge Reps/Minutes 5SH x 8 Comments cues for core activation, pelvic tilt, breath awareness Prone Exercises child's pose Prone Exercise Name child's pose Reps/Minutes 30 SH x 3 Comments with STM during stretch; with hands walked out both directions Sitting Exercises segmental flexion/extension Sitting Exercise Name forward stretch with awareness of segmental movement Reps/Minutes 3 reps Comments frequent cues for awareness Therapeutic Activity Therapeutic Activity lifting Name lifting Reps/Minutes 10 Comments 10 reps of backpack to locker transfers with emphasis on hip hinge and equal BLE weightbearing Manual Therapy Treatment Soft Tissue Mobilization 2 Body Location reji paraspinals Mobilization Type Myofascial Release Intensity/Depth Moderate Body Position Sidelying Comments in SL and also during child's pose Joint Mobilizations lumbar facets Joint lumbar facets Direction gapping Grade III Body Position Sidelying Reps/Duration 4 min Comments Bilateral with top leg forward for increased excursion Manual Traction Lumbar Body Position Hooklying Reps/Duration 2x60 sec PT-OP-R Modalities Start: 03/11/20 09:17 Freq: Status: Active Protocol: Document 04/10/20 08:59 MA (Rec: 04/10/20 09:46 MA [id number]) Hot Pack/Cold Pack Treatment Hot Pack Location lumbar Patient Position Prone Treatment Duration (minutes) 15 Patient Tolerance Good Comments MHP at end of session PT-OP-T Assessment and Plan Start: 03/11/20 09:17 Freq: Status: Active Protocol: Document 04/15/20 10:30 AW (Rec: 04/15/20 12:41 AW [email or web address]) Physical Therapy Assessment Impairments Impairments Functional Activities,Pain, Posture,ROM,Sensation,Soft Tissue Mobility,Strength Goals Five Impairment hip strength Short Term Goal (STG) Pt will improve right hip strength equal to left for improved gait quality STG Duration 6 weeks - 04/22/2020 Skilled Nursing Goal (LTG) Pt will demonstrate SL squat from 20 surface bilaterally without LOB LTG Duration 12 weeks 06/03/2020 Four Impairment hyperdensity lumbar paraspinals Short Term Goal (STG) Pt will demonstrate reduced tone in lumbar musculature and glutes STG Duration 6 weeks - 04/22/2020 3 Impairment cervical ROM Short Term Goal (STG) Pt will improve cervical lateral flexion to 35 degrees or greater bilaterally STG Duration 6 weeks - 04/22/2020 [employer] Maintenance Goal (LTG) Pt will improve cervical rotation to 60 degrees or greater bilaterally for improved ability to turn head while driving. LTG Duration 12 weeks 06/03/2020 2 Impairment posture Short Term Goal (STG) Pt will self-correct cervical and thoracic posture for improvement in pain symptoms STG Duration 6 weeks - 04/22/2020 One Impairment increased density cervical paraspinals and upper traps Short Term Goal (STG) Pt will demonstrate reduced tone in cervical musculature and upper traps STG Duration 6 weeks - 04/22/2020 Skilled Nursing Goal (LTG) Pt will score 25/50 or less on NDI to represent improved daily function related to neck pain. LTG Duration 12 weeks 06/03/2020 Assessment Summary Assessment Pt favors lumbar flexion but has difficulty with segmental movement. She continues to need cues for proper body mechanics during lifting tasks . Will continue to practice with her backpack or simulated tasks. Physical Therapy Plan Frequency and Duration Frequency of Treatment 2x/Week Duration of Treatment 12 weeks Plan of Care Start Date 03/11/20 Plan of Care End Date 06/03/20 Therapeutic Interventions Therapeutic Interventions Home Exercise Program,Joint Mobilizations,Manual Therapy, Neuromuscular Re-education, Patient/Caregiver Education, Self-Care/Home Management,Soft Tissue Mobilization,Taping, Therapeutic Activities, Therapeutic Exercises Modalities Cold Pack/Ice Massage,Electric Stimulation,Hot Packs Next Visit Focus/Plan Next Note Type Treatment Note Next Visit Plan Continue PT per POC to decrease soft tissue tightness and pain and improve strength and function. Ongoing patient education for back protection, posture and body mechanics. Teach self mob for cervical paraspinals and return to wall posture work.
--- NOTE | 2020-04-17 16:29 | PT.OTN ---
Current Diagnoses Abnormal posture (04/17/20) Strain of muscle, fascia and tendon at neck level, subsequent encounter (04/17/20) Strain of muscle, fascia and tendon of lower back, subsequent encounter (04/17/20) Arthrodesis status (04/17/20) Physical Therapy Treatment Note PT-OP-A Visit Information Start: 03/11/20 09:17 Freq: Status: Active Protocol: Document 04/17/20 10:35 MA (Rec: 04/17/20 11:16 MA [id number]) Out-Patient Physical Therapy Visit Information Visit Information Visit Type Treatment Note Visit Start Time 10:32 Visit Stop Time 11:15 Total Visit Minutes 43 Visit Number 11 Number of GEOLOGICAL SPECIALIST Visits 1 PT-OP-B Current Condition Start: 03/11/20 09:17 Freq: Status: Active Protocol: Document 03/11/20 10:34 AW (Rec: 03/11/20 11:19 AW [id number]) Current Condition History of Current Condition Onset Date 15 years Current Complaints neck and right shoulder pain, low back pain with recent surgeries History of Current Condition Pt with history of fibromyalgia has long standing neck and low back pain. Symptoms improved after recent surgeries but pt continues to have pain especially if she overdoes it. Overall, her right side is worse than her left. She is currently walking ~1/16 mi with incline but can typically do 1/8 mile when feeling well. Prior Treatments and Tests late s - cervical discectomy aqua therapy 12/05/19 - C5-7 ACDF 02/11/20 - foraminectomy L5-S1 Future Testing and Treatments Planned Septoplasty mid-April Treatment Goals Patient/Caregiver Goals Reduce tone in shoulders Improve cervical ROM Increase walking tolerance Prior Functional Status Baseline Function- ADL's Modified Independent Baseline Function- Mobility Modified Independent Baseline Function- Gait ambulates with SPC vs FWW for stairs, inclines, long distance 2/2 R knee pn Baseline Function- Other able to walk from hospital to [facility] with FWW Current Functional Impairments (Reported) Functional Limitations- ADL's needs equipment for showers, no assist Functional Limitations- Mobility/Gait can walk from hospital to [facility] but has increased back pain for days afterward PT-OP-C Subjective Start: 03/11/20 09:17 Freq: Status: Active Protocol: Document 04/17/20 10:35 MA (Rec: 04/17/20 11:16 MA [id number]) OP-PT Subjective Patient Comments Patient Comments Pt states I enjoy coming here . I had an xray of my neck and the dr said it's healing well and I need to continue using the bone growth stimulator. PT-OP-D Balance Start: 03/11/20 09:17 Freq: Status: Active Protocol: Document 03/18/20 11:15 AW (Rec: 03/18/20 13:00 AW [email or web address]) OP-PT Balance Assessment Sitting Balance Static Sitting Balance Ability Normal Dynamic Sitting Balance Ability Normal Standing Balance Static Standing Balance Ability Good Dynamic Standing Balance Ability Good Balance Tests Single Limb Standing Single Limb- Right 3 sec, 3 sec, 6 sec Single Limb- Left 6 sec, 6 sec, 6 sec Brown Fall Scale Copyright Permission PT-OP-E Functional Tests Start: 03/11/20 09:17 Freq: Status: Active Protocol: Document 03/18/20 11:15 AW (Rec: 03/18/20 13:01 AW [email or web address]) Functional Tests Other SL squat from table Score 25 L; unable R without LOB PT-OP-F Manual Assessment Start: 03/11/20 09:17 Freq: Status: Active Protocol: Document 03/18/20 11:15 AW (Rec: 03/18/20 13:00 AW [email or web address]) Manual Assessments Soft Tissue Assessment Soft Tissue Mobility Assessment Increased density in gluteal musculature RLE PT-OP-H Neuro Start: 03/11/20 09:17 Freq: Status: Active Protocol: Document 03/11/20 10:34 AW (Rec: 03/11/20 17:14 AW [email or web address]) Sensation Evaluation Gross Sensation Gross Sensation Right UE Impaired Sensation Description Numbness Dermatome Impairments C7 Comments Summary Comments Intermittent numbness in right posterior arm. Not reproduced on exam with neck special tests. Deep Tendon Reflex & Clonus Assessment Deep Tendon Reflex Bilateral Tricep Deep Tendon Reflex 1+ Diminished Bilateral Bicep Deep Tendon Reflex 2+ Normal PT-OP-J Posture/Palpation/Skin Start: 03/11/20 09:17 Freq: Status: Active Protocol: Document 03/11/20 10:34 AW (Rec: 03/11/20 17:14 AW [email or web address]) Posture Evaluation Position Standing Evaluation View Lateral Head/C-Spine Posture Extended,Forward Head T-Spine Posture Increased Kyphosis L-Spine Posture Flattened Shoulder Posture (L) Rounded,(R) Rounded Scapula Posture (L) Protracted,(R) Protracted Weight Distribution Weight Shifted Left Ankle/Foot Posture (L) Supinated,(R) Supinated Foot Arch (L) Medium Arch,(R) Medium Arch Palpation Assessment Location lumbar spine Palpation Location paraspinals Palpation Findings Soft Tissue Tightness,Muscle Guarding Palpation Details R more affected than L PT-OP-K Range of Motion Start: 03/11/20 09:17 Freq: Status: Active Protocol: Document 03/11/20 10:34 AW (Rec: 03/11/20 17:14 AW [email or web address]) Cervical Spine Range of Motion Cervical Spine Active Degrees Testing Position Sitting Flexion 50 Extension 30 Rotation Left 45 Rotation Right 50 Lateral Flexion Left 30 Lateral Flexion Right 25 ROM Limitations Soft Tissue Tightness,Pain Lumbar Spine Range of Motion Lumbar Spine Active Testing Position Standing Extension 15 Comments Flexion: fingertips 10 from floor with notable L3 L4 hinge Side bend: fingertips 23 from floor right side, 21 from floor left side Shoulder Goniometric Range of Motion Shoulder Left Active Testing Position Sitting Flexion 156 Extension 40 Abduction 160 Internal Rotation Behind Back (text) T7 Right Active Testing Position Sitting Flexion 160 Extension 40 Abduction 160 Internal Rotation Behind Back (text) T7 Shoulder ROM Limitations Shoulder ROM Limitations Soft Tissue Tightness,Pain Elbow/Forearm Range of Motion Elbow/Forearm Right Active Comments B elbow AROM and PROM WNL Hip Goniometric Range of Motion Hip Right Hip ROM WFL Yes Testing Position Supine Flexion w/Knee Flexed 110 Abduction 40 Comments IR limited; ER WNL Left Hip ROM WFL Yes Testing Position Supine Flexion w/Knee Flexed 110 Abduction 43 Comments IR limited but greater excursion than right Hip ROM Limitations Comments flexion limited by habitus PT-OP-L Special Tests Start: 03/11/20 09:17 Freq: Status: Active Protocol: Document 03/11/20 10:34 AW (Rec: 03/11/20 17:14 AW [email or web address]) Special Tests Cervical Spine Special Tests Slump Test Results negative Spurling's Test Test Results negative bilaterally Lumbar Spine Special Tests Straight Leg Raise Test Results active SLR positive on the right Comments some relief noted with bimanual compression through bilateral ASIS Luis Test Results positive bilaterally Comments increase in hip flexion with knees bent B Slump Test Results vaguely positive R; negative L Comments R side pt reports increased tension but no pain Shoulder Special Tests Somers Endy Impingement Test Results negative bilaterally Drop Arm Rotator Cuff Test Results negative bilaterally Hip Special Tests Scour Test Test Results negative bilaterally PT-OP-M Strength Start: 03/11/20 09:17 Freq: Status: Active Protocol: Document 03/11/20 10:34 AW (Rec: 03/11/20 17:14 AW [email or web address]) Cervical Spine Strength Cervical Spine Manual Muscle Testing Testing Position Sitting Flexion (C1-2) 4+ Good+ Extension 4 Good Rotation Left 4 Good Rotation Right 4 Good Lateral Flexion Left (C3) 4- Good- Lateral Flexion Right (C3) 4- Good- Shoulder Strength Shoulder Manual Muscle Testing Right Flexion 4+ Good+ Extension 4+ Good+ Abduction (C5) 4+ Good+ External Rotation 4+ Good+ Internal Rotation 5 Normal Comments LUE grossly 5/5 Hip Strength Hip Manual Muscle Testing Left Flexion (L2) 4+ Good+ Extension (S1) 4- Good- Abduction 4- Good- External Rotation 4+ Good+ Internal Rotation 5 Normal Right Flexion (L2) 4 Good Extension (S1) 3+ Fair+ Abduction 4- Good- External Rotation 4+ Good+ Internal Rotation 4+ Good+ Knee Strength Knee Manual Muscle Testing Left Flexion (S2) 5 Normal Extension (L3) 4+ Good+ Right Flexion (S2) 5 Normal Extension (L3) 4+ Good+ PT-OP-Q Treatments Start: 03/11/20 09:17 Freq: Status: Active Protocol: Document 04/17/20 10:35 MA (Rec: 04/17/20 11:16 MA [id number]) Therapeutic Exercises Supine Exercises LTR Supine Exercise Name Lower Trunk Rotation- one set without ball Side bilateral Reps/Minutes 2x6 Comments with 45 cm ball; cues for TrA awareness SKTC Supine Exercise Name SKTC Reps/Minutes 30 sec x 2 bridge Supine Exercise Name bridge Reps/Minutes 5SH x 8 Comments cues for core activation, pelvic tilt, breath awareness Therapeutic Activity Therapeutic Activity lifting Name lifting Reps/Minutes 10 Comments 10 reps of backpack to locker transfers with emphasis on hip hinge and equal BLE weightbearing Manual Therapy Treatment Soft Tissue Mobilization 2 Body Location reji paraspinals Mobilization Type Myofascial Release Intensity/Depth Moderate Body Position Sidelying Comments in SL and also during child's pose 1 Body Location B UT, cervical paraspinals, suboccipitals Mobilization Type Myofascial Release,Strumming, Sustained Pressure Intensity/Depth Moderate Body Position Hooklying Manual Traction Cervical Body Position Hooklying Reps/Duration 2x60 sec Comments relieving for neck pain and shoulder tension PT-OP-R Modalities Start: 03/11/20 09:17 Freq: Status: Active Protocol: Document 04/10/20 08:59 MA (Rec: 04/10/20 09:46 MA [id number]) Hot Pack/Cold Pack Treatment Hot Pack Location lumbar Patient Position Prone Treatment Duration (minutes) 15 Patient Tolerance Good Comments MHP at end of session PT-OP-T Assessment and Plan Start: 03/11/20 09:17 Freq: Status: Active Protocol: Document 04/17/20 10:35 MA (Rec: 04/17/20 11:16 MA [id number]) Physical Therapy Assessment Goals Five Impairment hip strength Short Term Goal (STG) Pt will improve right hip strength equal to left for improved gait quality STG Duration 6 weeks - 04/22/2020 [facility] Goal (LTG) Pt will demonstrate SL squat from 20 surface bilaterally without LOB LTG Duration 12 weeks 06/03/2020 Four Impairment hyperdensity lumbar paraspinals Short Term Goal (STG) Pt will demonstrate reduced tone in lumbar musculature and glutes STG Duration 6 weeks - 04/22/2020 3 Impairment cervical ROM Short Term Goal (STG) Pt will improve cervical lateral flexion to 35 degrees or greater bilaterally STG Duration 6 weeks - 04/22/2020 [facility] Goal (LTG) Pt will improve cervical rotation to 60 degrees or greater bilaterally for improved ability to turn head while driving. LTG Duration 12 weeks 06/03/2020 2 Impairment posture Short Term Goal (STG) Pt will self-correct cervical and thoracic posture for improvement in pain symptoms STG Duration 6 weeks - 04/22/2020 One Impairment increased density cervical paraspinals and upper traps Short Term Goal (STG) Pt will demonstrate reduced tone in cervical musculature and upper traps STG Duration 6 weeks - 04/22/2020 Halfway Goal (LTG) Pt will score 25/50 or less on NDI to represent improved daily function related to neck pain. LTG Duration 12 weeks 06/03/2020 Assessment Summary Assessment Pt is doing much better with TrA activation and is able to hold contraction longer than initial sessions. Continued with STM and working on lifting mechanics today with pt showing good carryover from previous session. Physical Therapy Plan Frequency and Duration Frequency of Treatment 2x/Week Duration of Treatment 12 weeks Plan of Care Start Date 03/11/20 Plan of Care End Date 06/03/20 Therapeutic Interventions Therapeutic Interventions Home Exercise Program,Joint Mobilizations,Manual Therapy, Neuromuscular Re-education, Patient/Caregiver Education, Self-Care/Home Management,Soft Tissue Mobilization,Taping, Therapeutic Activities, Therapeutic Exercises Modalities Cold Pack/Ice Massage,Electric Stimulation,Hot Packs Next Visit Focus/Plan Next Note Type Treatment Note Next Visit Plan Continue PT per POC to decrease soft tissue tightness and pain and improve strength and function. Ongoing patient education for back protection, posture and body mechanics. Teach self mob for cervical paraspinals and return to wall posture work.
--- NOTE | 2020-04-20 16:27 | PT.OTN ---
Current Diagnoses Abnormal posture (04/20/20) Strain of muscle, fascia and tendon at neck level, subsequent encounter (04/20/20) Strain of muscle, fascia and tendon of lower back, subsequent encounter (04/20/20) Arthrodesis status (04/20/20) Physical Therapy Treatment Note PT-OP-A Visit Information Start: 03/11/20 09:17 Freq: Status: Active Protocol: Document 04/20/20 10:19 MA (Rec: 04/20/20 11:03 MA [id number]) Out-Patient Physical Therapy Visit Information Visit Information Visit Type Treatment Note Visit Start Time 10:15 Visit Stop Time 11:15 Total Visit Minutes 60 Visit Number 12 Number of RIDE OPERATOR Visits 2 PT-OP-B Current Condition Start: 03/11/20 09:17 Freq: Status: Active Protocol: Document 03/11/20 10:34 AW (Rec: 03/11/20 11:19 AW [id number]) Current Condition History of Current Condition Onset Date 15 years Current Complaints neck and right shoulder pain, low back pain with recent surgeries History of Current Condition Pt with history of fibromyalgia has long standing neck and low back pain. Symptoms improved after recent surgeries but pt continues to have pain especially if she overdoes it. Overall, her right side is worse than her left. She is currently walking ~1/16 mi with incline but can typically do 1/8 mile when feeling well. Prior Treatments and Tests late s - cervical discectomy aqua therapy 12/05/19 - C5-7 ACDF 02/11/20 - foraminectomy L5-S1 Future Testing and Treatments Planned Septoplasty mid-April Treatment Goals Patient/Caregiver Goals Reduce tone in shoulders Improve cervical ROM Increase walking tolerance Prior Functional Status Baseline Function- ADL's Modified Independent Baseline Function- Mobility Modified Independent Baseline Function- Gait ambulates with SPC vs FWW for stairs, inclines, long distance 2/2 R knee pn Baseline Function- Other able to walk from hospital to [facility] with FWW Current Functional Impairments (Reported) Functional Limitations- ADL's needs equipment for showers, no assist Functional Limitations- Mobility/Gait can walk from hospital to [facility] but has increased back pain for days afterward PT-OP-C Subjective Start: 03/11/20 09:17 Freq: Status: Active Protocol: Document 04/20/20 10:19 MA (Rec: 04/20/20 11:03 MA [id number]) OP-PT Subjective Patient Comments Patient Comments I took heavier pain pills today because my arthritis has been bothering me in my low back and [place] really sore PT-OP-D Balance Start: 03/11/20 09:17 Freq: Status: Active Protocol: Document 03/18/20 11:15 AW (Rec: 03/18/20 13:00 AW [email or web address]) OP-PT Balance Assessment Sitting Balance Static Sitting Balance Ability Normal Dynamic Sitting Balance Ability Normal Standing Balance Static Standing Balance Ability Good Dynamic Standing Balance Ability Good Balance Tests Single Limb Standing Single Limb- Right 3 sec, 3 sec, 6 sec Single Limb- Left 6 sec, 6 sec, 6 sec Brown Fall Scale Copyright Permission PT-OP-E Functional Tests Start: 03/11/20 09:17 Freq: Status: Active Protocol: Document 03/18/20 11:15 AW (Rec: 03/18/20 13:01 AW [email or web address]) Functional Tests Other SL squat from table Score 25 L; unable R without LOB PT-OP-F Manual Assessment Start: 03/11/20 09:17 Freq: Status: Active Protocol: Document 03/18/20 11:15 AW (Rec: 03/18/20 13:00 AW [email or web address]) Manual Assessments Soft Tissue Assessment Soft Tissue Mobility Assessment Increased density in gluteal musculature RLE PT-OP-H Neuro Start: 03/11/20 09:17 Freq: Status: Active Protocol: Document 03/11/20 10:34 AW (Rec: 03/11/20 17:14 AW [email or web address]) Sensation Evaluation Gross Sensation Gross Sensation Right UE Impaired Sensation Description Numbness Dermatome Impairments C7 Comments Summary Comments Intermittent numbness in right posterior arm. Not reproduced on exam with neck special tests. Deep Tendon Reflex & Clonus Assessment Deep Tendon Reflex Bilateral Tricep Deep Tendon Reflex 1+ Diminished Bilateral Bicep Deep Tendon Reflex 2+ Normal PT-OP-J Posture/Palpation/Skin Start: 03/11/20 09:17 Freq: Status: Active Protocol: Document 03/11/20 10:34 AW (Rec: 03/11/20 17:14 AW [email or web address]) Posture Evaluation Position Standing Evaluation View Lateral Head/C-Spine Posture Extended,Forward Head T-Spine Posture Increased Kyphosis L-Spine Posture Flattened Shoulder Posture (L) Rounded,(R) Rounded Scapula Posture (L) Protracted,(R) Protracted Weight Distribution Weight Shifted Left Ankle/Foot Posture (L) Supinated,(R) Supinated Foot Arch (L) Medium Arch,(R) Medium Arch Palpation Assessment Location lumbar spine Palpation Location paraspinals Palpation Findings Soft Tissue Tightness,Muscle Guarding Palpation Details R more affected than L PT-OP-K Range of Motion Start: 03/11/20 09:17 Freq: Status: Active Protocol: Document 03/11/20 10:34 AW (Rec: 03/11/20 17:14 AW [email or web address]) Cervical Spine Range of Motion Cervical Spine Active Degrees Testing Position Sitting Flexion 50 Extension 30 Rotation Left 45 Rotation Right 50 Lateral Flexion Left 30 Lateral Flexion Right 25 ROM Limitations Soft Tissue Tightness,Pain Lumbar Spine Range of Motion Lumbar Spine Active Testing Position Standing Extension 15 Comments Flexion: fingertips 10 from floor with notable L3 L4 hinge Side bend: fingertips 23 from floor right side, 21 from floor left side Shoulder Goniometric Range of Motion Shoulder Left Active Testing Position Sitting Flexion 156 Extension 40 Abduction 160 Internal Rotation Behind Back (text) T7 Right Active Testing Position Sitting Flexion 160 Extension 40 Abduction 160 Internal Rotation Behind Back (text) T7 Shoulder ROM Limitations Shoulder ROM Limitations Soft Tissue Tightness,Pain Elbow/Forearm Range of Motion Elbow/Forearm Right Active Comments B elbow AROM and PROM WNL Hip Goniometric Range of Motion Hip Right Hip ROM WFL Yes Testing Position Supine Flexion w/Knee Flexed 110 Abduction 40 Comments IR limited; ER WNL Left Hip ROM WFL Yes Testing Position Supine Flexion w/Knee Flexed 110 Abduction 43 Comments IR limited but greater excursion than right Hip ROM Limitations Comments flexion limited by habitus PT-OP-L Special Tests Start: 03/11/20 09:17 Freq: Status: Active Protocol: Document 03/11/20 10:34 AW (Rec: 03/11/20 17:14 AW [email or web address]) Special Tests Cervical Spine Special Tests Slump Test Results negative Spurling's Test Test Results negative bilaterally Lumbar Spine Special Tests Straight Leg Raise Test Results active SLR positive on the right Comments some relief noted with bimanual compression through bilateral ASIS Luis Test Results positive bilaterally Comments increase in hip flexion with knees bent B Slump Test Results vaguely positive R; negative L Comments R side pt reports increased tension but no pain Shoulder Special Tests Somers Endy Impingement Test Results negative bilaterally Drop Arm Rotator Cuff Test Results negative bilaterally Hip Special Tests Scour Test Test Results negative bilaterally PT-OP-M Strength Start: 03/11/20 09:17 Freq: Status: Active Protocol: Document 03/11/20 10:34 AW (Rec: 03/11/20 17:14 AW [email or web address]) Cervical Spine Strength Cervical Spine Manual Muscle Testing Testing Position Sitting Flexion (C1-2) 4+ Good+ Extension 4 Good Rotation Left 4 Good Rotation Right 4 Good Lateral Flexion Left (C3) 4- Good- Lateral Flexion Right (C3) 4- Good- Shoulder Strength Shoulder Manual Muscle Testing Right Flexion 4+ Good+ Extension 4+ Good+ Abduction (C5) 4+ Good+ External Rotation 4+ Good+ Internal Rotation 5 Normal Comments LUE grossly 5/5 Hip Strength Hip Manual Muscle Testing Left Flexion (L2) 4+ Good+ Extension (S1) 4- Good- Abduction 4- Good- External Rotation 4+ Good+ Internal Rotation 5 Normal Right Flexion (L2) 4 Good Extension (S1) 3+ Fair+ Abduction 4- Good- External Rotation 4+ Good+ Internal Rotation 4+ Good+ Knee Strength Knee Manual Muscle Testing Left Flexion (S2) 5 Normal Extension (L3) 4+ Good+ Right Flexion (S2) 5 Normal Extension (L3) 4+ Good+ PT-OP-Q Treatments Start: 03/11/20 09:17 Freq: Status: Active Protocol: Document 04/20/20 10:19 MA (Rec: 04/20/20 11:03 MA [id number]) Therapeutic Exercises Supine Exercises Piriformis Stretch Side bilateral Reps/Minutes 30 sec LTR Supine Exercise Name Lower Trunk Rotation- one set without ball Side bilateral Reps/Minutes 2x6 Comments with 45 cm ball; cues for TrA awareness bridge Supine Exercise Name bridge Reps/Minutes 5SH x 8 Comments cues for core activation, pelvic tilt, breath awareness Sidelying Exercises Open Book Side bilateral Reps/Minutes x8 clamshell Sidelying Exercise Name clamshell Side bilateral Reps/Minutes x10 Comments cued stacked hips Manual Therapy Treatment Soft Tissue Mobilization 1 Body Location B UT, cervical paraspinals, suboccipitals Mobilization Type Myofascial Release,Strumming, Sustained Pressure Intensity/Depth Moderate Body Position Hooklying Manual Traction Cervical Body Position Hooklying Reps/Duration x60 Comments relieving for neck pain and shoulder tension PT-OP-R Modalities Start: 03/11/20 09:17 Freq: Status: Active Protocol: Document 04/20/20 16:22 MA (Rec: 04/20/20 16:22 MA [email or web address]) Hot Pack/Cold Pack Treatment Hot Pack Location lumbar & cervical Patient Position Prone Treatment Duration (minutes) 15 Patient Tolerance Good Comments MHP at end of session PT-OP-T Assessment and Plan Start: 03/11/20 09:17 Freq: Status: Active Protocol: Document 04/20/20 10:19 MA (Rec: 04/20/20 11:03 MA [id number]) Physical Therapy Assessment Goals Five Impairment hip strength Short Term Goal (STG) Pt will improve right hip strength equal to left for improved gait quality STG Duration 6 weeks - 04/22/2020 [facility] Goal (LTG) Pt will demonstrate SL squat from 20 surface bilaterally without LOB LTG Duration 12 weeks 06/03/2020 Four Impairment hyperdensity lumbar paraspinals Short Term Goal (STG) Pt will demonstrate reduced tone in lumbar musculature and glutes STG Duration 6 weeks - 04/22/2020 3 Impairment cervical ROM Short Term Goal (STG) Pt will improve cervical lateral flexion to 35 degrees or greater bilaterally STG Duration 6 weeks - 04/22/2020 Harness Puller Goal (LTG) Pt will improve cervical rotation to 60 degrees or greater bilaterally for improved ability to turn head while driving. LTG Duration 12 weeks 06/03/2020 2 Impairment posture Short Term Goal (STG) Pt will self-correct cervical and thoracic posture for improvement in pain symptoms STG Duration 6 weeks - 04/22/2020 One Impairment increased density cervical paraspinals and upper traps Short Term Goal (STG) Pt will demonstrate reduced tone in cervical musculature and upper traps STG Duration 6 weeks - 04/22/2020 Harness Puller Goal (LTG) Pt will score 25/50 or less on NDI to represent improved daily function related to neck pain. LTG Duration 12 weeks 06/03/2020 Assessment Summary Assessment Pt had increased tone in cervical spine today which decreased after STM. She needs minimal to no cues in all ther ex during today's session . Will begin standing exercises, including squats and lateral step-outs next session. Physical Therapy Plan Frequency and Duration Frequency of Treatment 2x/Week Duration of Treatment 12 weeks Plan of Care Start Date 03/11/20 Plan of Care End Date 06/03/20 Therapeutic Interventions Therapeutic Interventions Home Exercise Program,Joint Mobilizations,Manual Therapy, Neuromuscular Re-education, Patient/Caregiver Education, Self-Care/Home Management,Soft Tissue Mobilization,Taping, Therapeutic Activities, Therapeutic Exercises Modalities Cold Pack/Ice Massage,Electric Stimulation,Hot Packs Next Visit Focus/Plan Next Note Type Treatment Note Next Visit Plan Begin more challenging ther ex , moving onto things like squats and lateral step-outs to improve hip strength. Continue patient education for back protection, posture and body mechanics. Teach self mob for cervical paraspinals and return to wall posture work.
--- NOTE | 2020-04-22 12:31 | PT.OTN ---
Current Diagnoses Abnormal posture (04/22/20) Strain of muscle, fascia and tendon at neck level, subsequent encounter (04/22/20) Strain of muscle, fascia and tendon of lower back, subsequent encounter (04/22/20) Arthrodesis status (04/22/20) Physical Therapy Treatment Note PT-OP-A Visit Information Start: 03/11/20 09:17 Freq: Status: Active Protocol: Document 04/22/20 10:30 AW (Rec: 04/22/20 12:30 AW [email or web address]) Out-Patient Physical Therapy Visit Information Visit Information Visit Type Treatment Note Visit Start Time 09:45 Visit Stop Time 10:45 Total Visit Minutes 60 Visit Number 13 Number of MEDIA RELATIONS SPECIALIST Visits 0 PT-OP-B Current Condition Start: 03/11/20 09:17 Freq: Status: Active Protocol: Document 03/11/20 10:34 AW (Rec: 03/11/20 11:19 AW [id number]) Current Condition History of Current Condition Onset Date 15 years Current Complaints neck and right shoulder pain, low back pain with recent surgeries History of Current Condition Pt with history of fibromyalgia has long standing neck and low back pain. Symptoms improved after recent surgeries but pt continues to have pain especially if she overdoes it. Overall, her right side is worse than her left. She is currently walking ~1/16 mi with incline but can typically do 1/8 mile when feeling well. Prior Treatments and Tests late s - cervical discectomy aqua therapy 12/05/19 - C5-7 ACDF 02/11/20 - foraminectomy L5-S1 Future Testing and Treatments Planned Septoplasty mid-April Treatment Goals Patient/Caregiver Goals Reduce tone in shoulders Improve cervical ROM Increase walking tolerance Prior Functional Status Baseline Function- ADL's Modified Independent Baseline Function- Mobility Modified Independent Baseline Function- Gait ambulates with SPC vs FWW for stairs, inclines, long distance 2/2 R knee pn Baseline Function- Other able to walk from hospital to [facility] with FWW Current Functional Impairments (Reported) Functional Limitations- ADL's needs equipment for showers, no assist Functional Limitations- Mobility/Gait can walk from hospital to [facility] but has increased back pain for days afterward PT-OP-C Subjective Start: 03/11/20 09:17 Freq: Status: Active Protocol: Document 04/22/20 10:30 AW (Rec: 04/22/20 12:30 AW [email or web address]) OP-PT Subjective Patient Comments Patient Comments Pt is doing well, feeling stiff in her neck. I'm hearing a lot of crunching when I turn my head. PT-OP-D Balance Start: 03/11/20 09:17 Freq: Status: Active Protocol: Document 03/18/20 11:15 AW (Rec: 03/18/20 13:00 AW [email or web address]) OP-PT Balance Assessment Sitting Balance Static Sitting Balance Ability Normal Dynamic Sitting Balance Ability Normal Standing Balance Static Standing Balance Ability Good Dynamic Standing Balance Ability Good Balance Tests Single Limb Standing Single Limb- Right 3 sec, 3 sec, 6 sec Single Limb- Left 6 sec, 6 sec, 6 sec Brown Fall Scale Copyright Permission PT-OP-E Functional Tests Start: 03/11/20 09:17 Freq: Status: Active Protocol: Document 03/18/20 11:15 AW (Rec: 03/18/20 13:01 AW [email or web address]) Functional Tests Other SL squat from table Score 25 L; unable R without LOB PT-OP-F Manual Assessment Start: 03/11/20 09:17 Freq: Status: Active Protocol: Document 03/18/20 11:15 AW (Rec: 03/18/20 13:00 AW [email or web address]) Manual Assessments Soft Tissue Assessment Soft Tissue Mobility Assessment Increased density in gluteal musculature RLE PT-OP-H Neuro Start: 03/11/20 09:17 Freq: Status: Active Protocol: Document 03/11/20 10:34 AW (Rec: 03/11/20 17:14 AW [email or web address]) Sensation Evaluation Gross Sensation Gross Sensation Right UE Impaired Sensation Description Numbness Dermatome Impairments C7 Comments Summary Comments Intermittent numbness in right posterior arm. Not reproduced on exam with neck special tests. Deep Tendon Reflex & Clonus Assessment Deep Tendon Reflex Bilateral Tricep Deep Tendon Reflex 1+ Diminished Bilateral Bicep Deep Tendon Reflex 2+ Normal PT-OP-J Posture/Palpation/Skin Start: 03/11/20 09:17 Freq: Status: Active Protocol: Document 03/11/20 10:34 AW (Rec: 03/11/20 17:14 AW [email or web address]) Posture Evaluation Position Standing Evaluation View Lateral Head/C-Spine Posture Extended,Forward Head T-Spine Posture Increased Kyphosis L-Spine Posture Flattened Shoulder Posture (L) Rounded,(R) Rounded Scapula Posture (L) Protracted,(R) Protracted Weight Distribution Weight Shifted Left Ankle/Foot Posture (L) Supinated,(R) Supinated Foot Arch (L) Medium Arch,(R) Medium Arch Palpation Assessment Location lumbar spine Palpation Location paraspinals Palpation Findings Soft Tissue Tightness,Muscle Guarding Palpation Details R more affected than L PT-OP-K Range of Motion Start: 03/11/20 09:17 Freq: Status: Active Protocol: Document 03/11/20 10:34 AW (Rec: 03/11/20 17:14 AW [email or web address]) Cervical Spine Range of Motion Cervical Spine Active Degrees Testing Position Sitting Flexion 50 Extension 30 Rotation Left 45 Rotation Right 50 Lateral Flexion Left 30 Lateral Flexion Right 25 ROM Limitations Soft Tissue Tightness,Pain Lumbar Spine Range of Motion Lumbar Spine Active Testing Position Standing Extension 15 Comments Flexion: fingertips 10 from floor with notable L3 L4 hinge Side bend: fingertips 23 from floor right side, 21 from floor left side Shoulder Goniometric Range of Motion Shoulder Left Active Testing Position Sitting Flexion 156 Extension 40 Abduction 160 Internal Rotation Behind Back (text) T7 Right Active Testing Position Sitting Flexion 160 Extension 40 Abduction 160 Internal Rotation Behind Back (text) T7 Shoulder ROM Limitations Shoulder ROM Limitations Soft Tissue Tightness,Pain Elbow/Forearm Range of Motion Elbow/Forearm Right Active Comments B elbow AROM and PROM WNL Hip Goniometric Range of Motion Hip Right Hip ROM WFL Yes Testing Position Supine Flexion w/Knee Flexed 110 Abduction 40 Comments IR limited; ER WNL Left Hip ROM WFL Yes Testing Position Supine Flexion w/Knee Flexed 110 Abduction 43 Comments IR limited but greater excursion than right Hip ROM Limitations Comments flexion limited by habitus PT-OP-L Special Tests Start: 03/11/20 09:17 Freq: Status: Active Protocol: Document 03/11/20 10:34 AW (Rec: 03/11/20 17:14 AW [email or web address]) Special Tests Cervical Spine Special Tests Slump Test Results negative Spurling's Test Test Results negative bilaterally Lumbar Spine Special Tests Straight Leg Raise Test Results active SLR positive on the right Comments some relief noted with bimanual compression through bilateral ASIS Luis Test Results positive bilaterally Comments increase in hip flexion with knees bent B Slump Test Results vaguely positive R; negative L Comments R side pt reports increased tension but no pain Shoulder Special Tests Somers Endy Impingement Test Results negative bilaterally Drop Arm Rotator Cuff Test Results negative bilaterally Hip Special Tests Scour Test Test Results negative bilaterally PT-OP-M Strength Start: 03/11/20 09:17 Freq: Status: Active Protocol: Document 03/11/20 10:34 AW (Rec: 03/11/20 17:14 AW [email or web address]) Cervical Spine Strength Cervical Spine Manual Muscle Testing Testing Position Sitting Flexion (C1-2) 4+ Good+ Extension 4 Good Rotation Left 4 Good Rotation Right 4 Good Lateral Flexion Left (C3) 4- Good- Lateral Flexion Right (C3) 4- Good- Shoulder Strength Shoulder Manual Muscle Testing Right Flexion 4+ Good+ Extension 4+ Good+ Abduction (C5) 4+ Good+ External Rotation 4+ Good+ Internal Rotation 5 Normal Comments LUE grossly 5/5 Hip Strength Hip Manual Muscle Testing Left Flexion (L2) 4+ Good+ Extension (S1) 4- Good- Abduction 4- Good- External Rotation 4+ Good+ Internal Rotation 5 Normal Right Flexion (L2) 4 Good Extension (S1) 3+ Fair+ Abduction 4- Good- External Rotation 4+ Good+ Internal Rotation 4+ Good+ Knee Strength Knee Manual Muscle Testing Left Flexion (S2) 5 Normal Extension (L3) 4+ Good+ Right Flexion (S2) 5 Normal Extension (L3) 4+ Good+ PT-OP-Q Treatments Start: 03/11/20 09:17 Freq: Status: Active Protocol: Document 04/22/20 10:30 AW (Rec: 04/22/20 10:34 AW [id number]) Therapeutic Exercises Supine Exercises cervical self mob Supine Exercise Name cervical self mob Resistance tennis balls in sock Reps/Minutes with active rotation, flex/ext , chin tuck deep neck flexor endurance Supine Exercise Name deep neck flexor endurance Reps/Minutes 6SH x 6 posture press Reps/Minutes 10x Comments with pillow squeeze Sitting Exercises pulleys Sitting Exercise Name scaption Comments with active cervical rotation posture press Reps/Minutes 6x Chin Tucks Sitting Exercise Name Chin tuck Reps/Minutes 5x Comments holding for 5 sec-HEP Standing Exercises band walk Standing Exercise Name side step, fwd/bkwd Resistance level 1 Equipment Used TB Reps/Minutes 15' lap x 3 Comments added to HEP doorway pec stretch Reps/Minutes 30 SH x 4 Comments added to HEP Manual Therapy Treatment Soft Tissue Mobilization 1 Body Location B UT, cervical paraspinals, suboccipitals Mobilization Type Myofascial Release,Strumming, Sustained Pressure Intensity/Depth Moderate Body Position Hooklying Comments with contract/relax for improved rotation Manual Traction Cervical Body Position Hooklying Reps/Duration x60 Comments relieving for neck pain and shoulder tension PT-OP-R Modalities Start: 03/11/20 09:17 Freq: Status: Active Protocol: Document 04/22/20 10:30 AW (Rec: 04/22/20 12:31 AW [email or web address]) Hot Pack/Cold Pack Treatment Hot Pack Location lumbar & cervical Patient Position Prone Treatment Duration (minutes) 15 Patient Tolerance Good Comments MHP at end of session PT-OP-T Assessment and Plan Start: 03/11/20 09:17 Freq: Status: Active Protocol: Document 04/22/20 10:30 AW (Rec: 04/22/20 12:30 AW [email or web address]) Physical Therapy Assessment Goals Five Impairment hip strength Short Term Goal (STG) Pt will improve right hip strength equal to left for improved gait quality STG Duration 6 weeks - 04/22/2020 [facility] Goal (LTG) Pt will demonstrate SL squat from 20 surface bilaterally without LOB LTG Duration 12 weeks 06/03/2020 Four Impairment hyperdensity lumbar paraspinals Short Term Goal (STG) Pt will demonstrate reduced tone in lumbar musculature and glutes STG Duration 6 weeks - 04/22/2020 3 Impairment cervical ROM Short Term Goal (STG) Pt will improve cervical lateral flexion to 35 degrees or greater bilaterally STG Duration 6 weeks - 04/22/2020 [employer] Driver Goal (LTG) Pt will improve cervical rotation to 60 degrees or greater bilaterally for improved ability to turn head while driving. LTG Duration 12 weeks 06/03/2020 2 Impairment posture Short Term Goal (STG) Pt will self-correct cervical and thoracic posture for improvement in pain symptoms STG Duration 6 weeks - 04/22/2020 One Impairment increased density cervical paraspinals and upper traps Short Term Goal (STG) Pt will demonstrate reduced tone in cervical musculature and upper traps STG Duration 6 weeks - 04/22/2020 [employer] Driver Goal (LTG) Pt will score 25/50 or less on NDI to represent improved daily function related to neck pain. LTG Duration 12 weeks 06/03/2020 Assessment Summary Assessment Pt tolerated resisted lateral stepping with level 1 TB today , reporting fatigue in her lateral hips but no pain. Pt is improving in postural awareness and is observed with improved lifting mechanics even without cues. Physical Therapy Plan Frequency and Duration Frequency of Treatment 2x/Week Duration of Treatment 12 weeks Plan of Care Start Date 03/11/20 Plan of Care End Date 06/03/20 Therapeutic Interventions Therapeutic Interventions Home Exercise Program,Joint Mobilizations,Manual Therapy, Neuromuscular Re-education, Patient/Caregiver Education, Self-Care/Home Management,Soft Tissue Mobilization,Taping, Therapeutic Activities, Therapeutic Exercises Modalities Cold Pack/Ice Massage,Electric Stimulation,Hot Packs Next Visit Focus/Plan Next Note Type Treatment Note Next Visit Plan Progress hip strengthening. Continue patient education for back protection, posture and body mechanics.
--- NOTE | 2020-04-27 11:25 | PT.OTN ---
Current Diagnoses Abnormal posture (04/27/20) Strain of muscle, fascia and tendon at neck level, subsequent encounter (04/27/20) Strain of muscle, fascia and tendon of lower back, subsequent encounter (04/27/20) Arthrodesis status (04/27/20) Physical Therapy Treatment Note PT-OP-A Visit Information Start: 03/11/20 09:17 Freq: Status: Active Protocol: Document 04/27/20 10:36 HH (Rec: 04/27/20 11:25 HH [id number]) Out-Patient Physical Therapy Visit Information Visit Information Visit Type Treatment Note Visit Start Time 10:30 Visit Stop Time 11:15 Total Visit Minutes 45 Visit Number 14 Number of DIRECTOR RISK Visits 0 PT-OP-B Current Condition Start: 03/11/20 09:17 Freq: Status: Active Protocol: Document 03/11/20 10:34 AW (Rec: 03/11/20 11:19 AW [id number]) Current Condition History of Current Condition Onset Date 15 years Current Complaints neck and right shoulder pain, low back pain with recent surgeries History of Current Condition Pt with history of fibromyalgia has long standing neck and low back pain. Symptoms improved after recent surgeries but pt continues to have pain especially if she overdoes it. Overall, her right side is worse than her left. She is currently walking ~1/16 mi with incline but can typically do 1/8 mile when feeling well. Prior Treatments and Tests late s - cervical discectomy aqua therapy 12/05/19 - C5-7 ACDF 02/11/20 - foraminectomy L5-S1 Future Testing and Treatments Planned Septoplasty mid-April Treatment Goals Patient/Caregiver Goals Reduce tone in shoulders Improve cervical ROM Increase walking tolerance Prior Functional Status Baseline Function- ADL's Modified Independent Baseline Function- Mobility Modified Independent Baseline Function- Gait ambulates with SPC vs FWW for stairs, inclines, long distance 2/2 R knee pn Baseline Function- Other able to walk from hospital to [facility] with FWW Current Functional Impairments (Reported) Functional Limitations- ADL's needs equipment for showers, no assist Functional Limitations- Mobility/Gait can walk from hospital to [employer] but has increased back pain for days afterward PT-OP-C Subjective Start: 03/11/20 09:17 Freq: Status: Active Protocol: Document 04/27/20 10:36 HH (Rec: 04/27/20 11:25 HH [id number]) OP-PT Subjective Patient Comments Patient Comments I do feel pain and burning on both sides but R side is worse with L. X-ray from last week shows good progress. PT-OP-D Balance Start: 03/11/20 09:17 Freq: Status: Active Protocol: Document 03/18/20 11:15 AW (Rec: 03/18/20 13:00 AW [email or web address]) OP-PT Balance Assessment Sitting Balance Static Sitting Balance Ability Normal Dynamic Sitting Balance Ability Normal Standing Balance Static Standing Balance Ability Good Dynamic Standing Balance Ability Good Balance Tests Single Limb Standing Single Limb- Right 3 sec, 3 sec, 6 sec Single Limb- Left 6 sec, 6 sec, 6 sec Brown Fall Scale Copyright Permission PT-OP-E Functional Tests Start: 03/11/20 09:17 Freq: Status: Active Protocol: Document 03/18/20 11:15 AW (Rec: 03/18/20 13:01 AW [email or web address]) Functional Tests Other SL squat from table Score 25 L; unable R without LOB PT-OP-F Manual Assessment Start: 03/11/20 09:17 Freq: Status: Active Protocol: Document 03/18/20 11:15 AW (Rec: 03/18/20 13:00 AW [email or web address]) Manual Assessments Soft Tissue Assessment Soft Tissue Mobility Assessment Increased density in gluteal musculature RLE PT-OP-H Neuro Start: 03/11/20 09:17 Freq: Status: Active Protocol: Document 03/11/20 10:34 AW (Rec: 03/11/20 17:14 AW [email or web address]) Sensation Evaluation Gross Sensation Gross Sensation Right UE Impaired Sensation Description Numbness Dermatome Impairments C7 Comments Summary Comments Intermittent numbness in right posterior arm. Not reproduced on exam with neck special tests. Deep Tendon Reflex & Clonus Assessment Deep Tendon Reflex Bilateral Tricep Deep Tendon Reflex 1+ Diminished Bilateral Bicep Deep Tendon Reflex 2+ Normal PT-OP-J Posture/Palpation/Skin Start: 03/11/20 09:17 Freq: Status: Active Protocol: Document 03/11/20 10:34 AW (Rec: 03/11/20 17:14 AW [email or web address]) Posture Evaluation Position Standing Evaluation View Lateral Head/C-Spine Posture Extended,Forward Head T-Spine Posture Increased Kyphosis L-Spine Posture Flattened Shoulder Posture (L) Rounded,(R) Rounded Scapula Posture (L) Protracted,(R) Protracted Weight Distribution Weight Shifted Left Ankle/Foot Posture (L) Supinated,(R) Supinated Foot Arch (L) Medium Arch,(R) Medium Arch Palpation Assessment Location lumbar spine Palpation Location paraspinals Palpation Findings Soft Tissue Tightness,Muscle Guarding Palpation Details R more affected than L PT-OP-K Range of Motion Start: 03/11/20 09:17 Freq: Status: Active Protocol: Document 03/11/20 10:34 AW (Rec: 03/11/20 17:14 AW [email or web address]) Cervical Spine Range of Motion Cervical Spine Active Degrees Testing Position Sitting Flexion 50 Extension 30 Rotation Left 45 Rotation Right 50 Lateral Flexion Left 30 Lateral Flexion Right 25 ROM Limitations Soft Tissue Tightness,Pain Lumbar Spine Range of Motion Lumbar Spine Active Testing Position Standing Extension 15 Comments Flexion: fingertips 10 from floor with notable L3 L4 hinge Side bend: fingertips 23 from floor right side, 21 from floor left side Shoulder Goniometric Range of Motion Shoulder Left Active Testing Position Sitting Flexion 156 Extension 40 Abduction 160 Internal Rotation Behind Back (text) T7 Right Active Testing Position Sitting Flexion 160 Extension 40 Abduction 160 Internal Rotation Behind Back (text) T7 Shoulder ROM Limitations Shoulder ROM Limitations Soft Tissue Tightness,Pain Elbow/Forearm Range of Motion Elbow/Forearm Right Active Comments B elbow AROM and PROM WNL Hip Goniometric Range of Motion Hip Right Hip ROM WFL Yes Testing Position Supine Flexion w/Knee Flexed 110 Abduction 40 Comments IR limited; ER WNL Left Hip ROM WFL Yes Testing Position Supine Flexion w/Knee Flexed 110 Abduction 43 Comments IR limited but greater excursion than right Hip ROM Limitations Comments flexion limited by habitus PT-OP-L Special Tests Start: 03/11/20 09:17 Freq: Status: Active Protocol: Document 03/11/20 10:34 AW (Rec: 03/11/20 17:14 AW [email or web address]) Special Tests Cervical Spine Special Tests Slump Test Results negative Spurling's Test Test Results negative bilaterally Lumbar Spine Special Tests Straight Leg Raise Test Results active SLR positive on the right Comments some relief noted with bimanual compression through bilateral ASIS Luis Test Results positive bilaterally Comments increase in hip flexion with knees bent B Slump Test Results vaguely positive R; negative L Comments R side pt reports increased tension but no pain Shoulder Special Tests Somers Endy Impingement Test Results negative bilaterally Drop Arm Rotator Cuff Test Results negative bilaterally Hip Special Tests Scour Test Test Results negative bilaterally PT-OP-M Strength Start: 03/11/20 09:17 Freq: Status: Active Protocol: Document 03/11/20 10:34 AW (Rec: 03/11/20 17:14 AW [email or web address]) Cervical Spine Strength Cervical Spine Manual Muscle Testing Testing Position Sitting Flexion (C1-2) 4+ Good+ Extension 4 Good Rotation Left 4 Good Rotation Right 4 Good Lateral Flexion Left (C3) 4- Good- Lateral Flexion Right (C3) 4- Good- Shoulder Strength Shoulder Manual Muscle Testing Right Flexion 4+ Good+ Extension 4+ Good+ Abduction (C5) 4+ Good+ External Rotation 4+ Good+ Internal Rotation 5 Normal Comments LUE grossly 5/5 Hip Strength Hip Manual Muscle Testing Left Flexion (L2) 4+ Good+ Extension (S1) 4- Good- Abduction 4- Good- External Rotation 4+ Good+ Internal Rotation 5 Normal Right Flexion (L2) 4 Good Extension (S1) 3+ Fair+ Abduction 4- Good- External Rotation 4+ Good+ Internal Rotation 4+ Good+ Knee Strength Knee Manual Muscle Testing Left Flexion (S2) 5 Normal Extension (L3) 4+ Good+ Right Flexion (S2) 5 Normal Extension (L3) 4+ Good+ PT-OP-Q Treatments Start: 03/11/20 09:17 Freq: Status: Active Protocol: Document 04/27/20 10:36 HH (Rec: 04/27/20 11:25 HH [id number]) Therapeutic Exercises Supine Exercises chin tuck Side bilateral Reps/Minutes 5 sec hold x 8 cervical self mob Supine Exercise Name cervical self mob Resistance tennis balls in sock Reps/Minutes with active rotation, flex/ext , chin tuck deep neck flexor endurance Supine Exercise Name deep neck flexor endurance Reps/Minutes 15 sec hold x 5 bridge Side bilateral Reps/Minutes 10 x 2 Standing Exercises shoulder shrugs Side bilateral Equipment Used 4 lbs DB Reps/Minutes 10 x2 band walk Standing Exercise Name side step, fwd/bkwd Resistance level 1 Equipment Used TB Reps/Minutes 15' lap x 3 Comments added to HEP Manual Therapy Treatment Soft Tissue Mobilization 1 Body Location B UT, cervical paraspinals, suboccipitals Mobilization Type Myofascial Release,Strumming, Sustained Pressure Intensity/Depth Moderate Body Position Hooklying Comments with contract/relax for improved rotation PT-OP-R Modalities Start: 03/11/20 09:17 Freq: Status: Active Protocol: Document 04/22/20 10:30 AW (Rec: 04/22/20 12:31 AW [email or web address]) Hot Pack/Cold Pack Treatment Hot Pack Location lumbar & cervical Patient Position Prone Treatment Duration (minutes) 15 Patient Tolerance Good Comments MHP at end of session PT-OP-T Assessment and Plan Start: 03/11/20 09:17 Freq: Status: Active Protocol: Document 04/27/20 10:36 HH (Rec: 04/27/20 11:25 HH [id number]) Physical Therapy Assessment Goals Five Impairment hip strength Short Term Goal (STG) Pt will improve right hip strength equal to left for improved gait quality STG Duration 6 weeks - 04/22/2020 [facility] Goal (LTG) Pt will demonstrate SL squat from 20 surface bilaterally without LOB LTG Duration 12 weeks 06/03/2020 Four Impairment hyperdensity lumbar paraspinals Short Term Goal (STG) Pt will demonstrate reduced tone in lumbar musculature and glutes STG Duration 6 weeks - 04/22/2020 3 Impairment cervical ROM Short Term Goal (STG) Pt will improve cervical lateral flexion to 35 degrees or greater bilaterally STG Duration 6 weeks - 04/22/2020 Dealer Compliance Representative Goal (LTG) Pt will improve cervical rotation to 60 degrees or greater bilaterally for improved ability to turn head while driving. LTG Duration 12 weeks 06/03/2020 2 Impairment posture Short Term Goal (STG) Pt will self-correct cervical and thoracic posture for improvement in pain symptoms STG Duration 6 weeks - 04/22/2020 One Impairment increased density cervical paraspinals and upper traps Short Term Goal (STG) Pt will demonstrate reduced tone in cervical musculature and upper traps STG Duration 6 weeks - 04/22/2020 Deal[employer] Compliance Representative Goal (LTG) Pt will score 25/50 or less on NDI to represent improved daily function related to neck pain. LTG Duration 12 weeks 06/03/2020 Assessment Summary Assessment Pt still has soreness and achy pain at neck and shoulder at the end of the day/ increased physical activity which indicates lack of cervical stability and endurance. Pt juan session well with focus on trunk and cervical stabilization training. Physical Therapy Plan Frequency and Duration Frequency of Treatment 2x/Week Duration of Treatment 12 weeks Plan of Care Start Date 03/11/20 Plan of Care End Date 06/03/20 Next Visit Focus/Plan Next Note Type Treatment Note Next Visit Plan Progress hip strengthening. Continue patient education for back protection, posture and body mechanics.
--- NOTE | 2020-04-29 14:00 | PT.OTN ---
Current Diagnoses Abnormal posture (04/29/20) Strain of muscle, fascia and tendon at neck level, subsequent encounter (04/29/20) Strain of muscle, fascia and tendon of lower back, subsequent encounter (04/29/20) Arthrodesis status (04/29/20) Physical Therapy Treatment Note PT-OP-A Visit Information Start: 03/11/20 09:17 Freq: Status: Active Protocol: Document 04/29/20 10:19 MA (Rec: 04/29/20 11:01 MA [id number]) Out-Patient Physical Therapy Visit Information Visit Information Visit Type Treatment Note Visit Start Time 10:15 Visit Stop Time 10:56 Total Visit Minutes 41 Visit Number 15 Number of EGG FACTORY WORKER Visits 1 PT-OP-B Current Condition Start: 03/11/20 09:17 Freq: Status: Active Protocol: Document 03/11/20 10:34 AW (Rec: 03/11/20 11:19 AW [id number]) Current Condition History of Current Condition Onset Date 15 years Current Complaints neck and right shoulder pain, low back pain with recent surgeries History of Current Condition Pt with history of fibromyalgia has long standing neck and low back pain. Symptoms improved after recent surgeries but pt continues to have pain especially if she overdoes it. Overall, her right side is worse than her left. She is currently walking ~1/16 mi with incline but can typically do 1/8 mile when feeling well. Prior Treatments and Tests late s - cervical discectomy aqua therapy 12/05/19 - C5-7 ACDF 02/11/20 - foraminectomy L5-S1 Future Testing and Treatments Planned Septoplasty mid-April Treatment Goals Patient/Caregiver Goals Reduce tone in shoulders Improve cervical ROM Increase walking tolerance Prior Functional Status Baseline Function- ADL's Modified Independent Baseline Function- Mobility Modified Independent Baseline Function- Gait ambulates with SPC vs FWW for stairs, inclines, long distance 2/2 R knee pn Baseline Function- Other able to walk from hospital to [facility] with FWW Current Functional Impairments (Reported) Functional Limitations- ADL's needs equipment for showers, no assist Functional Limitations- Mobility/Gait can walk from hospital to [facility] but has increased back pain for days afterward PT-OP-C Subjective Start: 03/11/20 09:17 Freq: Status: Active Protocol: Document 04/29/20 10:19 MA (Rec: 04/29/20 11:01 MA [id number]) OP-PT Subjective Patient Comments Patient Comments I think I have overdone it on the neck exercises. My dr thought the R side of my neck was swollen yesterday PT-OP-D Balance Start: 03/11/20 09:17 Freq: Status: Active Protocol: Document 03/18/20 11:15 AW (Rec: 03/18/20 13:00 AW [email or web address]) OP-PT Balance Assessment Sitting Balance Static Sitting Balance Ability Normal Dynamic Sitting Balance Ability Normal Standing Balance Static Standing Balance Ability Good Dynamic Standing Balance Ability Good Balance Tests Single Limb Standing Single Limb- Right 3 sec, 3 sec, 6 sec Single Limb- Left 6 sec, 6 sec, 6 sec Brown Fall Scale Copyright Permission PT-OP-E Functional Tests Start: 03/11/20 09:17 Freq: Status: Active Protocol: Document 03/18/20 11:15 AW (Rec: 03/18/20 13:01 AW [email or web address]) Functional Tests Other SL squat from table Score 25 L; unable R without LOB PT-OP-F Manual Assessment Start: 03/11/20 09:17 Freq: Status: Active Protocol: Document 03/18/20 11:15 AW (Rec: 03/18/20 13:00 AW [email or web address]) Manual Assessments Soft Tissue Assessment Soft Tissue Mobility Assessment Increased density in gluteal musculature RLE PT-OP-H Neuro Start: 03/11/20 09:17 Freq: Status: Active Protocol: Document 03/11/20 10:34 AW (Rec: 03/11/20 17:14 AW [email or web address]) Sensation Evaluation Gross Sensation Gross Sensation Right UE Impaired Sensation Description Numbness Dermatome Impairments C7 Comments Summary Comments Intermittent numbness in right posterior arm. Not reproduced on exam with neck special tests. Deep Tendon Reflex & Clonus Assessment Deep Tendon Reflex Bilateral Tricep Deep Tendon Reflex 1+ Diminished Bilateral Bicep Deep Tendon Reflex 2+ Normal PT-OP-J Posture/Palpation/Skin Start: 03/11/20 09:17 Freq: Status: Active Protocol: Document 03/11/20 10:34 AW (Rec: 03/11/20 17:14 AW [email or web address]) Posture Evaluation Position Standing Evaluation View Lateral Head/C-Spine Posture Extended,Forward Head T-Spine Posture Increased Kyphosis L-Spine Posture Flattened Shoulder Posture (L) Rounded,(R) Rounded Scapula Posture (L) Protracted,(R) Protracted Weight Distribution Weight Shifted Left Ankle/Foot Posture (L) Supinated,(R) Supinated Foot Arch (L) Medium Arch,(R) Medium Arch Palpation Assessment Location lumbar spine Palpation Location paraspinals Palpation Findings Soft Tissue Tightness,Muscle Guarding Palpation Details R more affected than L PT-OP-K Range of Motion Start: 03/11/20 09:17 Freq: Status: Active Protocol: Document 03/11/20 10:34 AW (Rec: 03/11/20 17:14 AW [email or web address]) Cervical Spine Range of Motion Cervical Spine Active Degrees Testing Position Sitting Flexion 50 Extension 30 Rotation Left 45 Rotation Right 50 Lateral Flexion Left 30 Lateral Flexion Right 25 ROM Limitations Soft Tissue Tightness,Pain Lumbar Spine Range of Motion Lumbar Spine Active Testing Position Standing Extension 15 Comments Flexion: fingertips 10 from floor with notable L3 L4 hinge Side bend: fingertips 23 from floor right side, 21 from floor left side Shoulder Goniometric Range of Motion Shoulder Left Active Testing Position Sitting Flexion 156 Extension 40 Abduction 160 Internal Rotation Behind Back (text) T7 Right Active Testing Position Sitting Flexion 160 Extension 40 Abduction 160 Internal Rotation Behind Back (text) T7 Shoulder ROM Limitations Shoulder ROM Limitations Soft Tissue Tightness,Pain Elbow/Forearm Range of Motion Elbow/Forearm Right Active Comments B elbow AROM and PROM WNL Hip Goniometric Range of Motion Hip Right Hip ROM WFL Yes Testing Position Supine Flexion w/Knee Flexed 110 Abduction 40 Comments IR limited; ER WNL Left Hip ROM WFL Yes Testing Position Supine Flexion w/Knee Flexed 110 Abduction 43 Comments IR limited but greater excursion than right Hip ROM Limitations Comments flexion limited by habitus PT-OP-L Special Tests Start: 03/11/20 09:17 Freq: Status: Active Protocol: Document 03/11/20 10:34 AW (Rec: 03/11/20 17:14 AW [email or web address]) Special Tests Cervical Spine Special Tests Slump Test Results negative Spurling's Test Test Results negative bilaterally Lumbar Spine Special Tests Straight Leg Raise Test Results active SLR positive on the right Comments some relief noted with bimanual compression through bilateral ASIS Luis Test Results positive bilaterally Comments increase in hip flexion with knees bent B Slump Test Results vaguely positive R; negative L Comments R side pt reports increased tension but no pain Shoulder Special Tests Somers Endy Impingement Test Results negative bilaterally Drop Arm Rotator Cuff Test Results negative bilaterally Hip Special Tests Scour Test Test Results negative bilaterally PT-OP-M Strength Start: 03/11/20 09:17 Freq: Status: Active Protocol: Document 03/11/20 10:34 AW (Rec: 03/11/20 17:14 AW [email or web address]) Cervical Spine Strength Cervical Spine Manual Muscle Testing Testing Position Sitting Flexion (C1-2) 4+ Good+ Extension 4 Good Rotation Left 4 Good Rotation Right 4 Good Lateral Flexion Left (C3) 4- Good- Lateral Flexion Right (C3) 4- Good- Shoulder Strength Shoulder Manual Muscle Testing Right Flexion 4+ Good+ Extension 4+ Good+ Abduction (C5) 4+ Good+ External Rotation 4+ Good+ Internal Rotation 5 Normal Comments LUE grossly 5/5 Hip Strength Hip Manual Muscle Testing Left Flexion (L2) 4+ Good+ Extension (S1) 4- Good- Abduction 4- Good- External Rotation 4+ Good+ Internal Rotation 5 Normal Right Flexion (L2) 4 Good Extension (S1) 3+ Fair+ Abduction 4- Good- External Rotation 4+ Good+ Internal Rotation 4+ Good+ Knee Strength Knee Manual Muscle Testing Left Flexion (S2) 5 Normal Extension (L3) 4+ Good+ Right Flexion (S2) 5 Normal Extension (L3) 4+ Good+ PT-OP-Q Treatments Start: 03/11/20 09:17 Freq: Status: Active Protocol: Document 04/29/20 10:19 MA (Rec: 04/29/20 11:01 MA [id number]) Therapeutic Exercises Supine Exercises LTR Supine Exercise Name Lower Trunk Rotation- one set without ball Side bilateral Reps/Minutes 8x Sidelying Exercises Open Book Side bilateral Reps/Minutes x8 clamshell Sidelying Exercise Name clamshell Side bilateral Reps/Minutes x10 Comments cued stacked hips Standing Exercises Squats Side bilateral Reps/Minutes x8 Comments cues for proper form Manual Therapy Treatment Soft Tissue Mobilization 1 Body Location B UT, cervical paraspinals, suboccipitals Mobilization Type Myofascial Release,Strumming, Sustained Pressure Intensity/Depth Moderate Body Position Hooklying Comments with contract/relax for improved rotation Self-Care/Home Management Treatment Education Patient Education Home Exercise Program Other Education Discussed using lvl 1 TB for clamshell exercise at home PT-OP-R Modalities Start: 03/11/20 09:17 Freq: Status: Active Protocol: Document 04/22/20 10:30 AW (Rec: 04/22/20 12:31 AW [email or web address]) Hot Pack/Cold Pack Treatment Hot Pack Location lumbar & cervical Patient Position Prone Treatment Duration (minutes) 15 Patient Tolerance Good Comments MHP at end of session PT-OP-T Assessment and Plan Start: 03/11/20 09:17 Freq: Status: Active Protocol: Document 04/29/20 10:19 MA (Rec: 04/29/20 11:01 MA [id number]) Physical Therapy Assessment Goals Five Impairment hip strength Short Term Goal (STG) Pt will improve right hip strength equal to left for improved gait quality STG Duration 6 weeks - 04/22/2020 [place] Goal (LTG) Pt will demonstrate SL squat from 20 surface bilaterally without LOB LTG Duration 12 weeks 06/03/2020 Four Impairment hyperdensity lumbar paraspinals Short Term Goal (STG) Pt will demonstrate reduced tone in lumbar musculature and glutes STG Duration 6 weeks - 04/22/2020 3 Impairment cervical ROM Short Term Goal (STG) Pt will improve cervical lateral flexion to 35 degrees or greater bilaterally 04/29/20- IMPROVING- 31 degrees R, 33 degrees L STG Duration 6 weeks - 04/22/2020 Alf Goal (LTG) Pt will improve cervical rotation to 60 degrees or greater bilaterally for improved ability to turn head while driving. LTG Duration 12 weeks 06/03/2020 2 Impairment posture Short Term Goal (STG) Pt will self-correct cervical and thoracic posture for improvement in pain symptoms 04/29/20- IMPROVING- pt continues to have some pain in CS but is able to self- correct posture STG Duration 6 weeks - 04/22/2020 One Impairment increased density cervical paraspinals and upper traps Short Term Goal (STG) Pt will demonstrate reduced tone in cervical musculature and upper traps STG Duration 6 weeks - 04/22/2020 Alf Goal (LTG) Pt will score 25/50 or less on NDI to represent improved daily function related to neck pain. LTG Duration 12 weeks 06/03/2020 Assessment Summary Assessment Pt has improved cervical lateral flexion L from 30 to 33 degrees and R from 25 to 31 degrees. Measurements were taken after STM to CS & upper traps. She requested taking a day off from cervical strengthening exercises due to dr thinking she was swollen from over-doing it on Monday at therapy. Ended session with quick squat tutorial, cueing pt to keep knees hip width apart, chest lifted, and keep heels down on floor. Will continue with squat form and hip strengthening next session. Physical Therapy Plan Frequency and Duration Frequency of Treatment 2x/Week Duration of Treatment 12 weeks Plan of Care Start Date 03/11/20 Plan of Care End Date 06/03/20 Therapeutic Interventions Therapeutic Interventions Home Exercise Program,Joint Mobilizations,Manual Therapy, Neuromuscular Re-education, Patient/Caregiver Education, Self-Care/Home Management,Soft Tissue Mobilization,Taping, Therapeutic Activities, Therapeutic Exercises Modalities Cold Pack/Ice Massage,Electric Stimulation,Hot Packs Next Visit Focus/Plan Next Note Type Treatment Note Next Visit Plan Progress hip strengthening, work on squat form, continue patient education for back protection, posture and body mechanics.
--- NOTE | 2020-05-06 17:13 | PT.OTN ---
Current Diagnoses Abnormal posture (05/06/20) Strain of muscle, fascia and tendon at neck level, subsequent encounter (05/06/20) Strain of muscle, fascia and tendon of lower back, subsequent encounter (05/06/20) Arthrodesis status (05/06/20) Physical Therapy Treatment Note PT-OP-A Visit Information Start: 03/11/20 09:17 Freq: Status: Active Protocol: Document 05/06/20 10:19 MA (Rec: 05/06/20 11:02 MA [id number]) Out-Patient Physical Therapy Visit Information Visit Information Visit Type Treatment Note Visit Start Time 10:15 Visit Stop Time 10:58 Total Visit Minutes 43 Visit Number 16 Number of HEALTH AND SAFETY DIRECTOR Visits 2 PT-OP-B Current Condition Start: 03/11/20 09:17 Freq: Status: Active Protocol: Document 03/11/20 10:34 AW (Rec: 03/11/20 11:19 AW [id number]) Current Condition History of Current Condition Onset Date 15 years Current Complaints neck and right shoulder pain, low back pain with recent surgeries History of Current Condition Pt with history of fibromyalgia has long standing neck and low back pain. Symptoms improved after recent surgeries but pt continues to have pain especially if she overdoes it. Overall, her right side is worse than her left. She is currently walking ~1/16 mi with incline but can typically do 1/8 mile when feeling well. Prior Treatments and Tests late s - cervical discectomy aqua therapy 12/05/19 - C5-7 ACDF 02/11/20 - foraminectomy L5-S1 Future Testing and Treatments Planned Septoplasty mid-April Treatment Goals Patient/Caregiver Goals Reduce tone in shoulders Improve cervical ROM Increase walking tolerance Prior Functional Status Baseline Function- ADL's Modified Independent Baseline Function- Mobility Modified Independent Baseline Function- Gait ambulates with SPC vs FWW for stairs, inclines, long distance 2/2 R knee pn Baseline Function- Other able to walk from hospital to [facility] with FWW Current Functional Impairments (Reported) Functional Limitations- ADL's needs equipment for showers, no assist Functional Limitations- Mobility/Gait can walk from hospital to [facility] but has increased back pain for days afterward PT-OP-C Subjective Start: 03/11/20 09:17 Freq: Status: Active Protocol: Document 05/06/20 10:19 MA (Rec: 05/06/20 11:02 MA [id number]) OP-PT Subjective Patient Comments Patient Comments After swimming I was really tired and my back was sore. The more I do, the more it hurts. I am still taking tramadol before I leave on days I leave the [place]. Pt has ultrasound for R shd/arm either this Monday or the next Monday PT-OP-D Balance Start: 03/11/20 09:17 Freq: Status: Active Protocol: Document 03/18/20 11:15 AW (Rec: 03/18/20 13:00 AW [email or web address]) OP-PT Balance Assessment Sitting Balance Static Sitting Balance Ability Normal Dynamic Sitting Balance Ability Normal Standing Balance Static Standing Balance Ability Good Dynamic Standing Balance Ability Good Balance Tests Single Limb Standing Single Limb- Right 3 sec, 3 sec, 6 sec Single Limb- Left 6 sec, 6 sec, 6 sec Brown Fall Scale Copyright Permission PT-OP-E Functional Tests Start: 03/11/20 09:17 Freq: Status: Active Protocol: Document 03/18/20 11:15 AW (Rec: 03/18/20 13:01 AW [email or web address]) Functional Tests Other SL squat from table Score 25 L; unable R without LOB PT-OP-F Manual Assessment Start: 03/11/20 09:17 Freq: Status: Active Protocol: Document 03/18/20 11:15 AW (Rec: 03/18/20 13:00 AW [email or web address]) Manual Assessments Soft Tissue Assessment Soft Tissue Mobility Assessment Increased density in gluteal musculature RLE PT-OP-H Neuro Start: 03/11/20 09:17 Freq: Status: Active Protocol: Document 03/11/20 10:34 AW (Rec: 03/11/20 17:14 AW [email or web address]) Sensation Evaluation Gross Sensation Gross Sensation Right UE Impaired Sensation Description Numbness Dermatome Impairments C7 Comments Summary Comments Intermittent numbness in right posterior arm. Not reproduced on exam with neck special tests. Deep Tendon Reflex & Clonus Assessment Deep Tendon Reflex Bilateral Tricep Deep Tendon Reflex 1+ Diminished Bilateral Bicep Deep Tendon Reflex 2+ Normal PT-OP-J Posture/Palpation/Skin Start: 03/11/20 09:17 Freq: Status: Active Protocol: Document 03/11/20 10:34 AW (Rec: 03/11/20 17:14 AW [email or web address]) Posture Evaluation Position Standing Evaluation View Lateral Head/C-Spine Posture Extended,Forward Head T-Spine Posture Increased Kyphosis L-Spine Posture Flattened Shoulder Posture (L) Rounded,(R) Rounded Scapula Posture (L) Protracted,(R) Protracted Weight Distribution Weight Shifted Left Ankle/Foot Posture (L) Supinated,(R) Supinated Foot Arch (L) Medium Arch,(R) Medium Arch Palpation Assessment Location lumbar spine Palpation Location paraspinals Palpation Findings Soft Tissue Tightness,Muscle Guarding Palpation Details R more affected than L PT-OP-K Range of Motion Start: 03/11/20 09:17 Freq: Status: Active Protocol: Document 03/11/20 10:34 AW (Rec: 03/11/20 17:14 AW [email or web address]) Cervical Spine Range of Motion Cervical Spine Active Degrees Testing Position Sitting Flexion 50 Extension 30 Rotation Left 45 Rotation Right 50 Lateral Flexion Left 30 Lateral Flexion Right 25 ROM Limitations Soft Tissue Tightness,Pain Lumbar Spine Range of Motion Lumbar Spine Active Testing Position Standing Extension 15 Comments Flexion: fingertips 10 from floor with notable L3 L4 hinge Side bend: fingertips 23 from floor right side, 21 from floor left side Shoulder Goniometric Range of Motion Shoulder Left Active Testing Position Sitting Flexion 156 Extension 40 Abduction 160 Internal Rotation Behind Back (text) T7 Right Active Testing Position Sitting Flexion 160 Extension 40 Abduction 160 Internal Rotation Behind Back (text) T7 Shoulder ROM Limitations Shoulder ROM Limitations Soft Tissue Tightness,Pain Elbow/Forearm Range of Motion Elbow/Forearm Right Active Comments B elbow AROM and PROM WNL Hip Goniometric Range of Motion Hip Right Hip ROM WFL Yes Testing Position Supine Flexion w/Knee Flexed 110 Abduction 40 Comments IR limited; ER WNL Left Hip ROM WFL Yes Testing Position Supine Flexion w/Knee Flexed 110 Abduction 43 Comments IR limited but greater excursion than right Hip ROM Limitations Comments flexion limited by habitus PT-OP-L Special Tests Start: 03/11/20 09:17 Freq: Status: Active Protocol: Document 03/11/20 10:34 AW (Rec: 03/11/20 17:14 AW [email or web address]) Special Tests Cervical Spine Special Tests Slump Test Results negative Spurling's Test Test Results negative bilaterally Lumbar Spine Special Tests Straight Leg Raise Test Results active SLR positive on the right Comments some relief noted with bimanual compression through bilateral ASIS Luis Test Results positive bilaterally Comments increase in hip flexion with knees bent B Slump Test Results vaguely positive R; negative L Comments R side pt reports increased tension but no pain Shoulder Special Tests Somers Endy Impingement Test Results negative bilaterally Drop Arm Rotator Cuff Test Results negative bilaterally Hip Special Tests Scour Test Test Results negative bilaterally PT-OP-M Strength Start: 03/11/20 09:17 Freq: Status: Active Protocol: Document 03/11/20 10:34 AW (Rec: 03/11/20 17:14 AW [email or web address]) Cervical Spine Strength Cervical Spine Manual Muscle Testing Testing Position Sitting Flexion (C1-2) 4+ Good+ Extension 4 Good Rotation Left 4 Good Rotation Right 4 Good Lateral Flexion Left (C3) 4- Good- Lateral Flexion Right (C3) 4- Good- Shoulder Strength Shoulder Manual Muscle Testing Right Flexion 4+ Good+ Extension 4+ Good+ Abduction (C5) 4+ Good+ External Rotation 4+ Good+ Internal Rotation 5 Normal Comments LUE grossly 5/5 Hip Strength Hip Manual Muscle Testing Left Flexion (L2) 4+ Good+ Extension (S1) 4- Good- Abduction 4- Good- External Rotation 4+ Good+ Internal Rotation 5 Normal Right Flexion (L2) 4 Good Extension (S1) 3+ Fair+ Abduction 4- Good- External Rotation 4+ Good+ Internal Rotation 4+ Good+ Knee Strength Knee Manual Muscle Testing Left Flexion (S2) 5 Normal Extension (L3) 4+ Good+ Right Flexion (S2) 5 Normal Extension (L3) 4+ Good+ PT-OP-Q Treatments Start: 03/11/20 09:17 Freq: Status: Active Protocol: Document 05/06/20 10:19 MA (Rec: 05/06/20 11:02 MA [id number]) Therapeutic Exercises Supine Exercises chin tuck Side bilateral Reps/Minutes 5 sec hold x 8 cervical self mob Supine Exercise Name cervical self mob Resistance tennis balls in sock Reps/Minutes with active rotation, flex/ext , chin tuck LTR Supine Exercise Name Lower Trunk Rotation Side bilateral Reps/Minutes 8x Other Exercises Tennis Ball Other Exercise Name upper back/shds self-STM Side bilateral Reps/Minutes 2 min Therapeutic Activity Therapeutic Activity Squatting Name Proper squat form with chair behind pt Comments focusing on keeping back straight Manual Therapy Treatment Soft Tissue Mobilization 1 Body Location B UT, cervical paraspinals, suboccipitals Mobilization Type Myofascial Release,Strumming, Sustained Pressure Intensity/Depth Moderate Body Position Hooklying Comments with contract/relax for improved rotation Manual Traction Cervical Body Position Hooklying Reps/Duration x60 Comments relieving for neck pain and shoulder tension Manual Techniques UT Type UT passive stretch Body Position Supine Reps/Duration 30 sec PT-OP-R Modalities Start: 03/11/20 09:17 Freq: Status: Active Protocol: Document 04/22/20 10:30 AW (Rec: 04/22/20 12:31 AW [email or web address]) Hot Pack/Cold Pack Treatment Hot Pack Location lumbar & cervical Patient Position Prone Treatment Duration (minutes) 15 Patient Tolerance Good Comments MHP at end of session PT-OP-T Assessment and Plan Start: 03/11/20 09:17 Freq: Status: Active Protocol: Document 05/06/20 10:19 MA (Rec: 05/06/20 11:02 MA [id number]) Physical Therapy Assessment Goals Four Impairment hyperdensity lumbar paraspinals Short Term Goal (STG) Pt will demonstrate reduced tone in lumbar musculature and glutes STG Duration 6 weeks - 04/22/2020 3 Impairment cervical ROM Short Term Goal (STG) Pt will improve cervical lateral flexion to 35 degrees or greater bilaterally 04/29/20- IMPROVING- 31 degrees R, 33 degrees L STG Duration 6 weeks - 04/22/2020 Usp Goal (LTG) Pt will improve cervical rotation to 60 degrees or greater bilaterally for improved ability to turn head while driving. LTG Duration 12 weeks 06/03/2020 2 Impairment posture Short Term Goal (STG) Pt will self-correct cervical and thoracic posture for improvement in pain symptoms 04/29/20- IMPROVING- pt continues to have some pain in CS but is able to self- correct posture STG Duration 6 weeks - 04/22/2020 One Impairment increased density cervical paraspinals and upper traps Short Term Goal (STG) Pt will demonstrate reduced tone in cervical musculature and upper traps STG Duration 6 weeks - 04/22/[address] [employer]en[employer] Goal (LTG) Pt will score 25/50 or less on NDI to represent improved daily function related to neck pain. LTG Duration 12 weeks 06/03/2020 Assessment Summary Assessment Pt has soreness along R upper trap and bilateral cervical paraspinals today that decreased with STM. She no longer needs cues duirng her chin tuck exercises showing good carryover. Pt continues to do her HEP at home but still has soreness in neck and low back. She is waiting on an ultrasound for her R shd/ arm. Physical Therapy Plan Frequency and Duration Frequency of Treatment 2x/Week Duration of Treatment 12 weeks Plan of Care Start Date 03/11/20 Plan of Care End Date 06/03/20 Therapeutic Interventions Therapeutic Interventions Home Exercise Program,Joint Mobilizations,Manual Therapy, Neuromuscular Re-education, Patient/Caregiver Education, Self-Care/Home Management,Soft Tissue Mobilization,Taping, Therapeutic Activities, Therapeutic Exercises Modalities Cold Pack/Ice Massage,Electric Stimulation,Hot Packs Next Visit Focus/Plan Next Note Type Treatment Note Next Visit Plan Continue patient education for back protection, posture and body mechanics. STM to lumbar and cervical spine, progress cervical strengthening exercises as needed.
--- NOTE | 2020-05-13 12:20 | PT.OTN ---
Current Diagnoses Abnormal posture (05/13/20) Strain of muscle, fascia and tendon at neck level, subsequent encounter (05/13/20) Strain of muscle, fascia and tendon of lower back, subsequent encounter (05/13/20) Arthrodesis status (05/13/20) Physical Therapy Treatment Note PT-OP-A Visit Information Start: 03/11/20 09:17 Freq: Status: Active Protocol: Document 05/13/20 10:30 AW (Rec: 05/13/20 10:32 AW [id number]) Out-Patient Physical Therapy Visit Information Visit Information Visit Type Treatment Note Visit Start Time 09:45 Visit Stop Time 10:30 Total Visit Minutes 45 Visit Number 17 Number of SENIOR STATISTICIAN Visits 0 PT-OP-B Current Condition Start: 03/11/20 09:17 Freq: Status: Active Protocol: Document 03/11/20 10:34 AW (Rec: 03/11/20 11:19 AW [id number]) Current Condition History of Current Condition Onset Date 15 years Current Complaints neck and right shoulder pain, low back pain with recent surgeries History of Current Condition Pt with history of fibromyalgia has long standing neck and low back pain. Symptoms improved after recent surgeries but pt continues to have pain especially if she overdoes it. Overall, her right side is worse than her left. She is currently walking ~1/16 mi with incline but can typically do 1/8 mile when feeling well. Prior Treatments and Tests late s - cervical discectomy aqua therapy 12/05/19 - C5-7 ACDF 02/11/20 - foraminectomy L5-S1 Future Testing and Treatments Planned Septoplasty mid-April Treatment Goals Patient/Caregiver Goals Reduce tone in shoulders Improve cervical ROM Increase walking tolerance Prior Functional Status Baseline Function- ADL's Modified Independent Baseline Function- Mobility Modified Independent Baseline Function- Gait ambulates with SPC vs FWW for stairs, inclines, long distance 2/2 R knee pn Baseline Function- Other able to walk from hospital to [facility] with FWW Current Functional Impairments (Reported) Functional Limitations- ADL's needs equipment for showers, no assist Functional Limitations- Mobility/Gait can walk from hospital to [facility] but has increased back pain for days afterward PT-OP-C Subjective Start: 03/11/20 09:17 Freq: Status: Active Protocol: Document 05/13/20 10:30 AW (Rec: 05/13/20 10:32 AW [id number]) OP-PT Subjective Patient Comments Patient Comments Pt reports onset of gout symptoms in her right foot after last tx and had to cancel a few appointment. She started medication last Monday and was finally able to don her shoes today. PT-OP-D Balance Start: 03/11/20 09:17 Freq: Status: Active Protocol: Document 03/18/20 11:15 AW (Rec: 03/18/20 13:00 AW [email or web address]) OP-PT Balance Assessment Sitting Balance Static Sitting Balance Ability Normal Dynamic Sitting Balance Ability Normal Standing Balance Static Standing Balance Ability Good Dynamic Standing Balance Ability Good Balance Tests Single Limb Standing Single Limb- Right 3 sec, 3 sec, 6 sec Single Limb- Left 6 sec, 6 sec, 6 sec Brown Fall Scale Copyright Permission PT-OP-E Functional Tests Start: 03/11/20 09:17 Freq: Status: Active Protocol: Document 03/18/20 11:15 AW (Rec: 03/18/20 13:01 AW [email or web address]) Functional Tests Other SL squat from table Score 25 L; unable R without LOB PT-OP-F Manual Assessment Start: 03/11/20 09:17 Freq: Status: Active Protocol: Document 03/18/20 11:15 AW (Rec: 03/18/20 13:00 AW [email or web address]) Manual Assessments Soft Tissue Assessment Soft Tissue Mobility Assessment Increased density in gluteal musculature RLE PT-OP-H Neuro Start: 03/11/20 09:17 Freq: Status: Active Protocol: Document 03/11/20 10:34 AW (Rec: 03/11/20 17:14 AW [email or web address]) Sensation Evaluation Gross Sensation Gross Sensation Right UE Impaired Sensation Description Numbness Dermatome Impairments C7 Comments Summary Comments Intermittent numbness in right posterior arm. Not reproduced on exam with neck special tests. Deep Tendon Reflex & Clonus Assessment Deep Tendon Reflex Bilateral Tricep Deep Tendon Reflex 1+ Diminished Bilateral Bicep Deep Tendon Reflex 2+ Normal PT-OP-J Posture/Palpation/Skin Start: 03/11/20 09:17 Freq: Status: Active Protocol: Document 03/11/20 10:34 AW (Rec: 03/11/20 17:14 AW [email or web address]) Posture Evaluation Position Standing Evaluation View Lateral Head/C-Spine Posture Extended,Forward Head T-Spine Posture Increased Kyphosis L-Spine Posture Flattened Shoulder Posture (L) Rounded,(R) Rounded Scapula Posture (L) Protracted,(R) Protracted Weight Distribution Weight Shifted Left Ankle/Foot Posture (L) Supinated,(R) Supinated Foot Arch (L) Medium Arch,(R) Medium Arch Palpation Assessment Location lumbar spine Palpation Location paraspinals Palpation Findings Soft Tissue Tightness,Muscle Guarding Palpation Details R more affected than L PT-OP-K Range of Motion Start: 03/11/20 09:17 Freq: Status: Active Protocol: Document 03/11/20 10:34 AW (Rec: 03/11/20 17:14 AW [email or web address]) Cervical Spine Range of Motion Cervical Spine Active Degrees Testing Position Sitting Flexion 50 Extension 30 Rotation Left 45 Rotation Right 50 Lateral Flexion Left 30 Lateral Flexion Right 25 ROM Limitations Soft Tissue Tightness,Pain Lumbar Spine Range of Motion Lumbar Spine Active Testing Position Standing Extension 15 Comments Flexion: fingertips 10 from floor with notable L3 L4 hinge Side bend: fingertips 23 from floor right side, 21 from floor left side Shoulder Goniometric Range of Motion Shoulder Left Active Testing Position Sitting Flexion 156 Extension 40 Abduction 160 Internal Rotation Behind Back (text) T7 Right Active Testing Position Sitting Flexion 160 Extension 40 Abduction 160 Internal Rotation Behind Back (text) T7 Shoulder ROM Limitations Shoulder ROM Limitations Soft Tissue Tightness,Pain Elbow/Forearm Range of Motion Elbow/Forearm Right Active Comments B elbow AROM and PROM WNL Hip Goniometric Range of Motion Hip Right Hip ROM WFL Yes Testing Position Supine Flexion w/Knee Flexed 110 Abduction 40 Comments IR limited; ER WNL Left Hip ROM WFL Yes Testing Position Supine Flexion w/Knee Flexed 110 Abduction 43 Comments IR limited but greater excursion than right Hip ROM Limitations Comments flexion limited by habitus PT-OP-L Special Tests Start: 03/11/20 09:17 Freq: Status: Active Protocol: Document 03/11/20 10:34 AW (Rec: 03/11/20 17:14 AW [email or web address]) Special Tests Cervical Spine Special Tests Slump Test Results negative Spurling's Test Test Results negative bilaterally Lumbar Spine Special Tests Straight Leg Raise Test Results active SLR positive on the right Comments some relief noted with bimanual compression through bilateral ASIS Luis Test Results positive bilaterally Comments increase in hip flexion with knees bent B Slump Test Results vaguely positive R; negative L Comments R side pt reports increased tension but no pain Shoulder Special Tests Somers Endy Impingement Test Results negative bilaterally Drop Arm Rotator Cuff Test Results negative bilaterally Hip Special Tests Scour Test Test Results negative bilaterally PT-OP-M Strength Start: 03/11/20 09:17 Freq: Status: Active Protocol: Document 03/11/20 10:34 AW (Rec: 03/11/20 17:14 AW [email or web address]) Cervical Spine Strength Cervical Spine Manual Muscle Testing Testing Position Sitting Flexion (C1-2) 4+ Good+ Extension 4 Good Rotation Left 4 Good Rotation Right 4 Good Lateral Flexion Left (C3) 4- Good- Lateral Flexion Right (C3) 4- Good- Shoulder Strength Shoulder Manual Muscle Testing Right Flexion 4+ Good+ Extension 4+ Good+ Abduction (C5) 4+ Good+ External Rotation 4+ Good+ Internal Rotation 5 Normal Comments LUE grossly 5/5 Hip Strength Hip Manual Muscle Testing Left Flexion (L2) 4+ Good+ Extension (S1) 4- Good- Abduction 4- Good- External Rotation 4+ Good+ Internal Rotation 5 Normal Right Flexion (L2) 4 Good Extension (S1) 3+ Fair+ Abduction 4- Good- External Rotation 4+ Good+ Internal Rotation 4+ Good+ Knee Strength Knee Manual Muscle Testing Left Flexion (S2) 5 Normal Extension (L3) 4+ Good+ Right Flexion (S2) 5 Normal Extension (L3) 4+ Good+ PT-OP-Q Treatments Start: 03/11/20 09:17 Freq: Status: Active Protocol: Document 05/13/20 10:30 AW (Rec: 05/13/20 10:32 AW [id number]) Therapeutic Exercises Supine Exercises LTR Supine Exercise Name Lower Trunk Rotation Side bilateral Reps/Minutes 8x Standing Exercises paloff press Standing Exercise Name paloff press Side bilateral Resistance level 1 Equipment Used TB Comments postural cues resisted row Standing Exercise Name resisted row Side bilateral Resistance 10#, 20# Equipment Used weight stack Reps/Minutes 2 x 10 Comments cues for scap retraction Gait Training Gait Activity flat surface Description flat surface Device Used no AD Surface carpet, tile, stairs Distance/Duration 14 min Treatment Focus glute recruitment at weight acceptance Comments Pt notes improved efficiency of gait and reduced knee pain on stairs Manual Therapy Treatment Soft Tissue Mobilization 1 Body Location B UT, periscapular mm, LS Mobilization Type Myofascial Release,Strumming, Sustained Pressure Intensity/Depth Moderate Body Position Sidelying Comments Focus on scapular rotation with manual and resisted manual. Improved mechanics to prepare for exercise PT-OP-R Modalities Start: 03/11/20 09:17 Freq: Status: Active Protocol: Document 04/22/20 10:30 AW (Rec: 04/22/20 12:31 AW [email or web address]) Hot Pack/Cold Pack Treatment Hot Pack Location lumbar & cervical Patient Position Prone Treatment Duration (minutes) 15 Patient Tolerance Good Comments MHP at end of session PT-OP-T Assessment and Plan Start: 03/11/20 09:17 Freq: Status: Active Protocol: Document 05/13/20 10:30 AW (Rec: 05/13/20 12:19 AW [email or web address]) Physical Therapy Assessment Goals Five Impairment hip strength Short Term Goal (STG) Pt will improve right hip strength equal to left for improved gait quality STG Duration 6 weeks - 04/22/2020 Senior Care Goal (LTG) Pt will demonstrate SL squat from 20 surface bilaterally without LOB LTG Duration 12 weeks 06/03/2020 Four Impairment hyperdensity lumbar paraspinals Short Term Goal (STG) Pt will demonstrate reduced tone in lumbar musculature and glutes STG Duration 6 weeks - 04/22/2020 5 Impairment strength Short Term Goal (STG) Improve TrA activation and LE strength by 1/2 grade STG Duration 6 wks Waxing Machine Operator Helper Goal (LTG) Independent with HEP and aquatic exercise program for long-term pain management and fitness. LTG Duration 3 months 4 Impairment ROM Waxing Machine Operator Helper Goal (LTG) Improve LE and trunk ROM to WFL with minimal to no pain ( good goal progress) LTG Duration 3 months 3 Impairment cervical ROM Short Term Goal (STG) Pt will improve cervical lateral flexion to 35 degrees or greater bilaterally 04/29/20- IMPROVING- 31 degrees R, 33 degrees L STG Duration 6 weeks - 04/22/2020 Senior Care Goal (LTG) Pt will improve cervical rotation to 60 degrees or greater bilaterally for improved ability to turn head while driving. LTG Duration 12 weeks 06/03/2020 2 Impairment posture Short Term Goal (STG) Pt will self-correct cervical and thoracic posture for improvement in pain symptoms 04/29/20- IMPROVING- pt continues to have some pain in CS but is able to self- correct posture STG Duration 6 weeks - 04/22/2020 One Impairment increased density cervical paraspinals and upper traps Short Term Goal (STG) Pt will demonstrate reduced tone in cervical musculature and upper traps STG Duration 6 weeks - 04/22/2020 Waxing Machine Operator Helper Goal (LTG) Pt will score 25/50 or less on NDI to represent improved daily function related to neck pain. LTG Duration 12 weeks 06/03/2020 Assessment Summary Assessment Pt sore along levator scap especially at insertion today. Manual tx focused on scapular rotation with improvement in pain symptoms. Initiated unsupported core strengthening today with paloff press. Gait training focused on awareness of glute recruitment at weight acceptance. Physical Therapy Plan Frequency and Duration Frequency of Treatment 2x/Week Duration of Treatment 12 weeks Plan of Care Start Date 03/11/20 Plan of Care End Date 06/03/20 Therapeutic Interventions Therapeutic Interventions Home Exercise Program,Joint Mobilizations,Manual Therapy, Neuromuscular Re-education, Patient/Caregiver Education, Self-Care/Home Management,Soft Tissue Mobilization,Taping, Therapeutic Activities, Therapeutic Exercises Modalities Cold Pack/Ice Massage,Electric Stimulation,Hot Packs Next Visit Focus/Plan Next Note Type Treatment Note Next Visit Plan Continue patient education for back protection, posture and body mechanics. STM to lumbar and cervical spine, progress cervical strengthening exercises as needed.
--- NOTE | 2020-05-18 11:00 | PT.OTN ---
Current Diagnoses Abnormal posture (05/18/20) Strain of muscle, fascia and tendon at neck level, subsequent encounter (05/18/20) Strain of muscle, fascia and tendon of lower back, subsequent encounter (05/18/20) Arthrodesis status (05/18/20) Physical Therapy Treatment Note PT-OP-A Visit Information Start: 03/11/20 09:17 Freq: Status: Active Protocol: Document 05/18/20 10:23 MA (Rec: 05/18/20 11:00 MA [id number]) Out-Patient Physical Therapy Visit Information Visit Information Visit Type Treatment Note Visit Start Time 10:20 Visit Stop Time 11:00 Total Visit Minutes 40 Visit Number 18 Number of [employer]AD [employer] Visits 1 PT-OP-B Current Condition Start: 03/11/20 09:17 Freq: Status: Active Protocol: Document 03/11/20 10:34 AW (Rec: 03/11/20 11:19 AW [id number]) Current Condition History of Current Condition Onset Date 15 years Current Complaints neck and right shoulder pain, low back pain with recent surgeries History of Current Condition Pt with history of fibromyalgia has long standing neck and low back pain. Symptoms improved after recent surgeries but pt continues to have pain especially if she overdoes it. Overall, her right side is worse than her left. She is currently walking ~1/16 mi with incline but can typically do 1/8 mile when feeling well. Prior Treatments and Tests late s - cervical discectomy aqua therapy 12/05/19 - C5-7 ACDF 02/11/20 - foraminectomy L5-S1 Future Testing and Treatments Planned Septoplasty mid-April Treatment Goals Patient/Caregiver Goals Reduce tone in shoulders Improve cervical ROM Increase walking tolerance Prior Functional Status Baseline Function- ADL's Modified Independent Baseline Function- Mobility Modified Independent Baseline Function- Gait ambulates with SPC vs FWW for stairs, inclines, long distance 2/2 R knee pn Baseline Function- Other able to walk from hospital to [facility] with FWW Current Functional Impairments (Reported) Functional Limitations- ADL's needs equipment for showers, no assist Functional Limitations- Mobility/Gait can walk from hospital to [facility] but has increased back pain for days afterward PT-OP-C Subjective Start: 03/11/20 09:17 Freq: Status: Active Protocol: Document 05/18/20 10:23 MA (Rec: 05/18/20 11:00 MA [id number]) OP-PT Subjective Patient Comments Patient Comments Pt reports that engaging glute worked well for helping with knee pain/feeling like her knee is going to give out. She had ultrasound for R arm and they did not find any clots. PT-OP-D Balance Start: 03/11/20 09:17 Freq: Status: Active Protocol: Document 03/18/20 11:15 AW (Rec: 03/18/20 13:00 AW [email or web address]) OP-PT Balance Assessment Sitting Balance Static Sitting Balance Ability Normal Dynamic Sitting Balance Ability Normal Standing Balance Static Standing Balance Ability Good Dynamic Standing Balance Ability Good Balance Tests Single Limb Standing Single Limb- Right 3 sec, 3 sec, 6 sec Single Limb- Left 6 sec, 6 sec, 6 sec Brown Fall Scale Copyright Permission PT-OP-E Functional Tests Start: 03/11/20 09:17 Freq: Status: Active Protocol: Document 03/18/20 11:15 AW (Rec: 03/18/20 13:01 AW [email or web address]) Functional Tests Other SL squat from table Score 25 L; unable R without LOB PT-OP-F Manual Assessment Start: 03/11/20 09:17 Freq: Status: Active Protocol: Document 03/18/20 11:15 AW (Rec: 03/18/20 13:00 AW [email or web address]) Manual Assessments Soft Tissue Assessment Soft Tissue Mobility Assessment Increased density in gluteal musculature RLE PT-OP-H Neuro Start: 03/11/20 09:17 Freq: Status: Active Protocol: Document 03/11/20 10:34 AW (Rec: 03/11/20 17:14 AW [email or web address]) Sensation Evaluation Gross Sensation Gross Sensation Right UE Impaired Sensation Description Numbness Dermatome Impairments C7 Comments Summary Comments Intermittent numbness in right posterior arm. Not reproduced on exam with neck special tests. Deep Tendon Reflex & Clonus Assessment Deep Tendon Reflex Bilateral Tricep Deep Tendon Reflex 1+ Diminished Bilateral Bicep Deep Tendon Reflex 2+ Normal PT-OP-J Posture/Palpation/Skin Start: 03/11/20 09:17 Freq: Status: Active Protocol: Document 03/11/20 10:34 AW (Rec: 03/11/20 17:14 AW [email or web address]) Posture Evaluation Position Standing Evaluation View Lateral Head/C-Spine Posture Extended,Forward Head T-Spine Posture Increased Kyphosis L-Spine Posture Flattened Shoulder Posture (L) Rounded,(R) Rounded Scapula Posture (L) Protracted,(R) Protracted Weight Distribution Weight Shifted Left Ankle/Foot Posture (L) Supinated,(R) Supinated Foot Arch (L) Medium Arch,(R) Medium Arch Palpation Assessment Location lumbar spine Palpation Location paraspinals Palpation Findings Soft Tissue Tightness,Muscle Guarding Palpation Details R more affected than L PT-OP-K Range of Motion Start: 03/11/20 09:17 Freq: Status: Active Protocol: Document 03/11/20 10:34 AW (Rec: 03/11/20 17:14 AW [email or web address]) Cervical Spine Range of Motion Cervical Spine Active Degrees Testing Position Sitting Flexion 50 Extension 30 Rotation Left 45 Rotation Right 50 Lateral Flexion Left 30 Lateral Flexion Right 25 ROM Limitations Soft Tissue Tightness,Pain Lumbar Spine Range of Motion Lumbar Spine Active Testing Position Standing Extension 15 Comments Flexion: fingertips 10 from floor with notable L3 L4 hinge Side bend: fingertips 23 from floor right side, 21 from floor left side Shoulder Goniometric Range of Motion Shoulder Left Active Testing Position Sitting Flexion 156 Extension 40 Abduction 160 Internal Rotation Behind Back (text) T7 Right Active Testing Position Sitting Flexion 160 Extension 40 Abduction 160 Internal Rotation Behind Back (text) T7 Shoulder ROM Limitations Shoulder ROM Limitations Soft Tissue Tightness,Pain Elbow/Forearm Range of Motion Elbow/Forearm Right Active Comments B elbow AROM and PROM WNL Hip Goniometric Range of Motion Hip Right Hip ROM WFL Yes Testing Position Supine Flexion w/Knee Flexed 110 Abduction 40 Comments IR limited; ER WNL Left Hip ROM WFL Yes Testing Position Supine Flexion w/Knee Flexed 110 Abduction 43 Comments IR limited but greater excursion than right Hip ROM Limitations Comments flexion limited by habitus PT-OP-L Special Tests Start: 03/11/20 09:17 Freq: Status: Active Protocol: Document 03/11/20 10:34 AW (Rec: 03/11/20 17:14 AW [email or web address]) Special Tests Cervical Spine Special Tests Slump Test Results negative Spurling's Test Test Results negative bilaterally Lumbar Spine Special Tests Straight Leg Raise Test Results active SLR positive on the right Comments some relief noted with bimanual compression through bilateral ASIS Luis Test Results positive bilaterally Comments increase in hip flexion with knees bent B Slump Test Results vaguely positive R; negative L Comments R side pt reports increased tension but no pain Shoulder Special Tests Somers Endy Impingement Test Results negative bilaterally Drop Arm Rotator Cuff Test Results negative bilaterally Hip Special Tests Scour Test Test Results negative bilaterally PT-OP-M Strength Start: 03/11/20 09:17 Freq: Status: Active Protocol: Document 03/11/20 10:34 AW (Rec: 03/11/20 17:14 AW [email or web address]) Cervical Spine Strength Cervical Spine Manual Muscle Testing Testing Position Sitting Flexion (C1-2) 4+ Good+ Extension 4 Good Rotation Left 4 Good Rotation Right 4 Good Lateral Flexion Left (C3) 4- Good- Lateral Flexion Right (C3) 4- Good- Shoulder Strength Shoulder Manual Muscle Testing Right Flexion 4+ Good+ Extension 4+ Good+ Abduction (C5) 4+ Good+ External Rotation 4+ Good+ Internal Rotation 5 Normal Comments LUE grossly 5/5 Hip Strength Hip Manual Muscle Testing Left Flexion (L2) 4+ Good+ Extension (S1) 4- Good- Abduction 4- Good- External Rotation 4+ Good+ Internal Rotation 5 Normal Right Flexion (L2) 4 Good Extension (S1) 3+ Fair+ Abduction 4- Good- External Rotation 4+ Good+ Internal Rotation 4+ Good+ Knee Strength Knee Manual Muscle Testing Left Flexion (S2) 5 Normal Extension (L3) 4+ Good+ Right Flexion (S2) 5 Normal Extension (L3) 4+ Good+ PT-OP-Q Treatments Start: 03/11/20 09:17 Freq: Status: Active Protocol: Document 05/18/20 10:23 MA (Rec: 05/18/20 11:00 MA [id number]) Therapeutic Exercises Supine Exercises LTR Supine Exercise Name Lower Trunk Rotation Side bilateral Reps/Minutes 8x TrA activation Supine Exercise Name Pelvic tucks & supine marches for TA activatin Reps/Minutes 5 min Sidelying Exercises Open Book Side bilateral Reps/Minutes x8 Gait Training Gait Activity Stairs Description 6 gym stairs Level of Assistance Single hand rail Distance/Duration 2 min Treatment Focus glute emphasis ascending Manual Therapy Treatment Soft Tissue Mobilization 1 Body Location B UT, periscapular mm, LS Mobilization Type Myofascial Release,Strumming, Sustained Pressure Intensity/Depth Moderate Body Position Sidelying PT-OP-R Modalities Start: 03/11/20 09:17 Freq: Status: Active Protocol: Document 04/22/20 10:30 AW (Rec: 04/22/20 12:31 AW [email or web address]) Hot Pack/Cold Pack Treatment Hot Pack Location lumbar & cervical Patient Position Prone Treatment Duration (minutes) 15 Patient Tolerance Good Comments MHP at end of session PT-OP-T Assessment and Plan Start: 03/11/20 09:17 Freq: Status: Active Protocol: Document 05/18/20 10:23 MA (Rec: 05/18/20 11:00 MA [id number]) Physical Therapy Assessment Goals Five Impairment hip strength Short Term Goal (STG) Pt will improve right hip strength equal to left for improved gait quality STG Duration 6 weeks - 04/22/2020 [facility] Goal (LTG) Pt will demonstrate SL squat from 20 surface bilaterally without LOB LTG Duration 12 weeks 06/03/2020 Four Impairment hyperdensity lumbar paraspinals Short Term Goal (STG) Pt will demonstrate reduced tone in lumbar musculature and glutes STG Duration 6 weeks - 04/22/2020 5 Impairment strength Short Term Goal (STG) Improve TrA activation and LE strength by 1/2 grade STG Duration 6 wks [facility] Goal (LTG) Independent with HEP and aquatic exercise program for long-term pain management and fitness. LTG Duration 3 months 4 Impairment ROM Be[employer] Goal (LTG) Improve LE and trunk ROM to WFL with minimal to no pain ( good goal progress) LTG Duration 3 months 3 Impairment cervical ROM Short Term Goal (STG) Pt will improve cervical lateral flexion to 35 degrees or greater bilaterally 04/29/20- IMPROVING- 31 degrees R, 33 degrees L STG Duration 6 weeks - 04/22/2020 [facility] Goal (LTG) Pt will improve cervical rotation to 60 degrees or greater bilaterally for improved ability to turn head while driving. LTG Duration 12 weeks 06/03/2020 2 Impairment posture Short Term Goal (STG) Pt will self-correct cervical and thoracic posture for improvement in pain symptoms 04/29/20- IMPROVING- pt continues to have some pain in CS but is able to self- correct posture STG Duration 6 weeks - 04/22/2020 One Impairment increased density cervical paraspinals and upper traps Short Term Goal (STG) Pt will demonstrate reduced tone in cervical musculature and upper traps STG Duration 6 weeks - 04/22/2020 [employer] Goal (LTG) Pt will score 25/50 or less on NDI to represent improved daily function related to neck pain. LTG Duration 12 weeks 06/03/2020 Assessment Summary Assessment Pt continues to be tight along levator scap. She has good relief after manual work and she has been doing her stretches for levator and UT at home. Pt needed cues to aovid rectus taking over today during TrA work. Pt states her sciatica pain is not completely gone but is much better. It still acts up after I sit too long or over stretch. Reviewed glute activation activity from last session with pt showing good carryover on stairs today. Physical Therapy Plan Frequency and Duration Frequency of Treatment 2x/Week Duration of Treatment 12 weeks Plan of Care Start Date 03/11/20 Plan of Care End Date 06/03/20 Therapeutic Interventions Therapeutic Interventions Home Exercise Program,Joint Mobilizations,Manual Therapy, Neuromuscular Re-education, Patient/Caregiver Education, Self-Care/Home Management,Soft Tissue Mobilization,Taping, Therapeutic Activities, Therapeutic Exercises Modalities Cold Pack/Ice Massage,Electric Stimulation,Hot Packs Next Visit Focus/Plan Next Note Type Treatment Note Next Visit Plan Continue patient education for back protection, posture and body mechanics. STM to lumbar and cervical spine, progress cervical strengthening and core exercises as needed.
--- NOTE | 2020-05-20 12:50 | PT.OTN ---
Current Diagnoses Abnormal posture (05/20/20) Strain of muscle, fascia and tendon at neck level, subsequent encounter (05/20/20) Strain of muscle, fascia and tendon of lower back, subsequent encounter (05/20/20) Arthrodesis status (05/20/20) Physical Therapy Treatment Note PT-OP-A Visit Information Start: 03/11/20 09:17 Freq: Status: Active Protocol: Document 05/20/20 12:12 MA (Rec: 05/20/20 12:49 MA [id number]) Out-Patient Physical Therapy Visit Information Visit Information Visit Type Treatment Note Visit Start Time 12:00 Visit Stop Time 12:45 Total Visit Minutes 45 Visit Number 19 Number of GLOBE CHANGER Visits 2 PT-OP-B Current Condition Start: 03/11/20 09:17 Freq: Status: Active Protocol: Document 03/11/20 10:34 AW (Rec: 03/11/20 11:19 AW [id number]) Current Condition History of Current Condition Onset Date 15 years Current Complaints neck and right shoulder pain, low back pain with recent surgeries History of Current Condition Pt with history of fibromyalgia has long standing neck and low back pain. Symptoms improved after recent surgeries but pt continues to have pain especially if she overdoes it. Overall, her right side is worse than her left. She is currently walking ~1/16 mi with incline but can typically do 1/8 mile when feeling well. Prior Treatments and Tests late s - cervical discectomy aqua therapy 12/05/19 - C5-7 ACDF 02/11/20 - foraminectomy L5-S1 Future Testing and Treatments Planned Septoplasty mid-April Treatment Goals Patient/Caregiver Goals Reduce tone in shoulders Improve cervical ROM Increase walking tolerance Prior Functional Status Baseline Function- ADL's Modified Independent Baseline Function- Mobility Modified Independent Baseline Function- Gait ambulates with SPC vs FWW for stairs, inclines, long distance 2/2 R knee pn Baseline Function- Other able to walk from hospital to [facility] with FWW Current Functional Impairments (Reported) Functional Limitations- ADL's needs equipment for showers, no assist Functional Limitations- Mobility/Gait can walk from hospital to [facility] but has increased back pain for days afterward PT-OP-C Subjective Start: 03/11/20 09:17 Freq: Status: Active Protocol: Document 05/20/20 12:12 MA (Rec: 05/20/20 12:49 MA [id number]) OP-PT Subjective Patient Comments Patient Comments [place] Highschool has shut back down due to new covid strain. She requests waiting a few weeks before coming back. PT-OP-D Balance Start: 03/11/20 09:17 Freq: Status: Active Protocol: Document 03/18/20 11:15 AW (Rec: 03/18/20 13:00 AW [email or web address]) OP-PT Balance Assessment Sitting Balance Static Sitting Balance Ability Normal Dynamic Sitting Balance Ability Normal Standing Balance Static Standing Balance Ability Good Dynamic Standing Balance Ability Good Balance Tests Single Limb Standing Single Limb- Right 3 sec, 3 sec, 6 sec Single Limb- Left 6 sec, 6 sec, 6 sec Brown Fall Scale Copyright Permission PT-OP-E Functional Tests Start: 03/11/20 09:17 Freq: Status: Active Protocol: Document 03/18/20 11:15 AW (Rec: 03/18/20 13:01 AW [email or web address]) Functional Tests Other SL squat from table Score 25 L; unable R without LOB PT-OP-F Manual Assessment Start: 03/11/20 09:17 Freq: Status: Active Protocol: Document 03/18/20 11:15 AW (Rec: 03/18/20 13:00 AW [email or web address]) Manual Assessments Soft Tissue Assessment Soft Tissue Mobility Assessment Increased density in gluteal musculature RLE PT-OP-H Neuro Start: 03/11/20 09:17 Freq: Status: Active Protocol: Document 03/11/20 10:34 AW (Rec: 03/11/20 17:14 AW [email or web address]) Sensation Evaluation Gross Sensation Gross Sensation Right UE Impaired Sensation Description Numbness Dermatome Impairments C7 Comments Summary Comments Intermittent numbness in right posterior arm. Not reproduced on exam with neck special tests. Deep Tendon Reflex & Clonus Assessment Deep Tendon Reflex Bilateral Tricep Deep Tendon Reflex 1+ Diminished Bilateral Bicep Deep Tendon Reflex 2+ Normal PT-OP-J Posture/Palpation/Skin Start: 03/11/20 09:17 Freq: Status: Active Protocol: Document 03/11/20 10:34 AW (Rec: 03/11/20 17:14 AW [email or web address]) Posture Evaluation Position Standing Evaluation View Lateral Head/C-Spine Posture Extended,Forward Head T-Spine Posture Increased Kyphosis L-Spine Posture Flattened Shoulder Posture (L) Rounded,(R) Rounded Scapula Posture (L) Protracted,(R) Protracted Weight Distribution Weight Shifted Left Ankle/Foot Posture (L) Supinated,(R) Supinated Foot Arch (L) Medium Arch,(R) Medium Arch Palpation Assessment Location lumbar spine Palpation Location paraspinals Palpation Findings Soft Tissue Tightness,Muscle Guarding Palpation Details R more affected than L PT-OP-K Range of Motion Start: 03/11/20 09:17 Freq: Status: Active Protocol: Document 03/11/20 10:34 AW (Rec: 03/11/20 17:14 AW [email or web address]) Cervical Spine Range of Motion Cervical Spine Active Degrees Testing Position Sitting Flexion 50 Extension 30 Rotation Left 45 Rotation Right 50 Lateral Flexion Left 30 Lateral Flexion Right 25 ROM Limitations Soft Tissue Tightness,Pain Lumbar Spine Range of Motion Lumbar Spine Active Testing Position Standing Extension 15 Comments Flexion: fingertips 10 from floor with notable L3 L4 hinge Side bend: fingertips 23 from floor right side, 21 from floor left side Shoulder Goniometric Range of Motion Shoulder Left Active Testing Position Sitting Flexion 156 Extension 40 Abduction 160 Internal Rotation Behind Back (text) T7 Right Active Testing Position Sitting Flexion 160 Extension 40 Abduction 160 Internal Rotation Behind Back (text) T7 Shoulder ROM Limitations Shoulder ROM Limitations Soft Tissue Tightness,Pain Elbow/Forearm Range of Motion Elbow/Forearm Right Active Comments B elbow AROM and PROM WNL Hip Goniometric Range of Motion Hip Right Hip ROM WFL Yes Testing Position Supine Flexion w/Knee Flexed 110 Abduction 40 Comments IR limited; ER WNL Left Hip ROM WFL Yes Testing Position Supine Flexion w/Knee Flexed 110 Abduction 43 Comments IR limited but greater excursion than right Hip ROM Limitations Comments flexion limited by habitus PT-OP-L Special Tests Start: 03/11/20 09:17 Freq: Status: Active Protocol: Document 03/11/20 10:34 AW (Rec: 03/11/20 17:14 AW [email or web address]) Special Tests Cervical Spine Special Tests Slump Test Results negative Spurling's Test Test Results negative bilaterally Lumbar Spine Special Tests Straight Leg Raise Test Results active SLR positive on the right Comments some relief noted with bimanual compression through bilateral ASIS Luis Test Results positive bilaterally Comments increase in hip flexion with knees bent B Slump Test Results vaguely positive R; negative L Comments R side pt reports increased tension but no pain Shoulder Special Tests Somers Endy Impingement Test Results negative bilaterally Drop Arm Rotator Cuff Test Results negative bilaterally Hip Special Tests Scour Test Test Results negative bilaterally PT-OP-M Strength Start: 03/11/20 09:17 Freq: Status: Active Protocol: Document 03/11/20 10:34 AW (Rec: 03/11/20 17:14 AW [email or web address]) Cervical Spine Strength Cervical Spine Manual Muscle Testing Testing Position Sitting Flexion (C1-2) 4+ Good+ Extension 4 Good Rotation Left 4 Good Rotation Right 4 Good Lateral Flexion Left (C3) 4- Good- Lateral Flexion Right (C3) 4- Good- Shoulder Strength Shoulder Manual Muscle Testing Right Flexion 4+ Good+ Extension 4+ Good+ Abduction (C5) 4+ Good+ External Rotation 4+ Good+ Internal Rotation 5 Normal Comments LUE grossly 5/5 Hip Strength Hip Manual Muscle Testing Left Flexion (L2) 4+ Good+ Extension (S1) 4- Good- Abduction 4- Good- External Rotation 4+ Good+ Internal Rotation 5 Normal Right Flexion (L2) 4 Good Extension (S1) 3+ Fair+ Abduction 4- Good- External Rotation 4+ Good+ Internal Rotation 4+ Good+ Knee Strength Knee Manual Muscle Testing Left Flexion (S2) 5 Normal Extension (L3) 4+ Good+ Right Flexion (S2) 5 Normal Extension (L3) 4+ Good+ PT-OP-Q Treatments Start: 03/11/20 09:17 Freq: Status: Active Protocol: Document 05/20/20 12:12 MA (Rec: 05/20/20 12:49 MA [id number]) Therapeutic Exercises Supine Exercises chin tuck Side bilateral Reps/Minutes 5 sec hold x 8 LTR Supine Exercise Name Lower Trunk Rotation Side bilateral Reps/Minutes 8x TrA activation Supine Exercise Name Pelvic tucks & supine marches for TA activatin Reps/Minutes 5 min Comments d/c marches due to side cramps Sidelying Exercises Open Book Side bilateral Reps/Minutes x8 Sitting Exercises Chin Tucks Sitting Exercise Name Chin tuck Equipment Used Ball behind head Reps/Minutes 5x Comments holding for 5 sec-HEP Standing Exercises paloff press Standing Exercise Name paloff press Side bilateral Resistance level 1 Equipment Used TB Comments postural cues Manual Therapy Treatment Soft Tissue Mobilization 1 Body Location B UT, periscapular mm, LS Mobilization Type Myofascial Release,Strumming, Sustained Pressure Intensity/Depth Moderate Body Position Sidelying Self-Care/Home Management Treatment Education Other Education Discussed best options for pt with her anxiety about covid. Pt will [place] down [place] 1x/wk [place] will [place] up to twice a [place] PT-OP-R Modalities Start: 03/11/20 09:17 Freq: Status: Active Protocol: Document 04/22/20 10:30 AW (Rec: 04/22/20 12:31 AW [email or web address]) Hot Pack/Cold Pack Treatment Hot Pack Location lumbar & cervical Patient Position Prone Treatment Duration (minutes) 15 Patient Tolerance Good Comments MHP at end of session PT-OP-T Assessment and Plan Start: 03/11/20 09:17 Freq: Status: Active Protocol: Document 05/20/20 12:12 MA (Rec: 05/20/20 12:49 MA [id number]) Physical Therapy Assessment Goals Five Impairment hip strength Short Term Goal (STG) Pt will improve right hip strength equal to left for improved gait quality STG Duration 6 weeks - 04/22/2020 [facility] Goal (LTG) Pt will demonstrate SL squat from 20 surface bilaterally without LOB LTG Duration 12 weeks 06/03/2020 Four Impairment hyperdensity lumbar paraspinals Short Term Goal (STG) Pt will demonstrate reduced tone in lumbar musculature and glutes STG Duration 6 weeks - 04/22/2020 5 Impairment strength Short Term Goal (STG) Improve TrA activation and LE strength by 1/2 grade STG Duration 6 wks [facility] Goal (LTG) Independent with HEP and aquatic exercise program for long-term pain management and fitness. LTG Duration 3 months 4 Impairment ROM [facility] Goal (LTG) Improve LE and trunk ROM to WFL with minimal to no pain ( good goal progress) LTG Duration 3 months 3 Impairment cervical ROM Short Term Goal (STG) Pt will improve cervical lateral flexion to 35 degrees or greater bilaterally 04/29/20- IMPROVING- 31 degrees R, 33 degrees L STG Duration 6 weeks - 04/22/2020 [employer] Goal (LTG) Pt will improve cervical rotation to 60 degrees or greater bilaterally for improved ability to turn head while driving. LTG Duration 12 weeks 06/03/2020 2 Impairment posture Short Term Goal (STG) Pt will self-correct cervical and thoracic posture for improvement in pain symptoms 04/29/20- IMPROVING- pt continues to have some pain in CS but is able to self- correct posture STG Duration 6 weeks - 04/22/2020 One Impairment increased density cervical paraspinals and upper traps Short Term Goal (STG) Pt will demonstrate reduced tone in cervical musculature and upper traps STG Duration 6 weeks - 04/22/2020 [facility] Goal (LTG) Pt will score 25/50 or less on NDI to represent improved daily function related to neck pain. LTG Duration 12 weeks 06/03/2020 Assessment Summary Assessment Pt is going to drop to one time a week due [place] worries [place]. Her L shoulder has been bothering her more and she is tenser today, likely due to increased stress with family life. Pt has some relief after STM and feels better about everything after deciding to drop down to once per week. Physical Therapy Plan Frequency and Duration Frequency of Treatment 2x/Week Duration of Treatment 12 weeks Plan of Care Start Date 03/11/20 Plan of Care End Date 06/03/20 Therapeutic Interventions Therapeutic Interventions Home Exercise Program,Joint Mobilizations,Manual Therapy, Neuromuscular Re-education, Patient/Caregiver Education, Self-Care/Home Management,Soft Tissue Mobilization,Taping, Therapeutic Activities, Therapeutic Exercises Modalities Cold Pack/Ice Massage,Electric Stimulation,Hot Packs Next Visit Focus/Plan Next Note Type Treatment Note Next Visit Plan Re-evaluate/ update POC for pt next session in case she chooses to quarantine for two weeks. Continue patient education for back protection, posture and body mechanics. STM to lumbar and cervical spine, progress cervical strengthening and core exercises as needed.
--- NOTE | 2020-05-27 12:21 | PT.OTN ---
Current Diagnoses Abnormal posture (05/27/20) Strain of muscle, fascia and tendon at neck level, subsequent encounter (05/27/20) Strain of muscle, fascia and tendon of lower back, subsequent encounter (05/27/20) Arthrodesis status (05/27/20) Physical Therapy Treatment Note PT-OP-A Visit Information Start: 03/11/20 09:17 Freq: Status: Active Protocol: Document 05/27/20 12:00 AW (Rec: 05/27/20 12:20 AW [id number]) Out-Patient Physical Therapy Visit Information Visit Information Visit Type Progress Note Visit Start Time 11:15 Visit Stop Time 12:00 Total Visit Minutes 45 Visit Number 20 Number of MECHANICAL DESIGN TECHNICIAN Visits 0 Evaluation Information Evaluation Date 03/11/20 PT-OP-B Current Condition Start: 03/11/20 09:17 Freq: Status: Active Protocol: Document 03/11/20 10:34 AW (Rec: 03/11/20 11:19 AW [id number]) Current Condition History of Current Condition Onset Date 15 years Current Complaints neck and right shoulder pain, low back pain with recent surgeries History of Current Condition Pt with history of fibromyalgia has long standing neck and low back pain. Symptoms improved after recent surgeries but pt continues to have pain especially if she overdoes it. Overall, her right side is worse than her left. She is currently walking ~1/16 mi with incline but can typically do 1/8 mile when feeling well. Prior Treatments and Tests late s - cervical discectomy aqua therapy 12/05/19 - C5-7 ACDF 02/11/20 - foraminectomy L5-S1 Future Testing and Treatments Planned Septoplasty mid-April Treatment Goals Patient/Caregiver Goals Reduce tone in shoulders Improve cervical ROM Increase walking tolerance Prior Functional Status Baseline Function- ADL's Modified Independent Baseline Function- Mobility Modified Independent Baseline Function- Gait ambulates with SPC vs FWW for stairs, inclines, long distance 2/2 R knee pn Baseline Function- Other able to walk from hospital to [facility] with FWW Current Functional Impairments (Reported) Functional Limitations- ADL's needs equipment for showers, no assist Functional Limitations- Mobility/Gait can walk from hospital to [facility] but has increased back pain for days afterward PT-OP-C Subjective Start: 03/11/20 09:17 Freq: Status: Active Protocol: Document 05/27/20 12:00 AW (Rec: 05/27/20 12:20 AW [id number]) OP-PT Subjective Patient Comments Patient Comments Pt seeks PT opinion on reducing visits during [facility] COVID outbreak. Patient Questionnaires Neck Disability Index NDI Score 30/45 Neck Disability Index Impairment 60 to 79% Impaired (Score 30- 39) PT-OP-D Balance Start: 03/11/20 09:17 Freq: Status: Active Protocol: Document 03/18/20 11:15 AW (Rec: 03/18/20 13:00 AW [email or web address]) OP-PT Balance Assessment Sitting Balance Static Sitting Balance Ability Normal Dynamic Sitting Balance Ability Normal Standing Balance Static Standing Balance Ability Good Dynamic Standing Balance Ability Good Balance Tests Single Limb Standing Single Limb- Right 3 sec, 3 sec, 6 sec Single Limb- Left 6 sec, 6 sec, 6 sec Brown Fall Scale Copyright Permission PT-OP-E Functional Tests Start: 03/11/20 09:17 Freq: Status: Active Protocol: Document 03/18/20 11:15 AW (Rec: 03/18/20 13:01 AW [email or web address]) Functional Tests Other SL squat from table Score 25 L; unable R without LOB PT-OP-F Manual Assessment Start: 03/11/20 09:17 Freq: Status: Active Protocol: Document 03/18/20 11:15 AW (Rec: 03/18/20 13:00 AW [email or web address]) Manual Assessments Soft Tissue Assessment Soft Tissue Mobility Assessment Increased density in gluteal musculature RLE PT-OP-H Neuro Start: 03/11/20 09:17 Freq: Status: Active Protocol: Document 03/11/20 10:34 AW (Rec: 03/11/20 17:14 AW [email or web address]) Sensation Evaluation Gross Sensation Gross Sensation Right UE Impaired Sensation Description Numbness Dermatome Impairments C7 Comments Summary Comments Intermittent numbness in right posterior arm. Not reproduced on exam with neck special tests. Deep Tendon Reflex & Clonus Assessment Deep Tendon Reflex Bilateral Tricep Deep Tendon Reflex 1+ Diminished Bilateral Bicep Deep Tendon Reflex 2+ Normal PT-OP-J Posture/Palpation/Skin Start: 03/11/20 09:17 Freq: Status: Active Protocol: Document 03/11/20 10:34 AW (Rec: 03/11/20 17:14 AW [email or web address]) Posture Evaluation Position Standing Evaluation View Lateral Head/C-Spine Posture Extended,Forward Head T-Spine Posture Increased Kyphosis L-Spine Posture Flattened Shoulder Posture (L) Rounded,(R) Rounded Scapula Posture (L) Protracted,(R) Protracted Weight Distribution Weight Shifted Left Ankle/Foot Posture (L) Supinated,(R) Supinated Foot Arch (L) Medium Arch,(R) Medium Arch Palpation Assessment Location lumbar spine Palpation Location paraspinals Palpation Findings Soft Tissue Tightness,Muscle Guarding Palpation Details R more affected than L PT-OP-K Range of Motion Start: 03/11/20 09:17 Freq: Status: Active Protocol: Document 03/11/20 10:34 AW (Rec: 03/11/20 17:14 AW [email or web address]) Cervical Spine Range of Motion Cervical Spine Active Degrees Testing Position Sitting Flexion 50 Extension 30 Rotation Left 45 Rotation Right 50 Lateral Flexion Left 30 Lateral Flexion Right 25 ROM Limitations Soft Tissue Tightness,Pain Lumbar Spine Range of Motion Lumbar Spine Active Testing Position Standing Extension 15 Comments Flexion: fingertips 10 from floor with notable L3 L4 hinge Side bend: fingertips 23 from floor right side, 21 from floor left side Shoulder Goniometric Range of Motion Shoulder Left Active Testing Position Sitting Flexion 156 Extension 40 Abduction 160 Internal Rotation Behind Back (text) T7 Right Active Testing Position Sitting Flexion 160 Extension 40 Abduction 160 Internal Rotation Behind Back (text) T7 Shoulder ROM Limitations Shoulder ROM Limitations Soft Tissue Tightness,Pain Elbow/Forearm Range of Motion Elbow/Forearm Right Active Comments B elbow AROM and PROM WNL Hip Goniometric Range of Motion Hip Right Hip ROM WFL Yes Testing Position Supine Flexion w/Knee Flexed 110 Abduction 40 Comments IR limited; ER WNL Left Hip ROM WFL Yes Testing Position Supine Flexion w/Knee Flexed 110 Abduction 43 Comments IR limited but greater excursion than right Hip ROM Limitations Comments flexion limited by habitus PT-OP-L Special Tests Start: 03/11/20 09:17 Freq: Status: Active Protocol: Document 03/11/20 10:34 AW (Rec: 03/11/20 17:14 AW [email or web address]) Special Tests Cervical Spine Special Tests Slump Test Results negative Spurling's Test Test Results negative bilaterally Lumbar Spine Special Tests Straight Leg Raise Test Results active SLR positive on the right Comments some relief noted with bimanual compression through bilateral ASIS Luis Test Results positive bilaterally Comments increase in hip flexion with knees bent B Slump Test Results vaguely positive R; negative L Comments R side pt reports increased tension but no pain Shoulder Special Tests Somers Endy Impingement Test Results negative bilaterally Drop Arm Rotator Cuff Test Results negative bilaterally Hip Special Tests Scour Test Test Results negative bilaterally PT-OP-M Strength Start: 03/11/20 09:17 Freq: Status: Active Protocol: Document 03/11/20 10:34 AW (Rec: 03/11/20 17:14 AW [email or web address]) Cervical Spine Strength Cervical Spine Manual Muscle Testing Testing Position Sitting Flexion (C1-2) 4+ Good+ Extension 4 Good Rotation Left 4 Good Rotation Right 4 Good Lateral Flexion Left (C3) 4- Good- Lateral Flexion Right (C3) 4- Good- Shoulder Strength Shoulder Manual Muscle Testing Right Flexion 4+ Good+ Extension 4+ Good+ Abduction (C5) 4+ Good+ External Rotation 4+ Good+ Internal Rotation 5 Normal Comments LUE grossly 5/5 Hip Strength Hip Manual Muscle Testing Left Flexion (L2) 4+ Good+ Extension (S1) 4- Good- Abduction 4- Good- External Rotation 4+ Good+ Internal Rotation 5 Normal Right Flexion (L2) 4 Good Extension (S1) 3+ Fair+ Abduction 4- Good- External Rotation 4+ Good+ Internal Rotation 4+ Good+ Knee Strength Knee Manual Muscle Testing Left Flexion (S2) 5 Normal Extension (L3) 4+ Good+ Right Flexion (S2) 5 Normal Extension (L3) 4+ Good+ PT-OP-Q Treatments Start: 03/11/20 09:17 Freq: Status: Active Protocol: Document 05/27/20 12:00 AW (Rec: 05/27/20 12:20 AW [id number]) Therapeutic Exercises Supine Exercises LTR Supine Exercise Name Lower Trunk Rotation Side bilateral Reps/Minutes 8x Manual Therapy Treatment Soft Tissue Mobilization 2 Body Location reji lumbar paraspinals Mobilization Type Myofascial Release Intensity/Depth Moderate Body Position Sidelying Comments 15 min PT-OP-R Modalities Start: 03/11/20 09:17 Freq: Status: Active Protocol: Document 04/22/20 10:30 AW (Rec: 04/22/20 12:31 AW [email or web address]) Hot Pack/Cold Pack Treatment Hot Pack Location lumbar & cervical Patient Position Prone Treatment Duration (minutes) 15 Patient Tolerance Good Comments MHP at end of session PT-OP-T Assessment and Plan Start: 03/11/20 09:17 Freq: Status: Active Protocol: Document 05/27/20 12:00 AW (Rec: 05/27/20 12:20 AW [id number]) Physical Therapy Assessment Goals Five Impairment hip strength Short Term Goal (STG) Pt will improve right hip strength equal to left for improved gait quality 05/27/20 - Progressing but R side painful groin STG Duration 6 weeks - 04/22/2020 Heavy Equipment Rental Manager Goal (LTG) Pt will demonstrate SL squat from 20 surface bilaterally without LOB 05/27/20 - Best performance from 23 LTG Duration 3 months - 09/02/20 Four Impairment hyperdensity lumbar paraspinals Short Term Goal (STG) Pt will demonstrate reduced tone in lumbar musculature and glutes 05/27/20 - PROGRESSING STG Duration 6 weeks - 04/22/2020 5 Impairment strength Short Term Goal (STG) Improve TrA activation and LE strength by 1/2 grade 05/27/20 MET STG Duration 6 wks Custodial Goal (LTG) Independent with HEP and aquatic exercise program for long-term pain management and fitness. 05/27/20 - Wait list for aquatic LTG Duration 3 months - 09/02/20 4 Impairment ROM Heavy Equipment Rental Manager Goal (LTG) Improve LE and trunk ROM to WFL with minimal to no pain ( good goal progress) LTG Duration 3 months - 09/02/20 3 Impairment cervical ROM Short Term Goal (STG) Pt will improve cervical lateral flexion to 35 degrees or greater bilaterally 05/27/20 - PROGRESSING 26 (R) and 28 (L) 04/29/20- IMPROVING- 31 degrees R, 33 degrees L STG Duration 6 weeks - 04/22/2020 Custodial Goal (LTG) Pt will improve cervical rotation to 60 degrees or greater bilaterally for improved ability to turn head while driving. 05/27/20 - B 50 deg LTG Duration 3 months - 09/02/20 2 Impairment posture Short Term Goal (STG) Pt will self-correct cervical and thoracic posture for improvement in pain symptoms 04/29/20- IMPROVING- pt continues to have some pain in CS but is able to self- correct posture STG Duration 6 weeks - 04/22/2020 One Impairment increased density cervical paraspinals and upper traps Short Term Goal (STG) Pt will demonstrate reduced tone in cervical musculature and upper traps PROGRESSING STG Duration 6 weeks - 04/22/2020 Heavy Equipment Rental Manager Goal (LTG) Pt will score 25/50 or less on NDI to represent improved daily function related to neck pain. 05/27/20 - Pt scores 75% disability. Revisiting earlier score, pt actually scored 60% disability. New goal: Pt scores 40% or less on NDI. LTG Duration 3 months - 09/02/20 Progress Towards Goals Progress Towards Goals Progressing Toward Goals,Slow Progress - Other Progress Comments Pt showing slow improvement in objective measures but quality of movement has improved significantly with less hesitation to initiate and improved gait mechanics overall. Activity tolerance is also improving. Pt would benefit from continued therapy to continue progressing toward her goals. Assessment Summary Assessment Pt has concerns about traveling by [facility] to appointment in the midst of current [facility] COVID numbers. She plans to temporarily reduce visits to once every other week and then to ramp back up as cases hopefully drop in number. Physical Therapy Plan Frequency and Duration Frequency of Treatment 1-2 x /week Duration of Treatment 3 months Plan of Care Start Date 06/03/20 Plan of Care End Date 09/02/20 Therapeutic Interventions Therapeutic Interventions Home Exercise Program,Joint Mobilizations,Manual Therapy, Neuromuscular Re-education, Patient/Caregiver Education, Self-Care/Home Management,Soft Tissue Mobilization,Taping, Therapeutic Activities, Therapeutic Exercises Modalities Cold Pack/Ice Massage,Electric Stimulation,Hot Packs Next Visit Focus/Plan Next Note Type Treatment Note Next Visit Plan Continue patient education for back protection, posture and body mechanics. STM to lumbar and cervical spine, progress cervical strengthening and core exercises as needed.
--- NOTE | 2020-05-27 12:21 | PT.OPPOC ---
Physical, Occupational & Speech Therapy At [facility] Current Diagnoses Abnormal posture (05/27/20) Strain of muscle, fascia and tendon at neck level, subsequent encounter (05/27/20) Strain of muscle, fascia and tendon of lower back, subsequent encounter (05/27/20) Arthrodesis status (05/27/20) Visit Care Team Role Provider Type Benson Perez MD Family Provider Physician Primary Care Provider Specialty: Internal Medicine Address: [address] [place] [address], [address], [address] Email: [email or web address] Ulysses Levi MD Attending Provider Physician Referring Provider Specialty: Orthopedic Surgery Address: [address] [place] [address], [id number] Email: [email or web address] Plan Of Care PT-OP-T Assessment and Plan Start: 03/11/20 09:17 Freq: Status: Active Protocol: Document 05/27/20 12:00 AW (Rec: 05/27/20 12:20 AW [id number]) Physical Therapy Assessment Goals Five Impairment hip strength Short Term Goal (STG) Pt will improve right hip strength equal to left for improved gait quality 05/27/20 - Progressing but R side painful groin STG Duration 6 weeks - 04/22/2020 Fence Rider Goal (LTG) Pt will demonstrate SL squat from 20 surface bilaterally without LOB 05/27/20 - Best performance from 23 LTG Duration 3 months - 09/02/20 Four Impairment hyperdensity lumbar paraspinals Short Term Goal (STG) Pt will demonstrate reduced tone in lumbar musculature and glutes 05/27/20 - PROGRESSING STG Duration 6 weeks - 04/22/2020 5 Impairment strength Short Term Goal (STG) Improve TrA activation and LE strength by 1/2 grade 05/27/20 MET STG Duration 6 wks Longterm Goal (LTG) Independent with HEP and aquatic exercise program for long-term pain management and fitness. 05/27/20 - Wait list for aquatic LTG Duration 3 months - 09/02/20 4 Impairment ROM Longterm Goal (LTG) Improve LE and trunk ROM to WFL with minimal to no pain ( good goal progress) LTG Duration 3 months - 09/02/20 3 Impairment cervical ROM Short Term Goal (STG) Pt will improve cervical lateral flexion to 35 degrees or greater bilaterally 05/27/20 - PROGRESSING 26 (R) and 28 (L) 04/29/20- IMPROVING- 31 degrees R, 33 degrees L STG Duration 6 weeks - 04/22/2020 Longterm Goal (LTG) Pt will improve cervical rotation to 60 degrees or greater bilaterally for improved ability to turn head while driving. 05/27/20 - B 50 deg LTG Duration 3 months - 09/02/20 2 Impairment posture Short Term Goal (STG) Pt will self-correct cervical and thoracic posture for improvement in pain symptoms 04/29/20- IMPROVING- pt continues to have some pain in CS but is able to self- correct posture STG Duration 6 weeks - 04/22/2020 One Impairment increased density cervical paraspinals and upper traps Short Term Goal (STG) Pt will demonstrate reduced tone in cervical musculature and upper traps PROGRESSING STG Duration 6 weeks - 04/22/2020 Longterm Goal (LTG) Pt will score 25/50 or less on NDI to represent improved daily function related to neck pain. 05/27/20 - Pt scores 75% disability. Revisiting earlier score, pt actually scored 60% disability. New goal: Pt scores 40% or less on NDI. LTG Duration 3 months - 09/02/20 Progress Towards Goals Progress Towards Goals Progressing Toward Goals,Slow Progress - Other Progress Comments Pt showing slow improvement in objective measures but quality of movement has improved significantly with less hesitation to initiate and improved gait mechanics overall. Activity tolerance is also improving. Pt would benefit from continued therapy to continue progressing toward her goals. Assessment Summary Assessment Pt has concerns about traveling by [place] to appointment in the midst of current [facility] COVID numbers. She plans to temporarily reduce visits to once every other week and then to ramp back up as cases hopefully drop in number. Physical Therapy Plan Frequency and Duration Frequency of Treatment 1-2 x /week Duration of Treatment 3 months Plan of Care Start Date 06/03/20 Plan of Care End Date 09/02/20 Therapeutic Interventions Therapeutic Interventions Home Exercise Program,Joint Mobilizations,Manual Therapy, Neuromuscular Re-education, Patient/Caregiver Education, Self-Care/Home Management,Soft Tissue Mobilization,Taping, Therapeutic Activities, Therapeutic Exercises Modalities Cold Pack/Ice Massage,Electric Stimulation,Hot Packs Next Visit Focus/Plan Next Note Type Treatment Note Next Visit Plan Continue patient education for back protection, posture and body mechanics. STM to lumbar and cervical spine, progress cervical strengthening and core exercises as needed. Plan of Care Dates Plan of Care Start Date 06/03/20 Plan of Care End Date 09/02/20 Electronically Signed by: Karon Dean, PT 05/27/20 1748 Please Sign and Return: I have reviewed this Plan of Care and certify that the skilled therapy services above are required to meet the patient?s needs. Physician Signature Date Printed Name and Credentials Clinical Instructor Signature Printed Name and Credentials
--- NOTE | 2020-06-17 12:50 | PT.OTN ---
Current Diagnoses Abnormal posture (06/17/20) Strain of muscle, fascia and tendon at neck level, subsequent encounter (06/17/20) Strain of muscle, fascia and tendon of lower back, subsequent encounter (06/17/20) Arthrodesis status (06/17/20) Physical Therapy Treatment Note PT-OP-A Visit Information Start: 03/11/20 09:17 Freq: Status: Active Protocol: Document 06/17/20 10:21 MA (Rec: 06/17/20 11:02 MA [id number]) Out-Patient Physical Therapy Visit Information Visit Information Visit Type Treatment Note Visit Start Time 10:17 Visit Stop Time 11:00 Total Visit Minutes 43 Visit Number 21 Number of FIRE CONTROL ASSISTANT Visits 1 PT-OP-B Current Condition Start: 03/11/20 09:17 Freq: Status: Active Protocol: Document 03/11/20 10:34 AW (Rec: 03/11/20 11:19 AW [id number]) Current Condition History of Current Condition Onset Date 15 years Current Complaints neck and right shoulder pain, low back pain with recent surgeries History of Current Condition Pt with history of fibromyalgia has long standing neck and low back pain. Symptoms improved after recent surgeries but pt continues to have pain especially if she overdoes it. Overall, her right side is worse than her left. She is currently walking ~1/16 mi with incline but can typically do 1/8 mile when feeling well. Prior Treatments and Tests late s - cervical discectomy aqua therapy 12/05/19 - C5-7 ACDF 02/11/20 - foraminectomy L5-S1 Future Testing and Treatments Planned Septoplasty mid-April Treatment Goals Patient/Caregiver Goals Reduce tone in shoulders Improve cervical ROM Increase walking tolerance Prior Functional Status Baseline Function- ADL's Modified Independent Baseline Function- Mobility Modified Independent Baseline Function- Gait ambulates with SPC vs FWW for stairs, inclines, long distance 2/2 R knee pn Baseline Function- Other able to walk from hospital to [facility] with FWW Current Functional Impairments (Reported) Functional Limitations- ADL's needs equipment for showers, no assist Functional Limitations- Mobility/Gait can walk from hospital to [facility] but has increased back pain for days afterward PT-OP-C Subjective Start: 03/11/20 09:17 Freq: Status: Active Protocol: Document 06/17/20 10:21 MA (Rec: 06/17/20 11:02 MA [id number]) OP-PT Subjective Patient Comments Patient Comments Pt has been having pain on her posterior illiac crest PT-OP-D Balance Start: 03/11/20 09:17 Freq: Status: Active Protocol: Document 03/18/20 11:15 AW (Rec: 03/18/20 13:00 AW [email or web address]) OP-PT Balance Assessment Sitting Balance Static Sitting Balance Ability Normal Dynamic Sitting Balance Ability Normal Standing Balance Static Standing Balance Ability Good Dynamic Standing Balance Ability Good Balance Tests Single Limb Standing Single Limb- Right 3 sec, 3 sec, 6 sec Single Limb- Left 6 sec, 6 sec, 6 sec Brown Fall Scale Copyright Permission PT-OP-E Functional Tests Start: 03/11/20 09:17 Freq: Status: Active Protocol: Document 03/18/20 11:15 AW (Rec: 03/18/20 13:01 AW [email or web address]) Functional Tests Other SL squat from table Score 25 L; unable R without LOB PT-OP-F Manual Assessment Start: 03/11/20 09:17 Freq: Status: Active Protocol: Document 03/18/20 11:15 AW (Rec: 03/18/20 13:00 AW [email or web address]) Manual Assessments Soft Tissue Assessment Soft Tissue Mobility Assessment Increased density in gluteal musculature RLE PT-OP-H Neuro Start: 03/11/20 09:17 Freq: Status: Active Protocol: Document 03/11/20 10:34 AW (Rec: 03/11/20 17:14 AW [email or web address]) Sensation Evaluation Gross Sensation Gross Sensation Right UE Impaired Sensation Description Numbness Dermatome Impairments C7 Comments Summary Comments Intermittent numbness in right posterior arm. Not reproduced on exam with neck special tests. Deep Tendon Reflex & Clonus Assessment Deep Tendon Reflex Bilateral Tricep Deep Tendon Reflex 1+ Diminished Bilateral Bicep Deep Tendon Reflex 2+ Normal PT-OP-J Posture/Palpation/Skin Start: 03/11/20 09:17 Freq: Status: Active Protocol: Document 03/11/20 10:34 AW (Rec: 03/11/20 17:14 AW [email or web address]) Posture Evaluation Position Standing Evaluation View Lateral Head/C-Spine Posture Extended,Forward Head T-Spine Posture Increased Kyphosis L-Spine Posture Flattened Shoulder Posture (L) Rounded,(R) Rounded Scapula Posture (L) Protracted,(R) Protracted Weight Distribution Weight Shifted Left Ankle/Foot Posture (L) Supinated,(R) Supinated Foot Arch (L) Medium Arch,(R) Medium Arch Palpation Assessment Location lumbar spine Palpation Location paraspinals Palpation Findings Soft Tissue Tightness,Muscle Guarding Palpation Details R more affected than L PT-OP-K Range of Motion Start: 03/11/20 09:17 Freq: Status: Active Protocol: Document 03/11/20 10:34 AW (Rec: 03/11/20 17:14 AW [email or web address]) Cervical Spine Range of Motion Cervical Spine Active Degrees Testing Position Sitting Flexion 50 Extension 30 Rotation Left 45 Rotation Right 50 Lateral Flexion Left 30 Lateral Flexion Right 25 ROM Limitations Soft Tissue Tightness,Pain Lumbar Spine Range of Motion Lumbar Spine Active Testing Position Standing Extension 15 Comments Flexion: fingertips 10 from floor with notable L3 L4 hinge Side bend: fingertips 23 from floor right side, 21 from floor left side Shoulder Goniometric Range of Motion Shoulder Left Active Testing Position Sitting Flexion 156 Extension 40 Abduction 160 Internal Rotation Behind Back (text) T7 Right Active Testing Position Sitting Flexion 160 Extension 40 Abduction 160 Internal Rotation Behind Back (text) T7 Shoulder ROM Limitations Shoulder ROM Limitations Soft Tissue Tightness,Pain Elbow/Forearm Range of Motion Elbow/Forearm Right Active Comments B elbow AROM and PROM WNL Hip Goniometric Range of Motion Hip Right Hip ROM WFL Yes Testing Position Supine Flexion w/Knee Flexed 110 Abduction 40 Comments IR limited; ER WNL Left Hip ROM WFL Yes Testing Position Supine Flexion w/Knee Flexed 110 Abduction 43 Comments IR limited but greater excursion than right Hip ROM Limitations Comments flexion limited by habitus PT-OP-L Special Tests Start: 03/11/20 09:17 Freq: Status: Active Protocol: Document 03/11/20 10:34 AW (Rec: 03/11/20 17:14 AW [email or web address]) Special Tests Cervical Spine Special Tests Slump Test Results negative Spurling's Test Test Results negative bilaterally Lumbar Spine Special Tests Straight Leg Raise Test Results active SLR positive on the right Comments some relief noted with bimanual compression through bilateral ASIS Luis Test Results positive bilaterally Comments increase in hip flexion with knees bent B Slump Test Results vaguely positive R; negative L Comments R side pt reports increased tension but no pain Shoulder Special Tests Somers Endy Impingement Test Results negative bilaterally Drop Arm Rotator Cuff Test Results negative bilaterally Hip Special Tests Scour Test Test Results negative bilaterally PT-OP-M Strength Start: 03/11/20 09:17 Freq: Status: Active Protocol: Document 03/11/20 10:34 AW (Rec: 03/11/20 17:14 AW [email or web address]) Cervical Spine Strength Cervical Spine Manual Muscle Testing Testing Position Sitting Flexion (C1-2) 4+ Good+ Extension 4 Good Rotation Left 4 Good Rotation Right 4 Good Lateral Flexion Left (C3) 4- Good- Lateral Flexion Right (C3) 4- Good- Shoulder Strength Shoulder Manual Muscle Testing Right Flexion 4+ Good+ Extension 4+ Good+ Abduction (C5) 4+ Good+ External Rotation 4+ Good+ Internal Rotation 5 Normal Comments LUE grossly 5/5 Hip Strength Hip Manual Muscle Testing Left Flexion (L2) 4+ Good+ Extension (S1) 4- Good- Abduction 4- Good- External Rotation 4+ Good+ Internal Rotation 5 Normal Right Flexion (L2) 4 Good Extension (S1) 3+ Fair+ Abduction 4- Good- External Rotation 4+ Good+ Internal Rotation 4+ Good+ Knee Strength Knee Manual Muscle Testing Left Flexion (S2) 5 Normal Extension (L3) 4+ Good+ Right Flexion (S2) 5 Normal Extension (L3) 4+ Good+ PT-OP-Q Treatments Start: 03/11/20 09:17 Freq: Status: Active Protocol: Document 06/17/20 10:21 MA (Rec: 06/17/20 11:02 MA [id number]) Therapeutic Exercises Supine Exercises CS Rotation Side bilateral Reps/Minutes 2x 30 sec hold ea Sidelying Exercises QL Stretch Side right Equipment Used bosu Reps/Minutes 60 sec clamshell Sidelying Exercise Name clamshell Side bilateral Reps/Minutes x10 Comments cued stacked hips Manual Therapy Treatment Soft Tissue Mobilization Iliac Crest Body Location Iliac Crest Scour Mobilization Type Other Intensity/Depth Deep Body Position Prone 1 Body Location B UT, periscapular mm, LS Mobilization Type Myofascial Release,Strumming, Sustained Pressure Intensity/Depth Moderate Body Position Sidelying Manual Traction Cervical Body Position Hooklying Reps/Duration x60 Comments relieving for neck pain and shoulder tension Self-Care/Home Management Treatment Education Patient Education Home Exercise Program Other Education QL stretch over pillows tied with belt, L SL to stretch R QL PT-OP-R Modalities Start: 03/11/20 09:17 Freq: Status: Active Protocol: Document 04/22/20 10:30 AW (Rec: 04/22/20 12:31 AW [email or web address]) Hot Pack/Cold Pack Treatment Hot Pack Location lumbar & cervical Patient Position Prone Treatment Duration (minutes) 15 Patient Tolerance Good Comments MHP at end of session PT-OP-T Assessment and Plan Start: 03/11/20 09:17 Freq: Status: Active Protocol: Document 06/17/20 10:21 MA (Rec: 06/17/20 11:02 MA [id number]) Physical Therapy Assessment Goals Five Impairment hip strength Short Term Goal (STG) Pt will improve right hip strength equal to left for improved gait quality 05/27/20 - Progressing but R side painful groin STG Duration 6 weeks - 04/22/2020 Skilled Nursing Goal (LTG) Pt will demonstrate SL squat from 20 surface bilaterally without LOB 05/27/20 - Best performance from 23 LTG Duration 3 months - 09/02/20 Four Impairment hyperdensity lumbar paraspinals Short Term Goal (STG) Pt will demonstrate reduced tone in lumbar musculature and glutes 05/27/20 - PROGRESSING STG Duration 6 weeks - 04/22/2020 5 Impairment strength Short Term Goal (STG) Improve TrA activation and LE strength by 1/2 grade 05/27/20 MET STG Duration 6 wks Stonemason Apprentice Goal (LTG) Independent with HEP and aquatic exercise program for long-term pain management and fitness. 05/27/20 - Wait list for aquatic LTG Duration 3 months - 09/02/20 4 Impairment ROM Stonemason Apprentice Goal (LTG) Improve LE and trunk ROM to WFL with minimal to no pain ( good goal progress) LTG Duration 3 months - 09/02/20 3 Impairment cervical ROM Short Term Goal (STG) Pt will improve cervical lateral flexion to 35 degrees or greater bilaterally 05/27/20 - PROGRESSING 26 (R) and 28 (L) 04/29/20- IMPROVING- 31 degrees R, 33 degrees L STG Duration 6 weeks - 04/22/2020 Stonemason Apprentice Goal (LTG) Pt will improve cervical rotation to 60 degrees or greater bilaterally for improved ability to turn head while driving. 05/27/20 - B 50 deg LTG Duration 3 months - 09/02/20 2 Impairment posture Short Term Goal (STG) Pt will self-correct cervical and thoracic posture for improvement in pain symptoms 04/29/20- IMPROVING- pt continues to have some pain in CS but is able to self- correct posture STG Duration 6 weeks - 04/22/2020 One Impairment increased density cervical paraspinals and upper traps Short Term Goal (STG) Pt will demonstrate reduced tone in cervical musculature and upper traps PROGRESSING STG Duration 6 weeks - 04/22/2020 Skilled Nursing Goal (LTG) Pt will score 25/50 or less on NDI to represent improved daily function related to neck pain. 05/27/20 - Pt scores 75% disability. Revisiting earlier score, pt actually scored 60% disability. New goal: Pt scores 40% or less on NDI. LTG Duration 3 months - 09/02/20 Assessment Summary Assessment Pt arrived with R side pain along iliac crest. After QL stretch over bosu and STM to iliac crest, pt stated her pain was gone. Demonstrated for pt using pillows tied with belt to get QL stretch at home, while lying on her L side. Pt will continue to come every other week this month due to worries over COVID. Physical Therapy Plan Frequency and Duration Frequency of Treatment 1-2 x /week Duration of Treatment 3 months Plan of Care Start Date 06/03/20 Plan of Care End Date 09/02/20 Therapeutic Interventions Therapeutic Interventions Home Exercise Program,Joint Mobilizations,Manual Therapy, Neuromuscular Re-education, Patient/Caregiver Education, Self-Care/Home Management,Soft Tissue Mobilization,Taping, Therapeutic Activities, Therapeutic Exercises Modalities Cold Pack/Ice Massage,Electric Stimulation,Hot Packs Next Visit Focus/Plan Next Note Type Treatment Note Next Visit Plan Review QL stretch Continue patient education for back protection, posture and body mechanics. STM to lumbar and cervical spine, progress cervical strengthening and core exercises as needed.
--- NOTE | 2020-07-01 11:51 | PT.OTN ---
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 Symptoms improved after recent surgeries but pt continues to have pain especially if she overdoes it. Overall, her right side is worse than her left. She is currently walking ~1/16 mi with incline but can typically do 1/8 mile when feeling well. Prior Treatments and Tests late s - cervical discectomy aqua therapy 12/05/19 - C5-7 ACDF 02/11/20 - foraminectomy L5-S1 Future Testing and Treatments Planned Septoplasty mid-April Treatment Goals Patient/Caregiver Goals Reduce tone in shoulders Improve cervical ROM Increase walking tolerance Prior Functional Status Baseline Function- ADL's Modified Independent Baseline Function- Mobility Modified Independent Baseline Function- Gait ambulates with SPC vs FWW for stairs, inclines, long distance 2/2 R knee pn Baseline Function- Other able to walk from hospital to [facility] with FWW Current Functional Impairments (Reported) Functional Limitations- ADL's needs equipment for showers, no assist Functional Limitations- Mobility/Gait can walk from hospital to [facility] but has increased back pain for days afterward PT-OP-C Subjective Start: 03/11/20 09:17 Freq: Status: Active Protocol: Document 07/01/20 10:22 MA (Rec: 07/01/20 11:04 MA [id number]) OP-PT Subjective Patient Comments Patient Comments Selina has lost 12 pounds so far. She has pain in R glutes today but iliac crest pain has improved with QL stretch. Along her L inferior and medial shoulder blade has been bothering her to the point where she took a mm relaxor last week but is doing slightly better now. She is still using her 1.5 lb weights on her wrists some days but she does not think that caused increased neck pain PT-OP-D Balance Start: 03/11/20 09:17 Freq: Status: Active Protocol: Document 03/18/20 11:15 AW (Rec: 03/18/20 13:00 AW [email or web address]) OP-PT Balance Assessment Sitting Balance Static Sitting Balance Ability Normal Dynamic Sitting Balance Ability Normal Standing Balance Static Standing Balance Ability Good Dynamic Standing Balance Ability Good Balance Tests Single Limb Standing Single Limb- Right 3 sec, 3 sec, 6 sec Single Limb- Left 6 sec, 6 sec, 6 sec Brown Fall Scale Copyright Permission PT-OP-E Functional Tests Start: 03/11/20 09:17 Freq: Status: Active Protocol: Document 03/18/20 11:15 AW (Rec: 03/18/20 13:01 AW [email or web address]) Functional Tests Other SL squat from table Score 25 L; unable R without LOB PT-OP-F Manual Assessment Start: 03/11/20 09:17 Freq: Status: Active Protocol: Document 03/18/20 11:15 AW (Rec: 03/18/20 13:00 AW [email or web address]) Manual Assessments Soft Tissue Assessment Soft Tissue Mobility Assessment Increased density in gluteal musculature RLE PT-OP-H Neuro Start: 03/11/20 09:17 Freq: Status: Active Protocol: Document 03/11/20 10:34 AW (Rec: 03/11/20 17:14 AW [email or web address]) Sensation Evaluation Gross Sensation Gross Sensation Right UE Impaired Sensation Description Numbness Dermatome Impairments C7 Comments Summary Comments Intermittent numbness in right posterior arm. Not reproduced on exam with neck special tests. Deep Tendon Reflex & Clonus Assessment Deep Tendon Reflex Bilateral Tricep Deep Tendon Reflex 1+ Diminished Bilateral Bicep Deep Tendon Reflex 2+ Normal PT-OP-J Posture/Palpation/Skin Start: 03/11/20 09:17 Freq: Status: Active Protocol: Document 03/11/20 10:34 AW (Rec: 03/11/20 17:14 AW [email or web address]) Posture Evaluation Position Standing Evaluation View Lateral Head/C-Spine Posture Extended,Forward Head T-Spine Posture Increased Kyphosis L-Spine Posture Flattened Shoulder Posture (L) Rounded,(R) Rounded Scapula Posture (L) Protracted,(R) Protracted Weight Distribution Weight Shifted Left Ankle/Foot Posture (L) Supinated,(R) Supinated Foot Arch (L) Medium Arch,(R) Medium Arch Palpation Assessment Location lumbar spine Palpation Location paraspinals Palpation Findings Soft Tissue Tightness,Muscle Guarding Palpation Details R more affected than L PT-OP-K Range of Motion Start: 03/11/20 09:17 Freq: Status: Active Protocol: Document 03/11/20 10:34 AW (Rec: 03/11/20 17:14 AW [email or web address]) Cervical Spine Range of Motion Cervical Spine Active Degrees Testing Position Sitting Flexion 50 Extension 30 Rotation Left 45 Rotation Right 50 Lateral Flexion Left 30 Lateral Flexion Right 25 ROM Limitations Soft Tissue Tightness,Pain Lumbar Spine Range of Motion Lumbar Spine Active Testing Position Standing Extension 15 Comments Flexion: fingertips 10 from floor with notable L3 L4 hinge Side bend: fingertips 23 from floor right side, 21 from floor left side Shoulder Goniometric Range of Motion Shoulder Left Active Testing Position Sitting Flexion 156 Extension 40 Abduction 160 Internal Rotation Behind Back (text) T7 Right Active Testing Position Sitting Flexion 160 Extension 40 Abduction 160 Internal Rotation Behind Back (text) T7 Shoulder ROM Limitations Shoulder ROM Limitations Soft Tissue Tightness,Pain Elbow/Forearm Range of Motion Elbow/Forearm Right Active Comments B elbow AROM and PROM WNL Hip Goniometric Range of Motion Hip Right Hip ROM WFL Yes Testing Position Supine Flexion w/Knee Flexed 110 Abduction 40 Comments IR limited; ER WNL Left Hip ROM WFL Yes Testing Position Supine Flexion w/Knee Flexed 110 Abduction 43 Comments IR limited but greater excursion than right Hip ROM Limitations Comments flexion limited by habitus PT-OP-L Special Tests Start: 03/11/20 09:17 Freq: Status: Active Protocol: Document 03/11/20 10:34 AW (Rec: 03/11/20 17:14 AW [email or web address]) Special Tests Cervical Spine Special Tests Slump Test Results negative Spurling's Test Test Results negative bilaterally Lumbar Spine Special Tests Straight Leg Raise Test Results active SLR positive on the right Comments some relief noted with bimanual compression through bilateral ASIS Luis Test Results positive bilaterally Comments increase in hip flexion with knees bent B Slump Test Results vaguely positive R; negative L Comments R side pt reports increased tension but no pain Shoulder Special Tests Somers Endy Impingement Test Results negative bilaterally Drop Arm Rotator Cuff Test Results negative bilaterally Hip Special Tests Scour Test Test Results negative bilaterally PT-OP-M Strength Start: 03/11/20 09:17 Freq: Status: Active Protocol: Document 03/11/20 10:34 AW (Rec: 03/11/20 17:14 AW [email or web address]) Cervical Spine Strength Cervical Spine Manual Muscle Testing Testing Position Sitting Flexion (C1-2) 4+ Good+ Extension 4 Good Rotation Left 4 Good Rotation Right 4 Good Lateral Flexion Left (C3) 4- Good- Lateral Flexion Right (C3) 4- Good- Shoulder Strength Shoulder Manual Muscle Testing Right Flexion 4+ Good+ Extension 4+ Good+ Abduction (C5) 4+ Good+ External Rotation 4+ Good+ Internal Rotation 5 Normal Comments LUE grossly 5/5 Hip Strength Hip Manual Muscle Testing Left Flexion (L2) 4+ Good+ Extension (S1) 4- Good- Abduction 4- Good- External Rotation 4+ Good+ Internal Rotation 5 Normal Right Flexion (L2) 4 Good Extension (S1) 3+ Fair+ Abduction 4- Good- External Rotation 4+ Good+ Internal Rotation 4+ Good+ Knee Strength Knee Manual Muscle Testing Left Flexion (S2) 5 Normal Extension (L3) 4+ Good+ Right Flexion (S2) 5 Normal Extension (L3) 4+ Good+ PT-OP-Q Treatments Start: 03/11/20 09:17 Freq: Status: Active Protocol: Document 07/01/20 10:22 MA (Rec: 07/01/20 11:04 MA [id number]) Therapeutic Exercises Supine Exercises LTR Supine Exercise Name Lower Trunk Rotation Side bilateral Reps/Minutes 8x Sidelying Exercises QL Stretch Side right Equipment Used pillow Reps/Minutes 60 sec Manual Therapy Treatment Soft Tissue Mobilization Glutes Body Location glute max and med Mobilization Type Sustained Pressure,Trigger Point Release Intensity/Depth Moderate Body Position Sidelying Comments mod-deep pressure 1 Body Location B UT, periscapular mm, LS Mobilization Type Myofascial Release,Strumming, Sustained Pressure Intensity/Depth Moderate Body Position Sidelying PT-OP-R Modalities Start: 03/11/20 09:17 Freq: Status: Active Protocol: Document 07/01/20 10:22 MA (Rec: 07/01/20 11:04 MA [id number]) Electric Stimulation Electric Stimulation IFC Body Location L shoulder Duration (Minutes) 12 Intensity 29 Target/Sweep Target High/Low High Patient Position Sidelying Comments IFC L shd blade PT-OP-T Assessment and Plan Start: 03/11/20 09:17 Freq: Status: Active Protocol: Document 07/01/20 10:22 MA (Rec: 07/01/20 11:04 MA [id number]) Physical Therapy Assessment Goals Five Impairment hip strength Short Term Goal (STG) Pt will improve right hip strength equal to left for improved gait quality 05/27/20 - Progressing but R side painful groin STG Duration 6 weeks - 04/22/2020 Group Home Goal (LTG) Pt will demonstrate SL squat from 20 surface bilaterally without LOB 05/27/20 - Best performance from 23 LTG Duration 3 months - 09/02/20 Four Impairment hyperdensity lumbar paraspinals Short Term Goal (STG) Pt will demonstrate reduced tone in lumbar musculature and glutes 05/27/20 - PROGRESSING STG Duration 6 weeks - 04/22/2020 5 Impairment strength Short Term Goal (STG) Improve TrA activation and LE strength by 1/2 grade 05/27/20 MET STG Duration 6 wks Software Tools Engineer Goal (LTG) Independent with HEP and aquatic exercise program for long-term pain management and fitness. 05/27/20 - Wait list for aquatic LTG Duration 3 months - 09/02/20 4 Impairment ROM Software Tools Engineer Goal (LTG) Improve LE and trunk ROM to WFL with minimal to no pain ( good goal progress) LTG Duration 3 months - 09/02/20 3 Impairment cervical ROM Short Term Goal (STG) Pt will improve cervical lateral flexion to 35 degrees or greater bilaterally 05/27/20 - PROGRESSING 26 (R) and 28 (L) 04/29/20- IMPROVING- 31 degrees R, 33 degrees L STG Duration 6 weeks - 04/22/2020 Group Home Goal (LTG) Pt will improve cervical rotation to 60 degrees or greater bilaterally for improved ability to turn head while driving. 05/27/20 - B 50 deg LTG Duration 3 months - 09/02/20 2 Impairment posture Short Term Goal (STG) Pt will self-correct cervical and thoracic posture for improvement in pain symptoms 04/29/20- IMPROVING- pt continues to have some pain in CS but is able to self- correct posture STG Duration 6 weeks - 04/22/2020 One Impairment increased density cervical paraspinals and upper traps Short Term Goal (STG) Pt will demonstrate reduced tone in cervical musculature and upper traps PROGRESSING STG Duration 6 weeks - 04/22/2020 Software Tools Engineer Goal (LTG) Pt will score 25/50 or less on NDI to represent improved daily function related to neck pain. 05/27/20 - Pt scores 75% disability. Revisiting earlier score, pt actually scored 60% disability. New goal: Pt scores 40% or less on NDI. LTG Duration 3 months - 09/02/20 Assessment Summary Assessment Pt's mm tension in R shoulder has improved but her L shoulder is tighter today; improved after STM. Ended session with IFC to left shoulder. Pt is thinking about ordering an e-stim unit for home and wants to see how it feels after today's session. She feels the QL stretch helps her pain along R iliac crest but now has glute pain. Instructed pt to use tennis ball on glutes to help with pain. Physical Therapy Plan Frequency and Duration Frequency of Treatment 1-2 x /week Duration of Treatment 3 months Plan of Care Start Date 06/03/20 Plan of Care End Date 09/02/20 Therapeutic Interventions Therapeutic Interventions Home Exercise Program,Joint Mobilizations,Manual Therapy, Neuromuscular Re-education, Patient/Caregiver Education, Self-Care/Home Management,Soft Tissue Mobilization,Taping, Therapeutic Activities, Therapeutic Exercises Modalities Cold Pack/Ice Massage,Electric Stimulation,Hot Packs Next Visit Focus/Plan Next Note Type Treatment Note Next Visit Plan Check how pt responded to IFC on L shoulder, Review QL stretch Continue patient education for back protection, posture and body mechanics. STM to lumbar and cervical spine, progress cervical strengthening and core exercises as needed.
--- NOTE | 2020-07-14 11:20 | PT.OTN ---
Current Diagnoses Abnormal posture (07/14/20) Strain of muscle, fascia and tendon at neck level, subsequent encounter (07/14/20) Strain of muscle, fascia and tendon of lower back, subsequent encounter (07/14/20) Arthrodesis status (07/14/20) Physical Therapy Treatment Note PT-OP-A Visit Information Start: 03/11/20 09:17 Freq: Status: Active Protocol: Document 07/14/20 11:15 AW (Rec: 07/14/20 11:15 AW [id number]) Out-Patient Physical Therapy Visit Information Visit Information Visit Type Treatment Note Visit Start Time 10:28 Visit Stop Time 11:14 Total Visit Minutes 46 Visit Number 23 Number of ACCOUNT DEVELOPMENT MANAGER Visits 0 Evaluation Information Evaluation Date 03/11/20 PT-OP-B Current Condition Start: 03/11/20 09:17 Freq: Status: Active Protocol: Document 03/11/20 10:34 AW (Rec: 03/11/20 11:19 AW [id number]) Current Condition History of Current Condition Onset Date 15 years Current Complaints neck and right shoulder pain, low back pain with recent surgeries History of Current Condition Pt with history of fibromyalgia has long standing neck and low back pain. Symptoms improved after recent surgeries but pt continues to have pain especially if she overdoes it. Overall, her right side is worse than her left. She is currently walking ~1/16 mi with incline but can typically do 1/8 mile when feeling well. Prior Treatments and Tests late s - cervical discectomy aqua therapy 12/05/19 - C5-7 ACDF 02/11/20 - foraminectomy L5-S1 Future Testing and Treatments Planned Septoplasty mid-April Treatment Goals Patient/Caregiver Goals Reduce tone in shoulders Improve cervical ROM Increase walking tolerance Prior Functional Status Baseline Function- ADL's Modified Independent Baseline Function- Mobility Modified Independent Baseline Function- Gait ambulates with SPC vs FWW for stairs, inclines, long distance 2/2 R knee pn Baseline Function- Other able to walk from hospital to [facility] with FWW Current Functional Impairments (Reported) Functional Limitations- ADL's needs equipment for showers, no assist Functional Limitations- Mobility/Gait can walk from hospital to [facility] but has increased back pain for days afterward PT-OP-C Subjective Start: 03/11/20 09:17 Freq: Status: Active Protocol: Document 07/14/20 11:15 AW (Rec: 07/14/20 11:15 AW [id number]) OP-PT Subjective Patient Comments Patient Comments Selina has been walking regularly, including ~4 miles once every other week. Pain in back is improving but right knee and hip pain may be worse . Patient Reported Progress Improving PT-OP-D Balance Start: 03/11/20 09:17 Freq: Status: Active Protocol: Document 03/18/20 11:15 AW (Rec: 03/18/20 13:00 AW [email or web address]) OP-PT Balance Assessment Sitting Balance Static Sitting Balance Ability Normal Dynamic Sitting Balance Ability Normal Standing Balance Static Standing Balance Ability Good Dynamic Standing Balance Ability Good Balance Tests Single Limb Standing Single Limb- Right 3 sec, 3 sec, 6 sec Single Limb- Left 6 sec, 6 sec, 6 sec Brown Fall Scale Copyright Permission PT-OP-E Functional Tests Start: 03/11/20 09:17 Freq: Status: Active Protocol: Document 03/18/20 11:15 AW (Rec: 03/18/20 13:01 AW [email or web address]) Functional Tests Other SL squat from table Score 25 L; unable R without LOB PT-OP-F Manual Assessment Start: 03/11/20 09:17 Freq: Status: Active Protocol: Document 03/18/20 11:15 AW (Rec: 03/18/20 13:00 AW [email or web address]) Manual Assessments Soft Tissue Assessment Soft Tissue Mobility Assessment Increased density in gluteal musculature RLE PT-OP-H Neuro Start: 03/11/20 09:17 Freq: Status: Active Protocol: Document 03/11/20 10:34 AW (Rec: 03/11/20 17:14 AW [email or web address]) Sensation Evaluation Gross Sensation Gross Sensation Right UE Impaired Sensation Description Numbness Dermatome Impairments C7 Comments Summary Comments Intermittent numbness in right posterior arm. Not reproduced on exam with neck special tests. Deep Tendon Reflex & Clonus Assessment Deep Tendon Reflex Bilateral Tricep Deep Tendon Reflex 1+ Diminished Bilateral Bicep Deep Tendon Reflex 2+ Normal PT-OP-J Posture/Palpation/Skin Start: 03/11/20 09:17 Freq: Status: Active Protocol: Document 03/11/20 10:34 AW (Rec: 03/11/20 17:14 AW [email or web address]) Posture Evaluation Position Standing Evaluation View Lateral Head/C-Spine Posture Extended,Forward Head T-Spine Posture Increased Kyphosis L-Spine Posture Flattened Shoulder Posture (L) Rounded,(R) Rounded Scapula Posture (L) Protracted,(R) Protracted Weight Distribution Weight Shifted Left Ankle/Foot Posture (L) Supinated,(R) Supinated Foot Arch (L) Medium Arch,(R) Medium Arch Palpation Assessment Location lumbar spine Palpation Location paraspinals Palpation Findings Soft Tissue Tightness,Muscle Guarding Palpation Details R more affected than L PT-OP-K Range of Motion Start: 03/11/20 09:17 Freq: Status: Active Protocol: Document 03/11/20 10:34 AW (Rec: 03/11/20 17:14 AW [email or web address]) Cervical Spine Range of Motion Cervical Spine Active Degrees Testing Position Sitting Flexion 50 Extension 30 Rotation Left 45 Rotation Right 50 Lateral Flexion Left 30 Lateral Flexion Right 25 ROM Limitations Soft Tissue Tightness,Pain Lumbar Spine Range of Motion Lumbar Spine Active Testing Position Standing Extension 15 Comments Flexion: fingertips 10 from floor with notable L3 L4 hinge Side bend: fingertips 23 from floor right side, 21 from floor left side Shoulder Goniometric Range of Motion Shoulder Left Active Testing Position Sitting Flexion 156 Extension 40 Abduction 160 Internal Rotation Behind Back (text) T7 Right Active Testing Position Sitting Flexion 160 Extension 40 Abduction 160 Internal Rotation Behind Back (text) T7 Shoulder ROM Limitations Shoulder ROM Limitations Soft Tissue Tightness,Pain Elbow/Forearm Range of Motion Elbow/Forearm Right Active Comments B elbow AROM and PROM WNL Hip Goniometric Range of Motion Hip Right Hip ROM WFL Yes Testing Position Supine Flexion w/Knee Flexed 110 Abduction 40 Comments IR limited; ER WNL Left Hip ROM WFL Yes Testing Position Supine Flexion w/Knee Flexed 110 Abduction 43 Comments IR limited but greater excursion than right Hip ROM Limitations Comments flexion limited by habitus PT-OP-L Special Tests Start: 03/11/20 09:17 Freq: Status: Active Protocol: Document 03/11/20 10:34 AW (Rec: 03/11/20 17:14 AW [email or web address]) Special Tests Cervical Spine Special Tests Slump Test Results negative Spurling's Test Test Results negative bilaterally Lumbar Spine Special Tests Straight Leg Raise Test Results active SLR positive on the right Comments some relief noted with bimanual compression through bilateral ASIS Luis Test Results positive bilaterally Comments increase in hip flexion with knees bent B Slump Test Results vaguely positive R; negative L Comments R side pt reports increased tension but no pain Shoulder Special Tests Somers Endy Impingement Test Results negative bilaterally Drop Arm Rotator Cuff Test Results negative bilaterally Hip Special Tests Scour Test Test Results negative bilaterally PT-OP-M Strength Start: 03/11/20 09:17 Freq: Status: Active Protocol: Document 03/11/20 10:34 AW (Rec: 03/11/20 17:14 AW [email or web address]) Cervical Spine Strength Cervical Spine Manual Muscle Testing Testing Position Sitting Flexion (C1-2) 4+ Good+ Extension 4 Good Rotation Left 4 Good Rotation Right 4 Good Lateral Flexion Left (C3) 4- Good- Lateral Flexion Right (C3) 4- Good- Shoulder Strength Shoulder Manual Muscle Testing Right Flexion 4+ Good+ Extension 4+ Good+ Abduction (C5) 4+ Good+ External Rotation 4+ Good+ Internal Rotation 5 Normal Comments LUE grossly 5/5 Hip Strength Hip Manual Muscle Testing Left Flexion (L2) 4+ Good+ Extension (S1) 4- Good- Abduction 4- Good- External Rotation 4+ Good+ Internal Rotation 5 Normal Right Flexion (L2) 4 Good Extension (S1) 3+ Fair+ Abduction 4- Good- External Rotation 4+ Good+ Internal Rotation 4+ Good+ Knee Strength Knee Manual Muscle Testing Left Flexion (S2) 5 Normal Extension (L3) 4+ Good+ Right Flexion (S2) 5 Normal Extension (L3) 4+ Good+ PT-OP-Q Treatments Start: 03/11/20 09:17 Freq: Status: Active Protocol: Document 07/14/20 11:15 AW (Rec: 07/14/20 11:15 AW [id number]) Therapeutic Exercises Supine Exercises LTR Supine Exercise Name Lower Trunk Rotation Side bilateral Reps/Minutes 8x TrA activation Supine Exercise Name with SLR Side bilateral Sidelying Exercises QL Stretch Side right Equipment Used pillow Reps/Minutes 60 sec Open Book Side bilateral Reps/Minutes x8 clamshell Sidelying Exercise Name clamshell Side bilateral Reps/Minutes x10 Comments cued stacked hips Sitting Exercises trunk rotation Sitting Exercise Name trunk rotation Reps/Minutes 2 min Comments arms across chest Standing Exercises heel raise Standing Exercise Name heel raise Side bilateral Equipment Used 4# step Reps/Minutes 10 x 2 Comments followed by RUFINA stretch Manual Therapy Treatment Soft Tissue Mobilization 1 Body Location B UT, periscapular mm, LS Mobilization Type Myofascial Release,Strumming, Sustained Pressure Intensity/Depth Moderate Body Position Supine PT-OP-R Modalities Start: 03/11/20 09:17 Freq: Status: Active Protocol: Document 07/01/20 10:22 MA (Rec: 07/01/20 11:04 MA [id number]) Electric Stimulation Electric Stimulation IFC Body Location L shoulder Duration (Minutes) 12 Intensity 29 Target/Sweep Target High/Low High Patient Position Sidelying Comments IFC L shd blade PT-OP-T Assessment and Plan Start: 03/11/20 09:17 Freq: Status: Active Protocol: Document 07/14/20 11:15 AW (Rec: 07/14/20 12:19 AW [email or web address]) Physical Therapy Assessment Goals Five Impairment hip strength Short Term Goal (STG) Pt will improve right hip strength equal to left for improved gait quality 05/27/20 - Progressing but R side painful groin STG Duration 6 weeks - 04/22/2020 Hospital Staff Pharmacist Goal (LTG) Pt will demonstrate SL squat from 20 surface bilaterally without LOB 05/27/20 - Best performance from 23 LTG Duration 3 months - 09/02/20 Four Impairment hyperdensity lumbar paraspinals Short Term Goal (STG) Pt will demonstrate reduced tone in lumbar musculature and glutes 05/27/20 - PROGRESSING STG Duration 6 weeks - 04/22/2020 5 Impairment strength Short Term Goal (STG) Improve TrA activation and LE strength by 1/2 grade 05/27/20 MET STG Duration 6 wks Jail Goal (LTG) Independent with HEP and aquatic exercise program for long-term pain management and fitness. 05/27/20 - Wait list for aquatic LTG Duration 3 months - 09/02/20 4 Impairment ROM Hospital Staff Pharmacist Goal (LTG) Improve LE and trunk ROM to WFL with minimal to no pain ( good goal progress) LTG Duration 3 months - 09/02/20 3 Impairment cervical ROM Short Term Goal (STG) Pt will improve cervical lateral flexion to 35 degrees or greater bilaterally 05/27/20 - PROGRESSING 26 (R) and 28 (L) 04/29/20- IMPROVING- 31 degrees R, 33 degrees L STG Duration 6 weeks - 04/22/2020 Jail Goal (LTG) Pt will improve cervical rotation to 60 degrees or greater bilaterally for improved ability to turn head while driving. 05/27/20 - B 50 deg LTG Duration 3 months - 09/02/20 2 Impairment posture Short Term Goal (STG) Pt will self-correct cervical and thoracic posture for improvement in pain symptoms 04/29/20- IMPROVING- pt continues to have some pain in CS but is able to self- correct posture STG Duration 6 weeks - 04/22/2020 One Impairment increased density cervical paraspinals and upper traps Short Term Goal (STG) Pt will demonstrate reduced tone in cervical musculature and upper traps PROGRESSING STG Duration 6 weeks - 04/22/2020 Jail Goal (LTG) Pt will score 25/50 or less on NDI to represent improved daily function related to neck pain. 05/27/20 - Pt scores 75% disability. Revisiting earlier score, pt actually scored 60% disability. New goal: Pt scores 40% or less on NDI. LTG Duration 3 months - 09/02/20 Assessment Summary Assessment Pt has minimal pain complaints today. Her cervical rotation is improving. Reviewed HEP for independence. Pt wishes to continue at once/2 weeks at this time until her daughter is fully vaccinated and [place]. Physical Therapy Plan Frequency and Duration Frequency of Treatment 1-2 x /week Duration of Treatment 3 months Plan of Care Start Date 06/03/20 Plan of Care End Date 09/02/20 Therapeutic Interventions Therapeutic Interventions Home Exercise Program,Joint Mobilizations,Manual Therapy, Neuromuscular Re-education, Patient/Caregiver Education, Self-Care/Home Management,Soft Tissue Mobilization,Taping, Therapeutic Activities, Therapeutic Exercises Modalities Cold Pack/Ice Massage,Electric Stimulation,Hot Packs Next Visit Focus/Plan Next Note Type Treatment Note Next Visit Plan Progress core and proximal strengthening in standing as tolerated. Lifting, carrying, reaching.
--- NOTE | 2020-08-03 11:02 | PT.OTN ---
Current Diagnoses Abnormal posture (08/03/20) Strain of muscle, fascia and tendon at neck level, subsequent encounter (08/03/20) Strain of muscle, fascia and tendon of lower back, subsequent encounter (08/03/20) Arthrodesis status (08/03/20) Physical Therapy Treatment Note PT-OP-A Visit Information Start: 03/11/20 09:17 Freq: Status: Active Protocol: Document 08/03/20 10:17 MA (Rec: 08/03/20 11:02 MA [id number]) Out-Patient Physical Therapy Visit Information Visit Information Visit Type Treatment Note Visit Start Time 10:15 Visit Stop Time 10:58 Total Visit Minutes 43 Visit Number 24 Number of BOX CAR CHECKER Visits 1 PT-OP-B Current Condition Start: 03/11/20 09:17 Freq: Status: Active Protocol: Document 03/11/20 10:34 AW (Rec: 03/11/20 11:19 AW [id number]) Current Condition History of Current Condition Onset Date 15 years Current Complaints neck and right shoulder pain, low back pain with recent surgeries History of Current Condition Pt with history of fibromyalgia has long standing neck and low back pain. Symptoms improved after recent surgeries but pt continues to have pain especially if she overdoes it. Overall, her right side is worse than her left. She is currently walking ~1/16 mi with incline but can typically do 1/8 mile when feeling well. Prior Treatments and Tests late s - cervical discectomy aqua therapy 12/05/19 - C5-7 ACDF 02/11/20 - foraminectomy L5-S1 Future Testing and Treatments Planned Septoplasty mid-April Treatment Goals Patient/Caregiver Goals Reduce tone in shoulders Improve cervical ROM Increase walking tolerance Prior Functional Status Baseline Function- ADL's Modified Independent Baseline Function- Mobility Modified Independent Baseline Function- Gait ambulates with SPC vs FWW for stairs, inclines, long distance 2/2 R knee pn Baseline Function- Other able to walk from hospital to [facility] with FWW Current Functional Impairments (Reported) Functional Limitations- ADL's needs equipment for showers, no assist Functional Limitations- Mobility/Gait can walk from hospital to [facility] but has increased back pain for days afterward PT-OP-C Subjective Start: 03/11/20 09:17 Freq: Status: Active Protocol: Document 08/03/20 10:17 MA (Rec: 08/03/20 11:02 MA [id number]) OP-PT Subjective Patient Comments Patient Comments Selina has been having some pain over tibial tuberosity on R side. She has been trying to use her glutes more which has helped with her LBP but her neck feels stiffer again. She thinks it's because it got colder on monday and I stiffened up. PT-OP-D Balance Start: 03/11/20 09:17 Freq: Status: Active Protocol: Document 03/18/20 11:15 AW (Rec: 03/18/20 13:00 AW [email or web address]) OP-PT Balance Assessment Sitting Balance Static Sitting Balance Ability Normal Dynamic Sitting Balance Ability Normal Standing Balance Static Standing Balance Ability Good Dynamic Standing Balance Ability Good Balance Tests Single Limb Standing Single Limb- Right 3 sec, 3 sec, 6 sec Single Limb- Left 6 sec, 6 sec, 6 sec Brown Fall Scale Copyright Permission PT-OP-E Functional Tests Start: 03/11/20 09:17 Freq: Status: Active Protocol: Document 03/18/20 11:15 AW (Rec: 03/18/20 13:01 AW [email or web address]) Functional Tests Other SL squat from table Score 25 L; unable R without LOB PT-OP-F Manual Assessment Start: 03/11/20 09:17 Freq: Status: Active Protocol: Document 03/18/20 11:15 AW (Rec: 03/18/20 13:00 AW [email or web address]) Manual Assessments Soft Tissue Assessment Soft Tissue Mobility Assessment Increased density in gluteal musculature RLE PT-OP-H Neuro Start: 03/11/20 09:17 Freq: Status: Active Protocol: Document 03/11/20 10:34 AW (Rec: 03/11/20 17:14 AW [email or web address]) Sensation Evaluation Gross Sensation Gross Sensation Right UE Impaired Sensation Description Numbness Dermatome Impairments C7 Comments Summary Comments Intermittent numbness in right posterior arm. Not reproduced on exam with neck special tests. Deep Tendon Reflex & Clonus Assessment Deep Tendon Reflex Bilateral Tricep Deep Tendon Reflex 1+ Diminished Bilateral Bicep Deep Tendon Reflex 2+ Normal PT-OP-J Posture/Palpation/Skin Start: 03/11/20 09:17 Freq: Status: Active Protocol: Document 03/11/20 10:34 AW (Rec: 03/11/20 17:14 AW [email or web address]) Posture Evaluation Position Standing Evaluation View Lateral Head/C-Spine Posture Extended,Forward Head T-Spine Posture Increased Kyphosis L-Spine Posture Flattened Shoulder Posture (L) Rounded,(R) Rounded Scapula Posture (L) Protracted,(R) Protracted Weight Distribution Weight Shifted Left Ankle/Foot Posture (L) Supinated,(R) Supinated Foot Arch (L) Medium Arch,(R) Medium Arch Palpation Assessment Location lumbar spine Palpation Location paraspinals Palpation Findings Soft Tissue Tightness,Muscle Guarding Palpation Details R more affected than L PT-OP-K Range of Motion Start: 03/11/20 09:17 Freq: Status: Active Protocol: Document 03/11/20 10:34 AW (Rec: 03/11/20 17:14 AW [email or web address]) Cervical Spine Range of Motion Cervical Spine Active Degrees Testing Position Sitting Flexion 50 Extension 30 Rotation Left 45 Rotation Right 50 Lateral Flexion Left 30 Lateral Flexion Right 25 ROM Limitations Soft Tissue Tightness,Pain Lumbar Spine Range of Motion Lumbar Spine Active Testing Position Standing Extension 15 Comments Flexion: fingertips 10 from floor with notable L3 L4 hinge Side bend: fingertips 23 from floor right side, 21 from floor left side Shoulder Goniometric Range of Motion Shoulder Left Active Testing Position Sitting Flexion 156 Extension 40 Abduction 160 Internal Rotation Behind Back (text) T7 Right Active Testing Position Sitting Flexion 160 Extension 40 Abduction 160 Internal Rotation Behind Back (text) T7 Shoulder ROM Limitations Shoulder ROM Limitations Soft Tissue Tightness,Pain Elbow/Forearm Range of Motion Elbow/Forearm Right Active Comments B elbow AROM and PROM WNL Hip Goniometric Range of Motion Hip Right Hip ROM WFL Yes Testing Position Supine Flexion w/Knee Flexed 110 Abduction 40 Comments IR limited; ER WNL Left Hip ROM WFL Yes Testing Position Supine Flexion w/Knee Flexed 110 Abduction 43 Comments IR limited but greater excursion than right Hip ROM Limitations Comments flexion limited by habitus PT-OP-L Special Tests Start: 03/11/20 09:17 Freq: Status: Active Protocol: Document 03/11/20 10:34 AW (Rec: 03/11/20 17:14 AW [email or web address]) Special Tests Cervical Spine Special Tests Slump Test Results negative Spurling's Test Test Results negative bilaterally Lumbar Spine Special Tests Straight Leg Raise Test Results active SLR positive on the right Comments some relief noted with bimanual compression through bilateral ASIS Luis Test Results positive bilaterally Comments increase in hip flexion with knees bent B Slump Test Results vaguely positive R; negative L Comments R side pt reports increased tension but no pain Shoulder Special Tests Somers Endy Impingement Test Results negative bilaterally Drop Arm Rotator Cuff Test Results negative bilaterally Hip Special Tests Scour Test Test Results negative bilaterally PT-OP-M Strength Start: 03/11/20 09:17 Freq: Status: Active Protocol: Document 03/11/20 10:34 AW (Rec: 03/11/20 17:14 AW [email or web address]) Cervical Spine Strength Cervical Spine Manual Muscle Testing Testing Position Sitting Flexion (C1-2) 4+ Good+ Extension 4 Good Rotation Left 4 Good Rotation Right 4 Good Lateral Flexion Left (C3) 4- Good- Lateral Flexion Right (C3) 4- Good- Shoulder Strength Shoulder Manual Muscle Testing Right Flexion 4+ Good+ Extension 4+ Good+ Abduction (C5) 4+ Good+ External Rotation 4+ Good+ Internal Rotation 5 Normal Comments LUE grossly 5/5 Hip Strength Hip Manual Muscle Testing Left Flexion (L2) 4+ Good+ Extension (S1) 4- Good- Abduction 4- Good- External Rotation 4+ Good+ Internal Rotation 5 Normal Right Flexion (L2) 4 Good Extension (S1) 3+ Fair+ Abduction 4- Good- External Rotation 4+ Good+ Internal Rotation 4+ Good+ Knee Strength Knee Manual Muscle Testing Left Flexion (S2) 5 Normal Extension (L3) 4+ Good+ Right Flexion (S2) 5 Normal Extension (L3) 4+ Good+ PT-OP-Q Treatments Start: 03/11/20 09:17 Freq: Status: Active Protocol: Document 08/03/20 10:17 MA (Rec: 08/03/20 11:02 MA [id number]) Therapeutic Exercises Supine Exercises Piriformis Stretch Side bilateral Reps/Minutes 30 sec LTR Supine Exercise Name Lower Trunk Rotation Side bilateral Reps/Minutes 8x Sidelying Exercises Open Book Side bilateral Reps/Minutes x8 Sitting Exercises trunk rotation Sitting Exercise Name trunk rotation Reps/Minutes 2 min Comments arms across chest UT stretch Side bilateral Reps/Minutes 30 sec Comments cues to drop arm for increased stretch Standing Exercises paloff press Standing Exercise Name paloff press & oblique twists Side bilateral Resistance level 1 Equipment Used TB Reps/Minutes x10 each Comments postural cues Squats Standing Exercise Name Mini squats over raised table Side bilateral Therapeutic Activity Therapeutic Activity reaching Name fwd, lateral added in seated Comments In standing and sitting with flat back, good posture, using core Manual Therapy Treatment Soft Tissue Mobilization 1 Body Location B UT, periscapular mm, LS Mobilization Type Myofascial Release,Strumming, Sustained Pressure Intensity/Depth Moderate Body Position Supine Manual Traction Cervical Body Position Hooklying Reps/Duration x60 Comments relieving for neck pain and shoulder tension PT-OP-R Modalities Start: 03/11/20 09:17 Freq: Status: Active Protocol: Document 07/01/20 10:22 MA (Rec: 07/01/20 11:04 MA [id number]) Electric Stimulation Electric Stimulation IFC Body Location L shoulder Duration (Minutes) 12 Intensity 29 Target/Sweep Target High/Low High Patient Position Sidelying Comments IFC L shd blade PT-OP-T Assessment and Plan Start: 03/11/20 09:17 Freq: Status: Active Protocol: Document 08/03/20 10:17 MA (Rec: 08/03/20 11:02 MA [id number]) Physical Therapy Assessment Goals Five Impairment hip strength Short Term Goal (STG) Pt will improve right hip strength equal to left for improved gait quality 05/27/20 - Progressing but R side painful groin STG Duration 6 weeks - 04/22/2020 Custodial Goal (LTG) Pt will demonstrate SL squat from 20 surface bilaterally without LOB 05/27/20 - Best performance from 23 LTG Duration 3 months - 09/02/20 Four Impairment hyperdensity lumbar paraspinals Short Term Goal (STG) Pt will demonstrate reduced tone in lumbar musculature and glutes 05/27/20 - PROGRESSING STG Duration 6 weeks - 04/22/2020 5 Impairment strength Short Term Goal (STG) Improve TrA activation and LE strength by 1/2 grade 05/27/20 MET STG Duration 6 wks Lead Instructor/Flight Attendant Goal (LTG) Independent with HEP and aquatic exercise program for long-term pain management and fitness. 05/27/20 - Wait list for aquatic LTG Duration 3 months - 09/02/20 4 Impairment ROM Custodial Goal (LTG) Improve LE and trunk ROM to WFL with minimal to no pain ( good goal progress) LTG Duration 3 months - 09/02/20 3 Impairment cervical ROM Short Term Goal (STG) Pt will improve cervical lateral flexion to 35 degrees or greater bilaterally 05/27/20 - PROGRESSING 26 (R) and 28 (L) 04/29/20- IMPROVING- 31 degrees R, 33 degrees L STG Duration 6 weeks - 04/22/2020 Custodial Goal (LTG) Pt will improve cervical rotation to 60 degrees or greater bilaterally for improved ability to turn head while driving. 05/27/20 - B 50 deg LTG Duration 3 months - 09/02/20 2 Impairment posture Short Term Goal (STG) Pt will self-correct cervical and thoracic posture for improvement in pain symptoms 04/29/20- IMPROVING- pt continues to have some pain in CS but is able to self- correct posture STG Duration 6 weeks - 04/22/2020 One Impairment increased density cervical paraspinals and upper traps Short Term Goal (STG) Pt will demonstrate reduced tone in cervical musculature and upper traps PROGRESSING STG Duration 6 weeks - 04/22/2020 Custodial Goal (LTG) Pt will score 25/50 or less on NDI to represent improved daily function related to neck pain. 05/27/20 - Pt scores 75% disability. Revisiting earlier score, pt actually scored 60% disability. New goal: Pt scores 40% or less on NDI. LTG Duration 3 months - 09/02/20 Assessment Summary Assessment Pt has some pain in cervical spine today that improved after STM. Worked on reaching activties today with good posture, focusing on sitting tall, using core, and reaching fwd and laterally while seated, fwd only while standing. In standing pt had minor LBP so switched to seated with good results. Pt c /o R knee pain over tibial tuberosity. Tibial tuberosity is more pronounced on R>L. Pt admits to slacking off on HEP the last two weeks due to hectic schedule with daughter' s 8th grade graduation. Encouraged pt to return to her usual HEP routine to decrease CS pain. Physical Therapy Plan Frequency and Duration Frequency of Treatment 1-2 x /week Duration of Treatment 3 months Plan of Care Start Date 06/03/20 Plan of Care End Date 09/02/20 Therapeutic Interventions Therapeutic Interventions Home Exercise Program,Joint Mobilizations,Manual Therapy, Neuromuscular Re-education, Patient/Caregiver Education, Self-Care/Home Management,Soft Tissue Mobilization,Taping, Therapeutic Activities, Therapeutic Exercises Modalities Cold Pack/Ice Massage,Electric Stimulation,Hot Packs Next Visit Focus/Plan Next Note Type Treatment Note Next Visit Plan Progress core and proximal strengthening in standing as tolerated. Lifting, carrying, reaching.
--- NOTE | 2020-08-05 10:41 | PT.OTN ---
Current Diagnoses Abnormal posture (08/05/20) Strain of muscle, fascia and tendon at neck level, subsequent encounter (08/05/20) Strain of muscle, fascia and tendon of lower back, subsequent encounter (08/05/20) Arthrodesis status (08/05/20) Physical Therapy Treatment Note PT-OP-A Visit Information Start: 03/11/20 09:17 Freq: Status: Active Protocol: Document 08/05/20 10:32 AW (Rec: 08/05/20 10:39 AW [id number]) Out-Patient Physical Therapy Visit Information Visit Information Visit Type Treatment Note Visit Start Time 09:52 Visit Stop Time 10:32 Total Visit Minutes 40 Visit Number 25 Number of SUPERVISOR CLAIMS Visits 0 Evaluation Information Evaluation Date 03/11/20 PT-OP-B Current Condition Start: 03/11/20 09:17 Freq: Status: Active Protocol: Document 03/11/20 10:34 AW (Rec: 03/11/20 11:19 AW [id number]) Current Condition History of Current Condition Onset Date 15 years Current Complaints neck and right shoulder pain, low back pain with recent surgeries History of Current Condition Pt with history of fibromyalgia has long standing neck and low back pain. Symptoms improved after recent surgeries but pt continues to have pain especially if she overdoes it. Overall, her right side is worse than her left. She is currently walking ~1/16 mi with incline but can typically do 1/8 mile when feeling well. Prior Treatments and Tests late s - cervical discectomy aqua therapy 12/05/19 - C5-7 ACDF 02/11/20 - foraminectomy L5-S1 Future Testing and Treatments Planned Septoplasty mid-April Treatment Goals Patient/Caregiver Goals Reduce tone in shoulders Improve cervical ROM Increase walking tolerance Prior Functional Status Baseline Function- ADL's Modified Independent Baseline Function- Mobility Modified Independent Baseline Function- Gait ambulates with SPC vs FWW for stairs, inclines, long distance 2/2 R knee pn Baseline Function- Other able to walk from hospital to [facility] with FWW Current Functional Impairments (Reported) Functional Limitations- ADL's needs equipment for showers, no assist Functional Limitations- Mobility/Gait can walk from hospital to [facility] but has increased back pain for days afterward PT-OP-C Subjective Start: 03/11/20 09:17 Freq: Status: Active Protocol: Document 08/05/20 10:32 AW (Rec: 08/05/20 10:39 AW [id number]) OP-PT Subjective Patient Comments Patient Comments Selina reports ongoing right knee pain with some instability during stair climbing. PT-OP-D Balance Start: 03/11/20 09:17 Freq: Status: Active Protocol: Document 03/18/20 11:15 AW (Rec: 03/18/20 13:00 AW [email or web address]) OP-PT Balance Assessment Sitting Balance Static Sitting Balance Ability Normal Dynamic Sitting Balance Ability Normal Standing Balance Static Standing Balance Ability Good Dynamic Standing Balance Ability Good Balance Tests Single Limb Standing Single Limb- Right 3 sec, 3 sec, 6 sec Single Limb- Left 6 sec, 6 sec, 6 sec Brown Fall Scale Copyright Permission PT-OP-E Functional Tests Start: 03/11/20 09:17 Freq: Status: Active Protocol: Document 03/18/20 11:15 AW (Rec: 03/18/20 13:01 AW [email or web address]) Functional Tests Other SL squat from table Score 25 L; unable R without LOB PT-OP-F Manual Assessment Start: 03/11/20 09:17 Freq: Status: Active Protocol: Document 03/18/20 11:15 AW (Rec: 03/18/20 13:00 AW [email or web address]) Manual Assessments Soft Tissue Assessment Soft Tissue Mobility Assessment Increased density in gluteal musculature RLE PT-OP-H Neuro Start: 03/11/20 09:17 Freq: Status: Active Protocol: Document 03/11/20 10:34 AW (Rec: 03/11/20 17:14 AW [email or web address]) Sensation Evaluation Gross Sensation Gross Sensation Right UE Impaired Sensation Description Numbness Dermatome Impairments C7 Comments Summary Comments Intermittent numbness in right posterior arm. Not reproduced on exam with neck special tests. Deep Tendon Reflex & Clonus Assessment Deep Tendon Reflex Bilateral Tricep Deep Tendon Reflex 1+ Diminished Bilateral Bicep Deep Tendon Reflex 2+ Normal PT-OP-J Posture/Palpation/Skin Start: 03/11/20 09:17 Freq: Status: Active Protocol: Document 03/11/20 10:34 AW (Rec: 03/11/20 17:14 AW [email or web address]) Posture Evaluation Position Standing Evaluation View Lateral Head/C-Spine Posture Extended,Forward Head T-Spine Posture Increased Kyphosis L-Spine Posture Flattened Shoulder Posture (L) Rounded,(R) Rounded Scapula Posture (L) Protracted,(R) Protracted Weight Distribution Weight Shifted Left Ankle/Foot Posture (L) Supinated,(R) Supinated Foot Arch (L) Medium Arch,(R) Medium Arch Palpation Assessment Location lumbar spine Palpation Location paraspinals Palpation Findings Soft Tissue Tightness,Muscle Guarding Palpation Details R more affected than L PT-OP-K Range of Motion Start: 03/11/20 09:17 Freq: Status: Active Protocol: Document 03/11/20 10:34 AW (Rec: 03/11/20 17:14 AW [email or web address]) Cervical Spine Range of Motion Cervical Spine Active Degrees Testing Position Sitting Flexion 50 Extension 30 Rotation Left 45 Rotation Right 50 Lateral Flexion Left 30 Lateral Flexion Right 25 ROM Limitations Soft Tissue Tightness,Pain Lumbar Spine Range of Motion Lumbar Spine Active Testing Position Standing Extension 15 Comments Flexion: fingertips 10 from floor with notable L3 L4 hinge Side bend: fingertips 23 from floor right side, 21 from floor left side Shoulder Goniometric Range of Motion Shoulder Left Active Testing Position Sitting Flexion 156 Extension 40 Abduction 160 Internal Rotation Behind Back (text) T7 Right Active Testing Position Sitting Flexion 160 Extension 40 Abduction 160 Internal Rotation Behind Back (text) T7 Shoulder ROM Limitations Shoulder ROM Limitations Soft Tissue Tightness,Pain Elbow/Forearm Range of Motion Elbow/Forearm Right Active Comments B elbow AROM and PROM WNL Hip Goniometric Range of Motion Hip Right Hip ROM WFL Yes Testing Position Supine Flexion w/Knee Flexed 110 Abduction 40 Comments IR limited; ER WNL Left Hip ROM WFL Yes Testing Position Supine Flexion w/Knee Flexed 110 Abduction 43 Comments IR limited but greater excursion than right Hip ROM Limitations Comments flexion limited by habitus PT-OP-L Special Tests Start: 03/11/20 09:17 Freq: Status: Active Protocol: Document 03/11/20 10:34 AW (Rec: 03/11/20 17:14 AW [email or web address]) Special Tests Cervical Spine Special Tests Slump Test Results negative Spurling's Test Test Results negative bilaterally Lumbar Spine Special Tests Straight Leg Raise Test Results active SLR positive on the right Comments some relief noted with bimanual compression through bilateral ASIS Luis Test Results positive bilaterally Comments increase in hip flexion with knees bent B Slump Test Results vaguely positive R; negative L Comments R side pt reports increased tension but no pain Shoulder Special Tests Yonis Schumacher Impingement Test Results negative bilaterally Drop Arm Rotator Cuff Test Results negative bilaterally Hip Special Tests Scour Test Test Results negative bilaterally PT-OP-M Strength Start: 03/11/20 09:17 Freq: Status: Active Protocol: Document 03/11/20 10:34 AW (Rec: 03/11/20 17:14 AW [email or web address]) Cervical Spine Strength Cervical Spine Manual Muscle Testing Testing Position Sitting Flexion (C1-2) 4+ Good+ Extension 4 Good Rotation Left 4 Good Rotation Right 4 Good Lateral Flexion Left (C3) 4- Good- Lateral Flexion Right (C3) 4- Good- Shoulder Strength Shoulder Manual Muscle Testing Right Flexion 4+ Good+ Extension 4+ Good+ Abduction (C5) 4+ Good+ External Rotation 4+ Good+ Internal Rotation 5 Normal Comments LUE grossly 5/5 Hip Strength Hip Manual Muscle Testing Left Flexion (L2) 4+ Good+ Extension (S1) 4- Good- Abduction 4- Good- External Rotation 4+ Good+ Internal Rotation 5 Normal Right Flexion (L2) 4 Good Extension (S1) 3+ Fair+ Abduction 4- Good- External Rotation 4+ Good+ Internal Rotation 4+ Good+ Knee Strength Knee Manual Muscle Testing Left Flexion (S2) 5 Normal Extension (L3) 4+ Good+ Right Flexion (S2) 5 Normal Extension (L3) 4+ Good+ PT-OP-Q Treatments Start: 03/11/20 09:17 Freq: Status: Active Protocol: Document 08/05/20 10:32 AW (Rec: 08/05/20 10:39 AW [id number]) Therapeutic Exercises Supine Exercises luis test stretch Supine Exercise Name luis test stretch Side right Reps/Minutes 30 SH x 4 Comments cues for ppt Piriformis Stretch Side bilateral Reps/Minutes 30 sec Standing Exercises Squats Standing Exercise Name Mini squats/tap squats over raised table Side bilateral Equipment Used tb around knees for tracking Reps/Minutes 15 x 2 band walk Standing Exercise Name side step Resistance level 3 Equipment Used TB Reps/Minutes 15' lap x 3 Therapeutic Activity Therapeutic Activity reaching Name fwd in standing Reps/Minutes 5 Comments reaching fwd to 3-5 pound therapy balls with emphasis on core control lifting Name lifting Reps/Minutes 10 Comments 10 reps of lifting loaded backpack (15#) from chair height and carrying 50 feet. Also mass practice for loaded hip hinge Manual Therapy Treatment Soft Tissue Mobilization Glutes Body Location glute max and med Mobilization Type Rolling,Sustained Pressure, Trigger Point Release Intensity/Depth Moderate Body Position Sidelying Comments mod-deep pressure; mod pressure with rolling pin PT-OP-R Modalities Start: 03/11/20 09:17 Freq: Status: Active Protocol: Document 07/01/20 10:22 MA (Rec: 07/01/20 11:04 MA [id number]) Electric Stimulation Electric Stimulation IFC Body Location L shoulder Duration (Minutes) 12 Intensity 29 Target/Sweep Target High/Low High Patient Position Sidelying Comments IFC L shd blade PT-OP-T Assessment and Plan Start: 03/11/20 09:17 Freq: Status: Active Protocol: Document 08/05/20 10:32 AW (Rec: 08/05/20 10:41 AW [id number]) Physical Therapy Assessment Goals Five Impairment hip strength Short Term Goal (STG) Pt will improve right hip strength equal to left for improved gait quality 05/27/20 - Progressing but R side painful groin STG Duration 6 weeks - 04/22/2020 Prison Goal (LTG) Pt will demonstrate SL squat from 20 surface bilaterally without LOB 05/27/20 - Best performance from 23 LTG Duration 3 months - 09/02/20 Four Impairment hyperdensity lumbar paraspinals Short Term Goal (STG) Pt will demonstrate reduced tone in lumbar musculature and glutes 05/27/20 - PROGRESSING STG Duration 6 weeks - 04/22/2020 5 Impairment strength Short Term Goal (STG) Improve TrA activation and LE strength by 1/2 grade 05/27/20 MET STG Duration 6 wks Prison Goal (LTG) Independent with HEP and aquatic exercise program for long-term pain management and fitness. 05/27/20 - Wait list for aquatic LTG Duration 3 months - 09/02/20 4 Impairment ROM Final [employer] Goal (LTG) Improve LE and trunk ROM to WFL with minimal to no pain ( good goal progress) LTG Duration 3 months - 09/02/20 3 Impairment cervical ROM Short Term Goal (STG) Pt will improve cervical lateral flexion to 35 degrees or greater bilaterally 05/27/20 - PROGRESSING 26 (R) and 28 (L) 04/29/20- IMPROVING- 31 degrees R, 33 degrees L STG Duration 6 weeks - 04/22/2020 Final [employer] Goal (LTG) Pt will improve cervical rotation to 60 degrees or greater bilaterally for improved ability to turn head while driving. 05/27/20 - B 50 deg LTG Duration 3 months - 09/02/20 2 Impairment posture Short Term Goal (STG) Pt will self-correct cervical and thoracic posture for improvement in pain symptoms 04/29/20- IMPROVING- pt continues to have some pain in CS but is able to self- correct posture STG Duration 6 weeks - 04/22/2020 One Impairment increased density cervical paraspinals and upper traps Short Term Goal (STG) Pt will demonstrate reduced tone in cervical musculature and upper traps PROGRESSING STG Duration 6 weeks - 04/22/2020 Final [employer] Goal (LTG) Pt will score 25/50 or less on NDI to represent improved daily function related to neck pain. 05/27/20 - Pt scores 75% disability. Revisiting earlier score, pt actually scored 60% disability. New goal: Pt scores 40% or less on NDI. LTG Duration 3 months - 09/02/20 Assessment Summary Assessment Treatment focused on relieving right hip pain, improved after STM. Pt tolerated loaded hip hinge well. Will plan to progress. Physical Therapy Plan Frequency and Duration Frequency of Treatment 1-2 x /week Duration of Treatment 3 months Plan of Care Start Date 06/03/20 Plan of Care End Date 09/02/20 Therapeutic Interventions Therapeutic Interventions Home Exercise Program,Joint Mobilizations,Manual Therapy, Neuromuscular Re-education, Patient/Caregiver Education, Self-Care/Home Management,Soft Tissue Mobilization,Taping, Therapeutic Activities, Therapeutic Exercises Modalities Cold Pack/Ice Massage,Electric Stimulation,Hot Packs
--- NOTE | 2020-08-12 12:23 | PT.OTN ---
Current Diagnoses Abnormal posture (08/12/20) Strain of muscle, fascia and tendon at neck level, subsequent encounter (08/12/20) Strain of muscle, fascia and tendon of lower back, subsequent encounter (08/12/20) Arthrodesis status (08/12/20) Physical Therapy Treatment Note PT-OP-A Visit Information Start: 03/11/20 09:17 Freq: Status: Active Protocol: Document 08/12/20 11:15 AW (Rec: 08/12/20 11:17 AW [id number]) Out-Patient Physical Therapy Visit Information Visit Information Visit Type Treatment Note Visit Start Time 10:30 Visit Stop Time 11:15 Total Visit Minutes 45 PT-OP-B Current Condition Start: 03/11/20 09:17 Freq: Status: Active Protocol: Document 03/11/20 10:34 AW (Rec: 03/11/20 11:19 AW [id number]) Current Condition History of Current Condition Onset Date 15 years Current Complaints neck and right shoulder pain, low back pain with recent surgeries History of Current Condition Pt with history of fibromyalgia has long standing neck and low back pain. Symptoms improved after recent surgeries but pt continues to have pain especially if she overdoes it. Overall, her right side is worse than her left. She is currently walking ~1/16 mi with incline but can typically do 1/8 mile when feeling well. Prior Treatments and Tests late s - cervical discectomy aqua therapy 12/05/19 - C5-7 ACDF 02/11/20 - foraminectomy L5-S1 Future Testing and Treatments Planned Septoplasty mid-April Treatment Goals Patient/Caregiver Goals Reduce tone in shoulders Improve cervical ROM Increase walking tolerance Prior Functional Status Baseline Function- ADL's Modified Independent Baseline Function- Mobility Modified Independent Baseline Function- Gait ambulates with SPC vs FWW for stairs, inclines, long distance 2/2 R knee pn Baseline Function- Other able to walk from hospital to [facility] with FWW Current Functional Impairments (Reported) Functional Limitations- ADL's needs equipment for showers, no assist Functional Limitations- Mobility/Gait can walk from hospital to [facility] but has increased back pain for days afterward PT-OP-C Subjective Start: 03/11/20 09:17 Freq: Status: Active Protocol: Document 08/12/20 11:15 AW (Rec: 08/12/20 12:18 AW [email or web address]) OP-PT Subjective Patient Comments Patient Comments Selina laid low during the heat wave and is feeling a little overwhelmed today. PT-OP-D Balance Start: 03/11/20 09:17 Freq: Status: Active Protocol: Document 03/18/20 11:15 AW (Rec: 03/18/20 13:00 AW [email or web address]) OP-PT Balance Assessment Sitting Balance Static Sitting Balance Ability Normal Dynamic Sitting Balance Ability Normal Standing Balance Static Standing Balance Ability Good Dynamic Standing Balance Ability Good Balance Tests Single Limb Standing Single Limb- Right 3 sec, 3 sec, 6 sec Single Limb- Left 6 sec, 6 sec, 6 sec Brown Fall Scale Copyright Permission PT-OP-E Functional Tests Start: 03/11/20 09:17 Freq: Status: Active Protocol: Document 03/18/20 11:15 AW (Rec: 03/18/20 13:01 AW [email or web address]) Functional Tests Other SL squat from table Score 25 L; unable R without LOB PT-OP-F Manual Assessment Start: 03/11/20 09:17 Freq: Status: Active Protocol: Document 03/18/20 11:15 AW (Rec: 03/18/20 13:00 AW [email or web address]) Manual Assessments Soft Tissue Assessment Soft Tissue Mobility Assessment Increased density in gluteal musculature RLE PT-OP-H Neuro Start: 03/11/20 09:17 Freq: Status: Active Protocol: Document 03/11/20 10:34 AW (Rec: 03/11/20 17:14 AW [email or web address]) Sensation Evaluation Gross Sensation Gross Sensation Right UE Impaired Sensation Description Numbness Dermatome Impairments C7 Comments Summary Comments Intermittent numbness in right posterior arm. Not reproduced on exam with neck special tests. Deep Tendon Reflex & Clonus Assessment Deep Tendon Reflex Bilateral Tricep Deep Tendon Reflex 1+ Diminished Bilateral Bicep Deep Tendon Reflex 2+ Normal PT-OP-J Posture/Palpation/Skin Start: 03/11/20 09:17 Freq: Status: Active Protocol: Document 03/11/20 10:34 AW (Rec: 03/11/20 17:14 AW [email or web address]) Posture Evaluation Position Standing Evaluation View Lateral Head/C-Spine Posture Extended,Forward Head T-Spine Posture Increased Kyphosis L-Spine Posture Flattened Shoulder Posture (L) Rounded,(R) Rounded Scapula Posture (L) Protracted,(R) Protracted Weight Distribution Weight Shifted Left Ankle/Foot Posture (L) Supinated,(R) Supinated Foot Arch (L) Medium Arch,(R) Medium Arch Palpation Assessment Location lumbar spine Palpation Location paraspinals Palpation Findings Soft Tissue Tightness,Muscle Guarding Palpation Details R more affected than L PT-OP-K Range of Motion Start: 03/11/20 09:17 Freq: Status: Active Protocol: Document 03/11/20 10:34 AW (Rec: 03/11/20 17:14 AW [email or web address]) Cervical Spine Range of Motion Cervical Spine Active Degrees Testing Position Sitting Flexion 50 Extension 30 Rotation Left 45 Rotation Right 50 Lateral Flexion Left 30 Lateral Flexion Right 25 ROM Limitations Soft Tissue Tightness,Pain Lumbar Spine Range of Motion Lumbar Spine Active Testing Position Standing Extension 15 Comments Flexion: fingertips 10 from floor with notable L3 L4 hinge Side bend: fingertips 23 from floor right side, 21 from floor left side Shoulder Goniometric Range of Motion Shoulder Left Active Testing Position Sitting Flexion 156 Extension 40 Abduction 160 Internal Rotation Behind Back (text) T7 Right Active Testing Position Sitting Flexion 160 Extension 40 Abduction 160 Internal Rotation Behind Back (text) T7 Shoulder ROM Limitations Shoulder ROM Limitations Soft Tissue Tightness,Pain Elbow/Forearm Range of Motion Elbow/Forearm Right Active Comments B elbow AROM and PROM WNL Hip Goniometric Range of Motion Hip Right Hip ROM WFL Yes Testing Position Supine Flexion w/Knee Flexed 110 Abduction 40 Comments IR limited; ER WNL Left Hip ROM WFL Yes Testing Position Supine Flexion w/Knee Flexed 110 Abduction 43 Comments IR limited but greater excursion than right Hip ROM Limitations Comments flexion limited by habitus PT-OP-L Special Tests Start: 03/11/20 09:17 Freq: Status: Active Protocol: Document 03/11/20 10:34 AW (Rec: 03/11/20 17:14 AW [email or web address]) Special Tests Cervical Spine Special Tests Slump Test Results negative Spurling's Test Test Results negative bilaterally Lumbar Spine Special Tests Straight Leg Raise Test Results active SLR positive on the right Comments some relief noted with bimanual compression through bilateral ASIS Luis Test Results positive bilaterally Comments increase in hip flexion with knees bent B Slump Test Results vaguely positive R; negative L Comments R side pt reports increased tension but no pain Shoulder Special Tests Somers Endy Impingement Test Results negative bilaterally Drop Arm Rotator Cuff Test Results negative bilaterally Hip Special Tests Scour Test Test Results negative bilaterally PT-OP-M Strength Start: 03/11/20 09:17 Freq: Status: Active Protocol: Document 03/11/20 10:34 AW (Rec: 03/11/20 17:14 AW [email or web address]) Cervical Spine Strength Cervical Spine Manual Muscle Testing Testing Position Sitting Flexion (C1-2) 4+ Good+ Extension 4 Good Rotation Left 4 Good Rotation Right 4 Good Lateral Flexion Left (C3) 4- Good- Lateral Flexion Right (C3) 4- Good- Shoulder Strength Shoulder Manual Muscle Testing Right Flexion 4+ Good+ Extension 4+ Good+ Abduction (C5) 4+ Good+ External Rotation 4+ Good+ Internal Rotation 5 Normal Comments LUE grossly 5/5 Hip Strength Hip Manual Muscle Testing Left Flexion (L2) 4+ Good+ Extension (S1) 4- Good- Abduction 4- Good- External Rotation 4+ Good+ Internal Rotation 5 Normal Right Flexion (L2) 4 Good Extension (S1) 3+ Fair+ Abduction 4- Good- External Rotation 4+ Good+ Internal Rotation 4+ Good+ Knee Strength Knee Manual Muscle Testing Left Flexion (S2) 5 Normal Extension (L3) 4+ Good+ Right Flexion (S2) 5 Normal Extension (L3) 4+ Good+ PT-OP-Q Treatments Start: 03/11/20 09:17 Freq: Status: Active Protocol: Document 08/12/20 11:15 AW (Rec: 08/12/20 11:17 AW [id number]) Therapeutic Exercises Sitting Exercises UT stretch Side bilateral Equipment Used with active CS lateral flexion Reps/Minutes 30 sec Comments cues to drop arm for increased stretch Standing Exercises paloff press Standing Exercise Name paloff press & oblique twists Side bilateral Resistance level 3 Equipment Used TB Reps/Minutes x10 each Comments postural cues; with perturbations Squats Standing Exercise Name Mini squats/tap squats over chair Side bilateral Resistance 10# db each hand Equipment Used tb around knees for tracking Reps/Minutes 15 x 2 Comments tiring but good form PT-OP-R Modalities Start: 03/11/20 09:17 Freq: Status: Active Protocol: Document 07/01/20 10:22 MA (Rec: 07/01/20 11:04 MA [id number]) Electric Stimulation Electric Stimulation IFC Body Location L shoulder Duration (Minutes) 12 Intensity 29 Target/Sweep Target High/Low High Patient Position Sidelying Comments IFC L shd blade PT-OP-T Assessment and Plan Start: 03/11/20 09:17 Freq: Status: Active Protocol: Document 08/12/20 11:15 AW (Rec: 08/12/20 12:23 AW [email or web address]) Physical Therapy Assessment Goals Five Impairment hip strength Short Term Goal (STG) Pt will improve right hip strength equal to left for improved gait quality 05/27/20 - Progressing but R side painful groin STG Duration 6 weeks - 04/22/2020 [facility] Goal (LTG) Pt will demonstrate SL squat from 20 surface bilaterally without LOB 05/27/20 - Best performance from 23 LTG Duration 3 months - 09/02/20 Four Impairment hyperdensity lumbar paraspinals Short Term Goal (STG) Pt will demonstrate reduced tone in lumbar musculature and glutes 05/27/20 - PROGRESSING STG Duration 6 weeks - 04/22/2020 5 Impairment strength Short Term Goal (STG) Improve TrA activation and LE strength by 1/2 grade 05/27/20 MET STG Duration 6 wks [employer] Safety Specialist Goal (LTG) Independent with HEP and aquatic exercise program for long-term pain management and fitness. 05/27/20 - Wait list for aquatic LTG Duration 3 months - 09/02/20 4 Impairment ROM Food Safety Specialist Goal (LTG) Improve LE and trunk ROM to WFL with minimal to no pain ( good goal progress) LTG Duration 3 months - 09/02/20 3 Impairment cervical ROM Short Term Goal (STG) Pt will improve cervical lateral flexion to 35 degrees or greater bilaterally 05/27/20 - PROGRESSING 26 (R) and 28 (L) 04/29/20- IMPROVING- 31 degrees R, 33 degrees L STG Duration 6 weeks - 04/22/2020 [facility] Goal (LTG) Pt will improve cervical rotation to 60 degrees or greater bilaterally for improved ability to turn head while driving. 05/27/20 - B 50 deg LTG Duration 3 months - 09/02/20 2 Impairment posture Short Term Goal (STG) Pt will self-correct cervical and thoracic posture for improvement in pain symptoms 04/29/20- IMPROVING- pt continues to have some pain in CS but is able to self- correct posture STG Duration 6 weeks - 04/22/2020 One Impairment increased density cervical paraspinals and upper traps Short Term Goal (STG) Pt will demonstrate reduced tone in cervical musculature and upper traps PROGRESSING STG Duration 6 weeks - 04/22/2020 Food Safety Specialist Goal (LTG) Pt will score 25/50 or less on NDI to represent improved daily function related to neck pain. 05/27/20 - Pt scores 75% disability. Revisiting earlier score, pt actually scored 60% disability. New goal: Pt scores 40% or less on NDI. LTG Duration 3 months - 09/02/20 Assessment Summary Assessment Pt complained of right biceps pain after lifting activities last week. Switched to mini squat/hip hinge/deadlift this session, keeping arms relaxed. Pt tolerates loading well but continues to require cues for proper hip hinge. Physical Therapy Plan Frequency and Duration Frequency of Treatment 1-2 x /week Duration of Treatment 3 months Plan of Care Start Date 06/03/20 Plan of Care End Date 09/02/20 Therapeutic Interventions Therapeutic Interventions Home Exercise Program,Joint Mobilizations,Manual Therapy, Neuromuscular Re-education, Patient/Caregiver Education, Self-Care/Home Management,Soft Tissue Mobilization,Taping, Therapeutic Activities, Therapeutic Exercises Modalities Cold Pack/Ice Massage,Electric Stimulation,Hot Packs Next Visit Focus/Plan Next Note Type Treatment Note Next Visit Plan Progress core and proximal strengthening in standing as tolerated. Consider loading backpack for loaded squat/dl.
--- NOTE | 2020-08-24 11:01 | PT.OTN ---
Current Diagnoses Abnormal posture (08/24/20) Strain of muscle, fascia and tendon at neck level, subsequent encounter (08/24/20) Strain of muscle, fascia and tendon of lower back, subsequent encounter (08/24/20) Arthrodesis status (08/24/20) Physical Therapy Treatment Note PT-OP-A Visit Information Start: 03/11/20 09:17 Freq: Status: Active Protocol: Document 08/24/20 10:20 MA (Rec: 08/24/20 11:01 MA [id number]) Out-Patient Physical Therapy Visit Information Visit Information Visit Type Treatment Note Visit Start Time 10:15 Visit Stop Time 10:55 Total Visit Minutes 40 Visit Number 27 Number of MARINE INSULATOR Visits 1 PT-OP-B Current Condition Start: 03/11/20 09:17 Freq: Status: Active Protocol: Document 03/11/20 10:34 AW (Rec: 03/11/20 11:19 AW [id number]) Current Condition History of Current Condition Onset Date 15 years Current Complaints neck and right shoulder pain, low back pain with recent surgeries History of Current Condition Pt with history of fibromyalgia has long standing neck and low back pain. Symptoms improved after recent surgeries but pt continues to have pain especially if she overdoes it. Overall, her right side is worse than her left. She is currently walking ~1/16 mi with incline but can typically do 1/8 mile when feeling well. Prior Treatments and Tests late s - cervical discectomy aqua therapy 12/05/19 - C5-7 ACDF 02/11/20 - foraminectomy L5-S1 Future Testing and Treatments Planned Septoplasty mid-April Treatment Goals Patient/Caregiver Goals Reduce tone in shoulders Improve cervical ROM Increase walking tolerance Prior Functional Status Baseline Function- ADL's Modified Independent Baseline Function- Mobility Modified Independent Baseline Function- Gait ambulates with SPC vs FWW for stairs, inclines, long distance 2/2 R knee pn Baseline Function- Other able to walk from hospital to [facility] with FWW Current Functional Impairments (Reported) Functional Limitations- ADL's needs equipment for showers, no assist Functional Limitations- Mobility/Gait can walk from hospital to [facility] but has increased back pain for days afterward PT-OP-C Subjective Start: 03/11/20 09:17 Freq: Status: Active Protocol: Document 08/24/20 10:20 MA (Rec: 08/24/20 11:01 MA [id number]) OP-PT Subjective Patient Comments Patient Comments Selina is having MRIs for nerve issues conducted on RUE and RLE PT-OP-D Balance Start: 03/11/20 09:17 Freq: Status: Active Protocol: Document 03/18/20 11:15 AW (Rec: 03/18/20 13:00 AW [email or web address]) OP-PT Balance Assessment Sitting Balance Static Sitting Balance Ability Normal Dynamic Sitting Balance Ability Normal Standing Balance Static Standing Balance Ability Good Dynamic Standing Balance Ability Good Balance Tests Single Limb Standing Single Limb- Right 3 sec, 3 sec, 6 sec Single Limb- Left 6 sec, 6 sec, 6 sec Brown Fall Scale Copyright Permission PT-OP-E Functional Tests Start: 03/11/20 09:17 Freq: Status: Active Protocol: Document 03/18/20 11:15 AW (Rec: 03/18/20 13:01 AW [email or web address]) Functional Tests Other SL squat from table Score 25 L; unable R without LOB PT-OP-F Manual Assessment Start: 03/11/20 09:17 Freq: Status: Active Protocol: Document 03/18/20 11:15 AW (Rec: 03/18/20 13:00 AW [email or web address]) Manual Assessments Soft Tissue Assessment Soft Tissue Mobility Assessment Increased density in gluteal musculature RLE PT-OP-H Neuro Start: 03/11/20 09:17 Freq: Status: Active Protocol: Document 03/11/20 10:34 AW (Rec: 03/11/20 17:14 AW [email or web address]) Sensation Evaluation Gross Sensation Gross Sensation Right UE Impaired Sensation Description Numbness Dermatome Impairments C7 Comments Summary Comments Intermittent numbness in right posterior arm. Not reproduced on exam with neck special tests. Deep Tendon Reflex & Clonus Assessment Deep Tendon Reflex Bilateral Tricep Deep Tendon Reflex 1+ Diminished Bilateral Bicep Deep Tendon Reflex 2+ Normal PT-OP-J Posture/Palpation/Skin Start: 03/11/20 09:17 Freq: Status: Active Protocol: Document 03/11/20 10:34 AW (Rec: 03/11/20 17:14 AW [email or web address]) Posture Evaluation Position Standing Evaluation View Lateral Head/C-Spine Posture Extended,Forward Head T-Spine Posture Increased Kyphosis L-Spine Posture Flattened Shoulder Posture (L) Rounded,(R) Rounded Scapula Posture (L) Protracted,(R) Protracted Weight Distribution Weight Shifted Left Ankle/Foot Posture (L) Supinated,(R) Supinated Foot Arch (L) Medium Arch,(R) Medium Arch Palpation Assessment Location lumbar spine Palpation Location paraspinals Palpation Findings Soft Tissue Tightness,Muscle Guarding Palpation Details R more affected than L PT-OP-K Range of Motion Start: 03/11/20 09:17 Freq: Status: Active Protocol: Document 03/11/20 10:34 AW (Rec: 03/11/20 17:14 AW [email or web address]) Cervical Spine Range of Motion Cervical Spine Active Degrees Testing Position Sitting Flexion 50 Extension 30 Rotation Left 45 Rotation Right 50 Lateral Flexion Left 30 Lateral Flexion Right 25 ROM Limitations Soft Tissue Tightness,Pain Lumbar Spine Range of Motion Lumbar Spine Active Testing Position Standing Extension 15 Comments Flexion: fingertips 10 from floor with notable L3 L4 hinge Side bend: fingertips 23 from floor right side, 21 from floor left side Shoulder Goniometric Range of Motion Shoulder Left Active Testing Position Sitting Flexion 156 Extension 40 Abduction 160 Internal Rotation Behind Back (text) T7 Right Active Testing Position Sitting Flexion 160 Extension 40 Abduction 160 Internal Rotation Behind Back (text) T7 Shoulder ROM Limitations Shoulder ROM Limitations Soft Tissue Tightness,Pain Elbow/Forearm Range of Motion Elbow/Forearm Right Active Comments B elbow AROM and PROM WNL Hip Goniometric Range of Motion Hip Right Hip ROM WFL Yes Testing Position Supine Flexion w/Knee Flexed 110 Abduction 40 Comments IR limited; ER WNL Left Hip ROM WFL Yes Testing Position Supine Flexion w/Knee Flexed 110 Abduction 43 Comments IR limited but greater excursion than right Hip ROM Limitations Comments flexion limited by habitus PT-OP-L Special Tests Start: 03/11/20 09:17 Freq: Status: Active Protocol: Document 03/11/20 10:34 AW (Rec: 03/11/20 17:14 AW [email or web address]) Special Tests Cervical Spine Special Tests Slump Test Results negative Spurling's Test Test Results negative bilaterally Lumbar Spine Special Tests Straight Leg Raise Test Results active SLR positive on the right Comments some relief noted with bimanual compression through bilateral ASIS Luis Test Results positive bilaterally Comments increase in hip flexion with knees bent B Slump Test Results vaguely positive R; negative L Comments R side pt reports increased tension but no pain Shoulder Special Tests Somers Endy Impingement Test Results negative bilaterally Drop Arm Rotator Cuff Test Results negative bilaterally Hip Special Tests Scour Test Test Results negative bilaterally PT-OP-M Strength Start: 03/11/20 09:17 Freq: Status: Active Protocol: Document 03/11/20 10:34 AW (Rec: 03/11/20 17:14 AW [email or web address]) Cervical Spine Strength Cervical Spine Manual Muscle Testing Testing Position Sitting Flexion (C1-2) 4+ Good+ Extension 4 Good Rotation Left 4 Good Rotation Right 4 Good Lateral Flexion Left (C3) 4- Good- Lateral Flexion Right (C3) 4- Good- Shoulder Strength Shoulder Manual Muscle Testing Right Flexion 4+ Good+ Extension 4+ Good+ Abduction (C5) 4+ Good+ External Rotation 4+ Good+ Internal Rotation 5 Normal Comments LUE grossly 5/5 Hip Strength Hip Manual Muscle Testing Left Flexion (L2) 4+ Good+ Extension (S1) 4- Good- Abduction 4- Good- External Rotation 4+ Good+ Internal Rotation 5 Normal Right Flexion (L2) 4 Good Extension (S1) 3+ Fair+ Abduction 4- Good- External Rotation 4+ Good+ Internal Rotation 4+ Good+ Knee Strength Knee Manual Muscle Testing Left Flexion (S2) 5 Normal Extension (L3) 4+ Good+ Right Flexion (S2) 5 Normal Extension (L3) 4+ Good+ PT-OP-Q Treatments Start: 03/11/20 09:17 Freq: Status: Active Protocol: Document 08/24/20 10:20 MA (Rec: 08/24/20 11:01 MA [id number]) Therapeutic Exercises Supine Exercises LTR Supine Exercise Name Lower Trunk Rotation Side bilateral Reps/Minutes 8x Prone Exercises child's pose Reps/Minutes 30 sec Sitting Exercises Levator Stretch Side bilateral Reps/Minutes 30 sec Comments added to HEP UT stretch Side bilateral Equipment Used with active CS lateral flexion Reps/Minutes 30 sec Comments cues to drop arm for increased stretch Standing Exercises paloff press Standing Exercise Name paloff press & oblique twists Side bilateral Resistance level 3 Equipment Used TB Reps/Minutes x10 each Comments postural cues; with perturbations Squats Standing Exercise Name Mini squats/tap squats over chair Side bilateral Equipment Used tb around knees for tracking Reps/Minutes 15 x 2 Comments no weights today- cues for posture Other Exercises Plank Other Exercise Name modified on knee Reps/Minutes 2x15 sec hold Comments focusing on keeping lumbar spine flexed quadruped Other Exercise Name UE then LE extending Reps/Minutes 2x5 ea PT-OP-R Modalities Start: 03/11/20 09:17 Freq: Status: Active Protocol: Document 07/01/20 10:22 MA (Rec: 07/01/20 11:04 MA [id number]) Electric Stimulation Electric Stimulation IFC Body Location L shoulder Duration (Minutes) 12 Intensity 29 Target/Sweep Target High/Low High Patient Position Sidelying Comments IFC L shd blade PT-OP-T Assessment and Plan Start: 03/11/20 09:17 Freq: Status: Active Protocol: Document 08/24/20 10:20 MA (Rec: 08/24/20 11:01 MA [id number]) Physical Therapy Assessment Goals Five Impairment hip strength Short Term Goal (STG) Pt will improve right hip strength equal to left for improved gait quality 05/27/20 - Progressing but R side painful groin STG Duration 6 weeks - 04/22/2020 Sewer Pipe Layer Helper Goal (LTG) Pt will demonstrate SL squat from 20 surface bilaterally without LOB 05/27/20 - Best performance from 23 LTG Duration 3 months - 09/02/20 Four Impairment hyperdensity lumbar paraspinals Short Term Goal (STG) Pt will demonstrate reduced tone in lumbar musculature and glutes 05/27/20 - PROGRESSING STG Duration 6 weeks - 04/22/2020 5 Impairment strength Short Term Goal (STG) Improve TrA activation and LE strength by 1/2 grade 05/27/20 MET STG Duration 6 wks Snf Goal (LTG) Independent with HEP and aquatic exercise program for long-term pain management and fitness. 05/27/20 - Wait list for aquatic LTG Duration 3 months - 09/02/20 4 Impairment ROM Snf Goal (LTG) Improve LE and trunk ROM to WFL with minimal to no pain ( good goal progress) LTG Duration 3 months - 09/02/20 3 Impairment cervical ROM Short Term Goal (STG) Pt will improve cervical lateral flexion to 35 degrees or greater bilaterally 05/27/20 - PROGRESSING 26 (R) and 28 (L) 04/29/20- IMPROVING- 31 degrees R, 33 degrees L STG Duration 6 weeks - 04/22/2020 Sewer Pipe Layer Helper Goal (LTG) Pt will improve cervical rotation to 60 degrees or greater bilaterally for improved ability to turn head while driving. 05/27/20 - B 50 deg LTG Duration 3 months - 09/02/20 2 Impairment posture Short Term Goal (STG) Pt will self-correct cervical and thoracic posture for improvement in pain symptoms 04/29/20- IMPROVING- pt continues to have some pain in CS but is able to self- correct posture STG Duration 6 weeks - 04/22/2020 One Impairment increased density cervical paraspinals and upper traps Short Term Goal (STG) Pt will demonstrate reduced tone in cervical musculature and upper traps PROGRESSING STG Duration 6 weeks - 04/22/2020 Sewer Pipe Layer Helper Goal (LTG) Pt will score 25/50 or less on NDI to represent improved daily function related to neck pain. 05/27/20 - Pt scores 75% disability. Revisiting earlier score, pt actually scored 60% disability. New goal: Pt scores 40% or less on NDI. LTG Duration 3 months - 09/02/20 Assessment Summary Assessment Pt had increased pain after squats with weight last sesison. Perfomred squats without weights today focusing on form. Pt needs cues for throacic ext. when squatting but shows improved form with LEs. Focused on strengthening core to decrease LBP with quadruped exercise, extending LEs with pt requiring manual cues to avoid lumbar extension and excessive lateral weight shift. Modified ROM with pt able to complete LE extension with better form. Pt can hold correct form during modified plank on knees for ~15 sec before fatigue. Physical Therapy Plan Frequency and Duration Frequency of Treatment 1-2 x /week Duration of Treatment 3 months Plan of Care Start Date 06/03/20 Plan of Care End Date 09/02/20 Therapeutic Interventions Therapeutic Interventions Home Exercise Program,Joint Mobilizations,Manual Therapy, Neuromuscular Re-education, Patient/Caregiver Education, Self-Care/Home Management,Soft Tissue Mobilization,Taping, Therapeutic Activities, Therapeutic Exercises Modalities Cold Pack/Ice Massage,Electric Stimulation,Hot Packs Next Visit Focus/Plan Next Note Type Treatment Note Next Visit Plan work on quadruped and modified planks watcing for pt going into lumbar extension Progress core and proximal strengthening in standing as tolerated. Consider loading backpack for loaded squat/dl.
--- NOTE | 2020-08-31 11:06 | PT.OTN ---
Current Diagnoses Abnormal posture (08/31/20) Strain of muscle, fascia and tendon at neck level, subsequent encounter (08/31/20) Strain of muscle, fascia and tendon of lower back, subsequent encounter (08/31/20) Arthrodesis status (08/31/20) Physical Therapy Treatment Note PT-OP-A Visit Information Start: 03/11/20 09:17 Freq: Status: Active Protocol: Document 08/31/20 10:26 MA (Rec: 08/31/20 11:06 MA [id number]) Out-Patient Physical Therapy Visit Information Visit Information Visit Type Treatment Note Visit Start Time 10:15 Visit Stop Time 10:55 Total Visit Minutes 40 Visit Number 28 Number of 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 Symptoms improved after recent surgeries but pt continues to have pain especially if she overdoes it. Overall, her right side is worse than her left. She is currently walking ~1/16 mi with incline but can typically do 1/8 mile when feeling well. Prior Treatments and Tests late s - cervical discectomy aqua therapy 12/05/19 - C5-7 ACDF 02/11/20 - foraminectomy L5-S1 Future Testing and Treatments Planned Septoplasty mid-April Treatment Goals Patient/Caregiver Goals Reduce tone in shoulders Improve cervical ROM Increase walking tolerance Prior Functional Status Baseline Function- ADL's Modified Independent Baseline Function- Mobility Modified Independent Baseline Function- Gait ambulates with SPC vs FWW for stairs, inclines, long distance 2/2 R knee pn Baseline Function- Other able to walk from hospital to [facility] with FWW Current Functional Impairments (Reported) Functional Limitations- ADL's needs equipment for showers, no assist Functional Limitations- Mobility/Gait can walk from hospital to [facility] but has increased back pain for days afterward PT-OP-C Subjective Start: 03/11/20 09:17 Freq: Status: Active Protocol: Document 08/31/20 10:26 MA (Rec: 08/31/20 11:06 MA [id number]) OP-PT Subjective Patient Comments Patient Comments Selina has increased CS pain after shampooing carpets and putting together two bedframes over the past few days. PT-OP-D Balance Start: 03/11/20 09:17 Freq: Status: Active Protocol: Document 03/18/20 11:15 AW (Rec: 03/18/20 13:00 AW [email or web address]) OP-PT Balance Assessment Sitting Balance Static Sitting Balance Ability Normal Dynamic Sitting Balance Ability Normal Standing Balance Static Standing Balance Ability Good Dynamic Standing Balance Ability Good Balance Tests Single Limb Standing Single Limb- Right 3 sec, 3 sec, 6 sec Single Limb- Left 6 sec, 6 sec, 6 sec Brown Fall Scale Copyright Permission PT-OP-E Functional Tests Start: 03/11/20 09:17 Freq: Status: Active Protocol: Document 03/18/20 11:15 AW (Rec: 03/18/20 13:01 AW [email or web address]) Functional Tests Other SL squat from table Score 25 L; unable R without LOB PT-OP-F Manual Assessment Start: 03/11/20 09:17 Freq: Status: Active Protocol: Document 03/18/20 11:15 AW (Rec: 03/18/20 13:00 AW [email or web address]) Manual Assessments Soft Tissue Assessment Soft Tissue Mobility Assessment Increased density in gluteal musculature RLE PT-OP-H Neuro Start: 03/11/20 09:17 Freq: Status: Active Protocol: Document 03/11/20 10:34 AW (Rec: 03/11/20 17:14 AW [email or web address]) Sensation Evaluation Gross Sensation Gross Sensation Right UE Impaired Sensation Description Numbness Dermatome Impairments C7 Comments Summary Comments Intermittent numbness in right posterior arm. Not reproduced on exam with neck special tests. Deep Tendon Reflex & Clonus Assessment Deep Tendon Reflex Bilateral Tricep Deep Tendon Reflex 1+ Diminished Bilateral Bicep Deep Tendon Reflex 2+ Normal PT-OP-J Posture/Palpation/Skin Start: 03/11/20 09:17 Freq: Status: Active Protocol: Document 03/11/20 10:34 AW (Rec: 03/11/20 17:14 AW [email or web address]) Posture Evaluation Position Standing Evaluation View Lateral Head/C-Spine Posture Extended,Forward Head T-Spine Posture Increased Kyphosis L-Spine Posture Flattened Shoulder Posture (L) Rounded,(R) Rounded Scapula Posture (L) Protracted,(R) Protracted Weight Distribution Weight Shifted Left Ankle/Foot Posture (L) Supinated,(R) Supinated Foot Arch (L) Medium Arch,(R) Medium Arch Palpation Assessment Location lumbar spine Palpation Location paraspinals Palpation Findings Soft Tissue Tightness,Muscle Guarding Palpation Details R more affected than L PT-OP-K Range of Motion Start: 03/11/20 09:17 Freq: Status: Active Protocol: Document 03/11/20 10:34 AW (Rec: 03/11/20 17:14 AW [email or web address]) Cervical Spine Range of Motion Cervical Spine Active Degrees Testing Position Sitting Flexion 50 Extension 30 Rotation Left 45 Rotation Right 50 Lateral Flexion Left 30 Lateral Flexion Right 25 ROM Limitations Soft Tissue Tightness,Pain Lumbar Spine Range of Motion Lumbar Spine Active Testing Position Standing Extension 15 Comments Flexion: fingertips 10 from floor with notable L3 L4 hinge Side bend: fingertips 23 from floor right side, 21 from floor left side Shoulder Goniometric Range of Motion Shoulder Left Active Testing Position Sitting Flexion 156 Extension 40 Abduction 160 Internal Rotation Behind Back (text) T7 Right Active Testing Position Sitting Flexion 160 Extension 40 Abduction 160 Internal Rotation Behind Back (text) T7 Shoulder ROM Limitations Shoulder ROM Limitations Soft Tissue Tightness,Pain Elbow/Forearm Range of Motion Elbow/Forearm Right Active Comments B elbow AROM and PROM WNL Hip Goniometric Range of Motion Hip Right Hip ROM WFL Yes Testing Position Supine Flexion w/Knee Flexed 110 Abduction 40 Comments IR limited; ER WNL Left Hip ROM WFL Yes Testing Position Supine Flexion w/Knee Flexed 110 Abduction 43 Comments IR limited but greater excursion than right Hip ROM Limitations Comments flexion limited by habitus PT-OP-L Special Tests Start: 03/11/20 09:17 Freq: Status: Active Protocol: Document 03/11/20 10:34 AW (Rec: 03/11/20 17:14 AW [email or web address]) Special Tests Cervical Spine Special Tests Slump Test Results negative Spurling's Test Test Results negative bilaterally Lumbar Spine Special Tests Straight Leg Raise Test Results active SLR positive on the right Comments some relief noted with bimanual compression through bilateral ASIS Luis Test Results positive bilaterally Comments increase in hip flexion with knees bent B Slump Test Results vaguely positive R; negative L Comments R side pt reports increased tension but no pain Shoulder Special Tests Somers Endy Impingement Test Results negative bilaterally Drop Arm Rotator Cuff Test Results negative bilaterally Hip Special Tests Scour Test Test Results negative bilaterally PT-OP-M Strength Start: 03/11/20 09:17 Freq: Status: Active Protocol: Document 03/11/20 10:34 AW (Rec: 03/11/20 17:14 AW [email or web address]) Cervical Spine Strength Cervical Spine Manual Muscle Testing Testing Position Sitting Flexion (C1-2) 4+ Good+ Extension 4 Good Rotation Left 4 Good Rotation Right 4 Good Lateral Flexion Left (C3) 4- Good- Lateral Flexion Right (C3) 4- Good- Shoulder Strength Shoulder Manual Muscle Testing Right Flexion 4+ Good+ Extension 4+ Good+ Abduction (C5) 4+ Good+ External Rotation 4+ Good+ Internal Rotation 5 Normal Comments LUE grossly 5/5 Hip Strength Hip Manual Muscle Testing Left Flexion (L2) 4+ Good+ Extension (S1) 4- Good- Abduction 4- Good- External Rotation 4+ Good+ Internal Rotation 5 Normal Right Flexion (L2) 4 Good Extension (S1) 3+ Fair+ Abduction 4- Good- External Rotation 4+ Good+ Internal Rotation 4+ Good+ Knee Strength Knee Manual Muscle Testing Left Flexion (S2) 5 Normal Extension (L3) 4+ Good+ Right Flexion (S2) 5 Normal Extension (L3) 4+ Good+ PT-OP-Q Treatments Start: 03/11/20 09:17 Freq: Status: Active Protocol: Document 08/31/20 10:26 MA (Rec: 08/31/20 11:06 MA [id number]) Therapeutic Exercises Prone Exercises child's pose Reps/Minutes 30 sec Sidelying Exercises Open Book Side bilateral Reps/Minutes x8 Sitting Exercises UT stretch Side bilateral Equipment Used with active CS lateral flexion Reps/Minutes 30 sec Comments cues to drop arm for increased stretch Standing Exercises Squats Standing Exercise Name Mini squats/tap squats over chair Side bilateral Equipment Used tb around knees for tracking Reps/Minutes 15 x 2 Comments no weights today- cues for posture Other Exercises Plank Other Exercise Name modified on knee Reps/Minutes 2x15 sec hold Comments focusing on keeping lumbar spine flexed quadruped Other Exercise Name UE then LE extending Reps/Minutes 2x5 ea Manual Therapy Treatment Soft Tissue Mobilization 1 Body Location B UT, periscapular mm, LS, SCM Mobilization Type Myofascial Release,Strumming, Sustained Pressure Intensity/Depth Moderate Body Position Supine PT-OP-R Modalities Start: 03/11/20 09:17 Freq: Status: Active Protocol: Document 07/01/20 10:22 MA (Rec: 07/01/20 11:04 MA [id number]) Electric Stimulation Electric Stimulation IFC Body Location L shoulder Duration (Minutes) 12 Intensity 29 Target/Sweep Target High/Low High Patient Position Sidelying Comments IFC L shd blade PT-OP-T Assessment and Plan Start: 03/11/20 09:17 Freq: Status: Active Protocol: Document 08/31/20 10:26 MA (Rec: 08/31/20 11:06 MA [id number]) Physical Therapy Assessment Goals Five Impairment hip strength Short Term Goal (STG) Pt will improve right hip strength equal to left for improved gait quality 05/27/20 - Progressing but R side painful groin STG Duration 6 weeks - 04/22/2020 Handkerchief Folder Goal (LTG) Pt will demonstrate SL squat from 20 surface bilaterally without LOB 05/27/20 - Best performance from 23 LTG Duration 3 months - 09/02/20 Four Impairment hyperdensity lumbar paraspinals Short Term Goal (STG) Pt will demonstrate reduced tone in lumbar musculature and glutes 05/27/20 - PROGRESSING STG Duration 6 weeks - 04/22/2020 5 Impairment strength Short Term Goal (STG) Improve TrA activation and LE strength by 1/2 grade 05/27/20 MET STG Duration 6 wks Handkerchief Folder Goal (LTG) Independent with HEP and aquatic exercise program for long-term pain management and fitness. 05/27/20 - Wait list for aquatic LTG Duration 3 months - 09/02/20 4 Impairment ROM Handkerchief Folder Goal (LTG) Improve LE and trunk ROM to WFL with minimal to no pain ( good goal progress) LTG Duration 3 months - 09/02/20 3 Impairment cervical ROM Short Term Goal (STG) Pt will improve cervical lateral flexion to 35 degrees or greater bilaterally 05/27/20 - PROGRESSING 26 (R) and 28 (L) 04/29/20- IMPROVING- 31 degrees R, 33 degrees L STG Duration 6 weeks - 04/22/2020 Handkerchief Folder Goal (LTG) Pt will improve cervical rotation to 60 degrees or greater bilaterally for improved ability to turn head while driving. 05/27/20 - B 50 deg LTG Duration 3 months - 09/02/20 2 Impairment posture Short Term Goal (STG) Pt will self-correct cervical and thoracic posture for improvement in pain symptoms 04/29/20- IMPROVING- pt continues to have some pain in CS but is able to self- correct posture STG Duration 6 weeks - 04/22/2020 One Impairment increased density cervical paraspinals and upper traps Short Term Goal (STG) Pt will demonstrate reduced tone in cervical musculature and upper traps PROGRESSING STG Duration 6 weeks - 04/22/2020 [facility] Goal (LTG) Pt will score 25/50 or less on NDI to represent improved daily function related to neck pain. 05/27/20 - Pt scores 75% disability. Revisiting earlier score, pt actually scored 60% disability. New goal: Pt scores 40% or less on NDI. LTG Duration 3 months - 09/02/20 Assessment Summary Assessment Selina shows good improvement with squats needing only theraband around knees for cues to avoid adduction of LEs . She requires heavy cues during core exercises today for avoiding lumbar extension during planks and quadruped with LE extension. Physical Therapy Plan Frequency and Duration Frequency of Treatment 1-2 x /week Duration of Treatment 3 months Plan of Care Start Date 06/03/20 Plan of Care End Date 09/02/20 Therapeutic Interventions Therapeutic Interventions Home Exercise Program,Joint Mobilizations,Manual Therapy, Neuromuscular Re-education, Patient/Caregiver Education, Self-Care/Home Management,Soft Tissue Mobilization,Taping, Therapeutic Activities, Therapeutic Exercises Modalities Cold Pack/Ice Massage,Electric Stimulation,Hot Packs Next Visit Focus/Plan Next Note Type Progress Note Next Visit Plan Update POC- if time, work on quadruped and planks watching for lumbar ext Progress core and proximal strengthening in standing as tolerated. Consider loading backpack for loaded squat/dl.
--- NOTE | 2020-09-02 12:56 | PT.OPPN ---
Current Diagnoses Abnormal posture (09/02/20) Strain of muscle, fascia and tendon at neck level, subsequent encounter (09/02/20) Strain of muscle, fascia and tendon of lower back, subsequent encounter (09/02/20) Arthrodesis status (09/02/20) Physical Therapy Progress Note PT-OP-A Visit Information Start: 03/11/20 09:17 Freq: Status: Active Protocol: Document 09/02/20 09:46 AW (Rec: 09/02/20 10:29 AW [id number]) Out-Patient Physical Therapy Visit Information Visit Information Visit Type Progress Note PT-OP-B Current Condition Start: 03/11/20 09:17 Freq: Status: Active Protocol: Document 03/11/20 10:34 AW (Rec: 03/11/20 11:19 AW [id number]) Current Condition History of Current Condition Onset Date 15 years Current Complaints neck and right shoulder pain, low back pain with recent surgeries History of Current Condition Pt with history of fibromyalgia has long standing neck and low back pain. Symptoms improved after recent surgeries but pt continues to have pain especially if she overdoes it. Overall, her right side is worse than her left. She is currently walking ~1/16 mi with incline but can typically do 1/8 mile when feeling well. Prior Treatments and Tests late s - cervical discectomy aqua therapy 12/05/19 - C5-7 ACDF 02/11/20 - foraminectomy L5-S1 Future Testing and Treatments Planned Septoplasty mid-April Treatment Goals Patient/Caregiver Goals Reduce tone in shoulders Improve cervical ROM Increase walking tolerance Prior Functional Status Baseline Function- ADL's Modified Independent Baseline Function- Mobility Modified Independent Baseline Function- Gait ambulates with SPC vs FWW for stairs, inclines, long distance 2/2 R knee pn Baseline Function- Other able to walk from hospital to [facility] with FWW Current Functional Impairments (Reported) Functional Limitations- ADL's needs equipment for showers, no assist Functional Limitations- Mobility/Gait can walk from hospital to [employer] but has increased back pain for days afterward PT-OP-C Subjective Start: 03/11/20 09:17 Freq: Status: Active Protocol: Document 09/02/20 09:46 AW (Rec: 09/02/20 10:29 AW [id number]) OP-PT Subjective Patient Comments Patient Comments Doing HEP regularly but still feels like her neck pain is not improving. LBP has improved with exercise and reduction in pavement pounding. PT-OP-D Balance Start: 03/11/20 09:17 Freq: Status: Active Protocol: Document 03/18/20 11:15 AW (Rec: 03/18/20 13:00 AW [email or web address]) OP-PT Balance Assessment Sitting Balance Static Sitting Balance Ability Normal Dynamic Sitting Balance Ability Normal Standing Balance Static Standing Balance Ability Good Dynamic Standing Balance Ability Good Balance Tests Single Limb Standing Single Limb- Right 3 sec, 3 sec, 6 sec Single Limb- Left 6 sec, 6 sec, 6 sec Brown Fall Scale Copyright Permission Stephanie JM, Stephanie RM, [place] SJ. Development of a scale to identify the fall- prone patient. Can J Aging 1989;8;366-7. Thad Brown (2009). Preventing patient falls. (2nd ed). [place]: Roman. PT-OP-E Functional Tests Start: 03/11/20 09:17 Freq: Status: Active Protocol: Document 03/18/20 11:15 AW (Rec: 03/18/20 13:01 AW [email or web address]) Functional Tests Other SL squat from table Score 25 L; unable R without LOB PT-OP-F Manual Assessment Start: 03/11/20 09:17 Freq: Status: Active Protocol: Document 03/18/20 11:15 AW (Rec: 03/18/20 13:00 AW [email or web address]) Manual Assessments Soft Tissue Assessment Soft Tissue Mobility Assessment Increased density in gluteal musculature RLE PT-OP-H Neuro Start: 03/11/20 09:17 Freq: Status: Active Protocol: Document 03/11/20 10:34 AW (Rec: 03/11/20 17:14 AW [email or web address]) Sensation Evaluation Gross Sensation Gross Sensation Right UE Impaired Sensation Description Numbness Dermatome Impairments C7 Comments Summary Comments Intermittent numbness in right posterior arm. Not reproduced on exam with neck special tests. Deep Tendon Reflex & Clonus Assessment Deep Tendon Reflex Bilateral Tricep Deep Tendon Reflex 1+ Diminished Bilateral Bicep Deep Tendon Reflex 2+ Normal PT-OP-J Posture/Palpation/Skin Start: 03/11/20 09:17 Freq: Status: Active Protocol: Document 03/11/20 10:34 AW (Rec: 03/11/20 17:14 AW [email or web address]) Posture Evaluation Position Standing Evaluation View Lateral Head/C-Spine Posture Extended,Forward Head T-Spine Posture Increased Kyphosis L-Spine Posture Flattened Shoulder Posture (L) Rounded,(R) Rounded Scapula Posture (L) Protracted,(R) Protracted Weight Distribution Weight Shifted Left Ankle/Foot Posture (L) Supinated,(R) Supinated Foot Arch (L) Medium Arch,(R) Medium Arch Palpation Assessment Location lumbar spine Palpation Location paraspinals Palpation Findings Soft Tissue Tightness,Muscle Guarding Palpation Details R more affected than L PT-OP-K Range of Motion Start: 03/11/20 09:17 Freq: Status: Active Protocol: Document 03/11/20 10:34 AW (Rec: 03/11/20 17:14 AW [email or web address]) Cervical Spine Range of Motion Cervical Spine Active Degrees Testing Position Sitting Flexion 50 Extension 30 Rotation Left 45 Rotation Right 50 Lateral Flexion Left 30 Lateral Flexion Right 25 ROM Limitations Soft Tissue Tightness,Pain Lumbar Spine Range of Motion Lumbar Spine Active Testing Position Standing Extension 15 Comments Flexion: fingertips 10 from floor with notable L3 L4 hinge Side bend: fingertips 23 from floor right side, 21 from floor left side Shoulder Goniometric Range of Motion Shoulder Measured in Degrees Left Active Testing Position Sitting Flexion 156 Extension 40 Abduction 160 Internal Rotation Behind Back (text) T7 Right Active Testing Position Sitting Flexion 160 Extension 40 Abduction 160 Internal Rotation Behind Back (text) T7 Shoulder ROM Limitations Shoulder ROM Limitations Soft Tissue Tightness,Pain Elbow/Forearm Range of Motion Elbow/Forearm Measured in Degrees Right Active Comments B elbow AROM and PROM WNL Hip Goniometric Range of Motion Hip Measured in Degrees Right Hip ROM WFL Yes Testing Position Supine Flexion w/Knee Flexed 110 Abduction 40 Comments IR limited; ER WNL Left Hip ROM WFL Yes Testing Position Supine Flexion w/Knee Flexed 110 Abduction 43 Comments IR limited but greater excursion than right Hip ROM Limitations Comments flexion limited by habitus PT-OP-L Special Tests Start: 03/11/20 09:17 Freq: Status: Active Protocol: Document 03/11/20 10:34 AW (Rec: 03/11/20 17:14 AW [email or web address]) Special Tests Cervical Spine Special Tests Slump Test Results negative Spurling's Test Test Results negative bilaterally Lumbar Spine Special Tests Straight Leg Raise Test Results active SLR positive on the right Comments some relief noted with bimanual compression through bilateral ASIS Luis Test Results positive bilaterally Comments increase in hip flexion with knees bent B Slump Test Results vaguely positive R; negative L Comments R side pt reports increased tension but no pain Shoulder Special Tests Somers Endy Impingement Test Results negative bilaterally Drop Arm Rotator Cuff Test Results negative bilaterally Hip Special Tests Scour Test Test Results negative bilaterally PT-OP-M Strength Start: 03/11/20 09:17 Freq: Status: Active Protocol: Document 03/11/20 10:34 AW (Rec: 03/11/20 17:14 AW [email or web address]) Cervical Spine Strength Cervical Spine Manual Muscle Testing Testing Position Sitting Flexion (C1-2) 4+ Good+ Extension 4 Good Rotation Left 4 Good Rotation Right 4 Good Lateral Flexion Left (C3) 4- Good- Lateral Flexion Right (C3) 4- Good- Shoulder Strength Shoulder Manual Muscle Testing Right Flexion 4+ Good+ Extension 4+ Good+ Abduction (C5) 4+ Good+ External Rotation 4+ Good+ Internal Rotation 5 Normal Comments LUE grossly 5/5 Hip Strength Hip Manual Muscle Testing Left Flexion (L2) 4+ Good+ Extension (S1) 4- Good- Abduction 4- Good- External Rotation 4+ Good+ Internal Rotation 5 Normal Right Flexion (L2) 4 Good Extension (S1) 3+ Fair+ Abduction 4- Good- External Rotation 4+ Good+ Internal Rotation 4+ Good+ Knee Strength Knee Manual Muscle Testing Left Flexion (S2) 5 Normal Extension (L3) 4+ Good+ Right Flexion (S2) 5 Normal Extension (L3) 4+ Good+ PT-OP-T Assessment and Plan Start: 03/11/20 09:17 Freq: Status: Active Protocol: Document 09/02/20 10:30 AW (Rec: 09/02/20 12:55 AW [email or web address]) Physical Therapy Assessment Goals Five Impairment hip strength Short Term Goal (STG) Pt will improve right hip strength equal to left for improved gait quality 05/27/20 - Progressing but R side painful groin STG Duration 6 weeks - 04/22/2020 District Customs Director Goal (LTG) Pt will demonstrate SL squat from 20 surface bilaterally without LOB 05/27/20 - Best performance from 23 09/02/20 - Completed from 21 surface bilaterally with good stability LTG Duration 3 months - 09/02/20 Four Impairment hyperdensity lumbar paraspinals Short Term Goal (STG) Pt will demonstrate reduced tone in lumbar musculature and glutes 05/27/20 - PROGRESSING STG Duration 6 weeks - 04/22/2020 5 Impairment strength Short Term Goal (STG) Improve TrA activation and LE strength by 1/2 grade 05/27/20 MET STG Duration 6 wks District Customs Director Goal (LTG) Independent with HEP and aquatic exercise program for long-term pain management and fitness. 05/27/20 - Wait list for aquatic 09/02/20 IND with HEP. Continued wait list for aquatic. LTG Duration 3 months - 09/02/20 4 Impairment ROM District [employer] Director Goal (LTG) Improve LE and trunk ROM to WFL with minimal to no pain ( good goal progress) 09/02/20 MET LTG Duration 3 months - 09/02/20 3 Impairment cervical ROM Short Term Goal (STG) Pt will improve cervical lateral flexion to 35 degrees or greater bilaterally 05/27/20 - PROGRESSING 26 (R) and 28 (L) 04/29/20- IMPROVING- 31 degrees R, 33 degrees L 09/02/20 40 degrees left; 35 degrees right but painful STG Duration 6 weeks - 04/22/2020 Half-Way Goal (LTG) Pt will improve cervical rotation to 60 degrees or greater bilaterally for improved ability to turn head while driving. 05/27/20 - B 50 deg 09/02/20 B 55 degrees LTG Duration 3 months - 09/02/20 2 Impairment posture Short Term Goal (STG) Pt will self-correct cervical and thoracic posture for improvement in pain symptoms 04/29/20- IMPROVING- pt continues to have some pain in CS but is able to self- correct posture STG Duration 6 weeks - 04/22/2020 One Impairment increased density cervical paraspinals and upper traps Short Term Goal (STG) Pt will demonstrate reduced tone in cervical musculature and upper traps PROGRESSING STG Duration 6 weeks - 04/22/2020 Half-Way Goal (LTG) Pt will score 25/50 or less on NDI to represent improved daily function related to neck pain. 05/27/20 - Pt scores 75% disability. Revisiting earlier score, pt actually scored 60% disability. New goal: Pt scores 40% or less on NDI. 09/02/20 NOT ASSESSED. LTG Duration 3 months - 09/02/20 Progress Towards Goals Progress Towards Goals Progressing Toward Goals Progress Comments Pt shows good progress with lumbar stability, mobility, and strength. She has improved her body mechanics to allow for greater ease with lifting. Pt continues to deal with chronic neck pain. Assessment Summary Assessment Pt shows good progress with lumbar stability, mobility, and strength. She has improved her body mechanics to allow for greater ease with lifting. Pt continues to deal with chronic neck pain. Will meet with pt one last time next week to determine readiness for discharge. Physical Therapy Plan Frequency and Duration Frequency of Treatment 1x/Week Duration of Treatment 6 weeks Plan of Care Start Date 09/02/20 Plan of Care End Date 10/14/20 Therapeutic Interventions Therapeutic Interventions Home Exercise Program,Joint Mobilizations,Manual Therapy, Neuromuscular Re-education, Patient/Caregiver Education, Self-Care/Home Management,Soft Tissue Mobilization,Taping, Therapeutic Activities, Therapeutic Exercises Modalities Cold Pack/Ice Massage,Electric Stimulation,Hot Packs Next Visit Focus/Plan Next Note Type Discharge Summary
--- NOTE | 2020-09-02 12:56 | PT.OPPOC ---
Physical, Occupational & Speech Therapy At [facility] Current Diagnoses Abnormal posture (09/02/20) Strain of muscle, fascia and tendon at neck level, subsequent encounter (09/02/20) Strain of muscle, fascia and tendon of lower back, subsequent encounter (09/02/20) Arthrodesis status (09/02/20) Visit Care Team Role Provider Type Benson Perez MD Family Provider Physician Primary Care Provider Specialty: Internal Medicine Address: [address] [place] [address], [facility] [address], [place], [address] Email: [email or web address] Ulysses Levi MD Attending Provider Physician Referring Provider Specialty: Orthopedic Surgery Address: [address] [place] [address], [id number] Email: Plan Of Care PT-OP-T Assessment and Plan Start: 03/11/20 09:17 Freq: Status: Active Protocol: Document 09/02/20 10:30 AW (Rec: 09/02/20 12:55 AW [email or web address]) Physical Therapy Assessment Goals Five Impairment hip strength Short Term Goal (STG) Pt will improve right hip strength equal to left for improved gait quality 05/27/20 - Progressing but R side painful groin STG Duration 6 weeks - 04/22/2020 Other Wood Processing Machine Operator Goal (LTG) Pt will demonstrate SL squat from 20 surface bilaterally without LOB 05/27/20 - Best performance from 23 09/02/20 - Completed from 21 surface bilaterally with good stability LTG Duration 3 months - 09/02/20 Four Impairment hyperdensity lumbar paraspinals Short Term Goal (STG) Pt will demonstrate reduced tone in lumbar musculature and glutes 05/27/20 - PROGRESSING STG Duration 6 weeks - 04/22/2020 5 Impairment strength Short Term Goal (STG) Improve TrA activation and LE strength by 1/2 grade 05/27/20 MET STG Duration 6 wks Residential Goal (LTG) Independent with HEP and aquatic exercise program for long-term pain management and fitness. 05/27/20 - Wait list for aquatic 09/02/20 IND with HEP. Continued wait list for aquatic. LTG Duration 3 months - 09/02/20 4 Impairment ROM Other Wood Processing Machine Operator Goal (LTG) Improve LE and trunk ROM to WFL with minimal to no pain ( good goal progress) 09/02/20 MET LTG Duration 3 months - 09/02/20 3 Impairment cervical ROM Short Term Goal (STG) Pt will improve cervical lateral flexion to 35 degrees or greater bilaterally 05/27/20 - PROGRESSING 26 (R) and 28 (L) 04/29/20- IMPROVING- 31 degrees R, 33 degrees L 09/02/20 40 degrees left; 35 degrees right but painful STG Duration 6 weeks - 04/22/2020 Residential Goal (LTG) Pt will improve cervical rotation to 60 degrees or greater bilaterally for improved ability to turn head while driving. 05/27/20 - B 50 deg 09/02/20 B 55 degrees LTG Duration 3 months - 09/02/20 2 Impairment posture Short Term Goal (STG) Pt will self-correct cervical and thoracic posture for improvement in pain symptoms 04/29/20- IMPROVING- pt continues to have some pain in CS but is able to self- correct posture STG Duration 6 weeks - 04/22/2020 One Impairment increased density cervical paraspinals and upper traps Short Term Goal (STG) Pt will demonstrate reduced tone in cervical musculature and upper traps PROGRESSING STG Duration 6 weeks - 04/22/2020 Residential Goal (LTG) Pt will score 25/50 or less on NDI to represent improved daily function related to neck pain. 05/27/20 - Pt scores 75% disability. Revisiting earlier score, pt actually scored 60% disability. New goal: Pt scores 40% or less on NDI. 09/02/20 NOT ASSESSED. LTG Duration 3 months - 09/02/20 Progress Towards Goals Progress Towards Goals Progressing Toward Goals Progress Comments Pt shows good progress with lumbar stability, mobility, and strength. She has improved her body mechanics to allow for greater ease with lifting. Pt continues to deal with chronic neck pain. Assessment Summary Assessment Pt shows good progress with lumbar stability, mobility, and strength. She has improved her body mechanics to allow for greater ease with lifting. Pt continues to deal with chronic neck pain. Will meet with pt one last time next week to determine readiness for discharge. Physical Therapy Plan Frequency and Duration Frequency of Treatment 1x/Week Duration of Treatment 6 weeks Plan of Care Start Date 09/02/20 Plan of Care End Date 10/14/20 Therapeutic Interventions Therapeutic Interventions Home Exercise Program,Joint Mobilizations,Manual Therapy, Neuromuscular Re-education, Patient/Caregiver Education, Self-Care/Home Management,Soft Tissue Mobilization,Taping, Therapeutic Activities, Therapeutic Exercises Modalities Cold Pack/Ice Massage,Electric Stimulation,Hot Packs Next Visit Focus/Plan Next Note Type Discharge Summary Plan of Care Dates Plan of Care Start Date 09/02/20 Plan of Care End Date 10/14/20 Electronically Signed by: Karon Dean, RAFAEL 09/02/20 1268 Please Sign and Return: I have reviewed this Plan of Care and certify that the skilled therapy services above are required to meet the patient?s needs. Physician Signature Date Printed Name and Credentials Clinical Instructor Signature Printed Name and Credentials
--- NOTE | 2020-09-09 10:31 | PT.OTN ---
Current Diagnoses Abnormal posture (09/09/20) Strain of muscle, fascia and tendon at neck level, subsequent encounter (09/09/20) Strain of muscle, fascia and tendon of lower back, subsequent encounter (09/09/20) Arthrodesis status (09/09/20) Physical Therapy Treatment Note PT-OP-A Visit Information Start: 03/11/20 09:17 Freq: Status: Active Protocol: Document 09/09/20 10:28 AW (Rec: 09/09/20 10:30 AW [id number]) Out-Patient Physical Therapy Visit Information Visit Information Visit Type Discharge Summary Visit Start Time 09:45 Visit Stop Time 10:30 Total Visit Minutes 45 Visit Number 29 Number of [employer] Visits 0 Evaluation Information Evaluation Date 03/11/20 PT-OP-B Current Condition Start: 03/11/20 09:17 Freq: Status: Active Protocol: Document 03/11/20 10:34 AW (Rec: 03/11/20 11:19 AW [id number]) Current Condition History of Current Condition Onset Date 15 years Current Complaints neck and right shoulder pain, low back pain with recent surgeries History of Current Condition Pt with history of fibromyalgia has long standing neck and low back pain. Symptoms improved after recent surgeries but pt continues to have pain especially if she overdoes it. Overall, her right side is worse than her left. She is currently walking ~1/16 mi with incline but can typically do 1/8 mile when feeling well. Prior Treatments and Tests late s - cervical discectomy aqua therapy 12/05/19 - C5-7 ACDF 02/11/20 - foraminectomy L5-S1 Future Testing and Treatments Planned Septoplasty mid-April Treatment Goals Patient/Caregiver Goals Reduce tone in shoulders Improve cervical ROM Increase walking tolerance Prior Functional Status Baseline Function- ADL's Modified Independent Baseline Function- Mobility Modified Independent Baseline Function- Gait ambulates with SPC vs FWW for stairs, inclines, long distance 2/2 R knee pn Baseline Function- Other able to walk from hospital to [facility] with FWW Current Functional Impairments (Reported) Functional Limitations- ADL's needs equipment for showers, no assist Functional Limitations- Mobility/Gait can walk from hospital to [facility] but has increased back pain for days afterward PT-OP-C Subjective Start: 03/11/20 09:17 Freq: Status: Active Protocol: Document 09/09/20 10:28 AW (Rec: 09/09/20 10:30 AW [id number]) OP-PT Subjective Patient Comments Patient Comments Went to [place] yesterday and did a lot of walking so is a little sore today. PT-OP-D Balance Start: 03/11/20 09:17 Freq: Status: Active Protocol: Document 03/18/20 11:15 AW (Rec: 03/18/20 13:00 AW [email or web address]) OP-PT Balance Assessment Sitting Balance Static Sitting Balance Ability Normal Dynamic Sitting Balance Ability Normal Standing Balance Static Standing Balance Ability Good Dynamic Standing Balance Ability Good Balance Tests Single Limb Standing Single Limb- Right 3 sec, 3 sec, 6 sec Single Limb- Left 6 sec, 6 sec, 6 sec Brown Fall Scale Copyright Permission PT-OP-E Functional Tests Start: 03/11/20 09:17 Freq: Status: Active Protocol: Document 03/18/20 11:15 AW (Rec: 03/18/20 13:01 AW [email or web address]) Functional Tests Other SL squat from table Score 25 L; unable R without LOB PT-OP-F Manual Assessment Start: 03/11/20 09:17 Freq: Status: Active Protocol: Document 03/18/20 11:15 AW (Rec: 03/18/20 13:00 AW [email or web address]) Manual Assessments Soft Tissue Assessment Soft Tissue Mobility Assessment Increased density in gluteal musculature RLE PT-OP-H Neuro Start: 03/11/20 09:17 Freq: Status: Active Protocol: Document 03/11/20 10:34 AW (Rec: 03/11/20 17:14 AW [email or web address]) Sensation Evaluation Gross Sensation Gross Sensation Right UE Impaired Sensation Description Numbness Dermatome Impairments C7 Comments Summary Comments Intermittent numbness in right posterior arm. Not reproduced on exam with neck special tests. Deep Tendon Reflex & Clonus Assessment Deep Tendon Reflex Bilateral Tricep Deep Tendon Reflex 1+ Diminished Bilateral Bicep Deep Tendon Reflex 2+ Normal PT-OP-J Posture/Palpation/Skin Start: 03/11/20 09:17 Freq: Status: Active Protocol: Document 03/11/20 10:34 AW (Rec: 03/11/20 17:14 AW [email or web address]) Posture Evaluation Position Standing Evaluation View Lateral Head/C-Spine Posture Extended,Forward Head T-Spine Posture Increased Kyphosis L-Spine Posture Flattened Shoulder Posture (L) Rounded,(R) Rounded Scapula Posture (L) Protracted,(R) Protracted Weight Distribution Weight Shifted Left Ankle/Foot Posture (L) Supinated,(R) Supinated Foot Arch (L) Medium Arch,(R) Medium Arch Palpation Assessment Location lumbar spine Palpation Location paraspinals Palpation Findings Soft Tissue Tightness,Muscle Guarding Palpation Details R more affected than L PT-OP-K Range of Motion Start: 03/11/20 09:17 Freq: Status: Active Protocol: Document 03/11/20 10:34 AW (Rec: 03/11/20 17:14 AW [email or web address]) Cervical Spine Range of Motion Cervical Spine Active Degrees Testing Position Sitting Flexion 50 Extension 30 Rotation Left 45 Rotation Right 50 Lateral Flexion Left 30 Lateral Flexion Right 25 ROM Limitations Soft Tissue Tightness,Pain Lumbar Spine Range of Motion Lumbar Spine Active Testing Position Standing Extension 15 Comments Flexion: fingertips 10 from floor with notable L3 L4 hinge Side bend: fingertips 23 from floor right side, 21 from floor left side Shoulder Goniometric Range of Motion Shoulder Left Active Testing Position Sitting Flexion 156 Extension 40 Abduction 160 Internal Rotation Behind Back (text) T7 Right Active Testing Position Sitting Flexion 160 Extension 40 Abduction 160 Internal Rotation Behind Back (text) T7 Shoulder ROM Limitations Shoulder ROM Limitations Soft Tissue Tightness,Pain Elbow/Forearm Range of Motion Elbow/Forearm Right Active Comments B elbow AROM and PROM WNL Hip Goniometric Range of Motion Hip Right Hip ROM WFL Yes Testing Position Supine Flexion w/Knee Flexed 110 Abduction 40 Comments IR limited; ER WNL Left Hip ROM WFL Yes Testing Position Supine Flexion w/Knee Flexed 110 Abduction 43 Comments IR limited but greater excursion than right Hip ROM Limitations Comments flexion limited by habitus PT-OP-L Special Tests Start: 03/11/20 09:17 Freq: Status: Active Protocol: Document 03/11/20 10:34 AW (Rec: 03/11/20 17:14 AW [email or web address]) Special Tests Cervical Spine Special Tests Slump Test Results negative Spurling's Test Test Results negative bilaterally Lumbar Spine Special Tests Straight Leg Raise Test Results active SLR positive on the right Comments some relief noted with bimanual compression through bilateral ASIS Luis Test Results positive bilaterally Comments increase in hip flexion with knees bent B Slump Test Results vaguely positive R; negative L Comments R side pt reports increased tension but no pain Shoulder Special Tests Somers Endy Impingement Test Results negative bilaterally Drop Arm Rotator Cuff Test Results negative bilaterally Hip Special Tests Scour Test Test Results negative bilaterally PT-OP-M Strength Start: 03/11/20 09:17 Freq: Status: Active Protocol: Document 03/11/20 10:34 AW (Rec: 03/11/20 17:14 AW [email or web address]) Cervical Spine Strength Cervical Spine Manual Muscle Testing Testing Position Sitting Flexion (C1-2) 4+ Good+ Extension 4 Good Rotation Left 4 Good Rotation Right 4 Good Lateral Flexion Left (C3) 4- Good- Lateral Flexion Right (C3) 4- Good- Shoulder Strength Shoulder Manual Muscle Testing Right Flexion 4+ Good+ Extension 4+ Good+ Abduction (C5) 4+ Good+ External Rotation 4+ Good+ Internal Rotation 5 Normal Comments LUE grossly 5/5 Hip Strength Hip Manual Muscle Testing Left Flexion (L2) 4+ Good+ Extension (S1) 4- Good- Abduction 4- Good- External Rotation 4+ Good+ Internal Rotation 5 Normal Right Flexion (L2) 4 Good Extension (S1) 3+ Fair+ Abduction 4- Good- External Rotation 4+ Good+ Internal Rotation 4+ Good+ Knee Strength Knee Manual Muscle Testing Left Flexion (S2) 5 Normal Extension (L3) 4+ Good+ Right Flexion (S2) 5 Normal Extension (L3) 4+ Good+ PT-OP-Q Treatments Start: 03/11/20 09:17 Freq: Status: Active Protocol: Document 09/09/20 10:28 AW (Rec: 09/09/20 10:30 AW [id number]) Therapeutic Exercises Prone Exercises child's pose Reps/Minutes 30 sec x 3 Standing Exercises hip hinge Standing Exercise Name with and without resistance Resistance level 2 Equipment Used TB Reps/Minutes 10 x 2 Comments for HEP modified plantigrade plank Standing Exercise Name modified plantigrade plank Comments arms on low countertop for home heel raise Standing Exercise Name heel raise Side bilateral Equipment Used 4 step Reps/Minutes 10 x 2 Comments followed by RUFINA stretch Other Exercises cat cow Other Exercise Name cat cow Comments and C shape; cues for TATO Plank Other Exercise Name modified on knee Reps/Minutes 3x15 sec hold Comments focusing on keeping lumbar spine flexed Self-Care/Home Management Treatment Education Patient Education Home Exercise Program Other Education Consolidated HEP for discharge . PT-OP-R Modalities Start: 03/11/20 09:17 Freq: Status: Active Protocol: Document 07/01/20 10:22 MA (Rec: 07/01/20 11:04 MA [id number]) Electric Stimulation Electric Stimulation IFC Body Location L shoulder Duration (Minutes) 12 Intensity 29 Target/Sweep Target High/Low High Patient Position Sidelying Comments IFC L shd blade PT-OP-T Assessment and Plan Start: 03/11/20 09:17 Freq: Status: Active Protocol: Document 09/09/20 10:28 AW (Rec: 09/09/20 10:30 AW [id number]) Physical Therapy Assessment Goals Five Impairment hip strength Short Term Goal (STG) Pt will improve right hip strength equal to left for improved gait quality 05/27/20 - Progressing but R side painful groin STG Duration 6 weeks - 04/22/2020 Penitentiary Goal (LTG) Pt will demonstrate SL squat from 20 surface bilaterally without LOB 05/27/20 - Best performance from 23 09/02/20 - Completed from 21 surface bilaterally with good stability LTG Duration 3 months - 09/02/20 Four Impairment hyperdensity lumbar paraspinals Short Term Goal (STG) Pt will demonstrate reduced tone in lumbar musculature and glutes 05/27/20 - PROGRESSING STG Duration 6 weeks - 04/22/2020 5 Impairment strength Short Term Goal (STG) Improve TrA activation and LE strength by 1/2 grade 05/27/20 MET STG Duration 6 wks Penitentiary Goal (LTG) Independent with HEP and aquatic exercise program for long-term pain management and fitness. 05/27/20 - Wait list for aquatic 09/02/20 IND with HEP. Continued wait list for aquatic. LTG Duration 3 months - 09/02/20 4 Impairment ROM Adjunct Spanish Instructor Goal (LTG) Improve LE and trunk ROM to WFL with minimal to no pain ( good goal progress) 09/02/20 MET LTG Duration 3 months - 09/02/20 3 Impairment cervical ROM Short Term Goal (STG) Pt will improve cervical lateral flexion to 35 degrees or greater bilaterally 05/27/20 - PROGRESSING 26 (R) and 28 (L) 04/29/20- IMPROVING- 31 degrees R, 33 degrees L 09/02/20 40 degrees left; 35 degrees right but painful STG Duration 6 weeks - 04/22/2020 Adjunct Spanish Instructor Goal (LTG) Pt will improve cervical rotation to 60 degrees or greater bilaterally for improved ability to turn head while driving. 05/27/20 - B 50 deg 09/02/20 B 55 degrees LTG Duration 3 months - 09/02/20 2 Impairment posture Short Term Goal (STG) Pt will self-correct cervical and thoracic posture for improvement in pain symptoms 04/29/20- IMPROVING- pt continues to have some pain in CS but is able to self- correct posture STG Duration 6 weeks - 04/22/2020 One Impairment increased density cervical paraspinals and upper traps Short Term Goal (STG) Pt will demonstrate reduced tone in cervical musculature and upper traps PROGRESSING STG Duration 6 weeks - 04/22/2020 Penitentiary Goal (LTG) Pt will score 25/50 or less on NDI to represent improved daily function related to neck pain. 05/27/20 - Pt scores 75% disability. Revisiting earlier score, pt actually scored 60% disability. New goal: Pt scores 40% or less on NDI. 09/02/20 NOT ASSESSED. LTG Duration 3 months - 09/02/20 Physical Therapy Plan Frequency and Duration Frequency of Treatment 1x/Week Duration of Treatment 6 weeks Plan of Care Start Date 09/02/20 Plan of Care End Date 10/14/20 Therapeutic Interventions Therapeutic Interventions Home Exercise Program,Joint Mobilizations,Manual Therapy, Neuromuscular Re-education, Patient/Caregiver Education, Self-Care/Home Management,Soft Tissue Mobilization,Taping, Therapeutic Activities, Therapeutic Exercises Modalities Cold Pack/Ice Massage,Electric Stimulation,Hot Packs Discharge Physical Therapy Discharge Reasons Goals Met Discharge Comments Good progress with lumbar and cervical stability. Body mechanics have improved significantly with improved awareness of spinal neutral with and without load. Pt is independent with HEP and ready for discharge at this time.
== END 2020-09-09 11:02 | disposition home or self-care (01) ==
LOC: PHYS 09:45
PROVIDERS: Family Provider Student in an Organized Health Care Education/Training Program; PCP Student in an Organized Health Care Education/Training Program; Referring Provider Orthopaedic Surgery; Visit Provider Orthopaedic Surgery
DX: Z98.1 Arthrodesis status (principal); S16.1XXD Strain of muscle, fascia and tendon at neck level, subsequent encounter; S39.012D Strain of muscle, fascia and tendon of lower back, subsequent encounter; R29.3 Abnormal posture
CPT/HCPCS: 97010; 97032; 97110; 97116; 97140; 97161; 97530; 97535

== ENCOUNTER → 2020-12-01 07:42 | Outpatient (CLI) | payer MEDICARE, MEDICAID, SELFPAY ==
[2020-05-12 15:29] VITALS: BMI 38.2
[2020-12-01 08:27] LABS: Hemoglobin A1C% w Est Avg Glu 5.6 % (4.0-6.0)
[2020-12-01 08:32] LABS: Alanine Aminotransferase 41 IU/L (<35); Albumin 4.4 g/dL (3.5-5.0); Albumin Globulin Ratio 1.6 (1.0-2.8); Alkaline Phosphatase 49 U/L (38-126); Aspartate Aminotransferase 37 IU/L (14-36); Bilirubin Total 0.4 mg/dL (0.2-1.3); Blood Urea Nitrogen 27 mg/dL (7-17); Calcium 9.8 mg/dL (8.4-10.2); Carbon Dioxide 29 mmol/L (22-32); Chloride 105 mmol/L (98-107); Cholesterol 225 mg/dL (140-199); Estimated Glomerular Filt Rate > 60.0 mL/min (>60); Globulin 2.7 g/dL (1.7-4.1); Glucose 95 mg/dL (70-100); HDL Cholesterol 38 mg/dL (40-60); HEMOLYSIS < 15 (0-50); LDL Cholesterol Calculated 127 mg/dL (<100); Potassium 4.7 mmol/L (3.4-5.1); Sodium 140 mmol/L (137-145); Total Protein 7.1 g/dL (6.3-8.2); Triglycerides 299 mg/dL (35-150)
[2020-12-01 09:02] LABS: Creatinine Urine Random 110.2 mg/dL
[2020-12-01 09:07] LABS: Microalbumi Creatinin Ratio Ur 6.3 ug/mg CR (<30); Microalbumin Urine Random 0.7 mg/dL (0-1.6)
== END ==
PROVIDERS: Family Provider Student in an Organized Health Care Education/Training Program; PCP Student in an Organized Health Care Education/Training Program; Referring Provider Nurse Practitioner; Visit Provider Nurse Practitioner
DX: R73.01 Impaired fasting glucose (principal); E78.2 Mixed hyperlipidemia
CPT/HCPCS: 36415; 80053; 80061; 82043; 82570; 83036

== ENCOUNTER → 2020-12-31 10:16 | Outpatient (CLI) | payer MEDICARE, MEDICAID, SELFPAY ==
[2020-05-12 15:29] VITALS: BMI 38.2
[2020-12-31 11:06] LABS: Appearance Urine UA CLEAR; Bilirubin Urine UA NEGATIVE (NEGATIVE); Color Urine UA YELLOW; Glucose Urine UA NEGATIVE (Negative); Ketones Urine UA NEGATIVE (NEGATIVE); Leukocyte Esterase Urine UA NEGATIVE (NEGATIVE); Nitrite Urine UA NEGATIVE (Negative); Occult Blood Urine UA 1+ (Negative); Protein Urine UA NEGATIVE (Negative); Specific Gravity Urine UA 1.025 (1.000-1.035); Urobilinogen Urine UA 0.2 E.U./dL (0.2)
[2020-12-31 11:30] LABS: Bacteria Urine Few (2-10); RBC Urine 0-1/HPF (0-5/HPF); Squamous Epithelial Cell Urine 5-10 /HPF (0-5/HPF); WBC Urine 0-1/HPF (0-5/HPF)
[2020-12-31 11:31] LABS: Culture Indicated Urine Cult Not Indicated
== END ==
PROVIDERS: Family Provider Student in an Organized Health Care Education/Training Program; PCP Student in an Organized Health Care Education/Training Program; Referring Provider Student in an Organized Health Care Education/Training Program; Visit Provider Student in an Organized Health Care Education/Training Program
DX: R10.9 Unspecified abdominal pain (principal)
CPT/HCPCS: 81001

== ENCOUNTER → 2021-05-17 08:46 | Outpatient (CLI) | payer MEDICARE, MEDICAID, SELFPAY ==
[2021-02-17 12:07] VITALS: BMI 38.2
--- NOTE | 2021-05-17 09:24 | DI.CT.S_ITS ---
PROCEDURE: CT CERVICAL SPINE WO CON INDICATIONS: Radiculopathy, cervical region TECHNIQUE: Noncontrast 3 mm thick sections acquired from the skull base to the T4 level. Sagittal and coronal reformats were then constructed. For radiation dose reduction, the following was used: automated exposure control, adjustment of mA and/or kV according to patient size. COMPARISON: None. FINDINGS: Image quality: This examination is somewhat limited by quantum mottle artifact. Bones: No fractures or dislocations. Visualized superior ribs are intact. Anteriorly placed disc fixation devices can be seen at C5-C6 and C6-C7. No findings of hardware failure or hardware loosening are seen. At C5-C6, there is moderate right-sided and at least moderate left-sided neural foraminal narrowing. At C6-C7, moderate to severe bilateral neural foraminal narrowing can be seen, as well as mild to moderate central canal narrowing. Bony fusion is seen at the C4-C5 disc level. Bridging anterior osteophytes are seen at C3-C4. Focal degenerative change is seen involving the C1-C2 interface anteriorly. Soft tissues: Prevertebral soft tissues are normal in thickness. No paravertebral hematomas. No apical pneumothoraces. IMPRESSION: Unremarkable postoperative hardware. Vertebral body fusion noted at C4-C5. Moderate to severe bilateral neural foraminal narrowing can be seen at C6-C7. At C5-C6, there is moderate right-sided and at least moderate left-sided neural foraminal narrowing seen. Dictated by: Terrance Calderon M.D. on 05/17/2021 at 8:48 Approved by: Terrance Calderon M.D. on 05/17/2021 at 8:51
== END ==
PROVIDERS: Family Provider Student in an Organized Health Care Education/Training Program; PCP Student in an Organized Health Care Education/Training Program; Referring Provider Orthopaedic Surgery; Visit Provider Orthopaedic Surgery
DX: M54.12 Radiculopathy, cervical region (principal); M48.02 Spinal stenosis, cervical region; Z98.1 Arthrodesis status
CPT/HCPCS: 72125

== ENCOUNTER 2021-06-24 07:41 | Outpatient (CLI) | payer MEDICARE, MEDICAID, SELFPAY ==
[2021-02-17 12:07] VITALS: BMI 38.2
== END 2021-06-24 18:00 | disposition home or self-care (01) ==
LOC: PHYS 07:43
PROVIDERS: Family Provider Student in an Organized Health Care Education/Training Program; PCP Student in an Organized Health Care Education/Training Program; Referring Provider Orthopaedic Surgery; Visit Provider Orthopaedic Surgery
DX: Z98.1 Arthrodesis status (principal); S16.1XXD Strain of muscle, fascia and tendon at neck level, subsequent encounter; M54.12 Radiculopathy, cervical region
CPT/HCPCS: 95886; 95909